=== PATIENT | female | born 1955 | race Caucasian/White ===

== ENCOUNTER 2023-12-16 12:56 | Outpatient (RCR) | payer OTHER, SELFPAY | END 2023-12-17 11:15 | disposition home or self-care (01) | LOC: OT 12:56 | PROVIDERS: PCP Family Medicine; Visit Provider Family Medicine | DX: G80.3 Athetoid cerebral palsy (principal); R53.1 Weakness; Z99.3 Dependence on wheelchair; R26.81 Unsteadiness on feet | CPT/HCPCS: 97165 ==

== ENCOUNTER 2024-01-19 12:29 | Outpatient (REF) | payer OTHER, SELFPAY | END 2024-01-19 12:30 | disposition home or self-care (01) | LOC: LAB 12:29 | PROVIDERS: PCP Family Medicine; Visit Provider Family Medicine | DX: K52.9 Noninfective gastroenteritis and colitis, unspecified (principal) | CPT/HCPCS: 87045; 87046; 87427 ==

== ENCOUNTER 2024-05-16 09:34 | Outpatient (OUT) | payer OTHER, SELFPAY ==
--- OUTSIDE RECORDS SUMMARY | 2024-05-16 09:39 | XMS_ITS | CCD ---
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 Name Role Phone DEREK ., DR ESPINOZA Admitting Unavailable HEMEYER ., DR ESPINOZA Attending Unavailable HEMEYER ., DR ESPINOZA Primary Care Unavailable HEMEYER ., DR ESPINOZA Attending Unavailable HEMEYER ., DR ESPINOZA Consulting Unavailable HEMEYER ., DR ESPINOZA Primary Care Unavailable HEMEYER ., DR ESPINOZA Admitting Unavailable HAMBURG, DR VICKI Fulton Consulting Unavailable HEMEYER ., DR ESPINOZA Admitting Unavailable HEMEYER ., DR ESPINOZA Attending Unavailable HEMEYER ., DR ESPINOZA Consulting Unavailable HEMEYER ., DR ESPINOZA Primary Care Unavailable SYBIL, DR RENARD Vincent Consulting Unavailable SUKHJINDER, DR ESTUARDO Sim Attending Unavailnahid CANCHOLA, DR WAYNE Vincent Consulting Unavailable SUKHJINDER, DR ESTUARDO Sim Admitting Unavailnahid e DEREK ., DR ESPINOZA Primary Care Unavailable SUKHJINDER, DR ESTUARDO Sim Consulting UnavailBEATRIZ Nash Consulting Unavailable DEREK, OLGA Grace Attending Unavailable DEREK, OLGA Grace Attending Unavailable Medications Current Medications Medication Drug Class(es) Dates Sig (Normalized) Sig (Original) ALPRAZolam 0.25 mg oral tablet (2 sources) Benzodiazepine Start: 04-10-2024 take 0.5-1 tablets by mouth three times daily as needed Alprazolam Active 0 PO Three times daily April 10, 2024 12:00am 0.5-1 tablet orally three times daily PRN; azithromycin 250 mg oral tablet (1 source) Macrolide Antimicrobial Start: 04-16-2024 Azithromycin Active 250 MG PO daily 6 5 April 16, 2024 12:00am take 2 today and then 1 for the next 4 days. baclofen 10 mg oral tablet (4 sources) gamma-Aminobutyric Acid-ergic Agonist Start: 04-10-2024 End: 04-10-2024 Baclofen Active 0 PO Three times daily 120 30 April 10, 2024 1:56pm 1 tablet in AM, 1 tablet at noon, and 2 tablets at bedtime orally three times daily; benzonatate 200 mg oral capsule (1 source) Non-narcotic Antitussive Start: 04-16-2024 take 200 mg by mouth three times daily Benzonatate Active 200 MG PO Three times daily 22 08April 16, 2024 12:00am escitalopram 10 mg oral tablet (4 sources) Serotonin Reuptake Inhibitor Start: 04-10-2024 End: 04-10-2024 take 10 mg by mouth once daily Escitalopram Oxalate Active 10 MG PO Daily April 10, 2024 2:02pm 24 hr metoprolol succinate 25 mg extended release oral tablet (4 sources) beta-Adrenergic Ricardo Start: 04-10-2024 End: 04-10-2024 take 25 mg by mouth once daily Metoprolol Succinate Active 25 MG PO Daily April 10, 2024 2:03pm zolpidem tartrate 10 mg oral tablet (2 sources) gamma-Aminobutyric Acid-ergic Agonist Start: 04-10-2024 take 10 mg by mouth once daily at bedtime Zolpidem Active 10 MG PO Daily at bedtime April 10, 2024 12:00am Problems Active Problems Problem Classification Problem Date Documented Date Episodic/Chronic Anxiety disorders (6 sources) Generalized anxiety disorder; Translations: [Generalized anxiety disorder] 04-10-2024 Chronic Cardiac dysrhythmias (2 sources) Cardiac arrhythmia; Translations: [Cardiac arrhythmia, unspecified] 04-10-2024 Chronic Chronic obstructive pulmonary disease and bronchiectasis (2 sources) Bronchitis; Translations: [Bronchitis, not specified as acute or chronic] 04-16-2024 Episodic Essential hypertension (4 sources) Hypertensive disorder; Translations: [Essential (primary) hypertension] 04-10-2024 Chronic Malaise and fatigue (1 source) Chronic fatigue, unspecified; Translations: [CHRONIC FATIGUE UNSPECIFIED] Onset: 04-23-2022 Chronic Menopausal disorders (1 source) Menopausal and female climacteric states; Translations: [MENOPAUSAL FE CLIMACTERIC STATES] Onset: 04-23-2022 Chronic Osteoporosis (1 source) Age-related osteoporosis without current pathological fracture; Translations: [AGE-REL OSTEOPOR W/O CURR PATH FX] Onset: 04-23-2022 Chronic Other hereditary and degenerative nervous system conditions (4 sources) Athetoid cerebral palsy; 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] Onset: 03-04-2023 Chronic Other nervous system disorders (1 source) Difficulty in walking, not elsewhere classified; Translations: [DIFFICULTY IN WALKING NEC] Onset: 03-07-2023 Chronic Other screening for suspected conditions (not mental disorders or infectious disease) (11 sources) Encounter for screening mammogram for malignant neoplasm of breast; Translations: [Encounter for screening for osteoporosis] Onset: 04-21-2022 Episodic Paralysis (5 sources) Cerebral palsy, unspecified; Translations: [Cerebral palsy] Onset: 06-22-2022 04-10-2024 Chronic Residual codes; unclassified (2 sources) Insomnia; Translations: [Insomnia, unspecified] 04-10-2024 Episodic Residual codes; unclassified (2 sources) Postmenopausal state; Translations: [Asymptomatic menopausal state] 04-10-2024 Episodic Residual codes; unclassified (1 source) Insomnia, unspecified; Translations: [Insomnia, unspecified] 04-10-2024 Episodic Substance-related disorders (5 sources) Nicotine dependence, cigarettes, uncomplicated; Translations: [NICOTINE DEPEND CIGARETTES UNCOMP] Onset: 06-22-2022 Chronic Unclassified (1 source) CONTACT W/AND (SUSP) EXPOS COVID-19; Translations: [CONTACT W/AND (SUSP) EXPOS COVID-19] Onset: 06-22-2022 Past or Other Problems Problem Classification Problem Date Documented Da te Episodic/Chronic Noninfectious gastroenteritis (1 source) Noninfective gastroenteritis and colitis, unspecified; Translations: [NONINFECTIVE GE AND COLITIS UNS] Onset: 06-22-2022 Episodic Other aftercare (1 source) Other nursing home (current) drug therapy; Translations: [OTH OILER BANDER CURRENT DRUG THERAPY] Onset: 06-22-2022 Episodic Other gastrointestinal disorders (3 sources) Diarrhea, unspecified; Translations: [DIARRHEA UNSPECIFIED] Onset: 2022 Episodic Other lower respiratory disease (1 source) Solitary pulmonary nodule; Translations: [SOLITARY PULMONARY NODULE] Onset: 07-11-2022 Episodic Residual codes; unclassified (1 source) Family history of malignant neoplasm of ovary; Translations: [FAM HX MALIGNANT NEOPLASM OVARY] Onset: 04-23-2022 Episodic Residual codes; unclassified (1 source) Family history of malignant neoplasm of other organs or systems; Translations: [FAM HX MALIG NEOPLASM OTH ORGN/SYS] Onset: 04-23-2022 Episodic Results Test Name Value Interpretation Reference Range Facil ity CT CHEST WO CONon 07-06-2022 CT CHEST WO CON EXAMINATION: CT CHES T WO CON HISTORY: Tobacco dependence caused by cigarettes COMPARISON: CT abdomen and pelvis 2022 TECHNIQUE: Axial, Coronal, and Sagittal images were created without the administration of IV contrast material. Dose reduction techniques were achieved by using automated exposure control and/or adjustment of mA and/or kV according to patient size and/or use of iterative reconstruction technique. FINDINGS: LUNGS: 5 mm pleural-based nodule within lateral basilar segment of right lower lobe. Stable 4 mm nodule within the lateral aspect of the lingula. Stable 6 mm nodule versus scarring within anterior left lung base adjacent the diaphragm. Mild emphysematous changes. No acute infiltrates. PLEURA: Left apical pleural scarring. No effusion or pneumothorax. VASCULATURE: No abnormality. TAMIKA: No mass or pathologic adenopathy. MEDIASTINUM: No mass or pathologic adenopathy. CARDIAC: No enlargement, pericardial thickening, or significant calcification. AORTA: No aneurysm or dissection. CHEST WALL: No mass or axillary adenopathy BONES: No bone lesion or fracture. LIMITED ABDOMEN: No suspicious findings. Limited images of the upper abdomen. OTHER: Negative. IMPRESSION: 1. Lung-RADS Category 3- Probably benign. Probably benign finding(s)- short term follow up suggested; includes nodules with a low likelihood of becoming a clinically active cancer. Six month LDCT. 2. A few small nodules within the lung bases, not overtly suspicious but no long-term stability is been demonstrated. 3. Mild emphysematous changes. Electronically authenticated by: RENARD DEVINE Date: 2022-07-06 14:09 Normal [facility] AMYLASEon 2022 Amylase [Catalytic activity/Vol] 52 U/L Normal 25-115 [facility] Comment on above: Performed By: #### L IPA, NUNO #### [facility] [address] [place] [address] Dr. Becca Marroquin CBC AUTO DIFFon 2022 BASO # 0.0 103/ul Normal 0.0-0.1 [facility] Comment on above: Performed By: #### C BC #### [facility] [address] [address] [address] Becca Marroquin Basophils/100 WBC (Bld) 0.3 % Normal 0.2-2.0 [facility] Comment on above: Performed By: #### C BC #### [facility] [address] [address] [address] Becca Marroquin EO # 0.0 103/ul Normal 0.0-0.7 [facility] Comment on above: Performed By: #### C BC #### [facility] [address] [address] [address] Becca Marroquin Eosinophils/100 WBC (Bld) 0.3 % Critically low 0.9-7.0 [facility] Comment on above: Performed By: #### C BC #### [facility] [address] [place] [address] Dr. Becca Marroquin Erythrocyte distribution width (RBC) [Ratio] 13.2 % Normal 11.0-15.0 [facility] Comment on above: Performed By: #### C BC #### [facility] [address] [place] [address] Dr. Becca Marroquin Hematocrit (Bld) [Volume fraction] 39.1 % Normal 36.0-48.0 [facility] Comment on above: Performed By: #### C BC #### [facility] [address] [place] [address] Dr. Becca Marroquin Hemoglobin (Bld) [Mass/Vol] 12.7 g/dL Normal 12.0-16.0 [facility] Comment on above: Performed By: #### C BC #### [facility] [address] [address] [address] Becca Marroquin IG # 0.06 10e3/ul Critically high 0.00-0.03 [facility] Comment on above: Performed By: #### C BC #### [facility] [address] [address] [address] Becca Marroquin IG % 0.5 % Normal 0.0-0.5 [facility] Comment on above: Performed By: #### C BC #### [facility] [address] [place] [address] Dr. Becca Marroquin LYMPH # 1.6 103/ul Normal 1.2-3.8 [facility] Comment on above: Performed By: #### C BC #### [facility] [address] [place] [address] Dr. Becca Marroquin Lymphocytes/100 WBC (Bld) 13.7 % Critically low 20.5-60.0 [facility] Comment on above: Performed By: #### C BC #### [facility] [address] [place] [address] Dr. Becca Marroquin MANUAL DIFF REQ NO Normal [facility] Comment on above: Performed By: #### C BC #### [facility] [address] [place] [address] Dr. Becca Marroquin MCH (RBC) [Entitic mass] 31.0 pg Normal 26.7-34.0 [facility] Comment on above: Performed By: #### C BC #### [facility] [address] [place] [address] Dr. Becca Marroquin MCHC (RBC) [Mass/Vol] 32.5 g/dL Normal 29.9-35.2 [facility] Comment on above: Performed By: #### C BC #### [facility] [address] [place] [address] Dr. Becca Marroquin MCV (RBC) [Entitic vol] 95.4 fL Normal 81.0-99.0 [facility] Comment on above: Performed By: #### C BC #### [facility] [address] [place] [address] Dr. Becca Marroquin MONO # 0.5 103/ul Normal 0.3-0.8 [facility] Comment on above: Performed By: #### C BC #### [facility] [address] [place] [address] Dr. Becca Marroquin Monocytes/100 WBC (Bld) 4.0 % Normal 1.7-12.0 [facility] Comment on above: Performed By: #### C BC #### [facility] [address] [place] [address] Dr. Becca Marroquin NEUT # 9.4 103/ul Critically high 1.4-6.5 [facility] Comment on above: Performed By: #### C BC #### [facility] [address] [place] [address] Dr. Becca Marroquin Neutrophils/100 WBC (Bld) 81.2 % Critically high 43.0-75.0 [facility] Comment on above: Performed By: #### C BC #### [facility] [address] [place] [address] Dr. Becca Marroquin Platelet mean volume (Bld) [Entitic vol] 10.2 fL Normal 9.5-13.5 [facility] Comment on above: Performed By: #### C BC #### [facility] [address] [place] [address] Dr. Becca Marroquin PLT 163 103/ul Normal 150-450 [facility] Comment on above: Performed By: #### C BC #### [facility] [address] [place] [address] Dr. Becca Marroquin RBC 4.10 106/ul Critically low 4.20-5.40 [facility] Comment on above: Performed By: #### C BC #### [facility] [address] [place] [address] Dr. Becca Marroquin WBC 11.6 103/ul Critically high 4.0-11.0 [facility] Comment on above: Performed By: #### C BC #### [facility] [address] [place] [address] ABD/PELV W CONon 06-20-20 CT ABD/PELV W CON EXAM: CT SCAN OF THE ABDOMEN AND PELVIS WITH INTRAVENOUS CONTRAST DATE OF EXAM: 2022 6:30 PM EDT HISTORY: 67-year-old female with abdominal pain and vomiting. COMPARISON: None. TECHNIQUE: CT examination of the abdomen and pelvis was performed following the intravenous administration of IV contrast. CT dose lowering techniques were used, to include: automated exposure control, adjustment for patient size, and/or use of iterative reconstruction. Contrast: 80 mL Isovue-300 FINDINGS: Lines and Tubes: None Lower Chest: Lung bases demonstrate bibasilar atelectasis. On axial image 7 there is a 4 mm pulmonary nodule in the anterior left lingula. On axial image 11 there is a 6.5 mm pulmonary nodule LLL. Free Air: None. Liver: Normal Gallbladder: Normal Common Bile Duct: Normal Pancreas: Normal Spleen: Normal Adrenal Glands: Right: Normal Left: Normal Kidneys: Right Kidney: Normal. Right Ureter: Ureter not well visualized due to volume averaging with bowel and pelvic organs. Left Kidney: Normal. Left Ureter: Normal. GI Tract: Stomach: The stomach is fluid-filled. There is some high attenuating probable barium and/or contrast which is demonstrated layering along the posterior stomach. Small Bowel: Normal Appendix: Normal on axial image 75 Large Bowel: Normal Mesentery/Peritoneum: Normal Vasculature: Aorta: Normal. IVC: Normal. Alix Vein: Normal. Retroperitoneum: Normal Abdominal/Pelvic Wall: Normal Bladder: Normal Reproductive: The uterus is retroflexed Musculoskeletal: Normal Free Fluid: There is a small amount of free fluid in the cul-de-sac, within physiologic limits of normal. IMPRESSION: 1. Fluid-filled small bowel measures within normal. Please correlate for viral etiology. 2. Pulmonary nodules incompletely imaged. Outpatient CT scan of the chest would help better delineate to be able to evaluate the remainder of the lungs for nodules. 3. High attenuating material seen within the stomach and within the cecum may represent some barium and/or contrast. Please correlate with patient's recent by mouth history. Less likely would be etiology such as blood. 4. Normal appendix. Electronically authenticated by: BEATRIZ VAZQUEZ Date: 2022 21:24 Normal [facility] Covid-19 PCR (CVDTB)on 05-25 SARS-CoV-2 (COVID-19) RNA RON+probe Ql (Unsp spec) Not detected Normal NOT DETECTED [facility] Comment on above: Result Comment: When diagnostic testing is negative, the possibility of a false negative should be considered in the context of a patient's recent exposures and the presence of clinical signs and symptoms consistent with SARS-CoV-2. This test is not yet approved or cleared by the [place] FDA. When there are no FDA-approved or cleared tests available, and other criteria are met, FDA can make tests available under an emergency access mechanism called an Emergency Use Authorization (EUA). The EUA for this test is supported by the [place] of Health and Human Service's declaration that circumstances exist to justify the emergency use of in vitro diagnostics for the detection and/or diagnosis of the virus that causes COVID-19. This EUA will remain in effect for the duration of the COVID-19 declaration justifying emergency of IVDs, unless it is terminated or revoked by the FDA (after which the test may no longer be used). Performed By: #### C VDTBH #### [facility] [address] [place] [address] Dr. Becca Marroquin GI PANEL (PCR)on 2022 Adenovirus F 40/41 Not detected Normal NOT DETECTED [facility] Comment on above: Performed By: #### G IPANEL #### [facility] [address] [place] [address] Dr. Becca Marroquin Astrovirus Not detected Normal NOT DETECTED [facility] Comment on above: Performed By: #### G IPANEL #### [facility] [address] [place] [address] Dr. Becca Lema. Diff toxin A/B Not detected Normal NOT DETECTED [facility] Comment on above: Performed By: #### G IPANEL #### [facility] [address] [place] [address] Dr. Becca Marroquin Campylobacter Not detected Normal NOT DETECTED [facility] Comment on above: Performed By: #### G IPANEL #### [facility] [address] [place] [address] Dr. Becca Marroquin Cryptosporidium Not detected Normal NOT DETECTED [facility] Comment on above: Performed By: #### G IPANEL #### [facility] [address] [place] [address] Dr. Becca Marroquin Cyclos. Cayetanensis Not detected Normal NOT DETECTED [facility] Comment on above: Performed By: #### G IPANEL #### [facility] [address] [place] [address] Dr. Becca Marroquin E. Coli O157 Not Applicable Normal Not Applicable [facility] Comment on above: Performed By: #### G IPANEL #### [facility] [address] [place] [address] Dr. Becca Marroquin E. histolytica Not detected Normal NOT DETECTED [facility] Comment on above: Performed By: #### G IPANEL #### [facility] [address] [place] [address] Dr. Becca Marroquin EAEC Not detected Normal NOT DETECTED [facility] Comment on above: Performed By: #### G IPANEL #### [facility] [address] [place] [address] Dr. Becca Marroquin EIEC Not detected Normal NOT DETECTED [facility] Comment on above: Performed By: #### G IPANEL #### [facility] [address] [place] [address] Dr. Becca Marroquin EPEC Not detected Normal NOT DETECTED [facility] Comment on above: Performed By: #### G IPANEL #### [facility] [address] [place] [address] Dr. Becca Marroquin ETEC Not detected Normal NOT DETECTED [facility] Comment on above: Performed By: #### G IPANEL #### [facility] [address] [place] [address] Dr. Becca Moore Lamblia Not detected Normal NOT DETECTED [facility] Comment on above: Performed By: #### G IPANEL #### [facility] [address] [place] [address] Dr. Becca ASTUDILLO CONTROLS PASSED Normal [facility] Comment on above: Performed By: #### G IPANEL #### [facility] [address] [place] [address] Dr. Becca GORDON JASON HEADER GI PANEL BACTERIA Normal [facility] Comment on above: Performed By: #### G IPANEL #### [facility] [address] [place] [address] Dr. Becca GORDONHD ECOLI GI PANEL DIARRHEAGEN IC E.COLI / SHIGELLA Normal [facility] Comment on above: Performed By: #### G IPANEL #### [facility] [address] [place] [address] Dr. Becca MORENO INFO SEE BELOW Normal [facility] Comment on above: Result Comment: EAEC - Enteroaggregative E. Coli EPEC- Enteropathogenic E. Coli ETEC- Enterotoxigenic E. Coli lt/st STEC- Shigella-like toxin-producing E. Coli stx1/stx2 EIEC- Shigella/Enteroinvasive E. Coli Performed By: #### G IPANEL #### [facility] [address] [place] [address] Dr. Becca MORENO PARASITES GI PANEL PARASITES Normal [facility] Comment on above: Performed By: #### G IPANEL #### [facility] [address] [place] [address] Dr. Becca MORENO VIRUS GI PANEL VIRUSES Normal [facility] Comment on above: Performed By: #### G IPANEL #### [facility] [address] [place] [address] Dr. Becca Marroquin Norovirus GI/GII Not detected Normal NOT DETECTED [facility] Comment on above: Performed By: #### G IPANEL #### [facility] [address] [place] [address] Dr. Becca Marroquin P. Shigelloides Not detected Normal NOT DETECTED [facility] Comment on above: Performed By: #### G IPANEL #### [facility] [address] [place] [address] Dr. Becca Marroquin Rotavirus A Not detected Normal NOT DETECTED [facility] Comment on above: Performed By: #### G IPANEL #### [facility] [address] [place] [address] Dr. Becca Marroquin Salmonella Not detected Normal NOT DETECTED [facility] Comment on above: Performed By: #### G IPANEL #### [facility] [address] [place] [address] Dr. Becca Marroquin Sapovirus Not detected Normal NOT DETECTED [facility] Comment on above: Performed By: #### G IPANEL #### [facility] [address] [place] [address] Dr. Becca Marroquin STEC Not detected Normal NOT DETECTED [facility] Comment on above: Performed By: #### G IPANEL #### [facility] [address] [place] [address] Dr. Becca Marroquin Vibrio Not detected Normal NOT DETECTED [facility] Comment on above: Performed By: #### G IPANEL #### [facility] [address] [address] [address] Becca Marroquin Vibrio Cholera Not detected Normal NOT DETECTED [facility] Comment on above: Performed By: #### G IPANEL #### [facility] [address] [place] [address] Dr. Becca Marroquin Y. Enterocolitica Not detected Normal NOT DETECTED [facility] Comment on above: Performed By: #### G IPANEL #### [facility] [address] [place] [address] Dr. Becca Marroquin LIPASEon 2022 Lipase [Catalytic activity/Vol] 84.0 U/L Normal 73.0-393.0 [facility] Comment on above: Performed By: #### L IPA, NUNO #### [facility] [address] [place] [address] Dr. Becca Marroquin PROF 14(COMP METB)on 022 Albumin [Mass/Vol] 3.6 g/dL Normal 3.4-5.0 [facility] Comment on above: Performed By: #### C MP ####[facility] [address] [place] [address]Dr. Becca Marroquin Albumin/Globulin [Mass ratio] 1.4 {ratio} Normal [facility] Comment on above: Performed By: #### C MP ####[facility] [address] [place] [address]Dr. Becca Marroquin ALP [Catalytic activity/Vol] 66 U/L Normal 46-116 [facility] Comment on above: Performed By: #### C MP ####[facility] [address] [place] [address]Dr. Becca Marroquin ALT [Catalytic activity/Vol] 24 U/L Normal 14-59 [facility] Comment on above: Performed By: #### C MP ####[facility] [address] [place] [phone]. Becca Marroquin Anion gap [Moles/Vol] 11.2 mmol/L Normal [facility] Comment on above: Performed By: #### C MP ####[facility] [address] [place] [phone]. Becca Marroquin AST [Catalytic activity/Vol] 21 U/L Normal 15-37 [facility] Comment on above: Performed By: #### C MP ####[facility] [address] [place] [phone]. Becca Lopez Bilirubin [Mass/Vol] 0.3 mg/dL Normal 0.2-1.0 [facility] Comment on above: Performed By: #### C MP ####[facility] [address] [place] [address]Dr. Becca Marroquin Calcium [Mass/Vol] 8.0 mg/dL Critically low 8.5-10.1 [facility] Comment on above: Performed By: #### C MP ####[facility] [address]zp[address]xvers[address] [place] [phone]. Becca Marroquin Chloride [Moles/Vol] 110 mmol/L Critically high 98-107 [facility] Comment on above: Performed By: #### C MP ####[facility] [address] [place] [phone]. Dalilanaga Lopez CO2 [Moles/Vol] 25.2 mmol/L Normal 21.0-32.0 [facility] Comment on above: Performed By: #### C MP ####[facility] [address] [place] [phone]. Dalilanaga Marroquin Creatinine [Mass/Vol] 0.61 mg/dL Normal 0.55-1.02 [facility] Comment on above: Performed By: #### C MP ####[facility] [address] [place] [phone]. Becca Marroquin EGFR-AF KAZAKH >60 Normal >=60 [facility] Comment on above: Performed By: #### C MP ####[facility] [address] [place] [phone]. Becca Marroquin EGFR-NON AF KAZAKH >60 Normal >=60 [facility] Comment on above: Performed By: #### C MP ####[facility] [address] [place] [phone]. Becca Marroquin Globulin (S) [Mass/Vol] 2.6 g/dL Normal [facility] Comment on above: Performed By: #### C MP ####[facility] [address]es[address]rmcc[address] [place] [address]Dr. Becca Marroquin Glucose [Mass/Vol] 119 mg/dL Critically high 74-106 [facility] Comment on above: Performed By: #### C MP ####[facility] [address]sp[address] [place] [address]Dr. Becca Marroquin Potassium [Moles/Vol] 4.4 mmol/L Normal 3.5-5.1 [facility] Comment on above: Performed By: #### C MP ####[facility] [address] [place], [place] [address]Dr. Becca Marroquin Protein [Mass/Vol] 6.2 g/dL Critically low 6.4-8.2 Th [facility] Comment on above: Performed By: #### C MP ####[facility] [address] [place], [place] [address]Dr. Becca Marroquin Sodium [Moles/Vol] 142 mmol/L Normal 136-145 [facility] Comment on above: Performed By: #### C MP ####[facility] [address] [place] [address]Dr. Becca Marroquin Urea nitrogen [Mass/Vol] 16.0 mg/dL Normal 7.0-18.0 [facility] Comment on above: Performed By: #### C MP ####[facility] [address] [place] [address]Dr. Becca Marroquin Urea nitrogen/Creatinine [Mass ratio] 26.2 mg/mg Normal [facility] Comment on above: Performed By: #### C MP ####[facility] [address] [place], [place] [address]NqEtta Marroquin FREE T3on 04-21-2022 FREE T3 2.50 pg/mlL Normal 2.18-3.98 [facility] Comment on above: Performed By: #### L IPID, TSH, CMP, FT3 ####[facility] [address] [place], [place] [address]Ah. Becca Marroquin FREE T4on 04-21-2022 Free T4 [Mass/Vol] 1.14 ng/dL Normal 0.76-1.46 [facility] Comment on above: Performed By: #### F T4 #### [facility] [address] [place], [place] [address] Dr. Becca Marroquin LIPID PROFILEon 04-21-2022 CHOL-HDL RATIO NORM SEE BELOW Normal [facility] Comment on above: Result Comment: 3.3 - 4.4 LOW RISK 4.4 - 7.1 AVERAGE RISK 7.1 - 11.0 MODERATE RISK >11.0 HIGH RISK Performed By: #### L IPID, TSH, CMP, FT3 ####[facility] [address] [place], [place] [address]Mh. Becca Marroquin Cholesterol [Mass/Vol] 182 mg/dL Normal <=200 [facility] Comment on above: Performed By: #### L IPID, TSH, CMP, FT3 ####[facility] [address] [place], [place] [address]BfEtta Marroquin Cholesterol in HDL [Mass/Vol] 73 mg/dL Critically high 40-60 [facility] Comment on above: Performed By: #### L IPID, TSH, CMP, FT3 ####[facility] [address] [place], [place] [address]Lv. Becca Marroquin Cholesterol in LDL [Mass/Vol] 99.0 mg/dL Normal [facility] Comment on above: Performed By: #### L IPID, TSH, CMP, FT3 ####[facility] [address] [place], [place] [address]QlEtta Marroquin Cholesterol.total/Ch olesterol in HDL [Mass ratio] 2.5 {ratio} Normal [facility] Comment on above: Performed By: #### L IPID, TSH, CMP, FT3 ####[facility] [address] [place] [phone]. Becca Marroquin HDL NORMAL > or = 60 mg/dl - LO W CARDIOVASCULAR RISK <40 mg/dl - HIGH CARDIOVASCULAR RISK Normal [facility] Comment on above: Performed By: #### L IPID, TSH, CMP, FT3 ####[facility] [address] [place] [phone]. Becca Marroquin LDL CALC NORMAL SEE BELOW Normal [facility] Comment on above: Result Comment: <100 mg/dl OPTIMAL 100 - 129 mg/dl NEAR OR ABOVE OPTIMAL 130 - 159 mg/dl BORDERLINE HIGH 160 - 189 mg/dl HIGH >190 mg/dl VERY HIGH Performed By: #### L IPID, TSH, CMP, FT3 ####[facility] [address] [place] [address]Dr. Bceca Marroquin Triglyceride [Mass/Vol] 50 mg/dL Normal <=150 [facility] Comment on above: Performed By: #### L IPID, TSH, CMP, FT3 ####[facility] [address] [place] [address]Dr. Becca Marroquin VLDL CALC 10.0 mg/dL Normal [facility] Comment on above: Performed By: #### L IPID, TSH, CMP, FT3 ####[facility] [address] [place] [address]Dr. Becca Marroquin MG MAMM SCREEN GET W CADon 0 04-21-2022 MG MAMM SCREEN GET W CAD Patient: LORENA BARAHONA Exam Date: 04/21/2022 : 1955 Gender:F Ordering : DR OLGA REED . Admission #: [id number] Family : Order #: [id number] CLICK HERE TO VIEW EXAM RADIOLOGY REPORT PROCEDURE: MAMMOGRAM BILATERAL SCREENING DIGITAL WITH COMPUTER AIDED DETECTION COMPARISON: MAMMO SCREEN DIG GET, 11/02/2011. MG MAMM SCREEN GET W CAD, 11/29/2017. INDICATIONS: Screening mammography Calculator Name NCI Breast Cancer Risk Assessment Tool 5 Year Breast Cancer Risk 1.60% Lifetime Breast Cancer Risk 5.80% Personal Breast Cancer No Personal Ovarian Cancer No Treatments None Family Cancers Mother with ovarian cancer at age 52; Aunt-maternal with pancreas cancer at age 60. LOCATION: [facility] BREAST COMPOSITION: Heterogeneously dense,which may obscure small masses. FINDINGS: DIAGNOSTIC CATEGORY 2--BENIGN FINDING. NO CHANGE FROM COMPARISON. Limited non tomographic exam with difficulty positioning the patient from cerebral palsy. Scattered benign-appearing calcifications are present. RIGHT BREAST: No significant suspicious finding. LEFT BREAST: No significant suspicious finding. RECOMMENDATIONS: ROUTINE MAMMOGRAM AND CLINICAL EVALUATION IN 12 MONTHS. PLEASE NOTE: A NORMAL MAMMOGRAM DOES NOT EXCLUDE THE POSSIBILITY OF BREAST CANCER. A CLINICALLY SUSPICIOUS PALPABLE LUMP SHOULD BE BIOPSIED. Dictated by: Vicki Lopez MD on 04/21/2022 at 10:58 Approved by: Vicki Lopez MD on 04/21/2022 at 11:17 Normal [facility] PROF 14(COMP METB)on 022 Albumin [Mass/Vol] 4.2 g/dL Normal 3.4-5.0 [facility] Comment on above: Performed By: #### L IPID, TSH, CMP, FT3 ####[facility] [address] [place] [address]Dr. Becca Marroquin Albumin/Globulin [Mass ratio] 1.3 {ratio} Normal [facility] Comment on above: Performed By: #### L IPID, TSH, CMP, FT3 ####[facility] [address] [place] [phone]. Becca Marroquin ALP [Catalytic activity/Vol] 63 U/L Normal 46-116 [facility] Comment on above: Performed By: #### L IPID, TSH, CMP, FT3 ####[facility] [address] [place] [phone]. Becca Marroquin ALT [Catalytic activity/Vol] 29 U/L Normal 14-59 [facility] Comment on above: Performed By: #### L IPID, TSH, CMP, FT3 ####[facility] [address] [place] [phone]. Becca Marroquin Anion gap [Moles/Vol] 10.5 mmol/L Normal [facility] Comment on above: Performed By: #### L IPID, TSH, CMP, FT3 ####[facility] L[address]fs[address]ogkx20[address] [place] [address]Dr. Becca Marroquin AST [Catalytic activity/Vol] 21 U/L Normal 15-37 [facility] Comment on above: Performed By: #### L IPID, TSH, CMP, FT3 ####[facility] [address] [place], [place] [address]Dr. Becca Marroquin Bilirubin [Mass/Vol] 0.7 mg/dL Normal 0.2-1.0 [facility] Comment on above: Performed By: #### L IPID, TSH, CMP, FT3 ####[facility] [address] [place], [place] [address]Dr. Becca Marroquin Calcium [Mass/Vol] 8.9 mg/dL Normal 8.5-10.1 [facility] Comment on above: Performed By: #### L IPID, TSH, CMP, FT3 ####[facility] [address] [place], [place] [address]Dr. Becca Marroquin Chloride [Moles/Vol] 102 mmol/L Normal 98-107 [facility] Comment on above: Performed By: #### L IPID, TSH, CMP, FT3 ####[facility] [address]ch[address] [place] [address]Dr. Becca Marroquin CO2 [Moles/Vol] 25.4 mmol/L Normal 21.0-32.0 [facility] Comment on above: Performed By: #### L IPID, TSH, CMP, FT3 ####[facility] [address] [place], [place] [address]Dr. Becca Marroquin Creatinine [Mass/Vol] 0.56 mg/dL Normal 0.55-1.02 [facility] Comment on above: Performed By: #### L IPID, TSH, CMP, FT3 ####[facility] [address] [place] [address]Dr. Becca Marroquin EGFR-AF KAZAKH >60 Normal >=60 [facility] Comment on above: Performed By: #### L IPID, TSH, CMP, FT3 ####[facility] [address] [place] [address]Dr. Becca Marroquin EGFR-NON AF KAZAKH >60 Normal >=60 [facility] Comment on above: Performed By: #### L IPID, TSH, CMP, FT3 ####[facility] Y[address]fexq[address] [place] [address]Dr. Becca Marroquin Globulin (S) [Mass/Vol] 3.2 g/dL Normal [facility] Comment on above: Performed By: #### L IPID, TSH, CMP, FT3 ####[facility] [address] [place], [place] [address]Dr. Becca Marroquin Glucose [Mass/Vol] 65 mg/dL Critically low 74-106 [facility] Comment on above: Performed By: #### L IPID, TSH, CMP, FT3 ####[facility] [address] [place], [place] [address]Dr. Becca Marroquin Potassium [Moles/Vol] 3.9 mmol/L Normal 3.5-5.1 [facility] Comment on above: Performed By: #### L IPID, TSH, CMP, FT3 ####[facility] [address] [place], [place] [address]Dr. Becca Marroquin Protein [Mass/Vol] 7.4 g/dL Normal 6.4-8.2 [facility] Comment on above: Performed By: #### L IPID, TSH, CMP, FT3 ####[facility] [address] [place], [place] [address]Dr. Becca Marroquin Sodium [Moles/Vol] 134 mmol/L Critically low 136-145 [facility] Comment on above: Performed By: #### L IPID, TSH, CMP, FT3 ####[facility] [address] [place] [address]Dr. Becca Marroquin Urea nitrogen [Mass/Vol] 15.0 mg/dL Normal 7.0-18.0 [facility] Comment on above: Performed By: #### L IPID, TSH, CMP, FT3 ####[facility] [address] [place], [place] [address]Ai. Becca Marroquin Urea nitrogen/Creatinine [Mass ratio] 26.8 mg/mg Normal [facility] Comment on above: Performed By: #### L IPID, TSH, CMP, FT3 ####[facility] [address] [place], [place] [address]Ph. Becca Marroquin TSHon 04-21-2022 TSH 0.888 uIU/mL Normal 0.358-3.740 [facility] Comment on above: Performed By: #### L IPID, TSH, CMP, FT3 ####[facility] [address] [place], [place] [address]Qz. Becca Marroquin XR DEXA BONE DENSITYon 04-21 XR DEXA BONE DENSITY EXAMINATION: XR DEX A BONE DENSITY, 04/21/2022 9:26 AM EDT HISTORY: Screening for osteoporosis COMPARISON: 2011 TECHNIQUE: Dual-energy X-ray absorptiometry (DEXA) bone density study performed for the axial skeleton. FINDINGS: Bone mineral density AP spine spine L1-L4 measures 1.001 g/sq cm. T score -1.5. WHO classification: Osteopenia Lowest bone mineral density right femoral trochanter measuring 0.513 g/sq cm. T score -2.9. WHO classification: Osteoporosis IMPRESSION: Osteoporosis. High fracture risk Electronically authenticated by: VICKI LOPEZ Date: 2022-04-21 16:51 Normal [facility] Vital Signs Date Time Vital Sign Value Performing Clinician Anita meadows 04-10-2024 13:040 Body height 147.32 cm [facility] 04-10-2024 13:0400 Body mass index (BMI) [Ratio] 20.7 kg/m2 [facility] 04-10-2024 13:040 Body weight 44.96 kg [facility] 04-10-2024 13:29040 Diastolic blood pressure 88 mm[Hg] [facility] 04-10-2024 13:290400 Heart rate 67 /min [facility] 04-10-2024 13:040 SaO2% (BldA) [Mass fraction] 98 % [facility] 04-10-2024 13:290400 Systolic blood pressure 148 mm[Hg] [facility] Encounters Encounter Date Encounter Type Care Provider Facility Start: 04-16-2024 End: 04-16-2024 ambulatory [facility] Work Phone: Start: 04-16-2024 End: 04-16-2024 Patient encounter procedure [facility] Work Phone: Start: 04-10-2024 End: 04-10-2024 ambulatory [facility] Work Phone: Start: 04-10-2024 End: 04-10-2024 Patient encounter procedure [facility] Work Phone: Start: 03-05-2024 Non-patient / Non-visit [facility] Work Phone: Start: 01-18-2024 End: 01-18-2024 ambulatory OLGA REED Not Available Start: 10-06-2023 End: 10-06-2023 ambulatory OLGA REED Not Available Start: 03-04-2023 End: 03-23-[address] OLGA REED . Facility: Start: 07-06-2022 End: 07-07-[address] OLGA REED . Facility: Start: 2022 End: [address] ESTUARDO SLAUGHTRE Facility: Start: 04-21-2022 End: 04-22-[address] OLGA REED . Facility: Plan of Treatment Date Care Activity Detail Author Comprehensive metabo lic 2000 panel - Serum or Plasma [facility] enter DXA Skeletal system. axial Views for bone density [facility] enter MG Breast - bilateral Screening [facility] Payers Date Payer Category Payer Unknown [id number] 1955 Unknown [id number] 2.16.84 [id number] 1955 Unknown [id number] 2.16.84 [id number] 1955 Unknown [id number] 2.16.84 [id number] 1955 Unknown [id number] 2.16.84 [id number] 1955 Unknown [id number] 2.16.84 [id number] 1955 Unknown [id number] Social History Date Type Detail Facility Start: 04-10-2024 Tobacco smoking stat [facility] Current some day smoker [facility] Start: 1955 Sex Assigned At Female F [facility] Evaluation note Note Date & Type Note Facility Evaluation note Diagnosis Onset Date Cerebral palsy acute Generalized anxiety disorder acute Hypertension acute [facility] Work Phone: Evaluation note Note Date & Type Note Facility Evaluation note Diagnosis Onset Date Cerebral palsy acute Generalized anxiety disorder acute Hypertension acute Insomnia acute Bronchitis acute [facility] Work Phone: Summary Purpose Family History Relationship Condition Age at Onset Recorded Date/T claire father Heart disease Unknown Not Specified Malignant neoplasm Unknown Advance Directives Advance Directive Response Recorded Date/ Time Advance Directives No March 30 12:17pm Chief Complaint and Reason for Visit Chief Complaint Establish Reason for Visit Cerebral palsy Generalized anxiety disorder Hypertension Chief Complaint Establish [phone] cough, congestion, fever Reason for Visit Cerebral palsy Generalized anxiety disorder Hypertension Insomnia Bronchitis Additional Source Comments INFORMATION SOURCE (unrecogn ized section and content) DATE CREATED AUTHOR 04/01/2023 [facility] DATE CREATED AUTHOR AUTHOR'S ORGANIZ ATION 01/19/2024 [facility] EPIC Care Teams (unrecognized sec tion and content) Team Status: Active Member Role Status Dates Ro Dennison APRN SQL DATABASE ADMINISTRATOR-C Primary Care Provider Active Team Status: Active Member Role Status Dates Kamar Gotti MD Attending Provider Active Start: March 05, 2024 Team Status: Inactive Member Role Status Dates Ro Dennison APRN SQL DATABASE ADMINISTRATOR-C Primary Care Provider, Attending Provider Active Start: April 10, 2024 End: April 10, 2024 Team Status: Inactive Member Role Status Dates Ro MAGALYS Dennison SQL DATABASE ADMINISTRATOR-C Primary Care Provider, Attending Provider Active Start: April 16, 2024 End: April 16, 2024 Goals (unrecognized section and content) Goals may be documented in a n alternate sectionGoals may be documented in an alternate section FOR RECORDS PERTAINING TO PATIENTS WHO ARE OR HAVE BEEN ENROLLED IN A CHEMICAL DEPENDENCY/SUBSTANCEABUSE PROGRAM, SOME INFORMATION MAY BE OMITTED. This clinical summary was aggregated from multiple sources. Caution should be exercised in using it in the provision of clinical care. This summary normalizes information from multiple sources, and as a consequence, information in this document may materially change the coding, format and clinical context of patient data. In addition, data may be omitted in some cases. CLINICAL DECISIONS SHOULD BE BASED ON THE PRIMARY CLINICAL RECORDS. [facility]. provides no warranty or guarantee of the accuracy or completeness of information in this document.
[2024-05-16 09:45] LABS: Basophils Absolute Auto 0.1 10^3/uL (0.0-0.1); Basophils Percent Auto 0.9 % (0.2-2.0); Eosinophils Absolute Auto 0.2 10^3/uL (0.0-0.7); Eosinophils Percent Auto 3.8 % (0.9-7.0); Hematocrit 41.5 % (36.0-48.0); Hemoglobin 13.6 g/dL (12.0-16.0); Immature Granulocytes Abs Auto 0.01 10^3/uL (0.00-0.03); Immature Granulocytes Pct Auto 0.2 % (0.0-0.5); Lymphocytes Absolute Auto 2.4 10^3/uL (1.2-3.8); Lymphocytes Percent Auto 43.2 % (20.5-60.0); Mean Corpuscular HGB Conc 32.8 g/dL (29.9-35.2); Mean Corpuscular Hemoglobin 30.2 pg (26.7-34.0); Mean Corpuscular Volume 92.2 fL (81.0-99.0); Mean Platelet Volume 10.1 fL (9.5-13.5); Monocytes Absolute Auto 0.5 10^3/uL (0.3-0.8); Monocytes Percent Auto 8.4 % (1.7-12.0); Neutrophils Absolute Auto 2.4 10^3/uL (1.4-6.5); Neutrophils Percent Auto 43.5 % (43.0-75.0); Platelet Count 158 10^3/uL (150-450); Red Cell Distribution Width 13.2 % (11.0-15.0); White Blood Count 5.5 10^3/uL (4.0-11.0)
--- NOTE | 2024-05-16 09:49 | MM_ITS ---
Patient Name: SCOTTY KERN MR#: [id number] : 1955 Exam Date: 05/16/2024 Ordering Doctor: SKY MOONEY COMPUTER SUPPORT SPECIALIST INSTRUCTOR-C RADIOLOGY REPORT PROCEDURE: MM SCREENING MAMMO BI COMPARISON: MG MAMM SCREEN GET W CAD, 04/21/2022. INDICATIONS: Screening Calculator Name NCI Breast Cancer Risk Assessment Tool 5 Year Breast Cancer Risk 1.60% Lifetime Breast Cancer Risk 5.40% Personal Breast Cancer No Personal Ovarian Cancer No Treatments None Family Cancers Mother with ovarian cancer at age 52; Aunt-maternal with pancreas cancer at age 60. LOCATION: [facility] BREAST COMPOSITION: The breasts are heterogeneously dense,which may obscure small masses. FINDINGS: DIAGNOSTIC CATEGORY 2--BENIGN FINDING. NO CHANGE FROM COMPARISON. And exam secondary to the patient's cerebral palsy and difficulty positioning. Scattered benign-appearing calcifications are present. Scattered benign-appearing nodules are present. RIGHT BREAST: No significant suspicious finding. LEFT BREAST: No significant suspicious finding. RECOMMENDATIONS: ROUTINE MAMMOGRAM AND CLINICAL EVALUATION IN 12 MONTHS. PLEASE NOTE: A NORMAL MAMMOGRAM DOES NOT EXCLUDE THE POSSIBILITY OF BREAST CANCER. A CLINICALLY SUSPICIOUS PALPABLE LUMP SHOULD BE BIOPSIED. Dictated by: Dc Suggs MD on 05/16/2024 at 13:28 Approved by: Dc Suggs MD on 05/16/2024 at 13:29
--- NOTE | 2024-05-16 09:50 | XR_ITS ---
The [address] [address] Patient Name: SCOTTY KERN MRN: [id number] date: 1955 Sex: F Assigned Patient Location: [facility] Current Patient Location: Accession/Order Number: [id number] Exam Date: 05/16/2024 10:16 Report Date: 05/17/2024 07:29 At the request of: SKY MOONEY Procedure: XR DEXA axial skeleton EXAMINATION: XR DEXA axial skeleton, 05/16/2024 10:16 AM EDT HISTORY: Post Menopausal State COMPARISON: 2021, 2017, 2011 TECHNIQUE: Dual-energy X-ray absorptiometry (DEXA) bone density study performed for the axial skeleton. FINDINGS: Bone mineral density of the lumbar spine L1-L4 measures 0.980 g/sq cm. T score -1.7. Osteopenia. Bone mineral density right femoral trochanter measures 0.457 g/sq cm. T score -3.4. Osteoporosis XR/XR DEXA axial skeleton IMPRESSION: Osteoporosis. High fracture risk Pharmacologic treatment recommendations * No uniform recommendation applies to all patients. Management plans must be individualized. * Consider initiating pharmacologic treatment in postmenopausal women and men >= 50 years of age who have the following: Primary fracture prevention: * T-score <= - 2.5 at the femoral neck, total hip, lumbar spine, 33% radius (some uncertainty with existing data) by DXA. * Low bone mass (osteopenia: T-score between - 1.0 and - 2.5) at the femoral neck or total hip by DXA with a 10-year hip fracture risk >= 3% or a 10-year major osteoporosis-related fracture risk >= 20% (i.e., clinical vertebral, hip, forearm, or proximal humerus) based on the US-adapted FRAXregistered model. Secondary fracture prevention: * Fracture of the hip or vertebra regardless of BMD [4, 5]. * Fracture of proximal humerus, pelvis, or distal forearm in persons with low bone mass (osteopenia: T-score between - 1.0 and - 2.5). The decision to treat should be individualized in persons with a fracture of the proximal humerus, pelvis, or distal forearm who do not have osteopenia or low BMD [12, 13]. Valery MS, Emilee SL, Yasmine KL, Sawyer EM, Jennifer KG, Mccloud AJ, Miguelito ES. The clinician's guide to prevention and treatment of osteoporosis. Osteoporos Int. 2021;33(10):9497-2522. doi: 10.1007/d43539-799-20255-o. Epub 2021Feb 18. Erratum in: Osteoporos Int. 2021May 20;: PMID: [id number]; PMCID: [id number]. Electronically authenticated by: VICKI LOPEZ Date: 05/17/2024 07:29
[2024-05-16 10:13] LABS: Alanine Aminotransferase 26 U/L (14-59); Albumin Globulin Ratio 1.3; Albumin Level 3.9 g/dL (3.4-5.0); Alkaline Phosphatase 69 U/L (46-116); Aspartate Amino Transferase 25 U/L (15-37); BUN Creatinine Ratio 29.3; Bilirubin Total 0.6 mg/dL (0.2-1.0); Calcium 8.9 mg/dL (8.5-10.1); Carbon Dioxide 26.7 mmol/L (21.0-32.0); Chloride 107 mmol/L (98-107); Chol HDL Ratio 2.1; Cholesterol 183 mg/dL (<=200); Estimated GFR (African America >60 (>=60); Estimated GFR (Non-African Ame >60 (>=60); Glucose 79 mg/dL (74-106); HDL Cholesterol 87 mg/dL (40-60); Potassium 3.7 mmol/L (3.5-5.1); Sodium 144 mmol/L (136-145); Total Protein 6.9 g/dL (6.4-8.2); Triglycerides 35 mg/dL (<=150)
== END 2024-05-16 09:35 | disposition home or self-care (01) ==
LOC: MAMMO 09:34
PROVIDERS: PCP Nurse Practitioner Family; Visit Provider Nurse Practitioner Family
DX: Z12.31 Encounter for screening mammogram for malignant neoplasm of breast (principal); Z13.820 Encounter for screening for osteoporosis; Z78.0 Asymptomatic menopausal state; I10 Essential (primary) hypertension; Z80.41 Family history of malignant neoplasm of ovary; Z80.8 Family history of malignant neoplasm of other organs or systems
CPT/HCPCS: 36415; 77067; 77080; 80053; 80061; 85025

== ENCOUNTER 2024-11-10 07:48 | Inpatient (IN) | payer OTHER, SELFPAY ==
[2024-11-10] VITALS (17 sets, daily range): BP systolic 136–185; BP diastolic 80–97; PULSE 69–88; TEMP 36.7–37.1; O2SAT 92–99; BMI 20.9; BMI 18.4
--- NOTE | 2024-11-10 07:51 | XR_ITS ---
The [address] [address] Patient Name: CSOTTY KERN MRN: [id number] date: 1955 Sex: F Assigned Patient Location: ED.MAIN Current Patient Location: ED.MAIN Accession/Order Number: [id number] Exam Date: 11/10/2024 08:15 Report Date: 11/10/2024 08:46 At the request of: JASON ACOSTA Procedure: XR chest 1V EXAMINATION: XR chest 1V HISTORY: covid COMPARISON: No relevant comparison available. TECHNIQUE: AP portable FINDINGS: LUNGS: No significant pulmonary parenchymal abnormalities. VASCULATURE: No increased pulmonary vasculature. PLEURA: No pneumothorax, effusion, or pleural thickening. CARDIAC: No cardiomegaly or cardiac silhouette abnormality. MEDIASTINUM: No visible mass or adenopathy. BONES: No fracture or visible bone lesion. OTHER: Negative. XR/XR chest 1V IMPRESSION: No acute cardiopulmonary process Electronically authenticated by: VICKI LOPEZ Date: 11/10/2024 08:46
--- NOTE | 2024-11-10 07:53 | ED_ITS ---
HPI HPI - General Adult General Chief complaint: Weakness Stated complaint: WEAKNESS, FEVER, COVID + Time Seen by Provider: 11/10/24 07:49 History of Present Illness HPI narrative: Patient presents to ED complaining of generalized weakness. Patient states that she was diagnosed with COVID she thinks about 4 days ago her symptoms started. She said her sister tested her at home and everyone is sick and she tested positive as well. Patient has a history of cerebral palsy and is having difficulty with ambulation. She said when she gets sick like this her legs get very weak and shaky and she can no longer ambulate. She said she is also not keeping anything down anything she eats or drinks she is feels very nauseated and has had some vomiting. She has had a little bit of diarrhea as well. She is alert and oriented in no acute respite worried. She does take blood pressure medicine at night blood sugar slightly elevated here. Oxygen saturations normal. Patient is alert and answering questions appropriately Related Data Home Medications ?Medication ?Instructions ?Recorded ?Confirmed alprazolam 0.25 mg tablet 0.25 mg PO TID PRN anxiety 11/10/24 11/10/24 baclofen 10 mg tablet 10 mg PO BID 11/10/24 11/10/24 baclofen 10 mg tablet 20 mg PO .qhs 11/10/24 11/10/24 metoprolol succinate 25 mg 25 mg PO BEDTIME 11/10/24 11/10/24 tablet,extended release 24 hr zolpidem 10 mg tablet 10 mg PO .qhs 11/10/24 11/10/24 Allergies Allergy/AdvReac Type Severity Reaction Status Date / Time No Known Drug Allergies Allergy Verified 11/10/24 07:49 Opioid HPI Opioid Management Most Recent Opioid Data: Last Pain Scale 6 11/10/24 08:08 11/10/24 Last ED Pain Assessment 11/10/24 08:08 Review of Systems ROS Status of ROS 10 or more systems reviewed and unremark able except as noted in history and below [facility] Medical History (Updated 11/10/24 @ 09:48 by Ambar Hill DO) Anxiety ?F41.9 - Anxiety disorder, unspecified (ICD-10) Insomnia ?G47.00 - Insomnia, unspecified (ICD-10) Depression ?F32.A - Depression, unspecified (ICD-10) Hypertension ?I10 - Essential (primary) hypertension (ICD-10) Cerebral palsy ?G80.9 - Cerebral palsy, unspecified (ICD-10) Surgical History (Updated 11/10/24 @ 08:08 by Liliam العراقي RN) H/O foot surgery ?Z98.890 - Other specified postprocedural states (ICD-10) H/O knee surgery ?Z98.890 - Other specified postprocedural states (ICD-10) Exam Narrative Exam Narrative: General: alert, no acute distress Cardiovascular: regular rate and rhythm, normal peripheral perfusion. Respiratory: Lungs CTA, respirations non labored. Extremities: no deformity, no trauma. Weakness in bilateral lower extremities. Neurological: oriented x 4, LOC appropriate for age. Constitutional Vital Signs, click to edit/add: Last Vital Signs Temp 98.7 F 11/10/24 07:51 Pulse 83 11/10/24 08:53 Resp 18 11/10/24 08:53 BP 159/89 H 11/10/24 08:53 Pulse Ox 96 11/10/24 08:53 O2 Del Method Room Air 11/10/24 08:08 Course Vital Signs Vital signs: Vital Signs Temperature 98.7 F 11/10/24 07:51 Pulse Rate 83 11/10/24 07:51 Respiratory Rate 20 11/10/24 07:51 Blood Pressure 185/94 H 11/10/24 07:51 Pulse Oximetry 99 11/10/24 07:51 Oxygen Delivery Method Room Air 11/10/24 07:51 Temperature 98.7 F 11/10/24 07:51 Pulse Rate 83 11/10/24 08:53 Respiratory Rate 18 11/10/24 08:53 Blood Pressure 159/89 H 11/10/24 08:53 Pulse Oximetry 96 11/10/24 08:53 Oxygen Delivery Method Room Air 11/10/24 08:08 Medical Decision Making MDM Narrative Medical decision making narrative: Patient's labs are negative for acute findings. She is not in any respiratory distress. Patient does have a history of cerebral palsy and states anytime she gets sick it really knocks her down. She said she has been unable to ambulate at home and she has been in her bed. She is also had trouble keeping any food or water down. She usually ambulates on her own but is needed more assistance and has not really been able to get out of bed because of this. Due to the fact that she has been so weak and having difficulty eating and drinking she will be admitted for IV hydration and for her inability to ambulate. Patient is comfortable with care plan for admission. Dr. Suresh to ED to evaluate patient. He is comfortable with admission Differential Diagnosis Differential Diagnosis: Weakness, COVID, electrolyte abnormality Lab Data Lab results reviewed: Yes I reviewed the patient's lab results Labs: Lab Results 11/10/24 Range/Units 08:01 WBC 8.0 (4.0-11.0) 10^3/uL RBC 4.09 L (4.20-5.40) 10^6/uL Hgb 12.6 (12.0-16.0) g/dL Hct 37.1 (36.0-48.0) % MCV 90.7 (81.0-99.0) fL MCH 30.8 (26.7-34.0) pg MCHC 34.0 (29.9-35.2) g/dL RDW 12.8 (11.0-15.0) % Plt Count 186 (150-450) 10^3/uL MPV 10.7 (9.5-13.5) fL Neut % (Auto) 60.4 (43.0-75.0) % Lymph % (Auto) 30.7 (20.5-60.0) % Grayson % (Auto) 7.7 (1.7-12.0) % Eos % (Auto) 0.5 L (0.9-7.0) % Baso % (Auto) 0.4 (0.2-2.0) % Neut # (Auto) 4.8 (1.4-6.5) 10^3/uL Lymph # (Auto) 2.4 (1.2-3.8) 10^3/uL Grayson # (Auto) 0.6 (0.3-0.8) 10^3/uL Eos # (Auto) 0.0 (0.0-0.7) 10^3/uL Baso # (Auto) 0.0 (0.0-0.1) 10^3/uL Abs Immat Gran (auto) 0.02 (0.00-0.03) 10^3/uL Imm/Tot Granulo (auto) 0.3 (0.0-0.5) % Sodium 144 (136-145) mmol/L Potassium 3.6 (3.5-5.1) mmol/L Chloride 107 (98-107) mmol/L Carbon Dioxide 26.7 (21.0-32.0) mmol/L Anion Gap 13.9 BUN 13.0 (7.0-18.0) mg/dL Creatinine 0.54 L (0.55-1.02) mg/dL Est GFR ( Amer) >60 (>=60 mL/min/1.73m^2) Est GFR (Non-Af Amer) >60 (>=60 mL/min/1.73m^2) BUN/Creatinine Ratio 24.1 Glucose 100 (74-106) mg/dL Calcium 8.9 (8.5-10.1) mg/dL Total Bilirubin 0.8 (0.2-1.0) mg/dL AST 25 (15-37) U/L ALT 21 (14-59) U/L Alkaline Phosphatase 58 (46-116) U/L Total Protein 6.7 (6.4-8.2) g/dL Albumin 3.9 (3.4-5.0) g/dL Globulin 2.8 g/dL Albumin/Globulin Ratio 1.4 Imaging Data Chest x-ray: Radiologist's impression: ITS Impressions Chest X-Ray 11/10/24 07:51 IMPRESSION: No acute cardiopulmonary process Electronically authenticated by: VICKI LOPEZ Date: 11/10/2024 08:46 Discharge Plan Discharge Chief Complaint: Weakness Clinical Impression: COVID, Weakness Patient Disposition: Admitted as Observation Time of Disposition Decision: 09:48 Condition: Fair
[2024-11-10] MEDS: ONDANSETRON PF 4 MG/2 ML VIAL IV (07:56)
[2024-11-10] MEDS: 0.9 % SODIUM CHLORIDE 1,000 ML 1000 ML IV (07:56)
--- OUTSIDE RECORDS SUMMARY | 2024-11-10 08:03 | XMS_ITS | CCD ---
Author Organization [facility] Care Team Providers Care Butcher All Round Name Role Phone DEREK ., DR ESPINOZA Admitting Unavailable HEMEYER ., DR ESPINOZA Attending Unavailable HEMEYER ., DR ESPINOZA Primary Care Unavailable HEMEYER ., DR ESPINOZA Attending Unavailable HEMEYER ., DR ESPINOZA Consulting Unavailable HEMEYER ., DR ESPINOZA Primary Care Unavailable HEMEYER ., DR ESPINOZA Admitting Unavailable [place], DR VICKI Fulton Consulting Unavailable HEMEYER ., DR ESPINOZA Admitting Unavailable HEMEYER ., DR ESPINOZA Attending Unavailable HEMEYER ., DR ESPINOZA Consulting Unavailable HEMEYER ., DR ESPINOZA Primary Care Unavailable SYBIL, DR RENARD Vincent Consulting Unavailable SUKHJINDER, DR ESTUARDO Sim Attending Unavailnahid CANCHOLA, DR WAYNE Vincent Consulting Unavailable SUKHJINDER, DR ESTUARDO Sim Admitting Unavailnahid REED ., DR ESPINOZA Primary Care Unavailable SUKHJINDER, DR ESTUARDO Sim Consulting UnavailBEATRIZ Nash Consulting Unavailable DEREK, OLGA Grace Attending Unavailable DEREK, OLGA Grace Attending Unavailable Medications Current Medications Medication Drug Class(es) Dates Sig (Normalized) Sig (Original) ALPRAZolam 0.25 mg oral tablet (7 sources) Benzodiazepine Start: 04-10-2024 End: 06-28-2024 take 0.5-1 tablets by mouth three times daily as needed Alprazolam Active 0 PO Three times daily 90 June 28, 2024 1:51pm 0.5-1 tablet orally three times daily PRN; baclofen 10 mg oral tablet (6 sources) gamma-Aminobutyric Acid-ergic Agonist Start: 04-10-2024 End: 04-10-2024 Baclofen Active 0 PO Three times daily 120 April 10, 2024 1:56pm 1 tablet in AM, 1 tablet at noon, and 2 tablets at bedtime orally three times daily; 24 hr metoprolol succinate 25 mg extended release oral tablet (6 sources) beta-Adrenergic Ricardo Start: 04-10-2024 End: 04-10-2024 take 25 mg by mouth once daily Metoprolol Succinate Active 25 MG PO Daily April 10, 2024 2:03pm zolpidem tartrate 10 mg oral tablet (7 sources) gamma-Aminobutyric Acid-ergic Agonist Start: 04-10-2024 End: 06-28-2024 take 10 mg by mouth once daily at bedtime Zolpidem Active 10 MG PO Daily at bedtime June 28, 2024 1:51pm Completed/Discontinued Medications Medication Drug Class(es) Dates Sig (Normalized) Sig (Original) azithromycin 250 mg oral tablet (2 sources) Macrolide Antimicrobial Start: 04-16-2024 End: 07-12-2024 Azithromycin Discontinued 250 MG PO daily 6 April 16, 2024 12:00am July 12, 2024 11:35am take 2 today and then 1 for the next 4 days. benzonatate 200 mg oral capsule (2 sources) Non-narcotic Antitussive Start: 04-16-2024 End: 07-12-2024 take 200 mg by mouth three times daily Benzonatate Discontinued 200 MG PO Three times daily 22 08April 16, 2024 12:00am July 12, 2024 11:35am escitalopram 10 mg oral tablet (6 sources) Serotonin Reuptake Inhibitor Start: 04-10-2024 End: 07-12-2024 take 10 mg by mouth once daily Escitalopram Oxalate Discontinued 10 MG PO Daily April 10, 2024 2:02pm July 12, 2024 11:36am Problems Active Problems Problem Classification Problem Date Documented Date Episodic/Chronic Anxiety disorders (8 sources) Generalized anxiety disorder; Translations: [Generalized anxiety disorder] 04-10-2024 Chronic Cardiac dysrhythmias (3 sources) Cardiac arrhythmia; Translations: [Cardiac arrhythmia, unspecified] 04-10-2024 Chronic Chronic obstructive pulmonary disease and bronchiectasis (4 sources) Bronchitis; Translations: [Bronchitis, not specified as acute or chronic] 04-16-2024 Episodic Essential hypertension (5 sources) Hypertensive disorder; Translations: [Essential (primary) hypertension] [...] conditions (not mental disorders or infectious disease) (13 sources) Encounter for screening mammogram for malignant neoplasm of breast; Translations: [Encounter for screening for osteoporosis] Onset: 04-21-2022 Episodic Paralysis (6 sources) Cerebral palsy, unspecified; Translations: [Cerebral palsy] Onset: 06-22-2022 04-10-2024 Chronic Residual codes; unclassified (3 sources) Insomnia; Translations: [Insomnia, unspecified] 04-10-2024 Episodic Residual codes; unclassified (3 sources) Postmenopausal state; Translations: [Asymptomatic menopausal state] [...] 06-22-2022 Episodic Other aftercare (1 source) Other assisted (current) drug therapy; Translations: [[facility] CURRENT DRUG THERAPY] Onset: 06-22-2022 Episodic Other [...] Results Test Name Value Interpretation Reference Range Facility Basophils Auto (Bld) [#/Vol] on 05-16-2024 Basophils (Bld) [#/Vol] 0.1 10 3/uL 0.0-0.1 [facility] Basophils/100 WBC Auto (Bld) on 05-16-2024 Basophils/100 WBC (Bld) 0.9 % 0.2-2.0 [facility] Cholesterol in LDL Calc [Mas s/Vol]on 05-16-2024 Cholesterol in LDL [Mass/Vol] 89.0 mg/dL [facility] Comment on above: <100 mg/dl [id number] 0-129 mg/dl NEAR OR ABOVE [id number] mg/dl BORDERLINE [id number] mg/dl HIGH>190 mg/dl VERY HIGH Cholesterol in VLDL Calc [Ma ss/Vol]on 05-16-2024 Cholesterol in VLDL [Mass/Vol] 7.0 mg/dL [facility] Eosinophils/100 WBC Auto (Bl d)on 05-16-2024 Eosinophils/100 WBC (Bld) 3.8 % 0.9-7.0 [facility] Erythrocyte distribution wid th Auto (RBC) [Ratio]on 05-16-2024 Erythrocyte distribution width (RBC) [Ratio] 13.2 % 11.0-15.0 [facility] Estimated glomerular filtrat ion rate (GFR) non- Americanon 05-16-2024 GFR/1.73 sq M.predicted among non-blacks MDRD (S/P/Bld) [Vol rate/Area] mL/min/{1.73_m2} >=60 [facility] Globulin Calc (S) [Mass/Vol] on 05-16-2024 Globulin (S) [Mass/Vol] 3.0 g/dL [facility] Hematocrit Auto (Bld) [Volum e fraction]on 05-16-2024 Hematocrit (Bld) [Volume fraction] 41.5 % 36.0-48.0 [facility] Hemoglobin [Mass/volume] in Bloodon 05-16-2024 Hemoglobin (Bld) [Mass/Vol] 13.6 g/dL 12.0-16.0 [facility] Laboratory - Chemistry and C hemistry - challengeon 05-16-2024 Albumin [Mass/Vol] 3.9 g/dL 3.4-5.0 [facility] ALP [Catalytic activity/Vol] 69 U/L 46-116 [facility] ALT [Catalytic activity/Vol] 26 U/L 14-59 [facility] AST [Catalytic activity/Vol] 25 U/L 15-37 [facility] Bilirubin [Mass/Vol] 0.6 mg/dL 0.2-1.0 [facility] Calcium [Mass/Vol] 8.9 mg/dL 8.5-10.1 [facility] Chloride [Moles/Vol] 107 mmol/L 98-107 [facility] Cholesterol [Mass/Vol] 183 mg/dL <=200 [facility] Cholesterol in HDL [Mass/Vol] 87 mg/dL High 40-60 [facility] Comment on above: > or =60 mg/dl - LOW CARDIOVASCULAR RISK<40 mg/dl - HIGH CARDIOVASCULAR RISK CO2 [Moles/Vol] 26.7 mmol/L 21.0-32.0 [facility] Creatinine [Mass/Vol] 0.58 mg/dL 0.55-1.02 [facility] GFR/1.73 sq M.predicted MDRD (S/P/Bld) [Vol rate/Area] mL/min/{1.73_m2} >=60 [facility] Glucose [Mass/Vol] 79 mg/dL 74-106 [facility] Potassium [Moles/Vol] 3.7 mmol/L 3.5-5.1 [facility] Protein [Mass/Vol] 6.9 g/dL 6.4-8.2 [facility] Sodium [Moles/Vol] 144 mmol/L 136-145 [facility] Triglyceride [Mass/Vol] 35 mg/dL <=150 [facility] Urea nitrogen [Mass/Vol] 17.0 mg/dL 7.0-18.0 [facility] Urea nitrogen/Creatinine [Mass ratio] 29.3 mg/mg [facility] Laboratory - Hematology and Cell countson 05-16-2024 Immature granulocytes/100 WBC (Bld) 0.2 % 0.0-0.5 [facility] Leukocytes [#/volume] correc leonor for nucleated erythrocytes in Blood by Automated counon 05-16-2024 WBC corrected for nucl RBC Auto (Bld) [#/Vol] 5.5 10 3/uL 4.0-11.0 [facility] Lymphocytes Auto (Bld) [#/Vo l]on 05-16-2024 Lymphocytes (Bld) [#/Vol] 2.4 10 3/uL 1.2-3.8 [facility] Lymphocytes/100 WBC Auto (Bl d)on 05-16-2024 Lymphocytes/100 WBC (Bld) 43.2 % 20.5-60.0 [facility] MCH Auto (RBC) [Entitic mass ]on 05-16-2024 MCH (RBC) [Entitic mass] 30.2 pg 26.7-34.0 [facility] MCHC Auto (RBC) [Mass/Vol]on 05-16-2024 MCHC (RBC) [Mass/Vol] 32.8 g/dL 29.9-35.2 [facility] MCV Auto (RBC) [Entitic vol] on 05-16-2024 MCV (RBC) [Entitic vol] 92.2 fL 81.0-99.0 [facility] Monocytes Auto (Bld) [#/Vol] on 05-16-2024 Monocytes (Bld) [#/Vol] 0.5 10 3/uL 0.3-0.8 [facility] Monocytes/100 WBC Auto (Bld) on 05-16-2024 Monocytes/100 WBC (Bld) 8.4 % 1.7-12.0 [facility] Neutrophils Auto (Bld) [#/Vo l]on 05-16-2024 Neutrophils (Bld) [#/Vol] 2.4 10 3/uL 1.4-6.5 [facility] Neutrophils/100 WBC Auto (Bl d)on 05-16-2024 Neutrophils/100 WBC (Bld) 43.5 % 43.0-75.0 [facility] No Panel Informationon 05-16 Eosinophils # (Auto) 0.2 10 3/uL 0.0-0.7 [facility] Immature Granulocyte # (Auto) 0.01 10 3/uL 0.00-0.03 [facility] Platelet mean volume Auto (B ld) [Entitic vol]on 05-16-2024 Platelet mean volume (Bld) [Entitic vol] 10.1 fL 9.5-13.5 [facility] Platelets Auto (Bld) [#/Vol] on 05-16-2024 Platelets (Bld) [#/Vol] 158 10 3/uL 150-450 [facility] RBC Auto (Bld) [#/Vol]on RBC (Bld) [#/Vol] 4.50 10 6/uL 4.20-5.40 [facility] Serum or plasma albumin/glob ulin mass ratioon 05-16-2024 Albumin/Globulin [Mass ratio] 1.3 {ratio} [facility] Serum or plasma anion gap de terminationon 05-16-2024 Anion gap [Moles/Vol] 14.0 mmol/L [facility] Serum or plasma total choles terol/high density lipoprotein (HDL) cholesterol mass tobias 05-16-2024 Cholesterol.total/Ch olesterol in HDL [Mass ratio] 2.1 {ratio} [facility] Comment on above: 3.3 - 4.4 LOW RISK4. 4 - 7.1 AVERAGE RISK7.1 - 11.0 MODERATE RISK>11.[address] CHEST WO CONon 07-06-2022 CT CHEST [...] RENARD DEVINE Date: 2022-07-06 14:09 Normal [facility] AMYLASEon 2022 Amylase [Catalytic activity/Vol] 52 U/L Normal 25-115 [facility] Comment on above: Performed By: #### L IPA, NUNO #### [facility] Laboratory [address] [address] [address] Becca Marroquin CBC AUTO DIFFon 2022 BASO # 0.0 103/ul Normal 0.0-0.1 [facility] Comment on above: Performed By: #### C BC #### [facility] [address] [address] [address] Becca Marroquin Basophils/100 WBC (Bld) 0.3 % Normal 0.2-2.0 [facility] Comment on above: Performed By: #### C BC #### [facility] [address] [place], [place] [address] Dr. Becca Marroquin EO # 0.0 103/ul Normal 0.0-0.7 [facility] Comment on above: Performed By: #### C BC #### [facility] Laboratory [address] [place] [address] Dr. Becca Marroquin Eosinophils/100 WBC (Bld) 0.3 % Critically low 0.9-7.0 [facility] Comment on above: Performed By: #### C BC #### [facility] Laboratory [address] [place] [address] Dr. Becca Marroquin Erythrocyte distribution width (RBC) [Ratio] 13.2 % Normal 11.0-15.0 [facility] Comment on above: Performed By: #### C BC #### [facility] [address] [place] [address] Dr. Becca Marroquin Hematocrit (Bld) [Volume fraction] 39.1 % Normal 36.0-48.0 [facility] Comment on above: Performed By: #### C BC #### [facility] [address] [place] [address] Dr. Becca Marroquin Hemoglobin (Bld) [Mass/Vol] 12.7 g/dL Normal 12.0-16.0 [facility] Comment on above: Performed By: #### C BC #### [facility] [address] [place] [address] Dr. Becca Marroquin IG # 0.06 10e3/ul Critically high 0.00-0.03 [facility] Comment on above: Performed By: #### C BC #### [facility] [address] [place] [address] Dr. Becca Marroquin IG % 0.5 % Normal 0.0-0.5 [facility] Comment on above: Performed By: #### C BC #### [facility] [address] [place] [address] Dr. Becca Marroquin LYMPH # 1.6 103/ul Normal 1.2-3.8 [facility] Comment on above: Performed By: #### C BC #### [facility] Laboratory [address] [place] [address] Dr. Becca Marroquin Lymphocytes/100 WBC (Bld) 13.7 % Critically low 20.5-60.0 [facility] Comment on above: Performed By: #### C BC #### [facility] [address] [place] [address] Dr. Becca Marroquin MANUAL DIFF REQ NO Normal [facility] Comment on above: Performed By: #### C BC #### [facility] [address] [place] [address] Dr. Becca Marroquin MCH (RBC) [Entitic mass] 31.0 pg Normal 26.7-34.0 [facility] Comment on above: Performed By: #### C BC #### [facility] [address] [place] [address] Dr. Becca Marroquin MCHC (RBC) [Mass/Vol] 32.5 g/dL Normal 29.9-35.2 [facility] Comment on above: Performed By: #### C BC #### [facility] [address] [place] [address] Dr. Becca Marroquin MCV (RBC) [Entitic vol] 95.4 fL Normal 81.0-99.0 [facility] Comment on above: Performed By: #### C BC #### [facility] [address] [place] [address] Dr. Becca Marroquin MONO # 0.5 103/ul Normal 0.3-0.8 [facility] Comment on above: Performed By: #### C BC #### [facility] [address] [place] [address] Dr. Becca Marroquin Monocytes/100 WBC (Bld) 4.0 % Normal 1.7-12.0 [facility] Comment on above: Performed By: #### C BC #### [facility] [address] [place] [address] Dr. Becca Marroquin NEUT # 9.4 103/ul Critically high 1.4-6.5 [facility] Comment on above: Performed By: #### C BC #### [facility] [address] [place] [address] Dr. Becca Marroquin Neutrophils/100 WBC (Bld) 81.2 % Critically high 43.0-75.0 [facility] Comment on above: Performed By: #### C BC #### [facility] [address] [place], [place] [address] Dr. Becca Marroquin Platelet mean volume (Bld) [Entitic vol] 10.2 fL Normal 9.5-13.5 [facility] Comment on above: Performed By: #### C BC #### [facility] [id number] Becca Marroquin PLT 163 103/ul Normal 150-450 [facility] Comment on above: Performed By: #### C BC #### [facility] [address] [place], [place] [address] Dr. Becca Marroquin RBC 4.10 106/ul Critically low 4.20-5.40 [facility] Comment on above: Performed By: #### C BC #### [facility] [address] [address] [address] Becca Marroquin WBC 11.6 103/ul Critically high 4.0-11.0 [facility] Comment on above: Performed By: #### C BC #### [facility] [address] [place], [place] [address] ABD/PELV W CONon [...] BEATRIZ VAZQUEZ Date: 2022 21:24 Normal [facility] SARS-CoV-2 (COVID-19) RNA RON+probe Ql (Unsp spec) Not detected Normal NOT DETECTED [facility] Comment on above: Result Comment: When diagnostic [...] for this test is supported by the [employer] of Health and Human Service's declaration that [...] used). Performed By: #### C VDTBH #### [facility] [address] [place] [address] Dr. Becca Marroquin GI PANEL (PCR)on 2022 Adenovirus F 40/41 Not detected Normal NOT DETECTED [facility] Comment on above: Performed By: #### G IPANEL #### [facility] [address] [place] [address] Dr. Becca Marroquin Astrovirus Not detected Normal NOT DETECTED [facility] Comment on above: Performed By: #### G IPANEL #### [facility] [address] [place] [address] Dr. Becca Lema. Diff toxin A/B Not detected Normal NOT DETECTED [facility] Comment on above: Performed By: #### G IPANEL #### [facility] [address] [place] [address] Dr. Becca Marroquin Campylobacter Not detected Normal NOT DETECTED [facility] Comment on above: Performed By: #### G IPANEL #### [facility] [address] [place] [address] Dr. Becca Marroquin Cryptosporidium Not detected Normal NOT DETECTED [facility] Comment on above: Performed By: #### G IPANEL #### [facility] [address] [place] [address] Dr. Becca Marroquin Cyclos. Cayetanensis Not detected Normal NOT DETECTED [facility] Comment on above: Performed By: #### G IPANEL #### [facility] [address] [place] [address] Dr. Becca Marroquin E. Coli O157 Not Applicable Normal Not Applicable [facility] Comment on above: Performed By: #### G IPANEL #### [facility] [address] [place] [address] Dr. Becca Marroquin E. histolytica Not detected Normal NOT DETECTED [facility] Comment on above: Performed By: #### G IPANEL #### [facility] [address] [place] [address] Dr. Becca Marroquin EAEC Not detected Normal NOT DETECTED [facility] Comment on above: Performed By: #### G IPANEL #### [facility] [address] [address] [address] Becca Marroquin EIEC Not detected Normal NOT DETECTED [facility] Comment on above: Performed By: #### G IPANEL #### [facility] [address] [address] [address] Becca Marroquin EPEC Not detected Normal NOT DETECTED [facility] Comment on above: Performed By: #### G IPANEL #### [facility] [address] [address] [address] Becca Marroquin ETEC Not detected Normal NOT DETECTED [facility] Comment on above: Performed By: #### G IPANEL #### [facility] [address] [place] [address] Dr. Becca Moore Lamblia Not detected Normal NOT DETECTED [facility] Comment on above: Performed By: #### G IPANEL #### [facility] [address] [place] [address] Dr. Becca ASTUDILLO CONTROLS PASSED Normal [facility] Comment on above: Performed By: #### G IPANEL #### [facility] [address] [place] [address] Dr. Becca GORDON BANNER HEADER GI PANEL BACTERIA Normal [facility] Comment on above: Performed By: #### G IPANEL #### [facility] [address] [place] [address] Dr. Becca MORENO ECOLI GI PANEL DIARRHEAGEN IC E.COLI / SHIGELLA Normal [facility] Comment on above: Performed By: #### G IPANEL #### [facility] [address] [place] [address] Dr. Becca MORENO INFO SEE BELOW [facility] Comment on above: Result Comment: EAEC - Enteroaggregative E. Coli EPEC- Enteropathogenic E. Coli ETEC- Enterotoxigenic E. Coli lt/st STEC- Shigella-like toxin-producing E. Coli stx1/stx2 EIEC- Shigella/Enteroinvasive E. Coli Performed By: #### G IPANEL #### [facility] [address] [address] [address] Becca MORENO PARASITES GI PANEL PARASITES Normal [facility] Comment on above: Performed By: #### G IPANEL #### [facility] [address] [address] [address] Becca MORENO VIRUS GI PANEL VIRUSES Normal [facility] Comment on above: Performed By: #### G IPANEL #### [facility] [address] [address] [address] Becca Marroquin Norovirus GI/GII Not detected Normal NOT DETECTED [facility] Comment on above: Performed By: #### G IPANEL #### [facility] [address] [address] [address] Becca Marroquin P. Shigelloides Not detected Normal NOT DETECTED [facility] Comment on above: Performed By: #### G IPANEL #### [facility] [address] [place] [address] Dr. Becca Marroquin Rotavirus A Not detected Normal NOT DETECTED [facility] Comment on above: Performed By: #### G IPANEL #### [facility] [address] [address] [address] Becca Marroquin Salmonella Not detected Normal NOT DETECTED [facility] Comment on above: Performed By: #### G IPANEL #### [facility] [address] [place] [address] Dr. Becca Marroquin Sapovirus Not detected Normal NOT DETECTED [facility] Comment on above: Performed By: #### G IPANEL #### [facility] [address] [place] [address] Dr. Becca aMrroquin STEC Not detected Normal NOT DETECTED [facility] Comment on above: Performed By: #### G IPANEL #### [facility] [address] [address] [address] Becca Marroquin Vibrio Not detected Normal NOT DETECTED [facility] Comment on above: Performed By: #### G IPANEL #### [facility] [address] [address] [address] Becca Marroquin Vibrio Cholera Not detected Normal NOT DETECTED [facility] Comment on above: Performed By: #### G IPANEL #### [facility] [address] [address] [address] Becca Marroquin Y. Enterocolitica Not detected Normal NOT DETECTED [facility] Comment on above: Performed By: #### G IPANEL #### [facility] [address] [address] [address] Becca Marroquin LIPASEon 2022 Lipase [Catalytic activity/Vol] 84.0 U/L Normal 73.0-393.0 [facility] Comment on above: Performed By: #### L IPA, NUNO #### [facility] [address] [place] [address] Dr. Becca Marroquin PROF 14(COMP METB)on 022 Albumin [Mass/Vol] 3.6 g/dL Normal 3.4-5.0 [facility] Comment on above: Performed By: #### C MP ####[facility] [id number] [place], [place] [address]DrEtta Marroquin Albumin/Globulin [Mass ratio] 1.4 {ratio} Normal [facility] Comment on above: Performed By: #### C MP ####[facility] [id number] [place], [place] [address]DrEtta Marroquin ALP [Catalytic activity/Vol] 66 U/L Normal 46-116 [facility] Comment on above: Performed By: #### C MP ####[facility] [facility] [address] [place] [address]DrEtta Marroquin ALT [Catalytic activity/Vol] 24 U/L Normal 14-59 [facility] Comment on above: Performed By: #### C MP ####[facility] [address] [place] [address]DrEtta Marroquin Anion gap [Moles/Vol] 11.2 mmol/L Normal [facility] Comment on above: Performed By: #### C MP ####[facility] [address] [place] [address]DrEtta Marroquin AST [Catalytic activity/Vol] 21 U/L Normal 15-37 [facility] Comment on above: Performed By: #### C MP ####[facility] [address]jjo[address] [place] [address]Dr. Becca Marroquin Bilirubin [Mass/Vol] 0.3 mg/dL Normal 0.2-1.0 [facility] Comment on above: Performed By: #### C MP ####[facility] [address] [place] [address]Dr. Becca Marroquin Calcium [Mass/Vol] 8.0 mg/dL Critically low 8.5-10.1 Th e [facility] Comment on above: Performed By: #### C MP ####[facility] Bco[address] [place], [place] [address]Dr. Becca Marroquin Chloride [Moles/Vol] 110 mmol/L Critically high 98-107 [facility] Comment on above: Performed By: #### C MP ####[facility] P[address]qef[address] [place], [place] [address]Dr. Becca Marroquin CO2 [Moles/Vol] 25.2 mmol/L Normal 21.0-32.0 [facility] Comment on above: Performed By: #### C MP ####[facility] [address] [place], [place] [address]Dr. Becca Marroquin Creatinine [Mass/Vol] 0.61 mg/dL Normal 0.55-1.02 [facility] Comment on above: Performed By: #### C MP ####[facility] [address] [place], [place] [address]Dr. Becca Marroquin EGFR-AF SWAZI >60 Normal >=60 [facility] Comment on above: Performed By: #### C MP ####[facility] Enazetefox[address] [place], [place] [address]Dr. Becca Lopez EGFR-NON AF SWAZI >60 Normal >=60 [facility] Comment on above: Performed By: #### C MP ####[facility] E[address]deg[address] [place], [place] [address]Dr. Becca Lopez Globulin (S) [Mass/Vol] 2.6 g/dL Normal [facility] Comment on above: Performed By: #### C MP ####[facility] [address] [place] [id number]. Becca Marroquin Glucose [Mass/Vol] 119 mg/dL Critically high 74-106 [facility] Comment on above: Performed By: #### C MP ####[facility] [address]uswiakf[address] [place] [id number]. Becca Marroquin Potassium [Moles/Vol] 4.4 mmol/L Normal 3.5-5.1 [facility] Comment on above: Performed By: #### C MP ####[facility] [address]red[address] [place] [id number]. Becca Marroquin Protein [Mass/Vol] 6.2 g/dL Critically low 6.4-8.2 [facility] Comment on above: Performed By: #### C MP ####[facility] [address] [place] [address]Dr. Becca Marroquin Sodium [Moles/Vol] 142 mmol/L Normal 136-145 [facility] Comment on above: Performed By: #### C MP ####[facility] No[address]whmh[address] [place] [id number]. Becca Marroquin Urea nitrogen [Mass/Vol] 16.0 mg/dL Normal 7.0-18.0 [facility] Comment on above: Performed By: #### C MP ####[facility] [address] [place] [address]Dr. Becca Marroquin Urea nitrogen/Creatinine [Mass ratio] 26.2 mg/mg Normal [facility] Comment on above: Performed By: #### C MP ####[facility] [address] [place] [id number]. Becca Marroquin FREE T3on 04-21-2022 FREE T3 2.50 pg/mlL Normal 2.18-3.98 [facility] Comment on above: Performed By: #### L IPID, TSH, CMP, FT3 ####[facility] [address] [place] [phone]. Becca Marroquin FREE T4on 04-21-2022 Free T4 [Mass/Vol] 1.14 ng/dL Normal 0.76-1.46 [facility] Comment on above: Performed By: #### F T4 #### [facility] Laboratory [address] [place], [place] [address] Dr. Becca Marroquin LIPID PROFILEon 04-21-2022 CHOL-HDL RATIO NORM SEE BELOW Normal [facility] Comment on above: Result Comment: 3.3 - 4.4 LOW RISK 4.4 - 7.1 AVERAGE RISK 7.1 - 11.0 MODERATE RISK >11.0 HIGH RISK Performed By: #### L IPID, TSH, CMP, FT3 ####[facility] [address] [place], [place] [address]VjEtta Marroquin Cholesterol [Mass/Vol] 182 mg/dL Normal <=200 [facility] Comment on above: Performed By: #### L IPID, TSH, CMP, FT3 ####[facility] [address] [place] [phone] Marroquin Cholesterol in HDL [Mass/Vol] 73 mg/dL Critically high 40-60 [facility] Comment on above: Performed By: #### L IPID, TSH, CMP, FT3 ####[facility] [address] [place] [phone] Marroquin Cholesterol in LDL [Mass/Vol] 99.0 mg/dL Normal [facility] Comment on above: Performed By: #### L IPID, TSH, CMP, FT3 ####[facility] [address] [place] [phone]. Becca Marroquin Cholesterol.total/Ch olesterol in HDL [Mass ratio] 2.5 {ratio} Normal [facility] Comment on above: Performed By: #### L IPID, TSH, CMP, FT3 ####[facility] [address]fr[address] [place] [phone]. Becca Marroquin HDL NORMAL > or = 60 mg/dl - LO W CARDIOVASCULAR RISK <40 mg/dl - HIGH CARDIOVASCULAR RISK Normal [facility] Comment on above: Performed By: #### L IPID, TSH, CMP, FT3 ####[facility] [address] [place], [place] [address]Yx. Becca Lopez LDL CALC NORMAL SEE BELOW Normal [facility] Comment on above: Result Comment: <100 mg/dl OPTIMAL 100 - 129 mg/dl NEAR OR ABOVE OPTIMAL 130 - 159 mg/dl BORDERLINE HIGH 160 - 189 mg/dl HIGH >190 mg/dl VERY HIGH Performed By: #### L IPID, TSH, CMP, FT3 ####[facility] [address] [place], [place] [address]Uf. Becca Marroquin Triglyceride [Mass/Vol] 50 mg/dL Normal <=150 [facility] Comment on above: Performed By: #### L IPID, TSH, CMP, FT3 ####[facility] [address] [place], [place] [address]Po. Becca Marroquin VLDL CALC 10.0 mg/dL Normal [facility] Comment on above: Performed By: #### L IPID, TSH, CMP, FT3 ####[facility] [address] [place], [place] [address]Xp. Becca Marroquin MG MAMM SCREEN GET W CADon 0 04-21-2022 MG MAMM SCREEN GET W CAD Patient: LORENA BARAHONA Exam Date: 04/21/2022 : 1955 Gender:F Ordering : DR OLGA REED . Admission #: [id number] Family : Order #: [id number] CLICK HERE TO VIEW EXAM RADIOLOGY REPORT [...] pancreas cancer at age 60. LOCATION: [facility] BREAST COMPOSITION: Heterogeneously dense,which may obscure small [...] Lopez MD on 04/21/2022 at 11:17 Normal [facility] PROF 14(COMP METB)on 022 Albumin [Mass/Vol] 4.2 g/dL Normal 3.4-5.0 [facility] Comment on above: Performed By: #### L IPID, TSH, CMP, FT3 ####[facility] [address] [place] [address]DrEtta Marroquin Albumin/Globulin [Mass ratio] 1.3 {ratio} Normal [facility] Comment on above: Performed By: #### L IPID, TSH, CMP, FT3 ####[facility] [address] [place], [place] [address]Dr. Becca Marroquin ALP [Catalytic activity/Vol] 63 U/L Normal 46-116 [facility] Comment on above: Performed By: #### L IPID, TSH, CMP, FT3 ####[facility] S[address]mzz[address] [place], [place] [address]DrEtta Marroquin ALT [Catalytic activity/Vol] 29 U/L Normal 14-59 [facility] Comment on above: Performed By: #### L IPID, TSH, CMP, FT3 ####[facility] [address] [place], [place] [address]DrEtta Marroquin Anion gap [Moles/Vol] 10.5 mmol/L Normal [facility] Comment on above: Performed By: #### L IPID, TSH, CMP, FT3 ####[facility] [address] [place], [place] [address]DrEtta Marroquin AST [Catalytic activity/Vol] 21 U/L Normal 15-37 [facility] Comment on above: Performed By: #### L IPID, TSH, CMP, FT3 ####[facility] I[address]wr[address] [place], [place] [address]Dr. Becca Marroquin Bilirubin [Mass/Vol] 0.7 mg/dL Normal 0.2-1.0 [facility] Comment on above: Performed By: #### L IPID, TSH, CMP, FT3 ####[facility] [address] [place] [address]Dr. Becca Marroquin Calcium [Mass/Vol] 8.9 mg/dL Normal 8.5-10.1 [facility] Comment on above: Performed By: #### L IPID, TSH, CMP, FT3 ####[facility] [address] [place] [address]Dr. Becca Marroquin Chloride [Moles/Vol] 102 mmol/L Normal 98-107 [facility] Comment on above: Performed By: #### L IPID, TSH, CMP, FT3 ####[facility] [address] [place], [place] [address]Dr. Becca Marroquin CO2 [Moles/Vol] 25.4 mmol/L Normal 21.0-32.0 [facility] Comment on above: Performed By: #### L IPID, TSH, CMP, FT3 ####[facility] [address] [place], [place] [address]Dr. Becca Marroquin Creatinine [Mass/Vol] 0.56 mg/dL Normal 0.55-1.02 [facility] Comment on above: Performed By: #### L IPID, TSH, CMP, FT3 ####[facility] [address] [place], [place] [address]Dr. Becca Marroquin EGFR-AF SWAZI >60 Normal >=60 [facility] Comment on above: Performed By: #### L IPID, TSH, CMP, FT3 ####[facility] [address]nc[address] [place], [place] [address]Dr. Becca Marroquin EGFR-NON AF SWAZI >60 Normal >=60 [facility] Comment on above: Performed By: #### L IPID, TSH, CMP, FT3 ####[facility] [address] [place], [place] [address]Dr. Becca Marroquin Globulin (S) [Mass/Vol] 3.2 g/dL Normal [facility] Comment on above: Performed By: #### L IPID, TSH, CMP, FT3 ####[facility] [address] [place] [address]Dr. Becca Marroquin Glucose [Mass/Vol] 65 mg/dL Critically low 74-106 [facility] Comment on above: Performed By: #### L IPID, TSH, CMP, FT3 ####[facility] S[address]ceh[address] [place], [place] [address]Dr. Becca Marroquin Potassium [Moles/Vol] 3.9 mmol/L Normal 3.5-5.1 [facility] Comment on above: Performed By: #### L IPID, TSH, CMP, FT3 ####[facility] [address]zc[address] [place], [place] [address]Dr. Becca Marroquin Protein [Mass/Vol] 7.4 g/dL Normal 6.4-8.2 [facility] Comment on above: Performed By: #### L IPID, TSH, CMP, FT3 ####[facility] [address] [place], [place] [address]Dr. Becca Marroquin Sodium [Moles/Vol] 134 mmol/L Critically low 136-145 [facility] Comment on above: Performed By: #### L IPID, TSH, CMP, FT3 ####[facility] [address] [place], [place] [address]Dr. Becca Marroquin Urea nitrogen [Mass/Vol] 15.0 mg/dL Normal 7.0-18.0 [facility] Comment on above: Performed By: #### L IPID, TSH, CMP, FT3 ####[facility] [address] [place], [place] [address]Dr. Becca Marroquin Urea nitrogen/Creatinine [Mass ratio] 26.8 mg/mg Normal [facility] Comment on above: Performed By: #### L IPID, TSH, CMP, FT3 ####[facility] [address] [place], [place] [address]Dr. Becca Marroquin TSHon 04-21-2022 TSH 0.888 uIU/mL Normal 0.358-3.740 [facility] Comment on above: Performed By: #### L IPID, TSH, CMP, FT3 ####[facility] [address] [place], [place] [address]JcEtta Marroquin XR DEXA BONE DENSITYon 04-21 XR [...] by: VICKI LOPEZ Date: 2022-04-21 16:51 Normal [facility] Vital Signs Date Time Vital Sign Value Performing Clinician Faci lity 07-12-2024 [id number] Body height 147.32 cm [facility] 07-12-2024 11:28-0400 Body mass index (BMI) [Ratio] 20.3 kg/m2 [facility] 07-12-2024 11:28-0400 Body temperature 97.4 [degF] [facility] 07-12-2024 11:28-0400 Body weight 44.22 kg [facility] 07-12-2024 11:28-0400 Diastolic blood pressure 76 mm[Hg] [facility] 07-12-2024 11:28-0400 Heart rate 71 /min [facility] 07-12-2024 11:28-0400 SaO2% (BldA) [Mass fraction] 98 % [facility] 07-12-2024 11:28-0400 Systolic blood pressure 116 mm[Hg] [facility] 04-10-2024 13:29-0400 Body height 147.32 cm [facility] 04-10-2024 13:29-0400 Body mass index (BMI) [Ratio] 20.7 kg/m2 [facility] 04-10-2024 13:29-0400 Body weight 44.96 kg [facility] 04-10-2024 13:29-0400 Diastolic blood pressure 88 mm[Hg] [facility] 04-10-2024 13:29-0400 Heart rate 67 /min [facility] 04-10-2024 13:29-0400 SaO2% (BldA) [Mass fraction] 98 % [facility] 04-10-2024 13:29-0400 Systolic blood pressure 148 mm[Hg] [facility] Encounters Encounter Date Encounter Type Care Provider Facility Start: 07-12-2024 End: 07-12-2024 ambulatory [facility] Work Phone: Start: 07-12-2024 End: 07-12-2024 Patient encounter procedure [facility] Work Phone: Start: 05-16-2024 Non-patient / Non-visit [facility] Work Phone: Start: 04-16-2024 End: 04-16-[address] [facility] Work Phone: Start: 04-16-2024 End: 04-16-2024 Patient encounter procedure [facility] Work Phone: Start: 04-10-2024 End: 04-10-2024 ambulatory [facility] Work Phone: Start: 04-10-2024 End: 04-10-2024 Patient encounter procedure [facility] Work Phone: Start: 03-05-2024 Non-patient / Non-visit [facility] Work Phone: Start: 01-18-2024 End: 01-18-2024 ambulatory OLGA REED Not Available Start: 10-06-2023 End: 10-06-2023 ambulatory OLGA REED Not Available Start: 03-04-2023 End: 03-23-[address] OLGA REED . Facility:[facility] Start: 07-06-2022 End: 07-07-[address] OLGA REED . Facility:[facility] Start: 2022 End: [address] ESTUARDO SLAUGHTER Facility:[facility] Start: 04-21-2022 End: 04-22-[address] OLGA REED . Facility: Plan of Treatment Date Care Activity Detail Author Comprehensive metabo lic 2000 panel - Serum or Plasma [facility] enter DXA Skeletal system. axial Views for bone density [facility] enter MG Breast - bilateral Screening [facility] Payers Date Payer Category Payer Unknown [id number] 1955 Unknown [id number] 2.16.84 [id number] 1955 Unknown [id number] 2.16.84 [id number] 1955 Unknown [id number] 2.16.84 [id number] 1955 Unknown [id number] 2.16.84 [id number] 1955 Unknown [id number] 2.16.84 [id number] 1955 Unknown [id number] Social History Date Type Detail Facility Start: [facility]24 [facility] Start: 1955 Sex Assigned At Female F [facility] Evaluation note Note Date & Type Note Facility Evaluation note Diagnosis Onset Date Cerebral palsy acute Generalized anxiety disorder acute Hypertension acute [facility] Work Phone: Evaluation note Note Date & Type Note Facility Evaluation note Diagnosis Onset Date Cerebral palsy acute Generalized anxiety disorder acute Hypertension acute Insomnia acute Bronchitis acute [facility] Work Phone: Evaluation note Note Date & Type Note Facility Evaluation note Diagnosis Onset Date Bronchitis acute [facility] Work Phone: Summary Purpose Family History Relationship Condition Age at Onset Recorded Date/T claire father Heart disease Unknown Not Specified Malignant neoplasm Unknown Relationship Condition Age at Onset Recorded Date/T claire father Heart disease Unknown mother Malignant neoplasm Unknown Advance Directives Advance Directive Response Recorded Date/ Time Advance Directives No March 30 12:17pm Chief Complaint and Reason for Visit Chief Complaint Establish Reason for Visit Cerebral palsy Generalized anxiety disorder Hypertension Chief Complaint Establish [phone] cough, congestion, fever Reason for Visit Cerebral palsy Generalized anxiety disorder Hypertension Insomnia Bronchitis Chief Complaint [phone] cough, congestion, fever 3 month f/u Reason for Visit Bronchitis Additional Source Comments INFORMATION SOURCE (unrecogn ized section and content) DATE CREATED AUTHOR 04/01/2023 [facility] DATE CREATED AUTHOR 'S AGUILAIZ ATION 01/19/2024 [facility] [employer] Care Teams (unrecognized sec tion and content) Team Status: Active Member Role Status Dates Ro Dennison APRN CLINICAL EXERCISE PHYSIOLOGIST-C Primary Care Provider Active Team Status: Active Member Role Status Dates Kamar Gotti MD Attending Provider Active Start: March 05, 2024 Team Status: Inactive Member Role Status Dates Ro Dennison APRN CLINICAL EXERCISE PHYSIOLOGIST-C Primary Care Provider, Attending Provider Active Start: April 10, 2024 End: April 10, 2024 Team Status: Inactive Member Role Status Dates Ro Dennison APRN NP-C Primary Care Provider, Attending Provider Active Start: April 16, 2024 End: April 16, 2024 Team Status: Active Member Role Status Dates Ro Dennison APRN NP-C Primary Care Provider, Attending Provider Active Start: May 16, 2024 Team Status: Inactive Member Role Status Dates Ro Dennison APRN CLINICAL EXERCISE PHYSIOLOGIST-C Primary Care Provider, Attending Provider Active Start: July 12, 2024 End: July 12, 2024 Goals (unrecognized section and content) Goals may be documented in a n alternate sectionGoals may be documented in an alternate sectionGoals may be documented in an [...] BE BASED ON THE PRIMARY CLINICAL RECORDS. [employer] [facility]. provides no warranty or guarantee of the accuracy or completeness of information in this document.
[2024-11-10 08:22] LABS: Basophils Percent Auto 0.4 % (0.2-2.0); Eosinophils Percent Auto 0.5 % (0.9-7.0); Hematocrit 37.1 % (36.0-48.0); Hemoglobin 12.6 g/dL (12.0-16.0); Immature Granulocytes Abs Auto 0.02 10^3/uL (0.00-0.03); Immature Granulocytes Pct Auto 0.3 % (0.0-0.5); Lymphocytes Absolute Auto 2.4 10^3/uL (1.2-3.8); Lymphocytes Percent Auto 30.7 % (20.5-60.0); Mean Corpuscular Hemoglobin 30.8 pg (26.7-34.0); Mean Corpuscular Volume 90.7 fL (81.0-99.0); Mean Platelet Volume 10.7 fL (9.5-13.5); Monocytes Absolute Auto 0.6 10^3/uL (0.3-0.8); Monocytes Percent Auto 7.7 % (1.7-12.0); Neutrophils Absolute Auto 4.8 10^3/uL (1.4-6.5); Neutrophils Percent Auto 60.4 % (43.0-75.0); Platelet Count 186 10^3/uL (150-450); Red Blood Count 4.09 10^6/uL (4.20-5.40); Red Cell Distribution Width 12.8 % (11.0-15.0)
[2024-11-10 08:42] LABS: Alanine Aminotransferase 21 U/L (14-59); Albumin Globulin Ratio 1.4; Albumin Level 3.9 g/dL (3.4-5.0); Alkaline Phosphatase 58 U/L (46-116); Anion Gap 13.9; Aspartate Amino Transferase 25 U/L (15-37); BUN Creatinine Ratio 24.1; Bilirubin Total 0.8 mg/dL (0.2-1.0); Calcium 8.9 mg/dL (8.5-10.1); Carbon Dioxide 26.7 mmol/L (21.0-32.0); Chloride 107 mmol/L (98-107); Estimated GFR (African America >60 (>=60 mL/min/1.73m^2); Estimated GFR (Non-African Ame >60 (>=60 mL/min/1.73m^2); Globulin 2.8 g/dL; Glucose 100 mg/dL (74-106); Potassium 3.6 mmol/L (3.5-5.1); Sodium 144 mmol/L (136-145); Total Protein 6.7 g/dL (6.4-8.2)
[2024-11-10] MEDS: DIAZEPAM 10 MG/2 ML SYRINGE 2 MG IV (08:50)
--- OUTSIDE RECORDS SUMMARY | 2024-11-10 10:44 | XMS_ITS | CCD ---
Author Organization [facility] Care Team Providers Care Russian Teacher Name Role Phone DEREK ., DR ESPINOZA Admitting Unavailable HEMEYER ., DR ESPINOZA Attending Unavailable HEMEYER ., DR ESPINOZA Primary Care Unavailable HEMEYER ., DR ESPINOZA Attending Unavailable HEMEYER ., DR ESPINOZA Consulting Unavailable HEMEYER ., DR ESPINOZA Primary Care Unavailable HEMEYER ., DR ESPINOZA Admitting Unavailable NAZARETH, DR VICKI [place]ult[place] Consulting Unavailable HEMEYER ., [...] 06-22-2022 Episodic Other aftercare (1 source) Other m[facility] (current) drug therapy; Translations: [OTH CORRECTION CURRENT DRUG THERAPY] Onset: 06-22-2022 Episodic Other [...] Basophils (Bld) [#/Vol] 0.1 10 3/uL 0.0-0.1 [facility] Basophils/100 WBC Auto (Bld) on 05-16-2024 Basophils/100 WBC (Bld) 0.9 % 0.2-2.0 [facility] Cholesterol in LDL Calc [Mas s/Vol]on 05-16-2024 Cholesterol in LDL [Mass/Vol] 89.0 mg/dL [facility] Comment on above: <100 mg/dl [id number] 0-129 mg/dl NEAR OR ABOVE [id number] mg/dl BORDERLINE [id number] mg/dl HIGH>190 mg/dl VERY HIGH Cholesterol in VLDL Calc [Ma ss/Vol]on 05-16-2024 Cholesterol in VLDL [Mass/Vol] 7.0 mg/dL [facility] Eosinophils/100 WBC Auto (Bl d)on 05-16-2024 Eosinophils/100 WBC (Bld) 3.8 % 0.9-7.0 [facility] Erythrocyte distribution wid th Auto (RBC) [Ratio]on 05-16-2024 Erythrocyte distribution width (RBC) [Ratio] 13.2 % 11.0-15.0 [facility] Estimated glomerular filtrat ion rate (GFR) non- Americanon 05-16-2024 GFR/1.73 sq M.predicted among non-blacks MDRD (S/P/Bld) [Vol rate/Area] mL/min/{1.73_m2} >=60 [facility] Globulin Calc (S) [Mass/Vol] on 05-16-2024 Globulin (S) [Mass/Vol] 3.0 g/dL [facility] Hematocrit Auto (Bld) [Volum e fraction]on 05-16-2024 Hematocrit (Bld) [Volume fraction] 41.5 % 36.0-48.0 [facility] Hemoglobin [Mass/volume] in Bloodon 05-16-2024 Hemoglobin (Bld) [Mass/Vol] 13.6 g/dL 12.0-16.0 [facility] Laboratory - Chemistry and C hemistry - challengeon 05-16-2024 Albumin [Mass/Vol] 3.9 g/dL 3.4-5.0 [facility] ALP [Catalytic activity/Vol] 69 U/L 46-116 [facility] ALT [Catalytic activity/Vol] 26 U/L 14-59 [facility] AST [Catalytic activity/Vol] 25 U/L 15-37 [facility] Bilirubin [Mass/Vol] 0.6 mg/dL 0.2-1.0 [facility] Calcium [Mass/Vol] 8.9 mg/dL 8.5-10.1 [facility] Chloride [Moles/Vol] 107 mmol/L 98-107 [facility] Cholesterol [Mass/Vol] 183 mg/dL <=200 [facility] Cholesterol in HDL [Mass/Vol] 87 mg/dL High 40-60 [facility] Comment on above: > or =60 mg/dl - LOW CARDIOVASCULAR RISK<40 mg/dl - HIGH CARDIOVASCULAR RISK CO2 [Moles/Vol] 26.7 mmol/L 21.0-32.0 [facility] Creatinine [Mass/Vol] 0.58 mg/dL 0.55-1.02 [facility] GFR/1.73 sq M.predicted MDRD (S/P/Bld) [Vol rate/Area] mL/min/{1.73_m2} >=60 [facility] Glucose [Mass/Vol] 79 mg/dL 74-106 [facility] Potassium [Moles/Vol] 3.7 mmol/L 3.5-5.1 [facility] Protein [Mass/Vol] 6.9 g/dL 6.4-8.2 [facility] Sodium [Moles/Vol] 144 mmol/L 136-145 [facility] Triglyceride [Mass/Vol] 35 mg/dL <=150 [facility] Urea nitrogen [Mass/Vol] 17.0 mg/dL 7.0-18.0 [facility] Urea nitrogen/Creatinine [Mass ratio] 29.3 mg/mg [facility] Laboratory - Hematology and Cell countson 05-16-2024 Immature granulocytes/100 WBC (Bld) 0.2 % 0.0-0.5 [facility] Leukocytes [#/volume] correc leonor for nucleated erythrocytes in Blood by Automated counon 05-16-2024 WBC corrected for nucl RBC Auto (Bld) [#/Vol] 5.5 10 3/uL 4.0-11.0 [facility] Lymphocytes Auto (Bld) [#/Vo l]on 05-16-2024 Lymphocytes (Bld) [#/Vol] 2.4 10 3/uL 1.2-3.8 [facility] Lymphocytes/100 WBC Auto (Bl d)on 05-16-2024 Lymphocytes/100 WBC (Bld) 43.2 % 20.5-60.0 [facility] MCH Auto (RBC) [Entitic mass ]on 05-16-2024 MCH (RBC) [Entitic mass] 30.2 pg 26.7-34.0 [facility] MCHC Auto (RBC) [Mass/Vol]on 05-16-2024 MCHC (RBC) [Mass/Vol] 32.8 g/dL 29.9-35.2 [facility] MCV Auto (RBC) [Entitic vol] on 05-16-2024 MCV (RBC) [Entitic vol] 92.2 fL 81.0-99.0 [facility] Monocytes Auto (Bld) [#/Vol] on 05-16-2024 Monocytes (Bld) [#/Vol] 0.5 10 3/uL 0.3-0.8 [facility] Monocytes/100 WBC Auto (Bld) on 05-16-2024 Monocytes/100 WBC (Bld) 8.4 % 1.7-12.0 [facility] Neutrophils Auto (Bld) [#/Vo l]on 05-16-2024 Neutrophils (Bld) [#/Vol] 2.4 10 3/uL 1.4-6.5 [facility] Neutrophils/100 WBC Auto (Bl d)on 05-16-2024 Neutrophils/100 WBC (Bld) 43.5 % 43.0-75.0 [facility] No Panel Informationon 05-16 Eosinophils # (Auto) 0.2 10 3/uL 0.0-0.7 [facility] Immature Granulocyte # (Auto) 0.01 10 3/uL 0.00-0.03 [facility] Platelet mean volume Auto (B ld) [Entitic vol]on 05-16-2024 Platelet mean volume (Bld) [Entitic vol] 10.1 fL 9.5-13.5 [facility] Platelets Auto (Bld) [#/Vol] on 05-16-2024 Platelets (Bld) [#/Vol] 158 10 3/uL 150-450 [facility] RBC Auto (Bld) [#/Vol]on RBC (Bld) [#/Vol] 4.50 10 6/uL 4.20-5.40 [facility] Serum or plasma albumin/glob ulin mass ratioon 05-16-2024 Albumin/Globulin [Mass ratio] 1.3 {ratio} [facility] Serum or plasma anion gap de terminationon 05-16-2024 Anion gap [Moles/Vol] 14.0 mmol/L [facility] Serum or plasma total choles terol/high density lipoprotein (HDL) cholesterol mass tobias 05-16-2024 Cholesterol.total/Ch olesterol in HDL [Mass ratio] 2.1 {ratio} [facility] Comment on above: 3.3 - 4.4 [...] Date: 2022-07-06 14:09 Normal [facility] AMYLASEon 2022 Amylase [Catalytic activity/Vol] 52 U/L Normal 25-115 [facility] Comment on above: Performed By: #### L IPA, NUNO #### [facility] [address] [address] [address] Becca Marroquin CBC AUTO DIFFon 2022 BASO # 0.0 103/ul Normal 0.0-0.1 [facility] Comment on above: Performed By: #### C BC #### [facility] [address] [address] [address] Becca Marroquin Basophils/100 WBC (Bld) 0.3 % Normal 0.2-2.0 [facility] Comment on above: Performed By: #### C BC #### [facility] [address] [place], [place] [address] Dr. Becca Marroquin EO # 0.0 103/ul Normal 0.0-0.7 [facility] Comment on above: Performed By: #### C BC #### [facility] [address] [place] [address] Dr. Becca Marroquin Eosinophils/100 WBC (Bld) 0.3 % Critically low 0.9-7.0 [facility] Comment on above: Performed By: #### C BC #### [facility] [address] [place] [address] Dr. Becca Marroquin Erythrocyte distribution width (RBC) [Ratio] 13.2 % Normal 11.0-15.0 [facility] Comment on above: Performed By: #### C BC #### [facility] [address] [place] [address] Dr. Becca Marroquin Hematocrit (Bld) [Volume fraction] 39.1 % Normal 36.0-48.0 [facility] Comment on above: Performed By: #### C BC #### [facility] [address] [place] [address] Dr. Becca Marroquin Hemoglobin (Bld) [Mass/Vol] 12.7 g/dL Normal 12.0-16.0 [facility] Comment on above: Performed By: #### C BC #### [facility] [address] [place] [address] Dr. Becca Marroquin IG # 0.06 10e3/ul Critically high 0.00-0.03 [facility] Comment on above: Performed By: #### C BC #### [facility] [address] [place] [address] Dr. Becca Marroquin IG % 0.5 % Normal 0.0-0.5 [facility] Comment on above: Performed By: #### C BC #### [facility] [address] [place] [address] Dr. Becca Marroquin LYMPH # 1.6 103/ul Normal 1.2-3.8 [facility] Comment on above: Performed By: #### C BC #### [facility] [address] [place] [address] Dr. Becca Marroquin Lymphocytes/100 WBC (Bld) 13.7 % Critically low 20.5-60.0 [facility] Comment on above: Performed By: #### C BC #### [facility] [address] [place] [address] Dr. Becca Marroquin MANUAL DIFF REQ NO Normal [facility] Comment on above: Performed By: #### C BC #### [facility] [address] [place] [address] Dr. Becca Marroquin MCH (RBC) [Entitic mass] 31.0 pg Normal 26.7-34.0 [facility] Comment on above: Performed By: #### C BC #### [facility] [address] [place] [address] Dr. Becca Marroquin MCHC (RBC) [Mass/Vol] 32.5 g/dL Normal 29.9-35.2 [facility] Comment on above: Performed By: #### C BC #### [facility] [address] [place] [address] Dr. Becca Marroquin MCV (RBC) [Entitic vol] 95.4 fL Normal 81.0-99.0 [facility] Comment on above: Performed By: #### C BC #### [facility] [address] [place] [address] Dr. Becca Marroquin MONO # 0.5 103/ul Normal 0.3-0.8 [facility] Comment on above: Performed By: #### C BC #### [facility] [address] [place] [address] Dr. Becca Marroquin Monocytes/100 WBC (Bld) 4.0 % Normal 1.7-12.0 [facility] Comment on above: Performed By: #### C BC #### [facility] [address] [place] [address] Dr. Becca Marroquin NEUT # 9.4 103/ul Critically high 1.4-6.5 [facility] Comment on above: Performed By: #### C BC #### [facility] [address] [place] [address] Dr. Becca Marroquin Neutrophils/100 WBC (Bld) 81.2 % Critically high 43.0-75.0 [facility] Comment on above: Performed By: #### C BC #### [facility] [address], [place] [address] Dr. Becca Marroquin Platelet mean volume (Bld) [Entitic vol] 10.2 fL Normal 9.5-13.5 [facility] Comment on above: Performed By: #### C BC #### [facility] [id number] Becca Marroquin PLT 163 103/ul Normal 150-450 [facility] Comment on above: Performed By: #### C BC #### [facility] [address], [place] [address] Dr[address] Becca Marroquin RBC 4.10 106/ul Critically low 4.20-5.40 [facility] Comment on above: Performed By: #### C BC #### [facility] [address] [address] [address] Becca Marroquin WBC 11.6 103/ul Critically high 4.0-11.0 [facility] Comment on above: Performed By: #### C BC #### [facility] [address], [place] [address] ABD/PELV W CONon [...] Date: 2022 21:24 Normal [facility] 05-25 SARS-CoV-2 (COVID-19) RNA RON+probe Ql (Unsp spec) Not detected Normal NOT DETECTED [facility] Comment on above: Result Comment: When [...] for this test is supported by the Lathe Tender of Health and Human Service's declaration that [...] By: #### C VDTBH #### [facility] [address] [place] [address] Dr. Becca Marroquin GI PANEL (PCR)on 2022 Adenovirus F 40/41 Not detected Normal NOT DETECTED [facility] Comment on above: Performed By: #### G IPANEL #### [facility] [address] [place] [address] Dr. Becca Marroquin Astrovirus Not detected Normal NOT DETECTED [facility] Comment on above: Performed By: #### G IPANEL #### [facility] [address] [place] [address] Dr. Becca Lema. Diff toxin A/B Not detected Normal NOT DETECTED [facility] Comment on above: Performed By: #### G IPANEL #### [facility] [address] [place] [address] Dr. Becca Marroquin Campylobacter Not detected Normal NOT DETECTED [facility] Comment on above: Performed By: #### G IPANEL #### [facility] [address] [place] [address] Dr. Becca Marroquin Cryptosporidium Not detected Normal NOT DETECTED [facility] Comment on above: Performed By: #### G IPANEL #### [facility] [address] [place] [address] Dr. Becca Marroquin Cyclos. Cayetanensis Not detected Normal NOT DETECTED [facility] Comment on above: Performed By: #### G IPANEL #### [facility] [address] [place] [address] Dr. Becca Marroquin E. Coli O157 Not Applicable Normal Not Applicable [facility] Comment on above: Performed By: #### G IPANEL #### [facility] [address] [place] [address] Dr. Becca Marroquin E. histolytica Not detected Normal NOT DETECTED [facility] Comment on above: Performed By: #### G IPANEL #### [facility] [address] [place] [address] Dr. Becca Marroquin EAEC Not detected Normal NOT DETECTED [facility] Comment on above: Performed By: #### G IPANEL #### [facility] [address] [address] [address] Becca Marroquin EIEC Not detected Normal NOT DETECTED [facility] Comment on above: Performed By: #### G IPANEL #### [facility] [address] [address] [address] Becca Marroquin EPEC Not detected Normal NOT DETECTED [facility] Comment on above: Performed By: #### G IPANEL #### [facility] [address] [address] [address] Becca Marroquin ETEC Not detected Normal NOT DETECTED [facility] Comment on above: Performed By: #### G IPANEL #### [facility] [address] [place] [address] Dr. Becca Moore Lamblia Not detected Normal NOT DETECTED [facility] Comment on above: Performed By: #### G IPANEL #### [facility] [address] [place] [address] Dr. Becca ASTUDILLO CONTROLS PASSED Normal [facility] Comment on above: Performed By: #### G IPANEL #### [facility] [address] [place] [address] Dr. Becca GORDON [facility] HEADER GI PANEL BACTERIA Normal [facility] Comment on above: Performed By: #### G IPANEL #### [facility] [address] [place] [address] Dr. Becca MORENO ECOLI GI PANEL DIARRHEAGEN IC E.COLI / SHIGELLA Normal [facility] Comment on above: Performed By: #### G IPANEL #### [facility] [address] [place] [address] Dr. Becca MORENO INFO SEE BELOW [facility] Comment on above: Result Comment: EAEC - Enteroaggregative E. Coli EPEC- Enteropathogenic E. Coli ETEC- Enterotoxigenic E. Coli lt/st STEC- Shigella-like toxin-producing E. Coli stx1/stx2 EIEC- Shigella/Enteroinvasive E. Coli Performed By: #### G IPANEL #### [facility] [address] [address] [address] Becca MORENO PARASITES GI PANEL PARASITES Normal [facility] Comment on above: Performed By: #### G IPANEL #### [facility] [address] [address] [address] Becca MORENO VIRUS GI PANEL VIRUSES Normal [facility] Comment on above: Performed By: #### G IPANEL #### [facility] [address] [address] [address] Becca Marroquin Norovirus GI/GII Not detected Normal NOT DETECTED [facility] Comment on above: Performed By: #### G IPANEL #### [facility] [address] [address] [address] Becca Marroquin P. Shigelloides Not detected Normal NOT DETECTED [facility] Comment on above: Performed By: #### G IPANEL #### [facility] [address] [place] [address] Dr. Becca Marroquin Rotavirus A Not detected Normal NOT DETECTED [facility] Comment on above: Performed By: #### G IPANEL #### [facility] [address] [address] [address] Becca Marroquin Salmonella Not detected Normal NOT DETECTED [facility] Comment on above: Performed By: #### G IPANEL #### [facility] [address] [place] [address] Dr. Becca Marroquin Sapovirus Not detected Normal NOT DETECTED [facility] Comment on above: Performed By: #### G IPANEL #### [facility] [address] [place] [address] Dr. Becca Marroquin STEC Not detected Normal NOT DETECTED [facility] Comment on above: Performed By: #### G IPANEL #### [facility] [address] [address] [address] Becca Marroquin Vibrio Not detected Normal NOT DETECTED [facility] Comment on above: Performed By: #### G IPANEL #### [facility] [address] [address] [address] Becca Marroquin Vibrio Cholera Not detected Normal NOT DETECTED [facility] [place] [facility] Comment on above: Performed By: #### G IPANEL #### [facility] [address] [address] [address] Becca Marroquin Y. Enterocolitica Not detected Normal NOT DETECTED [facility] Comment on above: Performed By: #### G IPANEL #### [facility] [address] [address] [address] Becca Marroquin LIPASEon 2022 Lipase [Catalytic activity/Vol] 84.0 U/L Normal 73.0-393.0 [facility] Comment on above: Performed By: #### L IPA, NUNO #### [facility] [address] [place] [address] Dr. Becca Marroquin PROF 14(COMP METB)on 022 Albumin [Mass/Vol] 3.6 g/dL Normal 3.4-5.0 [facility] Comment on above: Performed By: #### C MP ####[facility] [address] [place], [place] [address]DrEtta Marroquin Albumin/Globulin [Mass ratio] 1.4 {ratio} Normal [facility] Comment on above: Performed By: #### C MP ####[facility] [address] [place], [place] [address]DrEtta Marroquin ALP [Catalytic activity/Vol] 66 U/L Normal 46-116 [facility] Comment on above: Performed By: #### C MP ####[facility] [address] [address]DrEtta Marroquin ALT [Catalytic activity/Vol] 24 U/L Normal 14-59 [facility] Comment on above: Performed By: #### C MP ####[facility] [address] [address]DrEtta Marroquin Anion gap [Moles/Vol] 11.2 mmol/L Normal [facility] Comment on above: Performed By: #### C MP ####[facility] [address] [address]DrEtta Marroquin AST [Catalytic activity/Vol] 21 U/L Normal 15-37 [facility] Comment on above: Performed By: #### C MP ####[facility] [address] [address]Dr. Becca Marroquin Bilirubin [Mass/Vol] 0.3 mg/dL Normal 0.2-1.0 [facility] Comment on above: Performed By: #### C MP ####[facility] [address] [address]Dr. Becca Marroquin Calcium [Mass/Vol] 8.0 mg/dL Critically low 8.5-10.1 [facility] Comment on above: Performed By: #### C MP ####[facility] [address] [place], [place] [address]Dr. Becca Marroquin Chloride [Moles/Vol] 110 mmol/L Critically high 98-107 [facility] Comment on above: Performed By: #### C MP ####[facility] [address] [place], [place] [address]Dr. Becca Marroquin CO2 [Moles/Vol] 25.2 mmol/L Normal 21.0-32.0 [facility] Comment on above: Performed By: #### C MP ####[facility] [address] [place], [place] [address]Dr. Becca Marroquin Creatinine [Mass/Vol] 0.61 mg/dL Normal 0.55-1.02 [facility] Comment on above: Performed By: #### C MP ####[facility] [address] [place], [place] [address]Dr. Becca Marroquin EGFR-AF ANDORRAN >60 Normal >=60 [facility] Comment on above: Performed By: #### C MP ####[facility] [address] [place], [place] [address]Dr. Becca Lopez EGFR-NON AF ANDORRAN >60 Normal >=60 [facility] Comment on above: Performed By: #### C MP ####[facility] [address] [place], [place] [address]Dr. Becca Lopez Globulin (S) [Mass/Vol] 2.6 g/dL Normal [facility] Comment on above: Performed By: #### C MP ####[facility] [address] [id number][address] Becca Marroquin Glucose [Mass/Vol] 119 mg/dL Critically high 74-106 [facility] Comment on above: Performed By: #### C MP ####[facility] [address] [id number][address] Becca Marroquin Potassium [Moles/Vol] 4.4 mmol/L Normal 3.5-5.1 [facility] Comment on above: Performed By: #### C MP ####[facility] [id number] [place] [id number]. Becca Marroquin Protein [Mass/Vol] 6.2 g/dL Critically low 6.4-8.2 [facility] Comment on above: Performed By: #### C MP ####[facility] [address] [place] [address]Dr. Becca Marroquin Sodium [Moles/Vol] 142 mmol/L Normal 136-145 [facility] Comment on above: Performed By: #### C MP ####[facility] [address] [place] [id number]. Becca Marroquin Urea nitrogen [Mass/Vol] 16.0 mg/dL Normal 7.0-18.0 [facility] Comment on above: Performed By: #### C MP ####[facility] [address] [place] [address]Dr. Becca Marroquin Urea nitrogen/Creatinine [Mass ratio] 26.2 mg/mg Normal [facility] Comment on above: Performed By: #### C MP ####[facility] [address]uv[address] [place] [id number]. Becca Marroquin FREE T3on 04-21-2022 FREE T3 2.50 pg/mlL Normal 2.18-3.98 [facility] Comment on above: Performed By: #### L IPID, TSH, CMP, FT3 ####[facility] [address] [place] [id number]. Becca Marroquin FREE T4on 04-21-2022 Free T4 [Mass/Vol] 1.14 ng/dL Normal 0.76-1.46 [facility] Comment on above: Performed By: #### F T4 #### [facility] [address] [place], [place] [address] Dr. Becca Marroquin LIPID PROFILEon 04-21-2022 CHOL-HDL RATIO NORM SEE BELOW Normal [facility] Comment on above: Result Comment: 3.3 - 4.4 LOW RISK 4.4 - 7.1 AVERAGE RISK 7.1 - 11.0 MODERATE RISK >11.0 HIGH RISK Performed By: #### L IPID, TSH, CMP, FT3 ####[facility] [address] [place], [place] [address]YcEtta Marroquin Cholesterol [Mass/Vol] 182 mg/dL Normal <=200 [facility] Comment on above: Performed By: #### L IPID, TSH, CMP, FT3 ####[facility] V[address] [place] [id number] Marroquin Cholesterol in HDL [Mass/Vol] 73 mg/dL Critically high 40-60 [facility] Comment on above: Performed By: #### L IPID, TSH, CMP, FT3 ####[facility] [address] [place] [id number] Marroquin Cholesterol in LDL [Mass/Vol] 99.0 mg/dL Normal [facility] Comment on above: Performed By: #### L IPID, TSH, CMP, FT3 ####[facility] [address] [place] [id number]. Becca Marroquin Cholesterol.total/Ch olesterol in HDL [Mass ratio] 2.5 {ratio} Normal [facility] Comment on above: Performed By: #### L IPID, TSH, CMP, FT3 ####[facility] [address] [place] [id number]. Becca Marroquin HDL NORMAL > or = 60 mg/dl - LO W CARDIOVASCULAR RISK <40 mg/dl - HIGH CARDIOVASCULAR RISK Normal [facility] Comment on above: Performed By: #### L IPID, TSH, CMP, FT3 ####[facility] [address] [place], [place] [address]It. Becca Lopez LDL CALC NORMAL SEE BELOW Normal [facility] Comment on above: Result Comment: <100 mg/dl OPTIMAL 100 - 129 mg/dl NEAR OR ABOVE OPTIMAL 130 - 159 mg/dl BORDERLINE HIGH 160 - 189 mg/dl HIGH >190 mg/dl VERY HIGH Performed By: #### L IPID, TSH, CMP, FT3 ####[facility] [address] [place], [place] [address]Gq. Becca Marroquin Triglyceride [Mass/Vol] 50 mg/dL Normal <=150 [facility] Comment on above: Performed By: #### L IPID, TSH, CMP, FT3 ####[facility] [address] [place], [place] [address]Zp. Becca Marroquin VLDL CALC 10.0 mg/dL Normal [facility] Comment on above: Performed By: #### L IPID, TSH, CMP, FT3 ####[facility] [address] [place], [place] [address]Uf. Becca Marroquin MG MAMM SCREEN GET W CADon 0 04-21-2022 MG MAMM SCREEN GET W CAD Patient: LORENA BARAHONA Exam Date: 04/21/2022 : 1955 Gender:F Ordering : DR OLGA REED . Admission #: [id number] Family : Order #: [id number] CLICK HERE TO VIEW EXAM RADIOLOGY REPORT [...] at age 60. LOCATION: [facility] BREAST COMPOSITION: Heterogeneously dense,which may obscure [...] MD on 04/21/2022 at 10:58 Approved by: Vikci Lopez MD on 04/21/2022 at 11:17 Normal [facility] PROF 14(COMP METB)on 022 Albumin [Mass/Vol] 4.2 g/dL Normal 3.4-5.0 [facility] Comment on above: Performed By: #### L IPID, TSH, CMP, FT3 ####[facility] [address] [place] [address]DrEtta Marroquin Albumin/Globulin [Mass ratio] 1.3 {ratio} Normal [facility] Comment on above: Performed By: #### L IPID, TSH, CMP, FT3 ####[facility] [address] [place], [place] [address]Dr. Becca Marroquin ALP [Catalytic activity/Vol] 63 U/L Normal 46-116 [facility] Comment on above: Performed By: #### L IPID, TSH, CMP, FT3 ####[facility] [address] [place], [place] [address]DrEtta Marroquin ALT [Catalytic activity/Vol] 29 U/L Normal 14-59 [facility] Comment on above: Performed By: #### L IPID, TSH, CMP, FT3 ####[facility] [address] [place], [place] [address]DrEtta Marroquin Anion gap [Moles/Vol] 10.5 mmol/L Normal [facility] Comment on above: Performed By: #### L IPID, TSH, CMP, FT3 ####[facility] [address] [place], [place] [address]DrEtta Marroquin AST [Catalytic activity/Vol] 21 U/L Normal 15-37 [facility] Comment on above: Performed By: #### L IPID, TSH, CMP, FT3 ####[facility] [address] [place], [place] [address]Dr. Becca Marroquin Bilirubin [Mass/Vol] 0.7 mg/dL Normal 0.2-1.0 [facility] Comment on above: Performed By: #### L IPID, TSH, CMP, FT3 ####[facility] [address] [place] [address]Dr. Becca Marroquin Calcium [Mass/Vol] 8.9 mg/dL Normal 8.5-10.1 [facility] [place] [facility] Comment on above: Performed By: #### L IPID, TSH, CMP, FT3 ####[facility] [address] [place] [address]Dr. Becca Marroquin Chloride [Moles/Vol] 102 mmol/L Normal 98-107 [facility] Comment on above: Performed By: #### L IPID, TSH, CMP, FT3 ####[facility] [address] [place], [place] [address]Dr. Becca Marroquin CO2 [Moles/Vol] 25.4 mmol/L Normal 21.0-32.0 [facility] Comment on above: Performed By: #### L IPID, TSH, CMP, FT3 ####[facility] [address] [place], [place] [address]Dr. Becca Marroquin Creatinine [Mass/Vol] 0.56 mg/dL Normal 0.55-1.02 [facility] Comment on above: Performed By: #### L IPID, TSH, CMP, FT3 ####[facility] [address] [place], [place] [address]Dr. Becca Marroquin EGFR-AF ANDORRAN >60 Normal >=60 [facility] Comment on above: Performed By: #### L IPID, TSH, CMP, FT3 ####[facility] [address] [place], [place] [address]Dr. Becca Marroquin EGFR-NON AF ANDORRAN >60 Normal >=60 [facility] Comment on above: Performed By: #### L IPID, TSH, CMP, FT3 ####[facility] [address] [place], [place] [address]Dr. Becca Marroquin Globulin (S) [Mass/Vol] 3.2 g/dL Normal [facility] Comment on above: Performed By: #### L IPID, TSH, CMP, FT3 ####[facility] [address] [place] [address]Dr. Becca Marroquin Glucose [Mass/Vol] 65 mg/dL Critically low 74-106 [facility] Comment on above: Performed By: #### L IPID, TSH, CMP, FT3 ####[facility] [address] [place], [place] [address]Dr. Becca Marroquin Potassium [Moles/Vol] 3.9 mmol/L Normal 3.5-5.1 [facility] Comment on above: Performed By: #### L IPID, TSH, CMP, FT3 ####[facility] [address] [place], [place] [address]Dr. Becca Marroquin Protein [Mass/Vol] 7.4 g/dL Normal 6.4-8.2 [facility] Comment on above: Performed By: #### L IPID, TSH, CMP, FT3 ####[facility] [address] [place], [place] [address]Dr. Becca Marroquin Sodium [Moles/Vol] 134 mmol/L Critically low 136-145 [facility] Comment on above: Performed By: #### L IPID, TSH, CMP, FT3 ####[facility] [address] [place], [place] [address]Dr. Becca Marroquin Urea nitrogen [Mass/Vol] 15.0 mg/dL Normal 7.0-18.0 [facility] Comment on above: Performed By: #### L IPID, TSH, CMP, FT3 ####[facility] [address] [place], [place] [address]Dr. Becca Marroquin Urea nitrogen/Creatinine [Mass ratio] 26.8 mg/mg Normal [facility] Comment on above: Performed By: #### L IPID, TSH, CMP, FT3 ####[facility] [address] [place], [place] [address]Dr. Becca Marroquin TSHon 04-21-2022 TSH 0.888 uIU/mL Normal 0.358-3.740 [facility] Comment on above: Performed By: #### L IPID, TSH, CMP, FT3 ####[facility] [address] [place], [place] [address]BdEtta Marroquin XR DEXA BONE DENSITYon 04-21 XR [...] by: VICKI LOPEZ Date: 2022-04-21 16:51 Normal [facility] Vital Signs Date Time Vital Sign Value Performing Clinician Faci lity 07-12-2024 [id number] Body height 147.32 cm [place] 07-12-2024 11:28-0400 Body mass index (BMI) [Ratio] 20.3 kg/m2 [facility] 07-12-2024 11:28-0400 Body temperature 97.4 [degF] [facility] 07-12-2024 11:28-0400 Body weight 44.22 kg [place] 07-12-2024 11:28-0400 Diastolic blood pressure 76 mm[Hg] [facility] 07-12-2024 11:28-0400 Heart rate 71 /min [place] 07-12-2024 11:28-0400 SaO2% (BldA) [Mass fraction] 98 % [facility] 07-12-2024 11:28-0400 Systolic blood pressure 116 mm[Hg] [facility] 04-10-2024 13:29-0400 Body height 147.32 cm [place] 04-10-2024 13:29-0400 Body mass index (BMI) [Ratio] 20.7 kg/m2 [facility] 04-10-2024 13:29-0400 Body weight 44.96 kg [place] 04-10-2024 13:29-0400 Diastolic blood pressure 88 mm[Hg] [facility] 04-10-2024 13:29-0400 Heart rate 67 /min [place] 04-10-2024 13:29-0400 SaO2% (BldA) [Mass fraction] 98 % [facility] 04-10-2024 13:29-0400 Systolic blood pressure 148 mm[Hg] [facility] Encounters Encounter Date Encounter Type Care Provider Facility Start: 07-12-2024 End: 07-12-2024 ambulatory [facility] Work Phone: Start: 07-12-2024 End: 07-12-2024 Patient encounter procedure [facility] Physician [facility] Work Phone: Start: 05-16-2024 Non-patient / Non-visit [facility] Physician [facility] Work Phone: Start: 04-16-2024 End: 04-16-2024 ambulatory [facility] Work Phone: Start: 04-16-2024 End: 04-16-2024 Patient encounter procedure [facility] Physician [facility] Work Phone: Start: 04-10-2024 End: 04-10-2024 ambulatory [facility] Work Phone: Start: 04-10-2024 End: 04-10-2024 Patient encounter procedure [facility] Physician [facility] Work Phone: Start: 03-05-2024 Non-patient / Non-visit [facility] Physician [facility] Work Phone: Start: 01-18-2024 End: [...] lic 2000 panel - Serum or Plasma [facility] enter DXA Skeletal system. axial Views for bone density [facility] enter MG Breast - bilateral Screening [facility] Payers Date Payer Category Payer Unknown [id number] 1955 Unknown [id number] 2.16.84 [id number] 1955 Unknown [id number] 2.16.84 [id number] 1955 Unknown [id number] 2.16.84 [id number] 1955 Unknown [id number] 2.16.84 [id number] 1955 Unknown [id number] 2.16.84 [id number] 1955 Unknown [id number] Social History Date Type Detail Facility [facility]: [facility]24 [facility] Start: 1955 Sex Assigned At Female F [facility] Evaluation note Note Date & Type Note Facility Evaluation note Diagnosis Onset Date Cerebral palsy acute Generalized anxiety disorder acute Hypertension acute [facility] Work Phone: Evaluation note Note Date & Type Note Facility Evaluation note Diagnosis Onset Date Cerebral palsy acute Generalized anxiety disorder acute Hypertension acute Insomnia acute Bronchitis acute [facility] Work Phone: Evaluation note Note Date & Type Note Facility Evaluation note Diagnosis Onset Date Bronchitis acute [facility] Work Phone: Summary Purpose Family History [...] Generalized anxiety disorder Hypertension Chief Complaint Establish [phone] cough, congestion, fever Reason for Visit Cerebral palsy Generalized anxiety disorder Hypertension Insomnia Bronchitis Chief Complaint [phone] cough, congestion, fever 3 month f/u Reason for Visit Bronchitis Additional Source Comments INFORMATION SOURCE (unrecogn ized section and content) DATE CREATED AUTHOR 04/01/2023 [facility] DATE CREATED AUTHOR 'S AGUILAIZ ATION 01/19/2024 [facility] EPIC Care Teams (unrecognized sec tion and content) Team Status: Active Member Role Status Dates Ro Dennison APRN SENIOR MECHANICAL ESTIMATOR-C Primary Care Provider Active Team Status: Active Member Role Status Dates Kamar Gotti MD Attending Provider Active Start: March 05, 2024 Team Status: Inactive Member Role Status Dates Ro Dennison APRN SENIOR MECHANICAL ESTIMATOR-C Primary Care Provider, Attending Provider Active Start: [...] Member Role Status Dates Ro Dennison APRN SENIOR MECHANICAL ESTIMATOR-C Primary Care Provider, Attending Provider Active Start: [...] BE BASED ON THE PRIMARY CLINICAL RECORDS. [facility]. provides no warranty or guarantee of the accuracy or completeness of information in this document.
--- NOTE | 2024-11-10 11:50 | P.HP_ITS ---
HPI H&P: HPI History of Present Illness Chief complaint: WEAKNESS, FEVER, COVID +, COVID, WEAKNESS Narrative: Presented to the emergency room with increasing cough and weakness. Some dyspnea, denies chest pain, told ER physician that she was COVID-positive 3 or 4 days ago, When I saw patient in the emergency room, resting fairly uncomfortably in bed, some shortness of breath, denies chest pain still. Opioid HPI Opioid Management Most Recent Pain and Opioid Data: Last Pain Scale 6 11/10/24 13:28 11/10/24 Last Pain Assessment 11/10/24 12:52 Last ED Pain Assessment 11/10/24 08:08 Last MAR Pain Assessment 11/10/24 13:28 Last ORT Total Score 2 11/10/24 11:03 11/10/24 Last ORT Risk Category Low Risk 11/10/24 11:03 11/10/24 Review of Systems ROS Status of ROS 10 or more systems reviewed and unremark able except as noted in history and below PFSH PFSH Medical History (Updated 11/10/24 @ 14:15 by Antione Suresh MD) Anxiety ?F41.9 - Anxiety disorder, unspecified (ICD-10) Insomnia ?G47.00 - Insomnia, unspecified (ICD-10) Depression ?F32.A - Depression, unspecified (ICD-10) Hypertension ?I10 - Essential (primary) hypertension (ICD-10) Cerebral palsy ?G80.9 - Cerebral palsy, unspecified (ICD-10) Surgical History (Updated 11/10/24 @ 08:08 by Liliam العراقي RN) H/O foot surgery ?Z98.890 - Other specified postprocedural states (ICD-10) H/O knee surgery ?Z98.890 - Other specified postprocedural states (ICD-10) Family History (Updated 11/10/24 @ 11:17 by Beba Luis RN) Father Family history of myocardial infarction Family history of hypertension Mother Family history of cancer Sister Family history of COPD (chronic obstructive pulmonary disease) Social History (Updated 11/10/24 @ 11:18 by Beba Luis RN) Within the past year, how often did you have a drink containing alcohol: never Score interpretation: A score less than 3 is consistent with normal alcohol consumption. Smoking status: Current every day smoker Non-prescribed substance use: denies use Highest level of school completed/degree received: high school graduate Little interest or pleasure in doing things: not at all Feeling down, depressed, or hopeless: not at all Meds Home Medications and Allergies Home Medications ?Medication ?Instructions ?Recorded ?Confirmed ?Type alprazolam 0.25 mg tablet 0.25 mg PO TID PRN anxiety 11/10/24 11/10/24 History baclofen 10 mg tablet 10 mg PO BID 11/10/24 11/10/24 History baclofen 10 mg tablet 20 mg PO .qhs 11/10/24 11/10/24 History metoprolol succinate 25 mg 25 mg PO BEDTIME 11/10/24 11/10/24 History tablet,extended release 24 hr zolpidem 10 mg tablet 10 mg PO .qhs 11/10/24 11/10/24 History Allergies Allergy/AdvReac Type Severity Reaction Status Date / Time No Known Drug Allergies Allergy Verified 11/10/24 07:49 Exam Constitutional Vital Signs, click to edit/add: Last Vital Signs Temp 98.7 F 11/10/24 07:51 Pulse 83 11/10/24 08:53 Resp 18 11/10/24 08:53 BP 159/89 H 11/10/24 08:53 Pulse Ox 96 11/10/24 08:53 O2 Del Method Room Air 11/10/24 08:08 Documenting provider has reviewed patient's vital signs: yes Common normals: apparent distress (Respiratory distress) [facility] Common normals: normocephalic Chest Common normals: inspection of chest normal Respiratory Common normals: abnormal respiratory effort (Tachypneic) Auscultation: diminished lung sounds; no rales and no rhonchi Cardio Common normals: regular rate and regular rhythm GI Common normals: Normal to inspection, nondistended, normoactive bowel sounds present Common normals: no CVA tenderness Extremity Common normals: abnormal to inspection (Right foot with stage I decubitus) Results Labs Labs: Short CBC 11/10/24 Range/Units 08:01 WBC 8.0 (4.0-11.0) 10^3/uL Hgb 12.6 (12.0-16.0) g/dL Hct 37.1 (36.0-48.0) % Plt Count 186 (150-450) 10^3/uL BMP 11/10/24 08:01 Sodium 144 Potassium 3.6 Chloride 107 Carbon Dioxide 26.7 BUN 13.0 Creatinine 0.54 L Glucose 100 Calcium 8.9 Liver Function 11/10/24 Range/Units 08:01 Total Bilirubin 0.8 (0.2-1.0) mg/dL AST 25 (15-37) U/L ALT 21 (14-59) U/L Alkaline Phosphatase 58 (46-116) U/L Albumin 3.9 (3.4-5.0) g/dL Assessment and Plan Assessment and Plan (1) Weakness: (2) Insomnia: (3) Hypertension: (4) Cerebral palsy: (5) Acute non-ST elevation myocardial infarction (NSTEMI): Plan Admission findings: Respiratory distress, uncontrolled high blood pressure, acute NSTEMI Acute NSTEMI-acute elevation in high-sensitivity troponin troponin over 2200, our normal is 50, that makes it 44 times normal with acute elevation in BNP at 1100 and increasing from an ER admission 1 of around 400, repeating again now, placed patient on increased beta-blanca, nitrates, heparin drip, transferring back to the intensive care unit Cerebral Palsy - Very high functioning - walks with walker - lives by self Muscle Spasm -maintain home medications Insomnia-maintain home medications Stage I decubitus right foot, wound consultation Admission status: Patient admitted, once workup was completed found to have an acute NSTEMI, medically necessary treatment will span 2 midnights. Inpatient status.
[2024-11-10 12:32] LABS: Basophils Percent Auto 0.4 % (0.2-2.0); Eosinophils Percent Auto 0.5 % (0.9-7.0); Hematocrit 39.7 % (36.0-48.0); Hemoglobin 13.3 g/dL (12.0-16.0); Immature Granulocytes Abs Auto 0.03 10^3/uL (0.00-0.03); Immature Granulocytes Pct Auto 0.4 % (0.0-0.5); Lymphocytes Absolute Auto 2.2 10^3/uL (1.2-3.8); Lymphocytes Percent Auto 29.5 % (20.5-60.0); Mean Corpuscular HGB Conc 33.5 g/dL (29.9-35.2); Mean Corpuscular Hemoglobin 30.7 pg (26.7-34.0); Mean Corpuscular Volume 91.7 fL (81.0-99.0); Mean Platelet Volume 10.4 fL (9.5-13.5); Monocytes Absolute Auto 0.7 10^3/uL (0.3-0.8); Monocytes Percent Auto 8.9 % (1.7-12.0); Neutrophils Absolute Auto 4.4 10^3/uL (1.4-6.5); Neutrophils Percent Auto 60.3 % (43.0-75.0); Platelet Count 204 10^3/uL (150-450); Red Blood Count 4.33 10^6/uL (4.20-5.40); Red Cell Distribution Width 12.8 % (11.0-15.0); White Blood Count 7.3 10^3/uL (4.0-11.0)
[2024-11-10] MEDS: LACTATED RINGER'S SOLUTION 1,000 ML 50 ML IV (12:40)
[2024-11-10 12:45] LABS: Influenza Virus A Antigen Negative; Influenza Virus B Antigen Negative; Internal Control Within Normal Limits; Respiratory Syncytial Virus Not Detected (NOT DETECTE); SARS-CoV-2 Ag NEGATIVE (NEGATIVE)
[2024-11-10 13:13] LABS: Troponin I High Sensitivity 2272.4 pg/mL (4.0-51.3)
--- NOTE | 2024-11-10 13:17 | ECG_ITS ---
[facility] Test Date: 2024-11-10 Pat Name: SCOTTY KERN Department: Room: [facility] Gender: Female Infrastructure Administrator: : 1955 Requested By: ZHENG PAT Order Number: [id number] Reading MD: MARIOLA BANGURA Measurements Intervals [place] Rate: 90 P: 64 NH: 143 QRS: 70 QRSD: 69 T: 66 QT: 339 QTc: 415 Interpretive Statements SINUS RHYTHM SEPTAL MYOCARDIAL INFARCTION [40+ ms Q WAVE IN V1/V2], PROBABLY OLD Compared to ECG 06/20/2022 17:25:02 Myocardial infarct finding now present ST (T wave) deviation no longer present Electronically Signed On 11-12-2024 17:50:27 EST by MARIOLA BANGURA
[2024-11-10] MEDS: AZITHROMYCIN 500 MG in 0.9 % SODIUM CHLORIDE 250 ML 250 MG IV (13:25)
[2024-11-10] MEDS: DEXAMETHASONE SOD PHOS 10 MG/ML VIAL IV (13:26)
[2024-11-10] MEDS: ACETAMINOPHEN 500 MG TABLET 1000 MG PO (13:28)
[2024-11-10] MEDS: BACLOFEN 10 MG TABLET PO (13:28)
[2024-11-10 13:55] LABS: Basophils Percent Auto 0.4 % (0.2-2.0); Eosinophils Percent Auto 0.4 % (0.9-7.0); Hematocrit 38.3 % (36.0-48.0); Hemoglobin 12.8 g/dL (12.0-16.0); Immature Granulocytes Abs Auto 0.03 10^3/uL (0.00-0.03); Immature Granulocytes Pct Auto 0.4 % (0.0-0.5); Lymphocytes Absolute Auto 1.9 10^3/uL (1.2-3.8); Lymphocytes Percent Auto 23.3 % (20.5-60.0); Mean Corpuscular HGB Conc 33.4 g/dL (29.9-35.2); Mean Corpuscular Hemoglobin 30.7 pg (26.7-34.0); Mean Corpuscular Volume 91.8 fL (81.0-99.0); Mean Platelet Volume 10.4 fL (9.5-13.5); Monocytes Absolute Auto 0.7 10^3/uL (0.3-0.8); Monocytes Percent Auto 8.6 % (1.7-12.0); Neutrophils Absolute Auto 5.5 10^3/uL (1.4-6.5); Neutrophils Percent Auto 66.9 % (43.0-75.0); Platelet Count 190 10^3/uL (150-450); Red Blood Count 4.17 10^6/uL (4.20-5.40); Red Cell Distribution Width 12.8 % (11.0-15.0); White Blood Count 8.3 10^3/uL (4.0-11.0)
[2024-11-10 14:19] LABS: Troponin I High Sensitivity 424.8 pg/mL (4.0-51.3)
[2024-11-10] MEDS: PANTOPRAZOLE SODIUM 40 MG VIAL IV (14:31)
[2024-11-10] MEDS: HEPARIN SODIUM (PORCINE) 5,000 UNIT/ML VIAL 2400 UNIT IV (14:31)
[2024-11-10] MEDS: NITROGLYCERIN 2% 1 GRAM PACKET 1 GM TD (14:31)
[2024-11-10] MEDS: METOPROLOL TARTRATE 25 MG TABLET PO (14:31)
[2024-11-10] MEDS: HEPARIN SODIUM,PORCINE/D5W 25,000 UNIT/500 ML IV.SOLN 10 UNIT IV (14:35)
[2024-11-10 14:40] LABS: Partial Thromboplastin Time 27.3 sec (22.3-36.2)
--- NOTE | 2024-11-10 14:47 | P.DS_ITS ---
DS: Providers Provider Date of admission: 11/10/24 10:38 Primary care physician: SKY MOONEY Consults: 11/10/24 Consult to Dietitian Routine Reason for consultation: Weight loss 11/10/24 11:37 Occupational Therapy Eval and Treat Routine Reason for consultation: Only if needed for Rehab Has provider been notified: No Physical Therapy Eval and Treat Routine Reason for consultation: Eval and Treat Has provider been notified: No DS: Diagnosis Discharge Diagnosis (1) Weakness: (2) Insomnia: (3) Hypertension: (4) Cerebral palsy: (5) Acute non-ST elevation myocardial infarction (NSTEMI): Assessment and plan: Admission findings: Respiratory distress, uncontrolled high blood pressure, acute NSTEMI Acute NSTEMI-acute elevation in high-sensitivity troponin troponin over 2200, our normal is 50, that makes it 44 times normal with acute elevation in BNP at 1100 and increasing from an ER admission 1 of around 400, repeating again now, placed patient on increased beta-blanca, nitrates, heparin drip, transferring back to the intensive care unit Cerebral Palsy - Very high functioning - walks with walker - lives by self Muscle Spasm -maintain home medications Insomnia-maintain home medications Stage I decubitus right foot, wound consultation Admission status: Patient admitted, once workup was completed found to have an acute NSTEMI, medically necessary treatment will span 2 midnights. Inpatient status. ? DS: Summary Hospital Course Hospital Course: Patient was evaluated emergency room with weakness and some shortness of breath, does not describe chest pain, was told 3 to 4 days ago she tested positive for COVID, repeat COVID test here that was negative, family said the test was way outdated, and completing the workup patient found to have a significantly elevated troponin it was over 2200, this was approximately 4 hours after being admitted, repeated the troponin from the ER blood work, was of 400 at that time, repeating again currently, discussed case with [facility], she will be transferred there as a bed is available, patient was placed on a heparin drip, increased dose of the beta-blanca and added Nitropaste, if patient still here 6 hours after the EKG done at noon, will repeat that as well, plan is transfer to [facility] today Time Spent with Patient Time attestation: Total time spent providing and/or coordinating discharge services: Quality: Stroke Symptom Onset Unknown: No Exam Constitutional Vital Signs, click to edit/add: Last Vital Signs Temp 98.0 F 01/18/25 11:03 Pulse 76 11/10/24 11:03 Resp 18 11/10/24 11:03 BP 147/80 H 11/10/24 11:03 Pulse Ox 98 11/10/24 11:03 O2 Del Method Room Air 11/10/24 11:03 Documenting provider has reviewed patient's vital signs: yes Common normals: apparent distress (Respiratory distress) HENMT Common normals: normocephalic Chest Common normals: inspection of chest normal Respiratory Common normals: abnormal respiratory effort (Tachypneic) Auscultation: diminished lung sounds; no rales and no rhonchi Cardio Common normals: regular rate and regular rhythm GI Common normals: Normal to inspection, nondistended, normoactive bowel sounds present Common normals: no CVA tenderness Extremity Common normals: abnormal to inspection (Right foot with stage I decubitus) DS: Data Data Completed and Pending Labs on day of discharge: Labs from last 24 hours 11/10/24 11/10/24 11/10/24 13:35 12:07 12:05 WBC 8.3 RBC 4.17 L Hgb 12.8 Hct 38.3 MCV 91.8 MCH 30.7 MCHC 33.4 RDW 12.8 Plt Count 190 MPV 10.4 Neut % (Auto) 66.9 Lymph % (Auto) 23.3 [place] % (Auto) 8.6 Eos % (Auto) 0.4 L Baso % (Auto) 0.4 Neut # (Auto) 5.5 Lymph # (Auto) 1.9 [place] # (Auto) 0.7 Eos # (Auto) 0.0 Baso # (Auto) 0.0 Abs Immat Gran (auto) 0.03 Imm/Tot Granulo (auto) 0.4 APTT 27.3 Sodium Potassium Chloride Carbon Dioxide Anion Gap BUN Creatinine Est GFR ( Amer) Est GFR (Non-Af Amer) BUN/Creatinine Ratio Glucose Calcium Total Bilirubin AST ALT Alkaline Phosphatase Troponin I High Sens 424.8 H* NT-Pro-B Natriuret Pep 1030.0 H Total Protein Albumin Globulin Albumin/Globulin Ratio Influenza Type A Ag Negative Influenza Type B Ag Negative RSV Antigen Not detected SARS-CoV-2 Ag (CV2AG) Negative 11/10/24 11/10/24 12:05 08:01 WBC 7.3 8.0 RBC 4.33 4.09 L Hgb 13.3 12.6 Hct 39.7 37.1 MCV 91.7 90.7 MCH 30.7 30.8 MCHC 33.5 34.0 RDW 12.8 12.8 Plt Count 204 186 MPV 10.4 10.7 Neut % (Auto) 60.3 60.4 Lymph % (Auto) 29.5 30.7 [place] % (Auto) 8.9 7.7 Eos % (Auto) 0.5 L 0.5 L Baso % (Auto) 0.4 0.4 Neut # (Auto) 4.4 4.8 Lymph # (Auto) 2.2 2.4 [place] # (Auto) 0.7 0.6 Eos # (Auto) 0.0 0.0 Baso # (Auto) 0.0 0.0 Abs Immat Gran (auto) 0.03 0.02 Imm/Tot Granulo (auto) 0.4 0.3 APTT Sodium 144 Potassium 3.6 Chloride 107 Carbon Dioxide 26.7 Anion Gap 13.9 BUN 13.0 Creatinine 0.54 L Est GFR ( Amer) >60 Est GFR (Non-Af Amer) >60 BUN/Creatinine Ratio 24.1 Glucose 100 Calcium 8.9 Total Bilirubin 0.8 AST 25 ALT 21 Alkaline Phosphatase 58 Troponin I High Sens 2272.4 H* NT-Pro-B Natriuret Pep Total Protein 6.7 Albumin 3.9 Globulin 2.8 Albumin/Globulin Ratio 1.4 Influenza Type A Ag Influenza Type B Ag RSV Antigen SARS-CoV-2 Ag (CV2AG) Discharge Plan Discharge Disposition: Xfer Acute Care Hospital Condition: Fair
[2024-11-10 14:51] LABS: Troponin I High Sensitivity 2395.1 pg/mL (4.0-51.3)
--- NOTE | 2024-11-10 15:17 | PC.NURSE ---
I called to clarify this patient's troponin levels with lab. I asked them to use ER tubes to run a troponin because Dr Suresh wanted to see the trend from the draw they obtained on med surg at noon. They said that the ER tube is timed for 0801 and resulted at 424. At noon, her trop resulted at 2272.
--- NOTE | 2024-11-10 15:19 | PC.NURSE ---
Sister and aunt have been present at bedside since admission. They are aware of transfer to ICU and plan for transfer to [facility]
[2024-11-10 16:16] LABS: Troponin I High Sensitivity 2074.8 pg/mL (4.0-51.3)
[2024-11-10] MEDS: ALPRAZOLAM 0.25 MG TABLET PO (17:40)
--- NOTE | 2024-11-10 17:57 | PC.NURSE ---
bedside report given to [facility]. family member present.
--- NOTE | 2024-11-10 18:00 | ECG_ITS ---
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
--- NOTE | 2024-11-10 18:20 | PC.NURSE ---
report called to [facility] at [facility] [phone]
--- OUTSIDE RECORDS SUMMARY | 2024-11-12 09:05 | XMS_ITS | CCD ---
Demographics Address [facility] [address] [place] [address] Mobile Phone Mobile Phone Preferred Language en Marital Status Single Religion Affiliation Unknown Race White Ethnic Group Not or Lati no Author Organization [facility] Care Team Providers Care A Class Lineman Name Role Phone DEREK ., DR ESPINOZA Admitting Unavailable HEMEYER ., DR ESPINOZA Attending Unavailable HEMEYER ., DR ESPINOZA Primary Care Unavailable HEMEYER ., DR ESPINOZA Attending Unavailable HEMEYER ., DR ESPINOZA Consulting Unavailable HEMEYER ., DR ESPINOZA Primary Care Unavailable HEMEYER ., DR ESPINOZA Admitting Unavailable LOWRY, DR VICKI Fulton Consulting Unavailable HEMEYER ., [...] 06-22-2022 Episodic Other aftercare (1 source) Other detention (current) drug therapy; Translations: [OTH LONGTERM CURRENT DRUG THERAPY] Onset: 06-22-2022 Episodic Other [...] Basophils (Bld) [#/Vol] 0.1 10 3/uL 0.0-0.1 [facility] Basophils/100 WBC Auto (Bld) on 05-16-2024 Basophils/100 WBC (Bld) 0.9 % 0.2-2.0 [facility] Cholesterol in LDL Calc [Mas s/Vol]on 05-16-2024 Cholesterol in LDL [Mass/Vol] 89.0 mg/dL [facility] Comment on above: <100 mg/dl [id number] 0-129 mg/dl NEAR OR ABOVE [id number] mg/dl BORDERLINE [id number] mg/dl HIGH>190 mg/dl VERY HIGH Cholesterol in VLDL Calc [Ma ss/Vol]on 05-16-2024 Cholesterol in VLDL [Mass/Vol] 7.0 mg/dL [facility] Eosinophils/100 WBC Auto (Bl d)on 05-16-2024 Eosinophils/100 WBC (Bld) 3.8 % 0.9-7.0 [facility] Erythrocyte distribution wid th Auto (RBC) [Ratio]on 05-16-2024 Erythrocyte distribution width (RBC) [Ratio] 13.2 % 11.0-15.0 [facility] Estimated glomerular filtrat ion rate (GFR) non- Americanon 05-16-2024 GFR/1.73 sq M.predicted among non-blacks MDRD (S/P/Bld) [Vol rate/Area] mL/min/{1.73_m2} >=60 [facility] Globulin Calc (S) [Mass/Vol] on 05-16-2024 Globulin (S) [Mass/Vol] 3.0 g/dL [facility] Hematocrit Auto (Bld) [Volum e fraction]on 05-16-2024 Hematocrit (Bld) [Volume fraction] 41.5 % 36.0-48.0 [facility] Hemoglobin [Mass/volume] in Bloodon 05-16-2024 Hemoglobin (Bld) [Mass/Vol] 13.6 g/dL 12.0-16.0 [facility] Laboratory - Chemistry and C hemistry - challengeon 05-16-2024 Albumin [Mass/Vol] 3.9 g/dL 3.4-5.0 [facility] ALP [Catalytic activity/Vol] 69 U/L 46-116 [facility] ALT [Catalytic activity/Vol] 26 U/L 14-59 [facility] AST [Catalytic activity/Vol] 25 U/L 15-37 [facility] Bilirubin [Mass/Vol] 0.6 mg/dL 0.2-1.0 [facility] Calcium [Mass/Vol] 8.9 mg/dL 8.5-10.1 [facility] Chloride [Moles/Vol] 107 mmol/L 98-107 [facility] Cholesterol [Mass/Vol] 183 mg/dL <=200 [facility] Cholesterol in HDL [Mass/Vol] 87 mg/dL High 40-60 [facility] Comment on above: > or =60 mg/dl - LOW CARDIOVASCULAR RISK<40 mg/dl - HIGH CARDIOVASCULAR RISK CO2 [Moles/Vol] 26.7 mmol/L 21.0-32.0 [facility] Creatinine [Mass/Vol] 0.58 mg/dL 0.55-1.02 [facility] GFR/1.73 sq M.predicted MDRD (S/P/Bld) [Vol rate/Area] mL/min/{1.73_m2} >=60 [facility] Glucose [Mass/Vol] 79 mg/dL 74-106 [facility] Potassium [Moles/Vol] 3.7 mmol/L 3.5-5.1 [facility] Protein [Mass/Vol] 6.9 g/dL 6.4-8.2 [facility] Sodium [Moles/Vol] 144 mmol/L 136-145 [facility] Triglyceride [Mass/Vol] 35 mg/dL <=150 [facility] Urea nitrogen [Mass/Vol] 17.0 mg/dL 7.0-18.0 [facility] Urea nitrogen/Creatinine [Mass ratio] 29.3 mg/mg [facility] Laboratory - Hematology and Cell countson 05-16-2024 Immature granulocytes/100 WBC (Bld) 0.2 % 0.0-0.5 [facility] Leukocytes [#/volume] correc leonor for nucleated erythrocytes in Blood by Automated counon 05-16-2024 WBC corrected for nucl RBC Auto (Bld) [#/Vol] 5.5 10 3/uL 4.0-11.0 [facility] Lymphocytes Auto (Bld) [#/Vo l]on 05-16-2024 Lymphocytes (Bld) [#/Vol] 2.4 10 3/uL 1.2-3.8 [facility] Lymphocytes/100 WBC Auto (Bl d)on 05-16-2024 Lymphocytes/100 WBC (Bld) 43.2 % 20.5-60.0 [facility] MCH Auto (RBC) [Entitic mass ]on 05-16-2024 MCH (RBC) [Entitic mass] 30.2 pg 26.7-34.0 [facility] MCHC Auto (RBC) [Mass/Vol]on 05-16-2024 MCHC (RBC) [Mass/Vol] 32.8 g/dL 29.9-35.2 [facility] MCV Auto (RBC) [Entitic vol] on 05-16-2024 MCV (RBC) [Entitic vol] 92.2 fL 81.0-99.0 [facility] Monocytes Auto (Bld) [#/Vol] on 05-16-2024 Monocytes (Bld) [#/Vol] 0.5 10 3/uL 0.3-0.8 [facility] Monocytes/100 WBC Auto (Bld) on 05-16-2024 Monocytes/100 WBC (Bld) 8.4 % 1.7-12.0 [facility] Neutrophils Auto (Bld) [#/Vo l]on 05-16-2024 Neutrophils (Bld) [#/Vol] 2.4 10 3/uL 1.4-6.5 [facility] Neutrophils/100 WBC Auto (Bl d)on 05-16-2024 Neutrophils/100 WBC (Bld) 43.5 % 43.0-75.0 [facility] No Panel Informationon 05-16 Eosinophils # (Auto) 0.2 10 3/uL 0.0-0.[address] [facility] Immature Granulocyte # (Auto) 0.01 10 3/uL 0.00-0.03 [facility] Platelet mean volume Auto (B ld) [Entitic vol]on 05-16-2024 Platelet mean volume (Bld) [Entitic vol] 10.1 fL 9.5-13.5 [facility] Platelets Auto (Bld) [#/Vol] on 05-16-2024 Platelets (Bld) [#/Vol] 158 10 3/uL 150-450 [facility] RBC Auto (Bld) [#/Vol]on RBC (Bld) [#/Vol] 4.50 10 6/uL 4.20-5.40 [facility] Serum or plasma albumin/glob ulin mass ratioon 05-16-2024 Albumin/Globulin [Mass ratio] 1.3 {ratio} [facility] Serum or plasma anion gap de terminationon 05-16-2024 Anion gap [Moles/Vol] 14.0 mmol/L [facility] Serum or plasma total choles terol/high density lipoprotein (HDL) cholesterol mass tobias 05-16-2024 Cholesterol.total/Ch olesterol in HDL [Mass ratio] 2.1 {ratio} [facility] Comment on above: 3.3 - 4.4 [...] RENARD DEVINE Date: 2022-07-06 14:09 Normal [facility] AMYLASEon 2022 Amylase [Catalytic activity/Vol] 52 U/L Normal 25-115 [facility] Comment on above: Performed By: #### L IPA, NUNO #### [facility] [address] [address] [address] Becca Marroquin CBC AUTO DIFFon 2022 BASO # 0.0 103/ul Normal 0.0-0.1 [facility] Comment on above: Performed By: #### C BC #### [facility] [address] [address] [address] Becca Marroquin Basophils/100 WBC (Bld) 0.3 % Normal 0.2-2.0 [facility] Comment on above: Performed By: #### C BC #### [facility] [address] [place], [place] [address] Dr. Becca Marroquin EO # 0.0 103/ul Normal 0.0-0.7 [facility] Comment on above: Performed By: #### C BC #### [facility] [address] [place] [address] Dr. Becca Marroquin Eosinophils/100 WBC (Bld) 0.3 % Critically low 0.9-7.0 [facility] Comment on above: Performed By: #### C BC #### [facility] [address] [place] [address] Dr. Becca Marroquin Erythrocyte distribution width (RBC) [Ratio] 13.2 % Normal 11.0-15.0 [facility] Comment on above: Performed By: #### C BC #### [facility] [address] [place] [address] Dr. Becca Marroquin Hematocrit (Bld) [Volume fraction] 39.1 % Normal 36.0-48.0 [facility] Comment on above: Performed By: #### C BC #### [facility] [address] [place] [address] Dr. Becca Marroquin Hemoglobin (Bld) [Mass/Vol] 12.7 g/dL Normal 12.0-16.0 [facility] Comment on above: Performed By: #### C BC #### [facility] [address] [place] [address] Dr. Becca Marroquin IG # 0.06 10e3/ul Critically high 0.00-0.03 [facility] Comment on above: Performed By: #### C BC #### [facility] [address] [place] [address] Dr. Becca Marroquin IG % 0.5 % Normal 0.0-0.5 [facility] Comment on above: Performed By: #### C BC #### [facility] [address] [place] [address] Dr. Becca Marroquin LYMPH # 1.6 103/ul Normal 1.2-3.8 [facility] Comment on above: Performed By: #### C BC #### [facility] [address] [place] [address] Dr. Becca Marroquin Lymphocytes/100 WBC (Bld) 13.7 % Critically low 20.5-60.0 [facility] Comment on above: Performed By: #### C BC #### [facility] [address] [place] [address] Dr. Becca Marroquin MANUAL DIFF REQ NO Normal [facility] Comment on above: Performed By: #### C BC #### [facility] [address] [place] [address] Dr. Becca Marroquin MCH (RBC) [Entitic mass] 31.0 pg Normal 26.7-34.0 [facility] Comment on above: Performed By: #### C BC #### [facility] [address] [place] [address] Dr. Becca Marroquin MCHC (RBC) [Mass/Vol] 32.5 g/dL Normal 29.9-35.2 [facility] Comment on above: Performed By: #### C BC #### [facility] [address] [place] [address] Dr. Becca Marroquin MCV (RBC) [Entitic vol] 95.4 fL Normal 81.0-99.0 [facility] Comment on above: Performed By: #### C BC #### [facility] [address] [place] [address] Dr. Becca Marroquin MONO # 0.5 103/ul Normal 0.3-0.8 [facility] Comment on above: Performed By: #### C BC #### [facility] [address] [place] [address] Dr. Becca Marroquin Monocytes/100 WBC (Bld) 4.0 % Normal 1.7-12.0 [facility] Comment on above: Performed By: #### C BC #### [facility] [address] [place] [address] Dr. Becca Marroquin NEUT # 9.4 103/ul Critically high 1.4-6.5 [facility] Comment on above: Performed By: #### C BC #### [facility] [address] [place] [address] Dr. Becca Marroquin Neutrophils/100 WBC (Bld) 81.2 % Critically high 43.0-75.0 [facility] Comment on above: Performed By: #### C BC #### [facility] [address] [place], [place] [address] Dr. Becca Marroquin Platelet mean volume (Bld) [Entitic vol] 10.2 fL Normal 9.5-13.5 [facility] Comment on above: Performed By: #### C BC #### [facility] [id number] Becca Marroquin PLT 163 103/ul Normal 150-450 [facility] Comment on above: Performed By: #### C BC #### [facility] [address] [place], [place] [address] Dr. Becca Marroquin RBC 4.10 106/ul Critically low 4.20-5.40 [facility] Comment on above: Performed By: #### C BC #### [facility] [address] [address] [address] Becca Marroquin WBC 11.6 103/ul Critically high 4.0-11.0 [facility] Comment on above: Performed By: #### C BC #### [facility] [address] [place], [place] [address] ABD/PELV W CONon [...] BEATRIZ VAZQUEZ Date: 2022 21:24 Normal [facility] SARS-CoV-2 (COVID-19) RNA RON+probe Ql (Unsp spec) Not detected Normal NOT DETECTED [facility] Comment on above: Result Comment: When [...] for this test is supported by the [employer] and Human Service's declaration that [...] used). Performed By: #### C VDTBH #### [facility] [address] [place] [address] Dr. Becca Marroquin GI PANEL (PCR)on 2022 Adenovirus F 40/41 Not detected Normal NOT DETECTED [facility] Comment on above: Performed By: #### G IPANEL #### [facility] [address] [place] [address] Dr. Becca Marroquin Astrovirus Not detected Normal NOT DETECTED [facility] [place] [facility] Comment on above: Performed By: #### G IPANEL #### [facility] [address] [place] [address] Dr. Becca Lema. Diff toxin A/B Not detected Normal NOT DETECTED [facility] Comment on above: Performed By: #### G IPANEL #### [facility] [address] [place] [address] Dr. Becca Marroquin Campylobacter Not detected Normal NOT DETECTED [facility] Comment on above: Performed By: #### G IPANEL #### [facility] [address] [place] [address] Dr. Becca Marroquin Cryptosporidium Not detected Normal NOT DETECTED [facility] Comment on above: Performed By: #### G IPANEL #### [facility] [address] [place] [address] Dr. Becca Marroquin Cyclos. Cayetanensis Not detected Normal NOT DETECTED [facility] Comment on above: Performed By: #### G IPANEL #### [facility] [address] [place] [address] Dr. Becca Marroquin E. Coli O157 Not Applicable Normal Not Applicable [facility] Comment on above: Performed By: #### G IPANEL #### [facility] [address] [place] [address] Dr. Becca Marroquin E. histolytica Not detected Normal NOT DETECTED [facility] Comment on above: Performed By: #### G IPANEL #### [facility] [address] [place] [address] Dr. Becca Marroquin EAEC Not detected Normal NOT DETECTED [facility] [place] [facility] Comment on above: Performed By: #### G IPANEL #### [facility] [address] [address] [address] Becca Marroquin EIEC Not detected Normal NOT DETECTED [facility] [place] [facility] Comment on above: Performed By: #### G IPANEL #### [facility] [address] [address] [address] Becca Marroquin EPEC Not detected Normal NOT DETECTED [facility] [place] [facility] Comment on above: Performed By: #### G IPANEL #### [facility] [address] [address] [address] Becca Marroquin ETEC Not detected Normal NOT DETECTED [facility] [place] [facility] Comment on above: Performed By: #### G IPANEL #### [facility] [address] [place] [address] Dr. Becca Moore Lamblia Not detected Normal NOT DETECTED [facility] [place] [facility] Comment on above: Performed By: #### G IPANEL #### [facility] [address] [place] [address] Dr. Becca ASTUDILLO CONTROLS PASSED Normal [facility] Comment on above: Performed By: #### G IPANEL #### [facility] [address] [place] [address] Dr. Becca GORDON [facility] HEADER GI PANEL BACTERIA Normal [facility] Comment on above: Performed By: #### G IPANEL #### [facility] [address] [place] [address] Dr. Becca MORENO ECOLI GI PANEL DIARRHEAGEN IC E.COLI / SHIGELLA Normal [facility] Comment on above: Performed By: #### G IPANEL #### [facility] [address] [place] [address] Dr. Becca MORENO INFO SEE BELOW [facility] Comment on above: Result Comment: EAEC - Enteroaggregative E. Coli EPEC- Enteropathogenic E. Coli ETEC- Enterotoxigenic E. Coli lt/st STEC- Shigella-like toxin-producing E. Coli stx1/stx2 EIEC- Shigella/Enteroinvasive E. Coli Performed By: #### G IPANEL #### [facility] [address] [address] [address] Becca MORENO PARASITES GI PANEL PARASITES Normal [facility] Comment on above: Performed By: #### G IPANEL #### [facility] [address] [address] [address] Becca MORENO VIRUS GI PANEL VIRUSES Normal [facility] Comment on above: Performed By: #### G IPANEL #### [facility] [address] [address] [address] Becca Marroquin Norovirus GI/GII Not detected Normal NOT DETECTED [facility] Comment on above: Performed By: #### G IPANEL #### [facility] [address] [address] [address] Becca Marroquin P. Shigelloides Not detected Normal NOT DETECTED [facility] Comment on above: Performed By: #### G IPANEL #### [facility] [address] [place] [address] Dr. Becca Marroquin Rotavirus A Not detected Normal NOT DETECTED [facility] Comment on above: Performed By: #### G IPANEL #### [facility] [address] [address] [address] Becca Marroquin Salmonella Not detected Normal NOT DETECTED [facility] [place] [facility] Comment on above: Performed By: #### G IPANEL #### [facility] [address] [place] [address] Dr. Becca Marroquin Sapovirus Not detected Normal NOT DETECTED [facility] [place] [facility] Comment on above: Performed By: #### G IPANEL #### [facility] [address] [place] [address] Dr. Becca Marroquin STEC Not detected Normal NOT DETECTED [facility] [place] [facility] Comment on above: Performed By: #### G IPANEL #### [facility] [address] [address] [address] Becca Marroquin Vibrio Not detected Normal NOT DETECTED [facility] [place] [facility] Comment on above: Performed By: #### G IPANEL #### [facility] [address] [address] [address] Becca Marroquin Vibrio Cholera Not detected Normal NOT DETECTED [facility] Comment on above: Performed By: #### G IPANEL #### [facility] [address] [address] [address] Becca Marroquin Y. Enterocolitica Not detected Normal NOT DETECTED [facility] Comment on above: Performed By: #### G IPANEL #### [facility] [address] [address] [address] Becca Marroquin LIPASEon 2022 Lipase [Catalytic activity/Vol] 84.0 U/L Normal 73.0-393.0 [facility] Comment on above: Performed By: #### L IPA, NUNO #### [facility] [address] [place] [address] Dr. Becca Marroquin PROF 14(COMP METB)on 022 Albumin [Mass/Vol] 3.6 g/dL Normal 3.4-5.0 [facility] Comment on above: Performed By: #### C MP ####[facility] [address] [place], [place] [address]DrEtta Marroquin Albumin/Globulin [Mass ratio] 1.4 {ratio} Normal [facility] Comment on above: Performed By: #### C MP ####[facility] [address] [place], [place] [address]DrEtta Marroquin ALP [Catalytic activity/Vol] 66 U/L Normal 46-116 [facility] Comment on above: Performed By: #### C MP ####[facility] [address] [address]DrEtta Marroquin ALT [Catalytic activity/Vol] 24 U/L Normal 14-59 [facility] Comment on above: Performed By: #### C MP ####[facility] [address] [address]DrEtta Marroquin Anion gap [Moles/Vol] 11.2 mmol/L Normal [facility] Comment on above: Performed By: #### C MP ####[facility] [address] [address]DrEtta Marroquin AST [Catalytic activity/Vol] 21 U/L Normal 15-37 [facility] Comment on above: Performed By: #### C MP ####[facility] [address] [address]Dr. Becca Marroquin Bilirubin [Mass/Vol] 0.3 mg/dL Normal 0.2-1.0 [facility] Comment on above: Performed By: #### C MP ####[facility] [address] [address]Dr. Becca Marroquin Calcium [Mass/Vol] 8.0 mg/dL Critically low 8.5-10.1 [facility] Comment on above: Performed By: #### C MP ####[facility] [address] [place], [place] [address]Dr. Becca Marroquin Chloride [Moles/Vol] 110 mmol/L Critically high 98-107 [facility] Comment on above: Performed By: #### C MP ####[facility] [address] [place], [place] [address]Dr. Becca Marroquin CO2 [Moles/Vol] 25.2 mmol/L Normal 21.0-32.0 [facility] Comment on above: Performed By: #### C MP ####[facility] [address] [place], [place] [address]Dr. Becca Marroquin Creatinine [Mass/Vol] 0.61 mg/dL Normal 0.55-1.02 [facility] Comment on above: Performed By: #### C MP ####[facility] [address] [place], [place] [address]Dr. Becca Marroquin EGFR-AF CYMRO >60 Normal >=60 [facility] [place] [facility] Comment on above: Performed By: #### C MP ####[facility] [address] [place], [place] [address]Dr. Becca Lopez EGFR-NON AF CYMRO >60 Normal >=60 [facility] Comment on above: Performed By: #### C MP ####[facility] [address] [place], [place] [address]Dr. Becca Lopez Globulin (S) [Mass/Vol] 2.6 g/dL Normal [facility] Comment on above: Performed By: #### C MP ####[facility] [address] [id number]. Becca Marroquin Glucose [Mass/Vol] 119 mg/dL Critically high 74-106 [facility] Comment on above: Performed By: #### C MP ####[facility] [address] [id number]. Becca Marroquin Potassium [Moles/Vol] 4.4 mmol/L Normal 3.5-5.1 [facility] Comment on above: Performed By: #### C MP ####[facility] [address] [id number]. Becca Marroquin Protein [Mass/Vol] 6.2 g/dL Critically low 6.4-8.2 [facility] Comment on above: Performed By: #### C MP ####[facility] [address] [address]Dr. Becca Marroquin Sodium [Moles/Vol] 142 mmol/L Normal 136-145 [facility] Comment on above: Performed By: #### C MP ####[facility] [address] [id number]. Becca Marroquin Urea nitrogen [Mass/Vol] 16.0 mg/dL Normal 7.0-18.0 [facility] Comment on above: Performed By: #### C MP ####[facility] [address] [address]Dr. Becca Marroquin Urea nitrogen/Creatinine [Mass ratio] 26.2 mg/mg Normal [facility] Comment on above: Performed By: #### C MP ####[facility] [address] [id number]. Becca Marroquin FREE T3on 04-21-2022 FREE T3 2.50 pg/mlL Normal 2.18-3.98 [facility] Comment on above: Performed By: #### L IPID, TSH, CMP, FT3 ####[facility] [address] [id number][address] Becca Marroquin FREE T4on 04-21-2022 Free T4 [Mass/Vol] 1.14 ng/dL Normal 0.76-1.46 [facility] Comment on above: Performed By: #### F T4 #### [facility] [address] [place], [place] [address] Dr. Becca Marroquin LIPID PROFILEon 04-21-2022 CHOL-HDL RATIO NORM SEE BELOW Normal [facility] Comment on above: Result Comment: 3.3 - 4.4 LOW RISK 4.4 - 7.1 AVERAGE RISK 7.1 - 11.0 MODERATE RISK >11.0 HIGH RISK Performed By: #### L IPID, TSH, CMP, FT3 ####[facility] [address] [place], [place] [address]FkEtta Marroquin Cholesterol [Mass/Vol] 182 mg/dL Normal <=200 [facility] Comment on above: Performed By: #### L IPID, TSH, CMP, FT3 ####[facility] [address] [id number] Marroquin Cholesterol in HDL [Mass/Vol] 73 mg/dL Critically high 40-60 [facility] Comment on above: Performed By: #### L IPID, TSH, CMP, FT3 ####[facility] [address] [id number] Marroquin Cholesterol in LDL [Mass/Vol] 99.0 mg/dL Normal [facility] Comment on above: Performed By: #### L IPID, TSH, CMP, FT3 ####[facility] [address] [id number]. Becca Marroquin Cholesterol.total/Ch olesterol in HDL [Mass ratio] 2.5 {ratio} Normal [facility] Comment on above: Performed By: #### L IPID, TSH, CMP, FT3 ####[facility] [address] [place] [id number]. Becca Marroquin HDL NORMAL > or = 60 mg/dl - LO W CARDIOVASCULAR RISK <40 mg/dl - HIGH CARDIOVASCULAR RISK Normal [facility] Comment on above: Performed By: #### L IPID, TSH, CMP, FT3 ####[facility] [address] [place], [place] [address]Hh. Becca Lopez LDL CALC NORMAL SEE BELOW Normal [facility] Comment on above: Result Comment: <100 mg/dl OPTIMAL 100 - 129 mg/dl NEAR OR ABOVE OPTIMAL 130 - 159 mg/dl BORDERLINE HIGH 160 - 189 mg/dl HIGH >190 mg/dl VERY HIGH Performed By: #### L IPID, TSH, CMP, FT3 ####[facility] [address] [place], [place] [address]Ge. Becca Marroquin Triglyceride [Mass/Vol] 50 mg/dL Normal <=150 [facility] Comment on above: Performed By: #### L IPID, TSH, CMP, FT3 ####[facility] [address] [place], [place] [address]Gl. Becca Marroquin VLDL CALC 10.0 mg/dL Normal [facility] Comment on above: Performed By: #### L IPID, TSH, CMP, FT3 ####[facility] [address] [place], [place] [address]Tw. Becca Marroquin MG MAMM SCREEN GET W CADon 0 04-21-2022 MG MAMM SCREEN GET W CAD Patient: LORENA BARAHONA Exam Date: 04/21/2022 : 1955 Gender:F Ordering : DR OLGA REED . Admission #: [id number] Family : Order #: [id number] CLICK HERE TO VIEW EXAM RADIOLOGY REPORT [...] pancreas cancer at age 60. LOCATION: [facility] BREAST COMPOSITION: Heterogeneously dense,which may obscure [...] MD on 04/21/2022 at 11:17 Normal [facility] PROF 14(COMP METB)on 022 Albumin [Mass/Vol] 4.2 g/dL Normal 3.4-5.0 [facility] Comment on above: Performed By: #### L IPID, TSH, CMP, FT3 ####[facility] [address] [place] [address]DrEtta Marroquin Albumin/Globulin [Mass ratio] 1.3 {ratio} Normal [facility] Comment on above: Performed By: #### L IPID, TSH, CMP, FT3 ####[facility] [address] [place], [place] [address]Dr. Becca Marroquin ALP [Catalytic activity/Vol] 63 U/L Normal 46-116 [facility] Comment on above: Performed By: #### L IPID, TSH, CMP, FT3 ####[facility] [address] [place], [place] [address]DrEtta Marroquin ALT [Catalytic activity/Vol] 29 U/L Normal 14-59 [facility] Comment on above: Performed By: #### L IPID, TSH, CMP, FT3 ####[facility] [address] [place], [place] [address]DrEtta Marroquin Anion gap [Moles/Vol] 10.5 mmol/L Normal [facility] Comment on above: Performed By: #### L IPID, TSH, CMP, FT3 ####[facility] [address] [place], [place] [address]DrEtta Marroquin AST [Catalytic activity/Vol] 21 U/L Normal 15-37 [facility] Comment on above: Performed By: #### L IPID, TSH, CMP, FT3 ####[facility] [address] [place], [place] [address]Dr. Becca Marroquin Bilirubin [Mass/Vol] 0.7 mg/dL Normal 0.2-1.0 [facility] Comment on above: Performed By: #### L IPID, TSH, CMP, FT3 ####[facility] [address] [place] [address]Dr. Becca Marroquin Calcium [Mass/Vol] 8.9 mg/dL Normal 8.5-10.1 [facility] Comment on above: Performed By: #### L IPID, TSH, CMP, FT3 ####[facility] [address] [place] [address]Dr. Becca Marroquin Chloride [Moles/Vol] 102 mmol/L Normal 98-107 [facility] Comment on above: Performed By: #### L IPID, TSH, CMP, FT3 ####[facility] [address] [place], [place] [address]Dr. Becca Marroquin CO2 [Moles/Vol] 25.4 mmol/L Normal 21.0-32.0 [facility] Comment on above: Performed By: #### L IPID, TSH, CMP, FT3 ####[facility] [address] [place], [place] [address]Dr. Becca Marroquin Creatinine [Mass/Vol] 0.56 mg/dL Normal 0.55-1.02 [facility] Comment on above: Performed By: #### L IPID, TSH, CMP, FT3 ####[facility] [address] [place], [place] [address]Dr. Becca Marroquin EGFR-AF CYMRO >60 Normal >=60 [facility] [place] [facility] Comment on above: Performed By: #### L IPID, TSH, CMP, FT3 ####[facility] [address] [place], [place] [address]Dr. Becca Marroquin EGFR-NON AF CYMRO >60 Normal >=60 [facility] Comment on above: Performed By: #### L IPID, TSH, CMP, FT3 ####[facility] [address] [place], [place] [address]Dr. Becca Marroquin Globulin (S) [Mass/Vol] 3.2 g/dL Normal [facility] Comment on above: Performed By: #### L IPID, TSH, CMP, FT3 ####[facility] [address] [place] [address]Dr. Becca Marroquin Glucose [Mass/Vol] 65 mg/dL Critically low 74-106 [facility] Comment on above: Performed By: #### L IPID, TSH, CMP, FT3 ####[facility] [address] [place], [place] [address]Dr. Becca Marroquin Potassium [Moles/Vol] 3.9 mmol/L Normal 3.5-5.1 [facility] Comment on above: Performed By: #### L IPID, TSH, CMP, FT3 ####[facility] [address] [place], [place] [address]Dr. Becca Marroquin Protein [Mass/Vol] 7.4 g/dL Normal 6.4-8.2 [facility] Comment on above: Performed By: #### L IPID, TSH, CMP, FT3 ####[facility] [address] [place], [place] [address]Dr. Becca Marroquin Sodium [Moles/Vol] 134 mmol/L Critically low 136-145 [facility] Comment on above: Performed By: #### L IPID, TSH, CMP, FT3 ####[facility] [address] [place], [place] [address]Dr. Becca Marroquin Urea nitrogen [Mass/Vol] 15.0 mg/dL Normal 7.0-18.0 [facility] Comment on above: Performed By: #### L IPID, TSH, CMP, FT3 ####[facility] [address] [place], [place] [address]Dr. Becca Marroquin Urea nitrogen/Creatinine [Mass ratio] 26.8 mg/mg Normal [facility] Comment on above: Performed By: #### L IPID, TSH, CMP, FT3 ####[facility] [address] [place], [place] [address]Dr. Becca Marroquin TSHon 04-21-2022 TSH 0.888 uIU/mL Normal 0.358-3.740 [facility] Comment on above: Performed By: #### L IPID, TSH, CMP, FT3 ####[facility] [address] [place], [place] [address]CrEtta Marroquin XR DEXA BONE DENSITYon 04-21 XR [...] by: VICKI LOPEZ Date: 2022-04-21 16:51 Normal [facility] Vital Signs Date Time Vital Sign Value Performing Clinician Faci lity 07-12-2024 [id number] Body height 147.32 cm [facility] 07-12-2024 11:28-0400 Body mass index (BMI) [Ratio] 20.3 kg/m2 [facility] 07-12-2024 11:28-0400 Body temperature 97.4 [degF] [facility] 07-12-2024 11:28-0400 Body weight 44.22 kg [facility] 07-12-2024 11:28-0400 Diastolic blood pressure 76 mm[Hg] [facility] 07-12-2024 11:28-0400 Heart rate 71 /min [facility] 07-12-2024 11:28-0400 SaO2% (BldA) [Mass fraction] 98 % [facility] 07-12-2024 11:28-0400 Systolic blood pressure 116 mm[Hg] [facility] 04-10-2024 13:29-0400 Body height 147.32 cm [facility] 04-10-2024 13:29-0400 Body mass index (BMI) [Ratio] 20.7 kg/m2 [facility] 04-10-2024 13:29-0400 Body weight 44.96 kg [facility] 04-10-2024 13:29-0400 Diastolic blood pressure 88 mm[Hg] [facility] 04-10-2024 13:29-0400 Heart rate 67 /min [facility] 04-10-2024 13:29-0400 SaO2% (BldA) [Mass fraction] 98 % [facility] 04-10-2024 13:29-0400 Systolic blood pressure 148 mm[Hg] [facility] Encounters Encounter Date Encounter Type Care Provider Facility Start: 07-12-2024 End: 07-12-2024 ambulatory [facility] Work Phone: Start: 07-12-2024 End: 07-12-2024 Patient encounter procedure [facility] Work Phone: Start: 05-16-2024 Non-patient / Non-visit [facility] Work Phone: Start: 04-16-2024 End: 04-16-2024 ambulatory [facility] Work Phone: Start: 04-16-2024 End: 04-16-2024 Patient encounter procedure [facility] Work Phone: Start: 04-10-2024 End: 04-10-2024 ambulatory [facility] Work Phone: Start: 04-10-2024 End: 04-10-2024 Patient encounter procedure [facility] Work Phone: Start: 03-05-2024 Non-patient / Non-visit [facility] Work Phone: Start: 01-18-2024 End: [...] lic 2000 panel - Serum or Plasma [facility] enter DXA Skeletal system. axial Views for bone density [facility] enter MG Breast - bilateral Screening [facility] Payers Date Payer Category Payer Unknown [id number] 1955 Unknown [id number] 2.16.84 [id number] 1955 Unknown [id number] 2.16.84 [id number] 1955 Unknown [id number] 2.16.84 [id number] 1955 Unknown [id number] 2.16.84 [id number] 1955 Unknown [id number] 2.16.84 [id number] 1955 Unknown [id number] Social History Date Type Detail Facility [facility]: [facility]24 [facility] Start: 1955 Sex Assigned At Female F [facility] Evaluation note Note Date & Type Note Facility Evaluation note Diagnosis Onset Date Cerebral palsy acute Generalized anxiety disorder acute Hypertension acute [facility] Work Phone: Evaluation note Note Date & Type Note Facility Evaluation note Diagnosis Onset Date Cerebral palsy acute Generalized anxiety disorder acute Hypertension acute Insomnia acute Bronchitis acute [facility] Work Phone: Evaluation note Note Date & Type Note Facility Evaluation note Diagnosis Onset Date Bronchitis acute [facility] Work Phone: Summary Purpose Family History [...] Generalized anxiety disorder Hypertension Chief Complaint Establish [phone] cough, congestion, fever Reason for Visit Cerebral palsy Generalized anxiety disorder Hypertension Insomnia Bronchitis Chief Complaint [phone]- cough, congestion, fever 3 month f/u Reason for Visit Bronchitis Additional Source Comments INFORMATION SOURCE (unrecogn ized section and content) DATE CREATED AUTHOR 04/01/2023 [facility] DATE CREATED AUTHOR 'S AGUILAIZ ATION 01/19/2024 [facility] [employer] Care Teams (unrecognized sec tion and content) Team Status: Active Member Role Status Dates Ro Dennison APRN CLERICAL CAR CHECKER-C Primary Care Provider Active Team Status: Active Member Role Status Dates Kamar Gotti MD Attending Provider Active Start: March 05, 2024 Team Status: Inactive Member Role Status Dates Ro Dennison APRN CLERICAL CAR CHECKER-C Primary Care Provider, Attending Provider Active Start: [...] Member Role Status Dates Ro Dennison APRN CLERICAL CAR CHECKER-C Primary Care Provider, Attending Provider Active Start: [...] BE BASED ON THE PRIMARY CLINICAL RECORDS. [employer] [facility]. provides no warranty or guarantee of the accuracy or completeness of information in this document.
== END 2024-11-10 18:15 | disposition short-term general hospital (02) | DRG 190 ==
LOC: ER 09:48 → MS 14:49 → ICU 11-12 09:01 → MS 11-12 09:01
PROVIDERS: Admitting Provider Family Medicine; Emergency Provider Emergency Medicine; PCP Nurse Practitioner Family; Visit Provider Family Medicine
DX: I21.4 Non-ST elevation (NSTEMI) myocardial infarction (principal); G80.9 Cerebral palsy, unspecified; M62.838 Other muscle spasm; I10 Essential (primary) hypertension; G47.00 Insomnia, unspecified; L89.891 Pressure ulcer of other site, stage 1; R53.1 Weakness; Z79.899 Other long term (current) drug therapy
CPT/HCPCS: 36415; 71045; 80053; 81001; 83880; 84484; 85025; 85730; 87045; 87046; 87420; 87427; 87493; 87804; 87811; 93005; 96361; 96374; 96375; 99285; G0328; J0456; J1100; J1644; J2405; J3360

== ENCOUNTER 2024-11-21 16:22 | Outpatient (OUT) | payer OTHER, SELFPAY ==
--- OUTSIDE RECORDS SUMMARY | 2024-11-21 16:31 | XMS_ITS | CCD ---
Author Organization [facility] Care Team Providers Care Still Pump Operator Name Role Phone DEREK ., DR ESPINOZA Admitting Unavailable HEMEYER ., DR ESPINOZA Attending Unavailable HEMEYER ., DR ESPINOZA Primary Care Unavailable HEMEYER ., DR ESPINOZA Attending Unavailable HEMEYER ., DR ESPINOZA Consulting Unavailable HEMEYER ., DR ESPINOZA Primary Care Unavailable HEMEYER ., DR ESPINOZA Admitting Unavailable KERENS, DR VICKI [place] Consulting Unavailable HEMEYER ., DR ESPINOZA Admitting Unavailable HEMEYER ., DR ESPINOZA Attending Unavailable HEMEYER ., DR ESPINOZA Consulting Unavailable HEMEYER ., DR ESPINOZA Primary Care Unavailable ZIEBKARTIK, DR RENARD Vincent Consulting Unavailable SUKHJINDER, DR ESTUARDO Sim Attending Unavailabl symone CANCHOLA, DR WAYNE [employer] Consulting Unavailable SUKHJINDER, DR ESTUARDO Sim Admitting Unavailabl e HEMEYER ., DR ESPINOZA Primary Care Unavailable SUKHJINDER, DR ESTUARDO Sim Consulting Unavailabl e BEATRIZ VAZQUEZ Consulting Unavailable FANNYYER, OLGA Grace Attending Unavailable FANNYYER, OLGA Grace Attending Unavailable WELLINGTON AIKEN Referring Unavailabl e SHEILA, LOUISAI Referring Unavailable HOYSAIDAZHENG Referring Unavailable HORANI, CHRISTIAN Admitting Unavailable SHEILA, LOUISAI Attending Unavailable SHEILA, HANI Referring Unavailable SANAULLAH, BEN Referring Unavailable NAZZAL, MUNIER Referring Unavailable WELLINGTON AIKEN Referring Unavailabl e JENNIFER, JOSE RAFAEL T Referring Unavailable JENNIFER, JOSE RAFAEL T Referring Unavailable JENNIFER, JOSE RAFAEL T Referring Unavailable Medications Current Medications Medication Drug Class(es) Dates Sig (Normalized) Sig (Original) ALPRAZolam 0.25 mg oral tablet (7 sources) Benzodiazepine Start: 04-10-2024 End: 06-28-2024 take 0.5-1 tablets by mouth three times daily as needed Alprazolam Active 0 PO Three times daily June 28, 2024 1:51pm 0.5-1 tablet orally three times daily PRN; baclofen 10 mg oral tablet (6 sources) gamma-Aminobutyric Acid-ergic Agonist Start: 04-10-2024 End: 04-10-2024 Baclofen Active 0 PO Three times daily April 10, 2024 1:56pm 1 tablet in [...] Discontinued 200 MG PO Three times daily 30 April 16, 2024 12:00am July 12, 2024 11:35am escitalopram 10 mg oral tablet (6 sources) Serotonin Reuptake Inhibitor Start: 04-10-2024 End: 07-12-2024 take 10 mg by mouth once daily Escitalopram Oxalate Discontinued 10 MG PO Daily April 10, 2024 2:02pm July 12, 2024 11:36am Problems Active Problems Problem Classification Problem Date Documented Date Episodic/Chronic Acute myocardial infarction (2 sources) Non-ST elevation (NSTEMI) myocardial infarction; Translations: [Non-ST elevation (NSTEMI) myocardial infarction] Onset: 11-10-2024 Chronic Anxiety disorders (10 sources) Generalized anxiety disorder; Translations: [Generalized anxiety disorder] Onset: 11-10-2024 04-10-2024 Chronic Cardiac dysrhythmias (7 sources) Cardiac arrhythmia; Translations: [Cardiac arrhythmia, unspecified] Onset: 11-10-2024 04-10-2024 Chronic Chronic obstructive pulmonary disease and bronchiectasis (4 sources) Bronchitis; Translations: [Bronchitis, not specified as acute or chronic] 04-16-2024 Episodic Essential hypertension (7 sources) Hypertensive disorder; Translations: [Essential (primary) hypertension] Onset: 11-10-2024 04-10-2024 Chronic Heart valve disorders (2 sources) Nonrheumatic mitral (valve) insufficiency; Translations: [Nonrheumatic mitral (valve) insufficiency] Onset: 11-10-2024 Chronic Malaise and fatigue (1 source) Chronic fatigue, unspecified; Translations: [CHRONIC FATIGUE UNSPECIFIED] Onset: 04-23-2022 Chronic Menopausal disorders (1 source) Menopausal and female climacteric states; Translations: [MENOPAUSAL FE CLIMACTERIC STATES] Onset: 04-23-2022 Chronic Nutritional deficiencies (2 sources) Mild protein-calorie malnutrition; Translations: [Mild protein-calorie malnutrition] Onset: 11-10-2024 Chronic Osteoporosis (1 source) Age-related osteoporosis without current pathological fracture; Translations: [AGE-REL OSTEOPOR W/O CURR PATH FX] Onset: 04-23-2022 Chronic Other and ill-defined heart disease (2 sources) Other ill-defined heart diseases; Translations: [Other ill-defined heart diseases] Onset: 11-10-2024 Chronic Other hereditary and degenerative nervous system conditions (6 sources) Athetoid cerebral palsy; 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] Onset: 03-04-2023 Chronic Other nervous system disorders (3 sources) Difficulty in walking, not elsewhere classified; Translations: [...] Translations: [Insomnia, unspecified] 04-10-2024 Episodic Substance-related disorders (7 sources) Nicotine dependence, cigarettes, uncomplicated; Translations: [NICOTINE DEPEND CIGARETTES UNCOMP] Onset: 06-22-2022 Chronic Unclassified (1 source) CONTACT W/AND (SUSP) EXPOS COVID-19; Translations: [CONTACT W/AND (SUSP) EXPOS COVID-19] Onset: 06-22-2022 Viral infection (2 sources) COVID-19; Translations: [COVID-19] Onset: 11-10-2024 Past or Other Problems Problem Classification Problem Date Documented Da te Episodic/Chronic Noninfectious gastroenteritis (1 source) Noninfective gastroenteritis and colitis, unspecified; Translations: [NONINFECTIVE GE AND COLITIS UNS] Onset: 06-22-2022 Episodic Other aftercare (1 source) Other longterm (current) drug therapy; Translations: [OTH USP CURRENT DRUG THERAPY] Onset: 06-22-2022 Episodic Other [...] Test Name Value Interpretation Reference Range Facility 30on 11-15-2024 30 The patient is Moderately Stable - Low risk of patient condition declining or worsening The patient's goals for the shift include comfort and rest The clinical goals for the shift include stable vs Over the shift, the patient did make progress toward her goals. [facility] 30 Daily Case Managemen t Update Multidisciplinary rounds have been completed. Barriers to Discharge: Pending clinical course and improvement in clinical condition. TTE report pending. Discharge dispo: Plan at this time is for patient to discharge home and to continue with Home health aids that patient already has set up. Diet: Dietary Orders (From admission, onward) Start Ordered 11/15/24 1303 Special Kitchen Request Once Comments: Chicken tenders, peaches, and milk 11/15/24 1302 11/14/24 1204 Special Kitchen Request Once Comments: Please send prune juice and butter 11/14/24 1203 11/14/24 0304 Regular Diet Diet effective now Question: Room Service? Answer: Yes 11/14/24 0303 11/12/24 1424 Special Kitchen Request Once Comments: Psychological Stress Evaluator salad with swiss. Hot tea, chocolate pudding 11/12/24 1424 11/12/24 1216 Special Kitchen Request Once Comments: Psychological Stress Evaluator salad with swiss. Hot tea, chocolate pudding 11/12/24 1216 11/11/24 1215 Special Kitchen Request Once Comments: Grilled cheese on wheat, baked lays, bottle water, orange sherbet 11/11/24 1215 11/11/24 0916 Special Kitchen Request Once Comments: Scrambled eggs, toast with butter and jelly, decaf coffee, turkey sausage, sugar and cream 11/11/24 0917 11/10/24 2130 Dietary nutrition supplements All meals; Boost Plus; 8 oz; Oral Until discontinued Question Answer Comment Deliver with All meals Select supplement: Boost Plus Strength: 8 oz Route Oral 11/10/24 213 Physician Expected Discharge Date: 11/13/2024 Discharge Delays: PT Six Click Score: 13 OT Six Click Score: PT Recommendations: OT Recommendations: New Consults: [facility] 30 The patient is Moderately Stable - Low risk of patient condition declining or worsening The patient's goals for the shift include comfort and rest The clinical goals for the shift include stable VS Over the shift, the patient did make progress toward the following goals. Problem: Cardiovascular - Adult Goal: Maintains optimal cardiac output and hemodynamic stability Outcome: Progressing Goal: Absence of cardiac dysrhythmias or at baseline Outcome: Progressing Problem: Skin/Tissue Integrity - Adult Goal: Skin integrity remains intact Outcome: Progressing Goal: Incisions, wounds, or drain sites healing without S/S of infection Outcome: Progressing Goal: Oral mucous membranes remain intact Outcome: Progressing Problem: Musculoskeletal - Adult Goal: Return mobility to safest level of function Outcome: Progressing Goal: Maintain proper alignment of affected body part Outcome: Progressing Goal: Return ADL status to a safe level of function Outcome: Progressing Problem: Gastrointestinal - Adult Goal: Minimal or absence of nausea and vomiting Outcome: Progressing Goal: Maintains or returns to baseline bowel function Outcome: Progressing Goal: Maintains adequate nutritional intake Outcome: Progressing Problem: Infection - Adult Goal: Absence of infection at discharge Outcome: Progressing Goal: Absence of infection during hospitalization Outcome: Progressing Goal: Absence of fever/infection during anticipated neutropenic period Outcome: Progressing Problem: Metabolic/Fluid and Electrolytes - Adult Goal: Electrolytes maintained within normal limits Outcome: Progressing Goal: Hemodynamic stability and optimal renal function maintained Outcome: Progressing Goal: Glucose maintained within prescribed range Outcome: Progressing Problem: Pain - Adult Goal: Verbalizes/displays adequate comfort level or baseline comfort level Outcome: Progressing Problem: Safety - Adult Goal: Free from fall injury Outcome: Progressing Problem: Discharge Planning Goal: Discharge to home or other facility with appropriate resources Outcome: Progressing Problem: Chronic Conditions and Co-morbidities Goal: Patient's chronic conditions and co-morbidity symptoms are monitored and maintained or improved Outcome: Progressing Normal [facility] BASIC METABOLIC PANELon 10-25 Anion gap [Moles/Vol] 12 mmol/L Normal 7-20 [facility] Comment on above: Performed By: #### L [id number] #### [facility] ([facility]) [address] [place] [address] Calcium [Mass/Vol] 9.2 mg/dL Normal 8.6-10.3 [facility] Comment on above: Performed By: #### L [id number] #### [facility] ([facility]) [address] [place] [address] Chloride [Moles/Vol] 103 mmol/L Normal 98-107 [facility] Comment on above: Performed By: #### L [id number] #### [facility] ([facility]) [address] [place] [address] CO2 [Moles/Vol] 27 mmol/L Normal 21-31 [facility] Comment on above: Performed By: #### L [id number] #### [facility] ([facility]) [address] [place] [address] Creatinine [Mass/Vol] 0.63 mg/dL Normal 0.60-1.20 [facility] Comment on above: Performed By: #### L [id number] #### [facility] ([facility]) [address] [facility] [address] GLOMERULAR FILTRATION RATE ML/MIN/1.73 SQ M.PREDICTED 96.0 mL/min/1.73m*2 Normal >60.0 [facility] Comment on above: Result Comment: The [facility]???s estimated glomerular filtration rate (eGFR) will no longer include consideration of race in its calculation. The National Kidney Foundation???s eGFR Task Force developed new recommendations for the estimation of the glomerular filtration rate in the [place] They recommend immediate implementation of the new equation refit without the race variable in all laboratories because the calculation does not include race. In addition to not including race in the calculation and reporting, it included diversity in its development, and has acceptable performance characteristics and potential consequences that do not disproportionately affect any one group of individuals. Performed By: #### L [id number] #### [facility] ([facility]) [address] [place] [address] Glucose [Mass/Vol] 113 mg/dL High 70-100 [facility] Comment on above: Performed By: #### L [id number] #### [facility] ([facility]) [address] [place] [address] Potassium [Moles/Vol] 4.1 mmol/L Normal 3.5-5.1 [facility] Comment on above: Performed By: #### L [id number] #### [facility] ([facility]) [address] [place] [address] Sodium [Moles/Vol] 138 mmol/L Normal 136-145 [facility] Comment on above: Performed By: #### L [id number] #### [facility] ([facility]) [address] [place] [address] Urea nitrogen [Mass/Vol] 29 mg/dL High 7-25 [facility] Comment on above: Performed By: #### L [id number] #### [facility] ([facility]) [address] [address] UREA NITROGEN/CREATININE (MASS RATIO) IN SER/PLAS 46.0 Normal [facility] Comment on above: Performed By: #### L [id number] #### [facility] ([facility]) [address] [address] CBC WITH AUTO DIFFERENTIALon 11-15-2024 Basophils (Bld) [#/Vol] 0.06 10*3/uL Normal 0.00-0.20 [facility] Comment on above: Performed By: #### L [id number] #### [facility] ([facility]) [address] [place] [address] Basophils/100 WBC (Bld) 0.8 % Normal 0.0-1.0 [facility] Comment on above: Performed By: #### L [id number] #### [facility] ([facility]) [address] [place] [address] Eosinophils (Bld) [#/Vol] 0.26 10*3/uL Normal 0.00-0.50 [facility] Comment on above: Performed By: #### L [id number] #### [facility] ([facility]) [address] [place] [address] Eosinophils/100 WBC (Bld) 3.5 % Normal 0.0-6.0 [facility] Comment on above: Performed By: #### L [id number] #### [facility] ([facility]) [address] [place] [address] Erythrocyte distribution width (RBC) [Ratio] 13.4 % Normal 11.5-15.0 [facility] Comment on above: Performed By: #### L [id number] #### [facility] ([facility]) [address] [place] [address] ERYTHROCYTE MEAN CORPUSCULAR HEMOGLOBIN CONCENTRATION (G/DL) BY AUTOMATED 33.3 g/dL Normal 32.0-35.0 [facility] Comment on above: Performed By: #### L [id number] #### [facility] ([facility]) [address] [place] [address] Hematocrit (Bld) [Volume fraction] 41.1 % Normal 36.0-48.0 [facility] Comment on above: Performed By: #### L [id number] #### [facility] ([facility]) [address] [place] [address] Hemoglobin (Bld) [Mass/Vol] 13.7 g/dL Normal 12.0-15.0 [facility] Comment on above: Performed By: #### L [id number] #### [facility] ([facility]) [address] [place] [address] Immature granulocytes (Bld) [#/Vol] 0.03 10*3/uL Normal 0.00-0.20 [facility] Comment on above: Performed By: #### L [id number] #### [facility] ([facility]) [address] [place] [address] Immature granulocytes/100 WBC (Bld) 0.4 % Normal 0.0-1.0 [facility] Comment on above: Performed By: #### L [id number] #### [facility] ([facility]) [address] [place] [address] Lymphocytes (Bld) [#/Vol] 2.32 10*3/uL Normal 1.20-4.00 [facility] Comment on above: Performed By: #### L [id number] #### [facility] ([facility]) [address] [place] [address] Lymphocytes/100 WBC (Bld) 31.1 % Normal 20.0-45.0 [facility] Comment on above: Performed By: #### L [id number] #### [facility] ([facility]) [address] [place] [address] MCH (RBC) [Entitic mass] 30.6 pg Normal 27.0-33.0 [facility] Comment on above: Performed By: #### L [id number] #### [facility] ([facility]) [address] [place] [address] MCV (RBC) [Entitic vol] 91.7 fL Normal 82.0-98.0 [facility] Comment on above: Performed By: #### L [id number] #### [facility] ([facility]) [address] [place] [address] Monocytes (Bld) [#/Vol] 0.76 10*3/uL Normal 0.10-1.00 [facility] Comment on above: Performed By: #### L [id number] #### [facility] ([facility]) [address] [place] [address] Monocytes/100 WBC (Bld) 10.2 % Normal 5.0-12.0 [facility] Comment on above: Performed By: #### L [id number] #### [facility] ([facility]) [address] [place] [address] Neutrophils (Bld) [#/Vol] 4.03 10*3/uL Normal 1.60-7.60 [facility] Comment on above: Performed By: #### L [id number] #### [facility]) [address] [place] [address] Neutrophils/100 WBC (Bld) 54.0 % Normal 40.0-72.0 [facility] Comment on above: Performed By: #### L [id number] #### [facility]) [address] [place] [address] NRBC (PER 100 WBCS) BY AUTOMATED COUNT 0.0 % Normal 0 [facility] Comment on above: Performed By: #### L [id number] #### [facility] ([facility]) [address] [place] [address] PLATELETS (10*3/UL) IN BLOOD AUTOMATED COUNT 229 10*3/uL Normal 150-400 [facility] Comment on above: Performed By: #### L [id number] #### [facility] ([facility]) [address] [facility] [place] [place] [address] RBC (Bld) [#/Vol] 4.48 10*6/uL Normal 3.80-5.00 [facility] Comment on above: Performed By: #### L [id number] #### [facility] ([facility]) [address] [place] [address] WBC (Bld) [#/Vol] 7.46 10*3/uL Normal 4.00-10.60 [facility] Comment on above: Performed By: #### L [id number] #### [facility] ([facility]) [address] [place] [address] MAGNESIUMon 11-15-2024 Magnesium [Mass/Vol] 2.1 mg/dL Normal 1.9-2.7 [facility] Comment on above: Performed By: #### L [id number] #### [facility] ([facility]) [address] [place] [address] NURSNOTEon 11-15-2024 NURSNOTE Pressure Injury Prevalence Study Note This patient was included in the hospital-wide pressure injury prevalence study, during which a comprehensive full-body skin assessment was conducted. The assessment revealed a dry partial thickness open area to the upper back that was documented as a trauma wound. Photos documenting the condition can be found in the media tab. The below orders were placed to manage this injury. Wound care nurse will now sign-off. Wound location: Spine trauma Wash wound with normal saline. Pat wound and surrounding area dry. Apply skin prep to the ovidio-wound and allow to dry for 10 seconds. Cover with Allevyn Gentle Boarder or other brand of foam dressing. Change the dressing every 3 days and as needed for soiling. Through [employer], Renee Murry MD was notified of the above information. Mahogany VILLAN, RN, CWON [facility] Exercise Instructor [facility] 30on 11-14-2024 30 The patient is Moderately Stable - Low risk of patient condition declining or worsening The patient's goals for the shift include comfort and rest The clinical goals for the shift include stable VS Over the shift, the patient did make progress toward her goals. Normal [facility] 30 The patient is Moderately Stable - Low risk of patient condition declining or worsening The patient's goals for the shift include comfort and rest The clinical goals for the shift include stable VS [facility] 30 Daily Case Managemen t Update Multidisciplinary rounds have been completed. Barriers to Discharge: Patient is s/p heart cath, over night ROCKET MOTOR MECHANIC was called due to HR in s. Patient started on Eliquis for new diagnosis of Afib. Discharge dispo: Applications Sales Representative went bedside and talked with family and patient about discharge planning. Per patient and family, that patient is ambulatory at home and is able to care for self. Patient to start having a EXTRUSION DIE COORDINATOR and this is already set up. Applications Sales Representative educated patient and patient's family on HHC vs EXTRUSION DIE COORDINATOR and asked about potentially having PT/OT come work with patient while in hospital. Applications Sales Representative was told by patient that she has been doing okay and does not think she needs to work with PT/OT at this time. Discharge plan at this time is home with EXTRUSION DIE COORDINATOR when medically ready. Diet: Dietary Orders (From admission, onward) Start Ordered 11/14/24 1204 Special Kitchen Request Once Comments: Please send prune juice and butter 11/14/24 1203 11/14/24 0304 Regular Diet Diet effective now Question: Room Service? Answer: Yes 11/14/24 0303 11/12/24 1424 Special Kitchen Request Once Comments: Psychological Stress Evaluator salad with swiss. Hot tea, chocolate pudding 11/12/24 1424 11/12/24 1216 Special Kitchen Request Once Comments: Psychological Stress Evaluator salad with swiss. Hot tea, chocolate pudding 11/12/24 1216 11/11/24 1215 Special Kitchen Request Once Comments: Grilled cheese on wheat, baked lays, bottle water, orange sherbet 11/11/24 1215 11/11/24 0916 Special Kitchen Request Once Comments: Scrambled eggs, toast with butter and jelly, decaf coffee, turkey sausage, sugar and cream 11/11/2491611/10/242129 Dietary nutrition supplements All meals; Boost Plus; 8 oz; Oral Until discontinued Question Answer Comment Deliver with All meals Select supplement: Boost Plus Strength: 8 oz Route Oral 11/10/242129 Physician Expected Discharge Date: 11/13/2024 Discharge Delays: PT Six Click Score: 13 OT Six Click Score: PT Recommendations: OT Recommendations: New Consults: Normal [facility] ANTI-XA (HEPARIN LEVEL)on HEPARIN UNFRACTIONATED (U/ML) IN PPP BY CHROMOGENIC METHOD 0.11 IU/mL Invalid Interpretation Code 0.3-0.7 [facility] Comment on above: Result Comment: Abby roxaban and Apixaban will interfere with the anti Xa assay used to monitor UFH and LMWH. Performed By: #### L [id number] #### [facility] ([facility]) [address] [place] [address] BASIC METABOLIC PANELon 10-25 Anion gap [Moles/Vol] 13 mmol/L Normal 7-20 [facility] Comment on above: Performed By: #### L [id number] #### [facility] ([facility]) [address] [place] [address] Calcium [Mass/Vol] 9.4 mg/dL Normal 8.6-10.3 [facility] Comment on above: Performed By: #### L [id number] #### [facility] ([facility]) [address] [place] [address] Chloride [Moles/Vol] 104 mmol/L Normal 98-107 [facility] Comment on above: Performed By: #### L [id number] #### [facility]) [address] [place] [address] CO2 [Moles/Vol] 29 mmol/L Normal 21-31 [facility] Comment on above: Performed By: #### L [id number] #### [facility] ([facility]) [address] [place] [address] Creatinine [Mass/Vol] 0.80 mg/dL Normal 0.60-1.20 [facility] Comment on above: Performed By: #### L [id number] #### [facility] ([facility]) [address] [place] [address] GLOMERULAR FILTRATION RATE ML/MIN/1.73 SQ M.PREDICTED 79.7 mL/min/1.73m*2 Normal >60.0 [facility] Comment on above: Result Comment: The [facility]???s estimated glomerular filtration rate (eGFR) will no longer include consideration of race in its calculation. The National Kidney Foundation???s eGFR Task Force developed new recommendations for the estimation of the glomerular filtration rate in the [place] They recommend immediate implementation of the new equation refit without the race variable in all laboratories because the calculation does not include race. In addition to not including race in the calculation and reporting, it included diversity in its development, and has acceptable performance characteristics and potential consequences that do not disproportionately affect any one group of individuals. Performed By: #### L [id number] #### [facility] ([facility]) [address] [place] [address] Glucose [Mass/Vol] 91 mg/dL Normal 70-100 [facility] Comment on above: Performed By: #### L [id number] #### [facility] ([facility]) [address] [place] [address] Potassium [Moles/Vol] 4.0 mmol/L Normal 3.5-5.1 [facility] Comment on above: Performed By: #### L [id number] #### [facility] ([facility]) [address] [place] [address] Sodium [Moles/Vol] 142 mmol/L Normal 136-145 [facility] Comment on above: Performed By: #### L [id number] #### [facility] ([facility]) [address] [place] [address] Urea nitrogen [Mass/Vol] 35 mg/dL High 7-25 [facility] Comment on above: Performed By: #### L [id number] #### [facility] ([facility]) [address] [place] [address] UREA NITROGEN/CREATININE (MASS RATIO) IN SER/PLAS 43.8 Normal [facility] Comment on above: Performed By: #### L [id number] #### [facility] ([facility]) [address] [facility] [place] [address] CBC WITH AUTO DIFFERENTIALon 11-14-2024 Basophils (Bld) [#/Vol] 0.04 10*3/uL Normal 0.00-0.20 [facility] Comment on above: Performed By: #### L [id number] #### [facility] ([facility]) [address] [place] [address] Basophils/100 WBC (Bld) 0.5 % Normal 0.0-1.0 [facility] Comment on above: Performed By: #### L [id number] #### [facility] ([facility]) [address] [place] [address] Eosinophils (Bld) [#/Vol] 0.22 10*3/uL Normal 0.00-0.50 [facility] Comment on above: Performed By: #### L [id number] #### [facility] ([facility]) [address] [place] [address] Eosinophils/100 WBC (Bld) 2.5 % Normal 0.0-6.0 [facility] Comment on above: Performed By: #### L [id number] #### [facility] ([facility]) [address] [place] [address] Erythrocyte distribution width (RBC) [Ratio] 13.3 % Normal 11.5-15.0 [facility] Comment on above: Performed By: #### L [id number] #### [facility] ([facility]) [address] [place] [address] ERYTHROCYTE MEAN CORPUSCULAR HEMOGLOBIN CONCENTRATION (G/DL) BY AUTOMATED 33.8 g/dL Normal 32.0-35.0 [facility] Comment on above: Performed By: #### L [id number] #### [facility] ([facility]) [address] [place] [address] Hematocrit (Bld) [Volume fraction] 42.6 % Normal 36.0-48.0 [facility] Comment on above: Performed By: #### L [id number] #### [facility] ([facility]) [address] [place] [address] Hemoglobin (Bld) [Mass/Vol] 14.4 g/dL Normal 12.0-15.0 [facility] Comment on above: Performed By: #### L [id number] #### [facility] ([facility]) [address] [place] [address] Immature granulocytes (Bld) [#/Vol] 0.06 10*3/uL Normal 0.00-0.20 [facility] Comment on above: Performed By: #### L [id number] #### [facility] ([facility]) [address] [place] [address] Immature granulocytes/100 WBC (Bld) 0.7 % Normal 0.0-1.0 [facility] Comment on above: Performed By: #### L [id number] #### [facility] ([facility]) [address] [place] [address] Lymphocytes (Bld) [#/Vol] 2.53 10*3/uL Normal 1.20-4.00 [facility] Comment on above: Performed By: #### L [id number] #### [facility] ([facility]) [address] [place] [address] Lymphocytes/100 WBC (Bld) 28.6 % Normal 20.0-45.0 [facility] Comment on above: Performed By: #### L [id number] #### [facility] ([facility]) [address] [place] [address] MCH (RBC) [Entitic mass] 30.3 pg Normal 27.0-33.0 [facility] Comment on above: Performed By: #### L [id number] #### [facility] ([facility]) [address] [place] [address] MCV (RBC) [Entitic vol] 89.7 fL Normal 82.0-98.0 [facility] Comment on above: Performed By: #### L [id number] #### [facility] ([facility]) [address] [place] [address] Monocytes (Bld) [#/Vol] 1.11 10*3/uL High 0.10-1.00 [facility] Comment on above: Performed By: #### L [id number] #### [facility] ([facility]) [address] [place] [address] Monocytes/100 WBC (Bld) 12.5 % High 5.0-12.0 [facility] Comment on above: Performed By: #### L [id number] #### [facility] ([facility]) [address] [place] [address] Neutrophils (Bld) [#/Vol] 4.90 10*3/uL Normal 1.60-7.60 [facility] Comment on above: Performed By: #### L [id number] #### [facility] ([facility]) [address] [place] [address] Neutrophils/100 WBC (Bld) 55.2 % Normal 40.0-72.0 [facility] Comment on above: Performed By: #### L [id number] #### [facility] ([facility]) [address] [place] [address] NRBC (PER 100 WBCS) BY AUTOMATED COUNT 0.0 % Normal 0 [facility] Comment on above: Performed By: #### L [id number] #### [facility] ([facility]) [address] [place] [address] PLATELETS (10*3/UL) IN BLOOD AUTOMATED COUNT 238 10*3/uL Normal 150-400 [facility] Comment on above: Performed By: #### L [id number] #### [facility] ([facility]) [address] [place] [address] RBC (Bld) [#/Vol] 4.75 10*6/uL Normal 3.80-5.00 [facility] Comment on above: Performed By: #### L [id number] #### [facility] ([facility]) [address] [place] [address] WBC (Bld) [#/Vol] 8.86 10*3/uL Normal 4.00-10.60 [facility] Comment on above: Performed By: #### L [id number] #### [facility] ([facility]) [address] [place] [address] MAGNESIUMon 11-14-2024 Magnesium [Mass/Vol] 2.3 mg/dL Normal 1.9-2.7 [facility] Comment on above: Performed By: #### L [id number] #### [facility] ([facility]) [address] [place] [address] NURSNOTEon 11-14-2024 NURSNOTE Patient Name: Abi Barahona : 1955 Primary Care Physician: Ro Dennison NP Admission Date: 11/10/2024 RAPID RESPONSE TEAM FOLLOW-UP NOTE SUBJECTIVE / OBJECTIVE: Follow-up for previous Rapid Response notification for 11/14 at 0511. ASSESSMENT / INTERVENTIONS: Recent Vital Signs: Vitals: 11/14/24 0600 11/14/24 0800 11/14/24 1200 11/14/24 1510 BP: 114/86 113/83 100/74 119/77 BP Location: Left arm Left arm Left arm Patient Position: Lying Lying Lying Pulse: 110 88 68 78 Resp: 14 17 Temp: 36.2 ???C (97.2 ???F) 36.3 ???C (97.3 ???F) 36 ???C (96.8 ???F) TempSrc: Temporal Temporal Temporal SpO2: 94% 97% 94% 90% Weight: Height: Latest Labs: Lab Results Component Value Date WBC 8.86 11/14/2024 WBC 6.88 11/13/2024 HGB 14.4 11/14/2024 HGB 13.5 11/13/2024 HCT 42.6 11/14/2024 HCT 40.1 11/13/2024 MCV 89.7 11/14/2024 MCV 90.3 11/13/2024 PLT 238 11/14/2024 PLT 216 11/13/2024 NEUTROABS 4.90 11/14/2024 NEUTROABS 2.74 11/13/2024 Lab Results Component Value Date GLUCOSE 91 11/14/2024 GLUCOSE 101 (H) 11/13/2024 CALCIUM 9.4 11/14/2024 CALCIUM 8.9 11/13/2024 NA 142 11/14/2024 NA 139 11/13/2024 K 4.0 11/14/2024 K 3.7 11/13/2024 CO2 29 11/14/2024 CO2 26 11/13/2024 CL 104 11/14/2024 CL 103 11/13/2024 BUN 35 (H) 11/14/2024 BUN 27 (H) 11/13/2024 CREATININE 0.80 11/14/2024 CREATININE 0.57 (L) 11/13/2024 EGFR 79.7 11/14/2024 EGFR 98.3 11/13/2024 BCR 43.8 11/14/2024 BCR 47.4 11/13/2024 Lab Results Component Value Date MG 2.3 11/14/2024 MG 2.3 11/13/2024 Lab Results Component Value Date PHOS 3.3 11/10/2024 Lab Results Component Value Date ALT 32 11/10/2024 AST 49 (H) 11/10/2024 ALKPHOS 59 11/10/2024 BILITOT 0.6 11/10/2024 Lab Results Component Value Date INR 1.09 11/10/2024 Follow-up: Patient is doing well at this time and converted to sinus rhythm. Plan is to start blood thinners and have an event monitor. If emergent concerns arise call rapid response team. Rnona Gonzalez RN Rapid Response Team Nurse [phone] 11/14/2024 5:26 PM Normal [facility] NURSNOTE Applications Sales Representative notified by [facility] of sustained SVT. Upon entrance to room, patient sleeping and HR up to 200. Hands free patches applied and rapid called, Vance and jarrod RN at bedside. The following drugs were given: 6 mg adenosine, with no improve improvement followed by 250 ml saline bolus, 2.5 mg lopressor, and 1 g mag sulfate. Vance contacted cardiology, per cardio they do not want us to start a cardizem gtt at this time. One time dose 5 mg lopressor ordered if patient has sustained HR >120. Patient HR now in afib at this time ranging 90-110's and BP 128/82. Patient remained asymptomatic throughout episode and multiple EKG's taken. RN instructed patient to notify if any symptoms or concerns arise. Call light within reach, side rails up X3, bed in lowest position and patient safety maintained. Patients sister Karen notified per patient request. Normal [facility] TROPONIN Ion 11-14-2024 Troponin I.cardiac [Mass/Vol] 0.08 ng/mL High 0.00-0.04 [facility] Comment on above: Performed By: #### L [id number] #### [facility] ([facility]) [address] [place] [address] 30on 11-13-2024 30 The patient is Moderately Stable - Low risk of patient condition declining or worsening The patient's goals for the shift include comfort and rest The clinical goals for the shift include stable VS Over the shift, the patient did make progress toward her goals. Normal [facility] 30 The patient is Moderately Stable - Low risk of patient condition declining or worsening The patient's goals for the shift include comfort The clinical goals for the shift include vss Normal [facility] ANTI-XA (HEPARIN LEVEL)on HEPARIN UNFRACTIONATED (U/ML) IN PPP BY CHROMOGENIC METHOD 0.40 IU/mL Normal 0.3-0.7 [facility] Comment on above: Order Comment: Check anti-Xa level every 6 hours while on heparin infusion, or per protocol. Result Comment: Abby roxaban and Apixaban will interfere with the anti Xa assay used to monitor UFH and LMWH. Performed By: #### L [id number] #### [facility] ([facility]) [address] [place] [address] BASIC METABOLIC PANELon 01-2 Anion gap [Moles/Vol] 14 mmol/L Normal 7-20 [facility] Comment on above: Performed By: #### L [id number] #### [facility] ([facility]) [address] [place] [address] Calcium [Mass/Vol] 8.9 mg/dL Normal 8.6-10.3 [facility] Comment on above: Performed By: #### L [id number] #### [facility] ([facility]) [address] [place] [address] Chloride [Moles/Vol] 103 mmol/L Normal 98-107 [facility] Comment on above: Performed By: #### L [id number] #### [facility] ([facility]) [address] [place] [address] CO2 [Moles/Vol] 26 mmol/L Normal 21-31 [facility] Comment on above: Performed By: #### L [id number] #### [facility] ([facility]) [address] [place] [address] Creatinine [Mass/Vol] 0.57 mg/dL Low 0.60-1.20 [facility] Comment on above: Performed By: #### L [id number] #### [facility] ([facility]) [address] [place] [address] GLOMERULAR FILTRATION RATE ML/MIN/1.73 SQ M.PREDICTED 98.3 mL/min/1.73m*2 Normal >60.0 [facility] Comment on above: Result Comment: The [facility]???s estimated glomerular filtration rate (eGFR) will no longer include consideration of race in its calculation. The National [employer]???s eGFR Task Force developed new recommendations for the estimation of the glomerular filtration rate in the [place] They recommend immediate implementation of the new equation refit without the race variable in all laboratories because the calculation does not include race. In addition to not including race in the calculation and reporting, it included diversity in its development, and has acceptable performance characteristics and potential consequences that do not disproportionately affect any one group of individuals. Performed By: #### L [id number] #### [facility] ([facility]) [address] [place] [address] Glucose [Mass/Vol] 101 mg/dL High 70-100 [facility] Comment on above: Performed By: #### L [id number] #### [facility] ([facility]) [address] [place] [address] Potassium [Moles/Vol] 3.7 mmol/L Normal 3.5-5.1 [facility] Comment on above: Performed By: #### L [id number] #### [facility] ([facility]) [address] [place] [address] Sodium [Moles/Vol] 139 mmol/L Normal 136-145 [facility] Comment on above: Performed By: #### L [id number] #### [facility] ([facility]) [address] [place] [address] Urea nitrogen [Mass/Vol] 27 mg/dL High 7-25 [facility] Comment on above: Performed By: #### L [id number] #### [facility] ([facility]) [address] [place] [address] UREA NITROGEN/CREATININE (MASS RATIO) IN SER/PLAS 47.4 Normal [facility] Comment on above: Performed By: #### L [id number] #### [facility] ([facility]) [address] [facility] [place] [address] CBC WITH AUTO DIFFERENTIALon 11-13-2024 Basophils (Bld) [#/Vol] 0.06 10*3/uL Normal 0.00-0.20 [facility] Comment on above: Performed By: #### L [id number] #### [facility] ([facility]) [address] [place] [address] Basophils/100 WBC (Bld) 0.9 % Normal 0.0-1.0 [facility] Comment on above: Performed By: #### L [id number] #### [facility] ([facility]) [address] [place] [address] Eosinophils (Bld) [#/Vol] 0.16 10*3/uL Normal 0.00-0.50 [facility] Comment on above: Performed By: #### L [id number] #### [facility] ([facility]) [address] [place] [address] Eosinophils/100 WBC (Bld) 2.3 % Normal 0.0-6.0 [facility] Comment on above: Performed By: #### L [id number] #### [facility] ([facility]) [address] [place] [address] Erythrocyte distribution width (RBC) [Ratio] 13.3 % Normal 11.5-15.0 [facility] Comment on above: Performed By: #### L [id number] #### [facility] ([facility]) [address] [place] [address] ERYTHROCYTE MEAN CORPUSCULAR HEMOGLOBIN CONCENTRATION (G/DL) BY AUTOMATED 33.7 g/dL Normal 32.0-35.0 [facility] Comment on above: Performed By: #### L [id number] #### [facility] ([facility]) [address] [place] [address] Hematocrit (Bld) [Volume fraction] 40.1 % Normal 36.0-48.0 [facility] Comment on above: Performed By: #### L [id number] #### [facility] ([facility]) [address] [place] [address] Hemoglobin (Bld) [Mass/Vol] 13.5 g/dL Normal 12.0-15.0 [facility] Comment on above: Performed By: #### L [id number] #### [facility] ([facility]) [address] [place] [address] Immature granulocytes (Bld) [#/Vol] 0.04 10*3/uL Normal 0.00-0.20 [facility] Comment on above: Performed By: #### L [id number] #### [facility] ([facility]) [address] [place] [address] Immature granulocytes/100 WBC (Bld) 0.6 % Normal 0.0-1.0 [facility] Comment on above: Performed By: #### L [id number] #### [facility] ([facility]) [address] [place] [address] Lymphocytes (Bld) [#/Vol] 3.05 10*3/uL Normal 1.20-4.00 [facility] Comment on above: Performed By: #### L [id number] #### [facility] ([facility]) [address] [place] [address] Lymphocytes/100 WBC (Bld) 44.3 % Normal 20.0-45.0 [facility] Comment on above: Performed By: #### L [id number] #### [facility] ([facility]) [address] [place] [address] MCH (RBC) [Entitic mass] 30.4 pg Normal 27.0-33.0 [facility] Comment on above: Performed By: #### L [id number] #### [facility] ([facility]) [address] [place] [address] MCV (RBC) [Entitic vol] 90.3 fL Normal 82.0-98.0 [facility] Comment on above: Performed By: #### L [id number] #### [facility] ([facility]) [address] [place] [address] Monocytes (Bld) [#/Vol] 0.83 10*3/uL Normal 0.10-1.00 [facility] Comment on above: Performed By: #### L [id number] #### [facility] ([facility]) [address] [place] [address] Monocytes/100 WBC (Bld) 12.1 % High 5.0-12.0 [facility] Comment on above: Performed By: #### L [id number] #### [facility] ([facility]) [address] [place] [address] Neutrophils (Bld) [#/Vol] 2.74 10*3/uL Normal 1.60-7.60 [facility] Comment on above: Performed By: #### L [id number] #### [facility] ([facility]) [address] [place] [address] Neutrophils/100 WBC (Bld) 39.8 % Low 40.0-72.0 [facility] Comment on above: Performed By: #### L [id number] #### [facility] ([facility]) [address] [place] [address] NRBC (PER 100 WBCS) BY AUTOMATED COUNT 0.0 % Normal 0 [facility] Comment on above: Performed By: #### L [id number] #### [facility] ([facility]) [address] [place] [address] PLATELETS (10*3/UL) IN BLOOD AUTOMATED COUNT 216 10*3/uL Normal 150-400 [facility] Comment on above: Performed By: #### L [id number] #### [facility] ([facility]) [address] [place] [address] RBC (Bld) [#/Vol] 4.44 10*6/uL Normal 3.80-5.00 [facility] Comment on above: Performed By: #### L [id number] #### [facility] ([facility]) [address] [place] [address] WBC (Bld) [#/Vol] 6.88 10*3/uL Normal 4.00-10.60 [facility] Comment on above: Performed By: #### L [id number] #### [facility] ([facility]) [address] [place] [address] HPon 11-13-2024 HP H&P reviewed. The patient was examined and there are no changes to the H&P. Normal [facility] MAGNESIUMon 11-13-2024 Magnesium [Mass/Vol] 2.3 mg/dL Normal 1.9-2.7 [facility] Comment on above: Performed By: #### L [id number] #### [facility] ([facility]) [address] [place] [address] 30on 11-12-2024 30 The patient is Moderately Stable - Low risk of patient condition declining or worsening The patient's goals for the shift include comfort The clinical goals for the shift include vss, safety Problem: Cardiovascular - Adult Goal: Maintains optimal cardiac output and hemodynamic stability Outcome: Progressing Flowsheets (Taken 11/12/20242000) Maintains optimal cardiac output and hemodynamic stability: Monitor blood pressure and heart rate Monitor urine output and notify Licensed Independent Practitioner for values outside of normal range Assess for signs of decreased cardiac output Goal: Absence of cardiac dysrhythmias or at baseline Outcome: Progressing Flowsheets (Taken 11/12/20242000) Absence of cardiac dysrhythmias or at baseline: Monitor cardiac rate and rhythm Assess for signs of decreased cardiac output Administer antiarrhythmia medication and electrolyte replacement as ordered Problem: Skin/Tissue Integrity - Adult Goal: Skin integrity remains intact Outcome: Progressing Flowsheets (Taken 11/12/20242000) Skin integrity remains intact: Monitor for areas of redness and/or skin breakdown Assess vascular access sites hourly Change oxygen saturation probe site as needed Goal: Incisions, wounds, or drain sites healing without S/S of infection Outcome: Progressing Flowsheets (Taken 11/12/20242000) Incisions, wounds, or drain sites healing without sign and symptoms of infection: ADMISSION and DAILY: Assess and document risk factors for pressure ulcer development Goal: Oral mucous membranes remain intact Outcome: Progressing Flowsheets (Taken 11/12/20242000) Oral mucous membranes remain intact: Assess oral mucosa and hygiene practices Implement oral medicated treatments as ordered Implement preventative oral hygiene regimen Problem: Musculoskeletal - Adult Goal: Return mobility to safest level of function Outcome: Progressing Flowsheets (Taken 11/12/20242000) Return mobility to safest level of function: Assess patient stability and activity tolerance for standing, transferring and ambulating with or without assistive devices Assist with transfers and ambulation using safe patient handling equipment as needed Obtain physical therapy/occupational therapy consults as needed Ensure adequate protection for wounds/incisions during mobilization Goal: Maintain proper alignment of affected body part Outcome: Progressing Flowsheets (Taken 11/12/20242000) Maintain proper alignment of affected body part: Support and protect limb and body alignment per provider's orders Instruct and reinforce with patient and family use of appropriate assistive device and precautions (e.g. spinal or hip dislocation precautions) Goal: Return ADL status to a safe level of function Outcome: Progressing Flowsheets (Taken 11/12/20242000) Return ADL status to a safe level of function: Administer medication as ordered Obtain physical therapy/occupational therapy consults as needed Assess activities of daily living deficits and provide assistive devices as needed Problem: Gastrointestinal - Adult Goal: Minimal or absence of nausea and vomiting Outcome: Progressing Flowsheets (Taken 11/12/20242000) Minimal or absence of nausea and vomiting: Administer IV fluids as ordered to ensure adequate hydration Nasogastric tube to low intermittent suction as ordered Administer ordered antiemetic medications as needed Goal: Maintains or returns to baseline bowel function Outcome: Progressing Flowsheets (Taken 11/12/20242000) Maintains or returns to baseline bowel function: Assess bowel function Encourage oral fluids to ensure adequate hydration Administer IV fluids as ordered to ensure adequate hydration Goal: Maintains adequate nutritional intake Outcome: Progressing Flowsheets (Taken 11/12/20242000) Maintains adequate nutritional intake: Monitor percentage of each meal consumed Assist with meals as needed Identify factors contributing to decreased intake, treat as appropriate Normal [facility] 30 The patient is Moderately Stable - Low risk of patient condition declining or worsening The patient's goals for the shift include comfort The clinical goals for the shift include vss, safety Over the shift, the patient did not make progress toward the following goals. Barriers to progression include. Recommendations to address these barriers include. Normal [facility] 30 The patient is Moderately Stable - Low risk of patient condition declining or worsening The patient's goals for the shift include comfort The clinical goals for the shift include vss, safety Problem: Cardiovascular - Adult Goal: Maintains optimal cardiac output and hemodynamic stability Outcome: Progressing Flowsheets (Taken 11/11/20241912) Maintains optimal cardiac output and hemodynamic stability: Monitor blood pressure and heart rate Assess for signs of decreased cardiac output Goal: Absence of cardiac dysrhythmias or at baseline Outcome: Progressing Flowsheets (Taken 11/11/20241912) Absence of cardiac dysrhythmias or at baseline: Monitor cardiac rate and rhythm Assess for signs of decreased cardiac output Problem: Skin/Tissue Integrity - Adult Goal: Skin integrity remains intact Outcome: Progressing Flowsheets (Taken 11/11/20241912) Skin integrity remains intact: Monitor for areas of redness and/or skin breakdown Change oxygen saturation probe site as needed Goal: Incisions, wounds, or drain sites healing without S/S of infection Outcome: Progressing Flowsheets (Taken 11/11/20241912) Incisions, wounds, or drain sites healing without sign and symptoms of infection: ADMISSION and DAILY: Assess and document risk factors for pressure ulcer development TWICE DAILY: Assess and document skin integrity Initiate pressure ulcer prevention bundle as indicated Goal: Oral mucous membranes remain intact Outcome: Progressing Flowsheets (Taken 11/11/20241912) Oral mucous membranes remain intact: Assess oral mucosa and hygiene practices Problem: Musculoskeletal - Adult Goal: Return mobility to safest level of function Outcome: Progressing Flowsheets (Taken 11/11/20241912) Return mobility to safest level of function: Assess patient stability and activity tolerance for standing, transferring and ambulating with or without assistive devices Assist with transfers and ambulation using safe patient handling equipment as needed Ensure adequate protection for wounds/incisions during mobilization Obtain physical therapy/occupational therapy consults as needed Goal: Maintain proper alignment of affected body part Outcome: Progressing Flowsheets (Taken 11/11/20241912) Maintain proper alignment of affected body part: Support and protect limb and body alignment per provider's orders Instruct and reinforce with patient and family use of appropriate assistive device and precautions (e.g. spinal or hip dislocation precautions) Goal: Return ADL status to a safe level of function Outcome: Progressing Flowsheets (Taken 11/11/20241912) Return ADL status to a safe level of function: Administer medication as ordered Assess activities of daily living deficits and provide assistive devices as needed Problem: Gastrointestinal - Adult Goal: Minimal or absence of nausea and vomiting Outcome: Progressing Flowsheets (Taken 11/11/20241912) Minimal or absence of nausea and vomiting: Administer IV fluids as ordered to ensure adequate hydration Administer ordered antiemetic medications as needed Provide nonpharmacologic comfort measures as appropriate Advance diet as tolerated, if ordered Goal: Maintains or returns to baseline bowel function Outcome: Progressing Flowsheets (Taken 11/11/20241912) Maintains or returns to baseline bowel function: Assess bowel function Encourage oral fluids to ensure adequate hydration Administer IV fluids as ordered to ensure adequate hydration Administer ordered medications as needed Goal: Maintains adequate nutritional intake Outcome: Progressing Flowsheets (Taken 11/11/20241912) Maintains adequate nutritional intake: Monitor percentage of each meal consumed Identify factors contributing to decreased intake, treat as appropriate Assist with meals as needed Problem: Infection - Adult Goal: Absence of infection at discharge Outcome: Progressing Flowsheets (Taken 11/11/20241912) Absence of infection at discharge: Assess and monitor for signs and symptoms of infection Monitor all insertion sites i.e., indwelling lines, tubes and drains Monitor lab/diagnostic results Administer medications as ordered Instruct and encourage patient and family to use good hand hygiene technique Goal: Absence of infection during hospitalization Outcome: Progressing Goal: Absence of fever/infection during anticipated neutropenic period Outcome: Progressing Flowsheets (Taken 11/11/20241912) Absence of fever/infection during anticipated neutropenic period: Monitor white blood cell count Problem: Metabolic/Fluid and Electrolytes - Adult Goal: Electrolytes maintained within normal limits Outcome: Progressing Flowsheets (Taken 11/11/20241912) Electrolytes maintained within normal limits: Monitor labs and assess patient for signs and symptoms of electrolyte imbalances Administer electrolyte replacement as ordered Monitor response to (more content not included)... Normal [facility] ANTI-XA (HEPARIN LEVEL)on HEPARIN UNFRACTIONATED (U/ML) IN PPP BY CHROMOGENIC METHOD 0.36 IU/mL Normal 0.3-0.7 [facility] Comment on above: Order Comment: Check anti-Xa level every 6 hours while on heparin infusion, or per protocol. Result Comment: [place] roxaban and Apixaban will interfere with the anti Xa assay used to monitor UFH and LMWH. Performed By: #### L [id number] #### [facility] ([facility]) [address] [place] [address] HEPARIN UNFRACTIONATED (U/ML) IN PPP BY CHROMOGENIC METHOD 0.37 IU/mL Normal 0.3-0.7 [facility] Comment on above: Order Comment: Check anti-Xa level every 6 hours while on heparin infusion, or per protocol. Result Comment: [place] roxaban and Apixaban will interfere with the anti Xa assay used to monitor UFH and LMWH. Performed By: #### L [id number] #### [facility] ([facility]) [address] [place] [address] HEPARIN UNFRACTIONATED (U/ML) IN PPP BY CHROMOGENIC METHOD 0.36 IU/mL Normal 0.3-0.7 [facility] Comment on above: Order Comment: Check anti-Xa level every 6 hours while on heparin infusion, or per protocol. Result Comment: [place] roxaban and Apixaban will interfere with the anti Xa assay used to monitor UFH and LMWH. Performed By: #### L [id number] #### [facility] ([facility]) [address] [place] [address] HEPARIN UNFRACTIONATED (U/ML) IN PPP BY CHROMOGENIC METHOD 0.37 IU/mL Normal 0.3-0.7 [facility] Comment on above: Order Comment: Check anti-Xa level every 6 hours while on heparin infusion, or per protocol. Result Comment: [place] roxaban and Apixaban will interfere with the anti Xa assay used to monitor UFH and LMWH. Performed By: #### L [id number] #### [facility] ([facility]) [address] [place] [address] BASIC METABOLIC PANELon -2 0-2024 Anion gap [Moles/Vol] 12 mmol/L Normal 7-20 [facility] Comment on above: Performed By: #### L [id number] #### [facility] ([facility]) [address] [place] [address] Calcium [Mass/Vol] 8.8 mg/dL Normal 8.6-10.3 [facility] Comment on above: Performed By: #### L [id number] #### [facility] ([facility]) [address] [place] [address] Chloride [Moles/Vol] 104 mmol/L Normal 98-107 [facility] Comment on above: Performed By: #### L [id number] #### [facility] ([facility]) [address] [place] [address] CO2 [Moles/Vol] 27 mmol/L Normal 21-31 [facility] Comment on above: Performed By: #### L [id number] #### [facility] ([facility]) [address] [place] [address] Creatinine [Mass/Vol] 0.51 mg/dL Low 0.60-1.20 [facility] Comment on above: Performed By: #### L [id number] #### [facility] ([facility]) [address] [place] [address] GLOMERULAR FILTRATION RATE ML/MIN/1.73 SQ M.PREDICTED 101.0 mL/min/1.73m*2 Normal >60.0 [facility] Comment on above: Result Comment: The [facility]???s estimated glomerular filtration rate (eGFR) will no longer include consideration of race in its calculation. The National Kidney Foundation???s eGFR Task Force developed new recommendations for the estimation of the glomerular filtration rate in the [place] They recommend immediate implementation of the new equation refit without the race variable in all laboratories because the calculation does not include race. In addition to not including race in the calculation and reporting, it included diversity in its development, and has acceptable performance characteristics and potential consequences that do not disproportionately affect any one group of individuals. Performed By: #### L [id number] #### [facility] ([facility]) [address] [place] [address] Glucose [Mass/Vol] 97 mg/dL Normal 70-100 [facility] Comment on above: Performed By: #### L [id number] #### [facility] ([facility]) [address] [address] Potassium [Moles/Vol] 3.5 mmol/L Normal 3.5-5.1 [facility] Comment on above: Performed By: #### L [id number] #### [facility] ([facility]) [address] [place] [address] Sodium [Moles/Vol] 139 mmol/L Normal 136-145 [facility] Comment on above: Performed By: #### L [id number] #### [facility] ([facility]) [address] [place] [address] Urea nitrogen [Mass/Vol] 21 mg/dL Normal 7-25 [facility] Comment on above: Performed By: #### L [id number] #### [facility] ([facility]) [address] [place] [address] UREA NITROGEN/CREATININE (MASS RATIO) IN SER/PLAS 41.2 Normal [facility] Comment on above: Performed By: #### L [id number] #### [facility] ([facility]) [address] [place] [address] CBC WITH AUTO DIFFERENTIALon 11-12-2024 Basophils (Bld) [#/Vol] 0.05 10*3/uL Normal 0.00-0.20 [facility] Comment on above: Performed By: #### L [id number] #### [facility] ([facility]) [address] [address] Basophils/100 WBC (Bld) 0.6 % Normal 0.0-1.0 [facility] Comment on above: Performed By: #### L [id number] #### [facility] ([facility]) [address] [place] [address] Eosinophils (Bld) [#/Vol] 0.08 10*3/uL Normal 0.00-0.50 [facility] Comment on above: Performed By: #### L [id number] #### [facility] ([facility]) [address] [place] [address] Eosinophils/100 WBC (Bld) 1.0 % Normal 0.0-6.0 [facility] Comment on above: Performed By: #### L [id number] #### [facility] ([facility]) [address] [place] [address] Erythrocyte distribution width (RBC) [Ratio] 13.1 % Normal 11.5-15.0 [facility] Comment on above: Performed By: #### L [id number] #### [facility] ([facility]) [address] [place] [address] ERYTHROCYTE MEAN CORPUSCULAR HEMOGLOBIN CONCENTRATION (G/DL) BY AUTOMATED 34.1 g/dL Normal 32.0-35.0 [facility] Comment on above: Performed By: #### L [id number] #### [facility] ([facility]) [address] [place] [address] Hematocrit (Bld) [Volume fraction] 36.7 % Normal 36.0-48.0 [facility] Comment on above: Performed By: #### L [id number] #### [facility] ([facility]) [address] [place] [address] Hemoglobin (Bld) [Mass/Vol] 12.5 g/dL Normal 12.0-15.0 [facility] Comment on above: Performed By: #### L [id number] #### [facility] ([facility]) [address] [place] [address] Immature granulocytes (Bld) [#/Vol] 0.03 10*3/uL Normal 0.00-0.20 [facility] Comment on above: Performed By: #### L [id number] #### [facility] ([facility]) [address] [place] [address] Immature granulocytes/100 WBC (Bld) 0.4 % Normal 0.0-1.0 [facility] Comment on above: Performed By: #### L [id number] #### [facility] ([facility]) [address] [place] [address] Lymphocytes (Bld) [#/Vol] 3.09 10*3/uL Normal 1.20-4.00 [facility] Comment on above: Performed By: #### L [id number] #### [facility] ([facility]) [address] [place] [address] Lymphocytes/100 WBC (Bld) 39.4 % Normal 20.0-45.0 [facility] Comment on above: Performed By: #### L [id number] #### [facility] ([facility]) [address] [place] [address] MCH (RBC) [Entitic mass] 30.6 pg Normal 27.0-33.0 [facility] Comment on above: Performed By: #### L [id number] #### [facility] ([facility]) [address] [place] [address] MCV (RBC) [Entitic vol] 90.0 fL Normal 82.0-98.0 [facility] Comment on above: Performed By: #### L [id number] #### [facility] ([facility]) [address] [place] [address] Monocytes (Bld) [#/Vol] 0.81 10*3/uL Normal 0.10-1.00 [facility] Comment on above: Performed By: #### L [id number] #### [facility] ([facility]) [address] [place] [address] Monocytes/100 WBC (Bld) 10.3 % Normal 5.0-12.0 [facility] Comment on above: Performed By: #### L [id number] #### [facility] ([facility]) [address] [place] [address] Neutrophils (Bld) [#/Vol] 3.79 10*3/uL Normal 1.60-7.60 [facility] Comment on above: Performed By: #### L [id number] #### [facility] ([facility]) [address] [place] [address] Neutrophils/100 WBC (Bld) 48.3 % Normal 40.0-72.0 [facility] Comment on above: Performed By: #### L [id number] #### [facility] ([facility]) [address] [place] [address] NRBC (PER 100 WBCS) BY AUTOMATED COUNT 0.0 % Normal 0 [facility] Comment on above: Performed By: #### L [id number] #### [facility] ([facility]) [address] [place] [address] PLATELETS (10*3/UL) IN BLOOD AUTOMATED COUNT 197 10*3/uL Normal 150-400 [facility] Comment on above: Performed By: #### L [id number] #### [facility] ([facility]) [address] [place] [address] RBC (Bld) [#/Vol] 4.08 10*6/uL Normal 3.80-5.00 [facility] Comment on above: Performed By: #### L [id number] #### [facility] ([facility]) [address] [place] [address] WBC (Bld) [#/Vol] 7.85 10*3/uL Normal 4.00-10.60 [facility] Comment on above: Performed By: #### L [id number] #### [facility] ([facility]) [address] [place] [address] MAGNESIUMon 11-12-2024 Magnesium [Mass/Vol] 1.8 mg/dL Low 1.9-2.7 [facility] Comment on above: Performed By: #### L [id number] #### [facility] ([facility]) [address] [place] [address] 30on 11-11-2024 30 The patient is Moderately Stable - Low risk of patient condition declining or worsening The patient's goals for the shift include comfort The clinical goals for the shift include stable vitals Over the shift, the patient did make progress toward the following goals. Problem: Cardiovascular - Adult Goal: Maintains optimal cardiac output and hemodynamic stability Outcome: Progressing Goal: Absence of cardiac dysrhythmias or at baseline Outcome: Progressing Problem: Skin/Tissue Integrity - Adult Goal: Skin integrity remains intact Outcome: Progressing Goal: Incisions, wounds, or drain sites healing without S/S of infection Outcome: Progressing Goal: Oral mucous membranes remain intact Outcome: Progressing Problem: Musculoskeletal - Adult Goal: Return mobility to safest level of function Outcome: Progressing Goal: Maintain proper alignment of affected body part Outcome: Progressing Goal: Return ADL status to a safe level of function Outcome: Progressing Problem: Infection - Adult Goal: Absence of infection at discharge Outcome: Progressing Goal: Absence of infection during hospitalization Outcome: Progressing Goal: Absence of fever/infection during anticipated neutropenic period Outcome: Progressing Normal [facility] 30 The patient is Moderately Stable - Low risk of patient condition declining or worsening The patient's goals for the shift include comfort, rest The clinical goals for the shift include vss, safety Problem: Cardiovascular - Adult Goal: Maintains optimal cardiac output and hemodynamic stability Outcome: Progressing Goal: Absence of cardiac dysrhythmias or at baseline Outcome: Progressing Problem: Skin/Tissue Integrity - Adult Goal: Skin integrity remains intact Outcome: Progressing Goal: Incisions, wounds, or drain sites healing without S/S of infection Outcome: Progressing Goal: Oral mucous membranes remain intact Outcome: Progressing Problem: Musculoskeletal - Adult Goal: Return mobility to safest level of function Outcome: Progressing Goal: Maintain proper alignment of affected body part Outcome: Progressing Goal: Return ADL status to a safe level of function Outcome: Progressing Problem: Gastrointestinal - Adult Goal: Minimal or absence of nausea and vomiting Outcome: Progressing Goal: Maintains or returns to baseline bowel function Outcome: Progressing Goal: Maintains adequate nutritional intake Outcome: Progressing Problem: Infection - Adult Goal: Absence of infection at discharge Outcome: Progressing Goal: Absence of infection during hospitalization Outcome: Progressing Goal: Absence of fever/infection during anticipated neutropenic period Outcome: Progressing Problem: Metabolic/Fluid and Electrolytes - Adult Goal: Electrolytes maintained within normal limits Outcome: Progressing Goal: Hemodynamic stability and optimal renal function maintained Outcome: Progressing Goal: Glucose maintained within prescribed range Outcome: Progressing Problem: Pain - Adult Goal: Verbalizes/displays adequate comfort level or baseline comfort level Outcome: Progressing Problem: Safety - Adult Goal: Free from fall injury Outcome: Progressing Problem: Discharge Planning Goal: Discharge to home or other facility with appropriate resources Outcome: Progressing Problem: Chronic Conditions and Co-morbidities Goal: Patient's chronic conditions and co-morbidity symptoms are monitored and maintained or improved Outcome: Progressing Normal [facility] 30 The patient is Moderately Stable - Low risk of patient condition declining or worsening The patient's goals for the shift include comfort, rest The clinical goals for the shift include vss, safety Normal [facility] ANTI-XA (HEPARIN LEVEL)on HEPARIN UNFRACTIONATED (U/ML) IN PPP BY CHROMOGENIC METHOD 0.32 IU/mL Normal 0.3-0.7 [facility] Comment on above: Order Comment: Check anti-Xa level every 6 hours while on heparin infusion, or per protocol. Result Comment: [place] roxaban and Apixaban will interfere with the anti Xa assay used to monitor UFH and LMWH. Performed By: #### L [id number] #### [facility] ([facility]) [address] [place] [address] HEPARIN UNFRACTIONATED (U/ML) IN PPP BY CHROMOGENIC METHOD 0.24 IU/mL Low 0.3-0.7 [facility] Comment on above: Order Comment: Check anti-Xa level every 6 hours while on heparin infusion, or per protocol. Result Comment: [place] roxaban and Apixaban will interfere with the anti Xa assay used to monitor UFH and LMWH. Performed By: #### L [id number] #### [facility] ([facility]) [address] [place] [address] HEPARIN UNFRACTIONATED (U/ML) IN PPP BY CHROMOGENIC METHOD 0.33 IU/mL Normal 0.3-0.7 [facility] Comment on above: Result Comment: [place] roxaban and Apixaban will interfere with the anti Xa assay used to monitor UFH and LMWH. Performed By: #### L [id number] #### [facility] ([facility]) [address] [place] [address] HEPARIN UNFRACTIONATED (U/ML) IN PPP BY CHROMOGENIC METHOD 0.19 IU/mL Low 0.3-0.7 [facility] Comment on above: Order Comment: Check anti-Xa level every 6 hours while on heparin infusion, or per protocol. Result Comment: [place] roxaban and Apixaban will interfere with the anti Xa assay used to monitor UFH and LMWH. Performed By: #### L [id number] #### [facility] ([facility]) [address] [place] [address] BASIC METABOLIC PANELon 10-24 Anion gap [Moles/Vol] 12 mmol/L Normal 7-20 [facility] Comment on above: Performed By: #### L [id number] #### [facility] ([facility]) [address] [place] [address] Calcium [Mass/Vol] 8.5 mg/dL Low 8.6-10.3 [facility] Comment on above: Performed By: #### L [id number] #### [facility] ([facility]) [address] [place] [address] Chloride [Moles/Vol] 108 mmol/L High 98-107 [facility] Comment on above: Performed By: #### L [id number] #### [facility] ([facility]) [address] [place] [address] CO2 [Moles/Vol] 22 mmol/L Normal 21-31 [facility] Comment on above: Performed By: #### L [id number] #### [facility] ([facility]) [address] [place] [address] Creatinine [Mass/Vol] 0.41 mg/dL Low 0.60-1.20 [facility] Comment on above: Performed By: #### L [id number] #### [facility] ([facility]) [address] [place] [address] GLOMERULAR FILTRATION RATE ML/MIN/1.73 SQ M.PREDICTED 106.4 mL/min/1.73m*2 Normal >60.0 [facility] Comment on above: Result Comment: The [facility]???s estimated glomerular filtration rate (eGFR) will no longer include consideration of race in its calculation. The National Kidney Foundation???s eGFR Task Force developed new recommendations for the estimation of the glomerular filtration rate in the [place] They recommend immediate implementation of the new equation refit without the race variable in all laboratories because the calculation does not include race. In addition to not including race in the calculation and reporting, it included diversity in its development, and has acceptable performance characteristics and potential consequences that do not disproportionately affect any one group of individuals. Performed By: #### L [id number] #### [facility] ([facility]) [address] [place] [address] Glucose [Mass/Vol] 100 mg/dL Normal 70-100 [facility] Comment on above: Performed By: #### L [id number] #### [facility] ([facility]) [address] [place] [address] Potassium [Moles/Vol] 3.8 mmol/L Normal 3.5-5.1 [facility] Comment on above: Performed By: #### L [id number] #### [facility] ([facility]) [address] [place] [address] Sodium [Moles/Vol] 138 mmol/L Normal 136-145 [facility] Comment on above: Performed By: #### L [id number] #### [facility] ([facility]) [address] [place] [address] Urea nitrogen [Mass/Vol] 13 mg/dL Normal 7-25 [facility] Comment on above: Performed By: #### L [id number] #### [facility] ([facility]) [address] [place] [address] UREA NITROGEN/CREATININE (MASS RATIO) IN SER/PLAS 31.7 Normal [facility] Comment on above: Performed By: #### L [id number] #### [facility] ([facility]) [address] [place] [address] CBCon 11-11-2024 Erythrocyte distribution width (RBC) [Ratio] 13.1 % Normal 11.5-15.0 [facility] Comment on above: Performed By: #### L [id number] #### [facility] ([facility]) [address] [place] [address] ERYTHROCYTE MEAN CORPUSCULAR HEMOGLOBIN CONCENTRATION (G/DL) BY AUTOMATED 33.8 g/dL Normal 32.0-35.0 [facility] Comment on above: Performed By: #### L [id number] #### [facility] ([facility]) [address] [place] [address] Hematocrit (Bld) [Volume fraction] 35.5 % Low 36.0-48.0 [facility] Comment on above: Performed By: #### L [id number] #### [facility] ([facility]) [address] [place] [address] Hemoglobin (Bld) [Mass/Vol] 12.0 g/dL Normal 12.0-15.0 [facility] Comment on above: Performed By: #### L [id number] #### [facility] ([facility]) [address] [place] [address] MCH (RBC) [Entitic mass] 30.5 pg Normal 27.0-33.0 [facility] Comment on above: Performed By: #### L [id number] #### [facility] ([facility]) [address] [place] [address] MCV (RBC) [Entitic vol] 90.3 fL Normal 82.0-98.0 [facility] Comment on above: Performed By: #### L [id number] #### [facility] ([facility]) [address] [place] [address] PLATELETS (10*3/UL) IN BLOOD AUTOMATED COUNT 175 10*3/uL Normal 150-400 [facility] Comment on above: Performed By: #### L [id number] #### [facility] ([facility]) [address] [place] [address] RBC (Bld) [#/Vol] 3.93 10*6/uL Normal 3.80-5.00 [facility] Comment on above: Performed By: #### L [id number] #### [facility] ([facility]) [address] [place] [address] WBC (Bld) [#/Vol] 9.13 10*3/uL Normal 4.00-10.60 [facility] Comment on above: Performed By: #### L [id number] #### [facility] ([facility]) [address] [place] [address] CONSULTon 11-11-2024 CONSULT -- Attestation signed by Eris Lopes MD at 11/12/2024 11:32 PM By using the attestations below, the signing clinician agrees that I have read and verify that the documentation has been personally reviewed by me and ensure that the documentation accurately reflects the encounter. GC: I performed the mcdonald portion(s) of the service and participated in the management and confirm the resident's documentation. Please note there may be an additional personal documentation from me. Pt has evolving changes and will benfit from ischemia eval. Rx as [facility] Cardiology Consult Note Reason for Consult: NSTEMI HPI: Lorena Barahona is a 69 y.o. female with PMH cerebral palsy, tobacco use disorder, anxiety and essential hypertension who presented on 11/10/24 as a transfer from [facility], where she initially presented with chief complaint of generalized weakness, chest pain and shortness of breath. Per chart review, family at that time also reported that patient was experiencing hallucinations. Reportedly, troponin was elevated and EKG showed ischemic changes, so patient was started on heparin drip and transferred to [facility] for cardiac catheterization. At [facility], troponin was elevated at 1.12. EKG was negative for ischemic changes. Upon my evaluation this morning, patient reports that she is sore all over because of the hospital bed. She states that she only feels chest pain on her left side when she rolls to that side. Denies shortness of breath, dizziness/lightheadedn ess, palpitations, or PND/orthopnea. She states that at home she has become more dependent on her crutches for ambulation. Cardiology ROS: Review of Systems Constitutional: Negative for chills, diaphoresis, fatigue and fever. Respiratory: Negative for cough, shortness of breath and wheezing. Cardiovascular: Positive for chest pain (when rolling to left side.). Negative for palpitations and leg swelling. Gastrointestinal: Negative for abdominal pain, constipation, diarrhea, nausea and vomiting. Musculoskeletal: Positive for arthralgias and back pain. Neurological: Positive for weakness. Negative for dizziness and light-headedness. Past Medical History She has no past medical history on file. Surgical History She has no past surgical history on file. Social History She reports that she has been smoking cigarettes. She has never used smokeless tobacco. She reports that she does not drink alcohol and does not use drugs. Family History No family history on file. Allergies Patient has no known allergies. Medications Current Outpatient Medications Medication Instructions ALPRAZolam (XANAX) 0.25 mg, oral, 3 times daily PRN baclofen (Lioresal) 10 mg tablet 1 tablet, oral, 3 times daily, Patient takes 10 mg two times a day and 20 mg at bedtime metoprolol succinate XL (Toprol-XL) 25 mg 24 hr tablet 1 tablet, oral, Every morning multivitamin tablet 1 tablet, oral, Daily zolpidem (Ambien) 10 mg tablet 1 tablet, oral, Every morning Medications Prior to Admission Medication Sig Dispense Refill Last Dose ALPRAZolam (Xanax) 0.25 mg tablet Take 0.25 mg by mouth if needed in the morning, at noon, and at bedtime for anxiety. baclofen (Lioresal) 10 mg tablet Take 1 tablet by mouth three times daily. Patient takes 10 mg two times a day and 20 mg at bedtime metoprolol succinate XL (Toprol-XL) 25 mg 24 hr tablet Take 1 tablet by mouth in the morning. zolpidem (Ambien) 10 mg tablet Take 1 tablet by mouth in the morning. multivitamin tablet Take 1 tablet by mouth in the morning. Last Recorded Vitals Patient Vitals for the past 24 hrs: BP Temp Temp src Pulse Resp SpO2 Height Weight 11/11/24 0731 -- 36.5 ???C (97.7 ???F) -- -- -- -- -- -- 11/11/24 0726 138/89 -- -- 86 21 99 % -- -- 11/11/24 0429 -- -- -- -- -- -- -- 46.3 kg (102 lb 1.2 oz) 11/11/24 0416 (!) 142/98 -- -- 69 14 97 % -- -- 11/11/24 0200 117/73 -- -- 79 22 92 % -- -- 11/11/24 0114 (!) 168/92 36.5 ???C (97.7 ???F) Temporal 86 16 -- -- -- 11/11/24 0019 117/65 -- -- 84 22 97 % -- -- 11/11/24 0000 94/63 -- -- 63 14 95 % -- -- 11/10/24 2300 104/70 -- -- 64 15 93 % -- -- 11/10/24 2200 (!) 151/91 -- -- 89 16 98 % -- -- 11/10/24 2100 (!) 163/104 -- -- 87 (!) 27 99 % -- -- 11/10/242031 (!) 168/92 -- -- 92 16 96 % -- -- 11/10/242027 (!) 165/105 -- -- 96 23 97 % -- -- 11/10/242026 -- -- -- -- -- -- 1.473 m (4' 10 ) 42.4 kg (93 lb 7.6 oz) Physical Examination: Physical Exam HENT: Head: Normocephalic and atraumatic. Eyes: General: No scleral icterus. Cardiovascular: Rate and Rhythm: Normal rate and regular rhythm. Heart sounds: Normal heart sounds. No murmur heard. No friction rub. No gallop. Pulmonary: Effort: Pulmonary effort is normal. No respiratory distress. Breath sounds: Norm (more content not included)... Normal [facility] CTA CHEST W IV CONTRASTon CTA CHEST W IV CONTRAST CLINICAL INFORMATION: Chest pain COMPARISON: None TECHNIQUE: 100mL of Omnipaque 350 nonionic contrast injected intravenously without reported complication. Thin section axial images of the thorax obtained with multiplanar reformatted 3-D MIP images of the thorax generated under concurrent physician supervision and reviewed. Automatic exposure control (AEC) was utilized. FINDINGS: VASCULAR: Aorta: Ascending aorta measures approximately 3.3 cm. Mid descending aorta measures approximately 2.3 cm. No significant eccentric mural thickening though assessment for intraluminal hematomas limited to lack of precontrast imaging. No visualized dissection flap. Mild soft plaque of the descending thoracic aorta. At least moderate mixed plaque of the abdominal aorta. 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 The celiac origin appears occluded with large SMA/hepatic artery collaterals. 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 Aortic arch vessels: Patent brachycephalic trunk. Patent left including artery. Proximal neck great vessels appear patent. Pulmonary arteries: Normal in caliber. No visualized pulmonary arterial filling defect. NONVASCULAR: LUNG/PLEURA: Trachea and central airways are patent. Moderate emphysema. No focal consolidation or effusion. No pneumothorax. A 0.6 cm subpleural right lower lobe nodule (187/421). Bronchial wall thickening and bibasilar atelectasis. HEART: Heart is normal in size. No significant pericardial effusion. Perhaps mild coronary calcification. MEDIASTINUM and LYMPH NODES: No enlarged axillary or mediastinal nodes. The esophagus is nondilated. UPPER ABDOMEN: See above. MUSCULOSKELETAL AND LOWER NECK Grossly normal thyroid. No acute osseous abnormality. IMPRESSION: 1. No definitively acute abnormality of the thoracic aorta. 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 Correlate with segmental arterial mediolysis or connective tissue disease. Dedicated the CTA abdomen/pelvis warranted when feasible. 3. Pulmonary emphysema with bronchitis. 4. A 0.6 cm right lower lobe nodule. Recommend 6 month follow-up. All CT scans at this facility use dose modulation, iterative reconstruction, and/or weight based dosing when appropriate to reduce radiation dose to as low as reasonably achievable. Electronically signed: EDILIA FARLEY. Normal [facility] HEMOGLOBIN A1Con 11-11-2024 Glucose [Mass/Vol] 111 mg/dL Normal [facility] Comment on above: Performed By: #### L [id number] #### [facility] ([facility]) [address] [place] [address] HbA1c (Bld) [Mass fraction] 5.5 % Normal 4.0-6.0 [facility] Comment on above: Performed By: #### L [id number] #### [facility] ([facility]) [address] [place] [address] HPon 11-11-2024 HP -- Attestation signed by Eris Lopes MD at 11/12/2024 11:32 PM By using the attestations below, the signing clinician agrees that I have read and verify that the documentation has been personally reviewed by me and ensure that the documentation accurately reflects the encounter. GC: I performed the mcdonald portion(s) of the service and participated in the management and confirm the resident's documentation. Please note there may be an additional personal documentation from me. Pt has evolving changes and will benfit from ischemia eval. Rx as [facility] Cardiology Consult Note Reason for Consult: NSTEMI HPI: Lorena Barahona is a 69 y.o. female with PMH cerebral palsy, tobacco use disorder, anxiety and essential hypertension who presented on 11/10/24 as a transfer from [facility], where she initially presented with chief complaint of generalized weakness, chest pain and shortness of breath. Per chart review, family at that time also reported that patient was experiencing hallucinations. Reportedly, troponin was elevated and EKG showed ischemic changes, so patient was started on heparin drip and transferred to [facility] for cardiac catheterization. At [facility], troponin was elevated at 1.12. EKG was negative for ischemic changes. Upon my evaluation this morning, patient reports that she is sore all over because of the hospital bed. She states that she only feels chest pain on her left side when she rolls to that side. Denies shortness of breath, dizziness/lightheadedn ess, palpitations, or PND/orthopnea. She states that at home she has become more dependent on her crutches for ambulation. Cardiology ROS: Review of Systems Constitutional: Negative for chills, diaphoresis, fatigue and fever. Respiratory: Negative for cough, shortness of breath and wheezing. Cardiovascular: Positive for chest pain (when rolling to left side.). Negative for palpitations and leg swelling. Gastrointestinal: Negative for abdominal pain, constipation, diarrhea, nausea and vomiting. Musculoskeletal: Positive for arthralgias and back pain. Neurological: Positive for weakness. Negative for dizziness and light-headedness. Past Medical History She has no past medical history on file. Surgical History She has no past surgical history on file. Social History She reports that she has been smoking cigarettes. She has never used smokeless tobacco. She reports that she does not drink alcohol and does not use drugs. Family History No family history on file. Allergies Patient has no known allergies. Medications Current Outpatient Medications Medication Instructions ALPRAZolam (XANAX) 0.25 mg, oral, 3 times daily PRN baclofen (Lioresal) 10 mg tablet 1 tablet, oral, 3 times daily, Patient takes 10 mg two times a day and 20 mg at bedtime metoprolol succinate XL (Toprol-XL) 25 mg 24 hr tablet 1 tablet, oral, Every morning multivitamin tablet 1 tablet, oral, Daily zolpidem (Ambien) 10 mg tablet 1 tablet, oral, Every morning Medications Prior to Admission Medication Sig Dispense Refill Last Dose ALPRAZolam (Xanax) 0.25 mg tablet Take 0.25 mg by mouth if needed in the morning, at noon, and at bedtime for anxiety. baclofen (Lioresal) 10 mg tablet Take 1 tablet by mouth three times daily. Patient takes 10 mg two times a day and 20 mg at bedtime metoprolol succinate XL (Toprol-XL) 25 mg 24 hr tablet Take 1 tablet by mouth in the morning. zolpidem (Ambien) 10 mg tablet Take 1 tablet by mouth in the morning. multivitamin tablet Take 1 tablet by mouth in the morning. Last Recorded Vitals Patient Vitals for the past 24 hrs: BP Temp Temp src Pulse Resp SpO2 Height Weight 11/11/24 0731 -- 36.5 ???C (97.7 ???F) -- -- -- -- -- -- 11/11/24 07 138/89 -- -- 86 21 99 % -- -- 11/11/24 0429 -- -- -- -- -- -- -- 46.3 kg (102 lb 1.2 oz) 11/11/24 0416 (!) 142/98 -- -- 69 14 97 % -- -- 11/11/24 0200 117/73 -- -- 79 22 92 % -- -- 11/11/24 0114 (!) 168/92 36.5 ???C (97.7 ???F) Temporal 86 16 -- -- -- 11/11/24 0019 117/65 -- -- 84 22 97 % -- -- 11/11/24 0000 94/63 -- -- 63 14 95 % -- -- 11/10/24 2300 104/70 -- -- 64 15 93 % -- -- 11/10/24 2200 (!) 151/91 -- -- 89 16 98 % -- -- 11/10/24 2100 (!) 163/104 -- -- 87 (!) 27 99 % -- -- 11/10/242031 (!) 168/92 -- -- 92 16 96 % -- -- 11/10/242027 (!) 165/105 -- -- 96 23 97 % -- -- 11/10/242026 -- -- -- -- -- -- 1.473 m (4' 10 ) 42.4 kg (93 lb 7.6 oz) Physical Examination: Physical Exam HENT: Head: Normocephalic and atraumatic. Eyes: General: No scleral icterus. Cardiovascular: Rate and Rhythm: Normal rate and regular rhythm. Heart sounds: Normal heart sounds. No murmur heard. No friction rub. No gallop. Pulmonary: Effort: Pulmonary effort is normal. No respiratory distress. Breath sounds: Norm (more content not included)... Normal [facility] MAGNESIUMon 11-11-2024 Magnesium [Mass/Vol] 1.7 mg/dL Low 1.9-2.7 [facility] Comment on above: Performed By: #### L [id number] #### [facility] ([facility]) [address] [place] [address] TROPONIN Ion 11-11-2024 Troponin I.cardiac [Mass/Vol] 0.90 ng/mL Critically high 0.00-0.04 [facility] Comment on above: Result Comment: Prev ious result verified on 11/11/2024 0124 on specimen/case [id number] called with component Troponin I for procedure Troponin I with value 1.09 ng/mL. Performed By: #### L [id number] #### [facility] ([facility]) [address] [place] [address] URINALYSISon 11-11-2024 BILIRUBIN, TOTAL PRESENCE IN URINE Negative Normal Negative [facility] Comment on above: Order Comment: Micro scopics not performed on urines with negative chemical reactions unless requested on original order. Performed By: #### L [id number] #### [facility] ([facility]) [address] [place] [address] Clarity (U) Clear Normal Clear [facility] Comment on above: Order Comment: Micro scopics not performed on urines with negative chemical reactions unless requested on original order. Performed By: #### L [id number] #### [facility] ([facility]) [address] [place] [address] Color (U) Light-Yellow Normal Colorless, Yellow, Light-Yellow [facility] Comment on above: Order Comment: Micro scopics not performed on urines with negative chemical reactions unless requested on original order. Performed By: #### L [id number] #### [facility] ([facility]) [address] [place] [address] GLUCOSE (MG/DL) IN URINE Normal Normal Normal [facility] Comment on above: Order Comment: Micro scopics not performed on urines with negative chemical reactions unless requested on original order. Performed By: #### L [id number] #### [facility] ([facility]) [address] [place] [address] HEMOGLOBIN PRESENCE IN URINE Negative Normal Negative [facility] Comment on above: Order Comment: Micro scopics not performed on urines with negative chemical reactions unless requested on original order. Performed By: #### L [id number] #### [facility] ([facility]) [address] [place] [address] Ketones Ql (U) 40 mg/dL Abnormal Negative [facility] Comment on above: Order Comment: Micro scopics not performed on urines with negative chemical reactions unless requested on original order. Performed By: #### L [id number] #### [facility] ([facility]) [address] [place] [address] LEUKOCYTE ESTERASE PRESENCE IN URINE BY TEST STRIP Negative Normal Negative [facility] Comment on above: Order Comment: Micro scopics not performed on urines with negative chemical reactions unless requested on original order. Performed By: #### L [id number] #### [facility] ([facility]) [address] [place] [address] NITRITE PRESENCE IN URINE Negative Normal Negative [facility] Comment on above: Order Comment: Micro scopics not performed on urines with negative chemical reactions unless requested on original order. Performed By: #### L [id number] #### [facility] ([facility]) [address] [place] [address] pH (U) 6.0 [pH] Normal 5.0-8.0 [facility] Comment on above: Order Comment: Micro scopics not performed on urines with negative chemical reactions unless requested on original order. Performed By: #### L [id number] #### [facility] ([facility]) [address] [facility] [address] Protein (U) [Mass/Vol] Negative Normal Negative [facility] Comment on above: Order Comment: Micro scopics not performed on urines with negative chemical reactions unless requested on original order. Performed By: #### L [id number] #### [facility] ([facility]) [address] [place] [address] Specific gravity (U) [Rel density] 1.009 Low 1.010-1.030 [facility] Comment on above: Order Comment: Micro scopics not performed on urines with negative chemical reactions unless requested on original order. Performed By: #### L [id number] #### [facility] ([facility]) [address] [facility] [place] [address] UROBILINOGEN (MG/DL) IN URINE Normal Normal Normal [facility] Comment on above: Order Comment: Micro scopics not performed on urines with negative chemical reactions unless requested on original order. Performed By: #### L [id number] #### [facility] ([facility]) [address] [place] [address] APTTon 11-10-2024 ACTIVATED PARTIAL THROMBOPLASTIN TIME IN PPP BY COAGULATION ASSAY 28.5 Seconds Normal 25.0-35.0 [facility] Comment on above: Order Comment: Basel ine aPTT before initiating heparin infusion. Result Comment: Clin ical significance of the APTT is questionable in the presence of heparin. Performed By: #### L [id number] #### [facility] ([facility]) [address] [place] [address] B-TYPE NATRIURETIC PEPTIDEon 11-10-2024 Natriuretic peptide B (Bld) [Mass/Vol] 658 pg/mL High 0-100 [facility] Comment on above: Performed By: #### L [id number] #### [facility] ([facility]) [address] [place] [address] BASIC METABOLIC PANELon 10-24 Anion gap [Moles/Vol] 12 mmol/L Normal 7-20 [facility] Comment on above: Performed By: #### L [id number] #### [facility] ([facility]) [address] [place] [address] Calcium [Mass/Vol] 9.1 mg/dL Normal 8.6-10.3 [facility] Comment on above: Performed By: #### L [id number] #### [facility] ([facility]) [address] [place] [address] Chloride [Moles/Vol] 107 mmol/L Normal 98-107 [facility] Comment on above: Performed By: #### L [id number] #### [facility] ([facility]) [address] [place] [address] CO2 [Moles/Vol] 24 mmol/L Normal 21-31 [facility] Comment on above: Performed By: #### L [id number] #### [facility] [address] [place] [address] Creatinine [Mass/Vol] 0.42 mg/dL Low 0.60-1.20 [facility] Comment on above: Performed By: #### L [id number] #### [facility] ([facility]) [address] [place] [address] GLOMERULAR FILTRATION RATE ML/MIN/1.73 SQ M.PREDICTED 105.8 mL/min/1.73m*2 Normal >60.0 [facility] Comment on above: Result Comment: The [facility]???s estimated glomerular filtration rate (eGFR) will no longer include consideration of race in its calculation. The [employer] Kid[employer]???s eGFR Task Force developed new recommendations for the estimation of the glomerular filtration rate in the [place] They recommend immediate implementation of the new equation refit without the race variable in all laboratories because the calculation does not include race. In addition to not including race in the calculation and reporting, it included diversity in its development, and has acceptable performance characteristics and potential consequences that do not disproportionately affect any one group of individuals. Performed By: #### L [id number] #### [facility] ([facility]) [address] [place] [address] Glucose [Mass/Vol] 139 mg/dL High 70-100 [facility] Comment on above: Performed By: #### L [id number] #### [facility] ([facility]) [address] [place] [address] Potassium [Moles/Vol] 4.2 mmol/L Normal 3.5-5.1 [facility] Comment on above: Performed By: #### L [id number] #### [facility] ([facility]) [address] [place] [address] Sodium [Moles/Vol] 139 mmol/L Normal 136-145 [facility] Comment on above: Performed By: #### L [id number] #### [facility] ([facility]) [address] [place] [address] Urea nitrogen [Mass/Vol] 15 mg/dL Normal 7-25 [facility] Comment on above: Performed By: #### L [id number] #### [facility] ([facility]) [address] [place] [address] UREA NITROGEN/CREATININE (MASS RATIO) IN SER/PLAS 35.7 Normal [facility] Comment on above: Performed By: #### L [id number] #### [facility] ([facility]) [address] [place] [address] CBC WITH AUTO DIFFERENTIALon 11-10-2024 Basophils (Bld) [#/Vol] 0.01 10*3/uL Normal 0.00-0.20 [facility] Comment on above: Performed By: #### L [id number] #### [facility] ([facility]) [address] [place] [address] Basophils/100 WBC (Bld) 0.2 % Normal 0.0-1.0 [facility] Comment on above: Performed By: #### L [id number] #### [facility] ([facility]) [address] [place] [address] Eosinophils (Bld) [#/Vol] 0.00 10*3/uL Normal 0.00-0.50 [facility] Comment on above: Performed By: #### L [id number] #### [facility] ([facility]) [address] [place] [address] Eosinophils/100 WBC (Bld) 0.0 % Normal 0.0-6.0 [facility] Comment on above: Performed By: #### L [id number] #### [facility] ([facility]) [address] [address] Erythrocyte distribution width (RBC) [Ratio] 13.0 % Normal 11.5-15.0 [facility] Comment on above: Performed By: #### L [id number] #### [facility] ([facility]) [address] [address] ERYTHROCYTE MEAN CORPUSCULAR HEMOGLOBIN CONCENTRATION (G/DL) BY AUTOMATED 33.4 g/dL Normal 32.0-35.0 [facility] Comment on above: Performed By: #### L [id number] #### [facility] ([facility]) [address] [place] [address] Hematocrit (Bld) [Volume fraction] 38.9 % Normal 36.0-48.0 [facility] Comment on above: Performed By: #### L [id number] #### [facility] ([facility]) [address] [place] [address] Hemoglobin (Bld) [Mass/Vol] 13.0 g/dL Normal 12.0-15.0 [facility] Comment on above: Performed By: #### L [id number] #### [facility] ([facility]) [address] [place] [address] Immature granulocytes (Bld) [#/Vol] 0.02 10*3/uL Normal 0.00-0.20 [facility] Comment on above: Performed By: #### L [id number] #### [facility] ([facility]) [address] [place] [address] Immature granulocytes/100 WBC (Bld) 0.4 % Normal 0.0-1.0 [facility] Comment on above: Performed By: #### L [id number] #### [facility] ([facility]) [address] [address] Lymphocytes (Bld) [#/Vol] 0.94 10*3/uL Low 1.20-4.00 [facility] Comment on above: Performed By: #### L [id number] #### [facility] ([facility]) [address] [place] [address] Lymphocytes/100 WBC (Bld) 18.8 % Low 20.0-45.0 [facility] Comment on above: Performed By: #### L [id number] #### [facility] ([facility]) [address] [address] MCH (RBC) [Entitic mass] 30.4 pg Normal 27.0-33.0 [facility] Comment on above: Performed By: #### L [id number] #### [facility] ([facility]) [address] [place] [address] MCV (RBC) [Entitic vol] 91.1 fL Normal 82.0-98.0 [facility] Comment on above: Performed By: #### L [id number] #### [facility] ([facility]) [address] [place] [address] Monocytes (Bld) [#/Vol] 0.09 10*3/uL Low 0.10-1.00 [facility] Comment on above: Performed By: #### L [id number] #### [facility] ([facility]) [address] [place] [address] Monocytes/100 WBC (Bld) 1.8 % Low 5.0-12.0 [facility] Comment on above: Performed By: #### L [id number] #### [facility] ([facility]) [address] [place] [address] Neutrophils (Bld) [#/Vol] 3.95 10*3/uL Normal 1.60-7.60 [facility] Comment on above: Performed By: #### L [id number] #### [facility] ([facility]) [address] [place] [address] Neutrophils/100 WBC (Bld) 78.8 % High 40.0-72.0 [facility] Comment on above: Performed By: #### L [id number] #### [facility] ([facility]) [address] [place] [address] NRBC (PER 100 WBCS) BY AUTOMATED COUNT 0.0 % Normal 0 [facility] Comment on above: Performed By: #### L [id number] #### [facility] ([facility]) [address] [place] [address] PLATELETS (10*3/UL) IN BLOOD AUTOMATED COUNT 202 10*3/uL Normal 150-400 [facility] Comment on above: Performed By: #### L [id number] #### [facility] ([facility]) [address] [place] [address] RBC (Bld) [#/Vol] 4.27 10*6/uL Normal 3.80-5.00 [facility] Comment on above: Performed By: #### L [id number] #### [facility] ([facility]) [address] [place] [address] WBC (Bld) [#/Vol] 5.01 10*3/uL Normal 4.00-10.60 [facility] Comment on above: Performed By: #### L [id number] #### [facility] ([facility]) [address] [place] [address] HEPATIC FUNCTION PANELon Albumin [Mass/Vol] 4.3 g/dL Normal 3.5-5.7 [facility] Comment on above: Performed By: #### L [id number] #### [facility] ([facility]) [address] [place] [address] ALP [Catalytic activity/Vol] 59 U/L Normal 34-104 [facility] Comment on above: Performed By: #### L [id number] #### [facility] ([facility]) [address] [place] [address] ALT [Catalytic activity/Vol] 32 U/L Normal 7-52 [facility] Comment on above: Performed By: #### L [id number] #### [facility] ([facility]) [address] [place] [address] AST [Catalytic activity/Vol] 49 U/L High 13-39 [facility] Comment on above: Performed By: #### L [id number] #### [facility] ([facility]) [address] [place] [address] Bilirubin [Mass/Vol] 0.6 mg/dL Normal 0.3-1.0 [facility] Comment on above: Performed By: #### L [id number] #### [facility] ([facility]) [address] [place] [address] Magnesium [Mass/Vol] 0.1 mg/dL Normal 0-0.2 [facility] Comment on above: Performed By: #### L [id number] #### [facility] ([facility]) [address] [place] [address] Protein [Mass/Vol] 6.6 g/dL Normal 6.0-8.3 [facility] Comment on above: Performed By: #### L [id number] #### [facility] ([facility]) [address] [place] [address] LIPID PANELon 11-10-2024 CHOL/HDL 2.3 mg/dL Normal [facility] Comment on above: Performed By: #### L [id number] #### [facility] ([facility]) [address] [place] [address] Cholesterol [Mass/Vol] 157 mg/dL Normal 120-200 [facility] Comment on above: Performed By: #### L [id number] #### [facility] ([facility]) [address] [place] [address] Magnesium [Mass/Vol] 63 mg/dL Normal 40-149 [facility] Comment on above: Result Comment: TRIG LYCERIDE REFERENCE RANGE: 20 YEARS AND OLDER CARDIOVASCULAR RISK LESS THAN 150 mg/dL LOW RISK 150 TO 199 mg/dL BORDERLINE RISK 200 mg/dL AND GREATER HIGH RISK Performed By: #### L [id number] #### [facility] ([facility]) [address] [place] [address] Magnesium [Mass/Vol] 77 mg/dL Normal 0-160 [facility] Comment on above: Performed By: #### L [id number] #### [facility] ([facility]) [address] [place] [address] Magnesium [Mass/Vol] 67 mg/dL Normal 23-92 [facility] Comment on above: Performed By: #### L [id number] #### [facility] ([facility]) [address] [place] [address] NON HDL CHOL. (LDL+VLDL) 90 Normal [facility] Comment on above: Performed By: #### L [id number] #### [facility] ([facility]) [address] [place] [address] TOTAL VLDL-C 13 mg/dL Normal 0-40 [facility] Comment on above: Performed By: #### L [id number] #### [facility] ([facility]) [address] [place] [address] MAGNESIUMon 11-10-2024 Magnesium [Mass/Vol] 1.8 mg/dL Low 1.9-2.7 [facility] Comment on above: Performed By: #### L [id number] #### [facility] ([employer]) [address] [place] [address] PHOSPHORUSon 11-10-2024 Magnesium [Mass/Vol] 3.3 mg/dL Normal 2.5-5.0 [facility] Comment on above: Performed By: #### L [id number] #### [facility] ([facility]) [address] [place] [address] PROTIME-INRon 11-10-2024 INR IN PPP BY COAGULATION ASSAY 1.09 Normal 0.90-1.10 [facility] Comment on above: Result Comment: ACCC P RECOMMENDED INR FOR WARFARIN THERAPY CONDITION INR PROPHYLAXIS OF VENOUS THROMBOSIS 2-3 (HIGH-RISK SURGERY) TREATMENT OF VENOUS THROMBOSIS 2-3 TREATMENT OF PULMONARY EMBOLISM 2-3 PREVENTION OF SYSTEMIC EMBOLISM: 2-3 ACUTE MYOCARDIAL INFARCTION TISSUE HEART VALVES VALVULAR HEART DISEASE ATRIAL FIBRILLATION RECURRENT SYSTEMIC EMBOLISM MECHANICAL HEART VALVE 2.5-3.5 FROM: ORAL ANTICOAGULANTS. MECHANISM OF ACTION, CLINICAL EFFECTIVENESS, AND OPTIMAL THERAPEUTIC RANGE. CHEST 1995;108:[id number]. Performed By: #### L [id number] #### [facility] ([employer]) [address] [place] [address] PROTHROMBIN TIME (PT) IN PPP BY COAGULATION ASSAY 14.0 Seconds Normal 12.3-14.8 [facility] Comment on above: Performed By: #### L [id number] #### [facility] ([facility]) [address] [place] [address] TROPONIN Ion 11-10-2024 Troponin I.cardiac [Mass/Vol] 1.09 ng/mL Critically high 0.00-0.04 [facility] Comment on above: Result Comment: M-CT EVIOUS CRITICAL RESULT Previous result verified on 11/10/20242 on specimen/case [id number] called with component Troponin I for procedure Troponin I with value 1.12 ng/mL. Performed By: #### L [id number] #### [facility] ([facility]) [address] [place] [address] Troponin I.cardiac [Mass/Vol] 1.12 ng/mL Critically high 0.00-0.04 [facility] Comment on above: Performed By: #### L [id number] #### [facility] ([facility]) [address] [place] [address] Basophils Auto (Bld) [#/Vol] on 05-16-2024 Basophils (Bld) [#/Vol] 0.1 10 3/uL 0.0-0.1 [facility] Basophils/100 WBC Auto (Bld) on 05-16-2024 Basophils/100 WBC (Bld) 0.9 % 0.2-2.0 [facility] Cholesterol in LDL Calc [Mas s/Vol]on 05-16-2024 Cholesterol in LDL [Mass/Vol] 89.0 mg/dL [facility] Comment on above: <100 mg/dl [id number] 0-129 mg/dl NEAR OR ABOVE [id number] mg/dl BORDERLINE [id number] mg/dl HIGH>190 mg/dl VERY HIGH Cholesterol in VLDL Calc [Ma ss/Vol]on 05-16-2024 Cholesterol in VLDL [Mass/Vol] 7.0 mg/dL [facility] Eosinophils/100 WBC Auto (Bl d)on 05-16-2024 Eosinophils/100 WBC (Bld) 3.8 % 0.9-7.0 [facility] Erythrocyte distribution wid th Auto (RBC) [Ratio]on 05-16-2024 Erythrocyte distribution width (RBC) [Ratio] 13.2 % 11.0-15.0 [facility] Estimated glomerular filtrat ion rate (GFR) non- Americanon 05-16-2024 GFR/1.73 sq M.predicted among non-blacks MDRD (S/P/Bld) [Vol rate/Area] mL/min/{1.73_m2} >=60 [facility] Globulin Calc (S) [Mass/Vol] on 05-16-2024 Globulin (S) [Mass/Vol] 3.0 g/dL [facility] Hematocrit Auto (Bld) [Volum e fraction]on 05-16-2024 Hematocrit (Bld) [Volume fraction] 41.5 % 36.0-48.0 [facility] Hemoglobin [Mass/volume] in Bloodon 05-16-2024 Hemoglobin (Bld) [Mass/Vol] 13.6 g/dL 12.0-16.0 [facility] Laboratory - Chemistry and C hemistry - challengeon 05-16-2024 Albumin [Mass/Vol] 3.9 g/dL 3.4-5.0 [facility] ALP [Catalytic activity/Vol] 69 U/L 46-116 [facility] ALT [Catalytic activity/Vol] 26 U/L 14-59 [facility] AST [Catalytic activity/Vol] 25 U/L 15-37 [facility] Bilirubin [Mass/Vol] 0.6 mg/dL 0.2-1.0 [facility] Calcium [Mass/Vol] 8.9 mg/dL 8.5-10.1 [facility] Chloride [Moles/Vol] 107 mmol/L 98-107 [facility] Cholesterol [Mass/Vol] 183 mg/dL <=200 [facility] Cholesterol in HDL [Mass/Vol] 87 mg/dL High 40-60 [facility] Comment on above: > or =60 mg/dl - LOW CARDIOVASCULAR RISK<40 mg/dl - HIGH CARDIOVASCULAR RISK CO2 [Moles/Vol] 26.7 mmol/L 21.0-32.0 [facility] Creatinine [Mass/Vol] 0.58 mg/dL 0.55-1.02 [facility] GFR/1.73 sq M.predicted MDRD (S/P/Bld) [Vol rate/Area] mL/min/{1.73_m2} >=60 [facility] Glucose [Mass/Vol] 79 mg/dL 74-106 [facility] Potassium [Moles/Vol] 3.7 mmol/L 3.5-5.1 [facility] Protein [Mass/Vol] 6.9 g/dL 6.4-8.2 [facility] Sodium [Moles/Vol] 144 mmol/L 136-145 [facility] Triglyceride [Mass/Vol] 35 mg/dL <=150 [facility] Urea nitrogen [Mass/Vol] 17.0 mg/dL 7.0-18.0 [facility] Urea nitrogen/Creatinine [Mass ratio] 29.3 mg/mg [facility] Laboratory - Hematology and Cell countson 05-16-2024 Immature granulocytes/100 WBC (Bld) 0.2 % 0.0-0.5 [facility] Leukocytes [#/volume] correc leonor for nucleated erythrocytes in Blood by Automated counon 05-16-2024 WBC corrected for nucl RBC Auto (Bld) [#/Vol] 5.5 10 3/uL 4.0-11.0 [facility] Lymphocytes Auto (Bld) [#/Vo l]on 05-16-2024 Lymphocytes (Bld) [#/Vol] 2.4 10 3/uL 1.2-3.8 [facility] Lymphocytes/100 WBC Auto (Bl d)on 05-16-2024 Lymphocytes/100 WBC (Bld) 43.2 % 20.5-60.0 [facility] MCH Auto (RBC) [Entitic mass ]on 05-16-2024 MCH (RBC) [Entitic mass] 30.2 pg 26.7-34.0 [facility] MCHC Auto (RBC) [Mass/Vol]on 05-16-2024 MCHC (RBC) [Mass/Vol] 32.8 g/dL 29.9-35.2 [facility] MCV Auto (RBC) [Entitic vol] on 05-16-2024 MCV (RBC) [Entitic vol] 92.2 fL 81.0-99.0 [facility] Monocytes Auto (Bld) [#/Vol] on 05-16-2024 Monocytes (Bld) [#/Vol] 0.5 10 3/uL 0.3-0.8 [facility] Monocytes/100 WBC Auto (Bld) on 05-16-2024 Monocytes/100 WBC (Bld) 8.4 % 1.7-12.0 [facility] Neutrophils Auto (Bld) [#/Vo l]on 05-16-2024 Neutrophils (Bld) [#/Vol] 2.4 10 3/uL 1.4-6.5 [facility] Neutrophils/100 WBC Auto (Bl d)on 05-16-2024 Neutrophils/100 WBC (Bld) 43.5 % 43.0-75.0 [facility] No Panel Informationon 05-16 Eosinophils # (Auto) 0.2 10 3/uL 0.0-0.7 [facility] Immature Granulocyte # (Auto) 0.01 10 3/uL 0.00-0.03 [facility] Platelet mean volume Auto (B ld) [Entitic vol]on 05-16-2024 Platelet mean volume (Bld) [Entitic vol] 10.1 fL 9.5-13.5 [facility] Platelets Auto (Bld) [#/Vol] on 05-16-2024 Platelets (Bld) [#/Vol] 158 10 3/uL 150-450 [facility] RBC Auto (Bld) [#/Vol]on RBC (Bld) [#/Vol] 4.50 10 6/uL 4.20-5.40 [facility] Serum or plasma albumin/glob ulin mass ratioon 05-16-2024 Albumin/Globulin [Mass ratio] 1.3 {ratio} [facility] Serum or plasma anion gap de terminationon 05-16-2024 Anion gap [Moles/Vol] 14.0 mmol/L [facility] Serum or plasma total choles terol/high density lipoprotein (HDL) cholesterol mass tobias 05-16-2024 Cholesterol.total/C holesterol in HDL [Mass ratio] 2.1 {ratio} [facility] Comment on above: 3.3 - 4.4 LOW [...] RENARD DEVINE Date: 2022-07-06 14:09 Normal [facility] AMYLASEon 2022 Amylase [Catalytic activity/Vol] 52 U/L Normal 25-115 [facility] Comment on above: Performed By: #### L IPA, NUNO #### [facility] [address] [place] [address] Dr. Becca Marroquin CBC AUTO DIFFon 2022 BASO # 0.0 103/ul Normal 0.0-0.1 [facility] Comment on above: Performed By: #### C BC #### [facility] [address] [address] [address] Becca Marroquin Basophils/100 WBC (Bld) 0.3 % Normal 0.2-2.0 [facility] Comment on above: Performed By: #### C BC #### [facility] [address] [address] [address] Becca Marroquin EO # 0.0 103/ul Normal 0.0-0.7 [facility] Comment on above: Performed By: #### C BC #### [facility] [address] [address] [address] Becca Marroquin Eosinophils/100 WBC (Bld) 0.3 % Critically low 0.9-7.0 [facility] Comment on above: Performed By: #### C BC #### [facility] [address] [place] [address] Dr. Becca Marroquin Erythrocyte distribution width (RBC) [Ratio] 13.2 % Normal 11.0-15.0 [facility] Comment on above: Performed By: #### C BC #### [facility] [address] [place] [address] Dr. Becca Marroquin Hematocrit (Bld) [Volume fraction] 39.1 % Normal 36.0-48.0 [facility] Comment on above: Performed By: #### C BC #### [facility] [address] [place] [address] Dr. Becca Marroquin Hemoglobin (Bld) [Mass/Vol] 12.7 g/dL Normal 12.0-16.0 [facility] Comment on above: Performed By: #### C BC #### [facility] [address] [place] [address] Dr. Becca Marroquin IG # 0.06 10e3/ul Critically high 0.00-0.[address] [facility] Comment on above: Performed By: #### C BC #### [facility] [address] [place] [address] Dr. Becca Marroquin IG % 0.5 % Normal 0.0-0.5 [facility] Comment on above: Performed By: #### C BC #### [facility] [address] [place] [address] Dr. Becca Marroquin LYMPH # 1.6 103/ul Normal 1.2-3.8 [facility] Comment on above: Performed By: #### C BC #### [facility] [address] [place] [address] Dr. Becca Marroquin Lymphocytes/100 WBC (Bld) 13.7 % Critically low 20.5-60.0 [facility] Comment on above: Performed By: #### C BC #### [facility] [address] [place] [address] Dr. Becca Marroquin MANUAL DIFF REQ NO Normal [facility] Comment on above: Performed By: #### C BC #### [facility] [address] [place] [address] Dr. Becca Marroquin MCH (RBC) [Entitic mass] 31.0 pg Normal 26.7-34.0 [facility] Comment on above: Performed By: #### C BC #### [facility] [address] [place] [address] Dr. Becca Marroquin MCHC (RBC) [Mass/Vol] 32.5 g/dL Normal 29.9-35.2 [facility] Comment on above: Performed By: #### C BC #### [facility] [address] [place] [address] Dr. Becca Marroquin MCV (RBC) [Entitic vol] 95.4 fL Normal 81.0-99.0 [facility] Comment on above: Performed By: #### C BC #### [facility] [address] [place] [address] Dr. Becca Marroqiun MONO # 0.5 103/ul Normal 0.3-0.8 [facility] Comment on above: Performed By: #### C BC #### [facility] [address] [place] [address] Dr. Becca Marroquin Monocytes/100 WBC (Bld) 4.0 % Normal 1.7-12.0 [facility] Comment on above: Performed By: #### C BC #### [facility] [address] [place] [address] Dr. Becca Marroquin NEUT # 9.4 103/ul Critically high 1.4-6.5 [facility] Comment on above: Performed By: #### C BC #### [facility] [address] [place] [address] Dr. Becca Marroquin Neutrophils/100 WBC (Bld) 81.2 % Critically high 43.0-75.0 [facility] Comment on above: Performed By: #### C BC #### [facility] [address] [place] [address] Dr. Becca Marroquin Platelet mean volume (Bld) [Entitic vol] 10.2 fL Normal 9.5-13.5 [facility] Comment on above: Performed By: #### C BC #### [facility] [address] [place] [address] Dr. Becca Marroquin PLT 163 103/ul Normal 150-450 [facility] Comment on above: Performed By: #### C BC #### [facility] [address] [place] [address] Dr. Becca Marroquin RBC 4.10 106/ul Critically low 4.20-5.40 [facility] Comment on above: Performed By: #### C BC #### [facility] [address] [place] [address] Dr. Becca Marroquin WBC 11.6 103/ul Critically high 4.0-11.0 [facility] Comment on above: Performed By: #### C BC #### [facility] [address] [place] [address] ABD/PELV W CONon 06-20-[address] ABD/PELV W CON EXAM: CT SCAN [...] BEATRIZ VAZQUEZ Date: 2022 21:24 Normal [facility] SARS-CoV-2 (COVID-19) RNA RON+probe Ql (Unsp spec) Not detected Normal NOT DETECTED [facility] Comment on above: Result Comment: [...] for this test is supported by the [place] of Health and Human Service's declaration that [...] used). Performed By: #### C VDTBH #### [facility] [address] [place] [address] Dr. Becca Marroquin GI PANEL (PCR)on 2022 Adenovirus F 40/41 Not detected Normal NOT DETECTED [facility] Comment on above: Performed By: #### G IPANEL #### [facility] [address] [place] [address] Dr. Becca Marroquin Astrovirus Not detected Normal NOT DETECTED [facility] Comment on above: Performed By: #### G IPANEL #### [facility] [address] [place] [address] Dr. Becca Marroquin C. Diff toxin A/B Not detected Normal NOT DETECTED [facility] Comment on above: Performed By: #### G IPANEL #### [facility] [address] [place] [address] Dr. Becca Marroquin Campylobacter Not detected Normal NOT DETECTED [facility] Comment on above: Performed By: #### G IPANEL #### [facility] [address] [place] [address] Dr. Becca Marroquin Cryptosporidium Not detected Normal NOT DETECTED [facility] Comment on above: Performed By: #### G IPANEL #### [facility] [address] [place] [address] Dr. Becca Marroquin Cyclos. Cayetanensis Not detected Normal NOT DETECTED [facility] Comment on above: Performed By: #### G IPANEL #### [facility] [address] [place] [address] Dr. Becca Marroquin E. Coli O157 Not Applicable Normal Not Applicable [facility] Comment on above: Performed By: #### G IPANEL #### [facility] [address] [place] [address] Dr. Becca Marroquin EEtta histolytica Not detected Normal NOT DETECTED [facility] Comment on above: Performed By: #### G IPANEL #### [facility] [address] [place] [address] Dr. Becca Marroquin EAEC Not detected Normal NOT DETECTED [facility] Comment on above: Performed By: #### G IPANEL #### [facility] [address] [address] [address] Becca Marroquin EIEC Not detected Normal NOT DETECTED [facility] Comment on above: Performed By: #### G IPANEL #### [facility] [address] [place] [address] Dr. Becca Marroquin EPEC Not detected Normal NOT DETECTED [facility] Comment on above: Performed By: #### G IPANEL #### [facility] [address] [place] [address] Dr. Becca Marroquin ETEC Not detected Normal NOT DETECTED [facility] Comment on above: Performed By: #### G IPANEL #### [facility] [address] [place] [address] Dr. Becca [place] Lamblia Not detected Normal NOT DETECTED [facility] Comment on above: Performed By: #### G IPANEL #### [facility] [address] [place] [address] Dr. Becca GRESHAML CONTROLS PASSED Normal [facility] Comment on above: Performed By: #### G IPANEL #### [facility] [address] [place] [address] Dr. Becca GORDON JASON HEADER GI PANEL BACTERIA Normal T [facility] Comment on above: Performed By: #### G IPANEL #### [facility] [address] [place] [address] Dr. Becca GORDONHD ECOLI GI PANEL DIARRHEAGEN IC E.COLI / SHIGELLA Normal [facility] Comment on above: Performed By: #### G IPANEL #### [facility] [address] [address] [address] Becca MORENO INFO SEE BELOW Normal [facility] Comment on above: Result Comment: EAEC - Enteroaggregative E. Coli EPEC- Enteropathogenic E. Coli ETEC- Enterotoxigenic E. Coli lt/st STEC- Shigella-like toxin-producing E. Coli stx1/stx2 EIEC- Shigella/Enteroinvasive E. Coli Performed By: #### G IPANEL #### [facility] [address] [address] [address] Becca MORENO PARASITES GI PANEL PARASITES Normal [facility] Comment on above: Performed By: #### G IPANEL #### [facility] [address] [place] [address] Dr. Becca MORENO VIRUS GI PANEL VIRUSES Normal [facility] Comment on above: Performed By: #### G IPANEL #### [facility] [address] [place] [address] Dr. Becca Marroquin Norovirus GI/GII Not detected Normal NOT DETECTED [facility] Comment on above: Performed By: #### G IPANEL #### [facility] [address] [address] [address] Becca Marroquin P. Shigelloides Not detected Normal NOT DETECTED [facility] Comment on above: Performed By: #### G IPANEL #### [facility] [address] [place] [address] Dr. Becca Marroquin Rotavirus A Not detected Normal NOT DETECTED [facility] Comment on above: Performed By: #### G IPANEL #### [facility] [address] [place] [address] Dr. Becca Marroquin Salmonella Not detected Normal NOT DETECTED The [facility] Comment on above: Performed By: #### G IPANEL #### [facility] [address] [place] [address] Dr. Becca Marroquin Sapovirus Not detected Normal NOT DETECTED [facility] Comment on above: Performed By: #### G IPANEL #### [facility] [address] [address] [address] Yilan Marroquin STEC Not detected Normal NOT DETECTED The [facility] Comment on above: Performed By: #### G IPANEL #### [facility] [address] [address] [address] Becca Marroquin Vibrio Not detected Normal NOT DETECTED [facility] Comment on above: Performed By: #### G IPANEL #### [facility] [address] [address] [address] Becca Marroquin Vibrio Cholera Not detected Normal NOT DETECTED The [facility] Comment on above: Performed By: #### G IPANEL #### [facility] [address] [address] [address] Becca Marroquin Y. Enterocolitica Not detected Normal NOT DETECTED [facility] Comment on above: Performed By: #### G IPANEL #### [facility] [address] [place] [address] Dr. Becca Marroquin LIPASEon 2022 Lipase [Catalytic activity/Vol] 84.0 U/L Normal 73.0-393.0 [facility] Comment on above: Performed By: #### L IPA, NUNO #### [facility] [address] [address] [address] Becca Marroquin PROF 14(COMP METB)on 022 Albumin [Mass/Vol] 3.6 g/dL Normal 3.4-5.0 The [facility] Comment on above: Performed By: #### C MP ####[facility] [address] [address]Dr. Becca Marroquin Albumin/Globulin [Mass ratio] 1.4 {ratio} Normal [facility] Comment on above: Performed By: #### C MP ####[facility] [address] [address]Dr. Becca Marroquin ALP [Catalytic activity/Vol] 66 U/L Normal 46-116 [facility] Comment on above: Performed By: #### C MP ####[facility] [address] [address]Dr. Becca Marroquin ALT [Catalytic activity/Vol] 24 U/L Normal 14-59 [facility] Comment on above: Performed By: #### C MP ####[facility] [address] [id number]. Becca Marroquin Anion gap [Moles/Vol] 11.2 mmol/L Normal [facility] Comment on above: Performed By: #### C MP ####[facility] [address] [id number]. Becca Lopez AST [Catalytic activity/Vol] 21 U/L Normal 15-37 [facility] Comment on above: Performed By: #### C MP ####[facility] [address] [address]Dr. Becca Lopez Bilirubin [Mass/Vol] 0.3 mg/dL Normal 0.2-1.0 [facility] Comment on above: Performed By: #### C MP ####[facility] [address] [place], [place] [address]Dr. Becca Marroquin Calcium [Mass/Vol] 8.0 mg/dL Critically low 8.5-10.1 [facility] Comment on above: Performed By: #### C MP ####[facility] [address] [place], [place] [address]Dr. Becca Marroquin Chloride [Moles/Vol] 110 mmol/L Critically high 98-107 [facility] Comment on above: Performed By: #### C MP ####[facility] [address] [place], [place] [address]Dr. Becca Marroquin CO2 [Moles/Vol] 25.2 mmol/L Normal 21.0-32.0 [facility] Comment on above: Performed By: #### C MP ####[facility] [address] [place], [place] [address]Dr. Becca Marroquin Creatinine [Mass/Vol] 0.61 mg/dL Normal 0.55-1.02 [facility] Comment on above: Performed By: #### C MP ####[facility] [address] [id number]. Becca Marroquin EGFR-AF CZECH >60 Normal >=60 [facility] Comment on above: Performed By: #### C MP ####[facility] [address] [id number]. Becca Marroquin EGFR-NON AF CZECH >60 Normal >=60 [facility] Comment on above: Performed By: #### C MP ####[facility] [address] [id number]. Becca Marroquin Globulin (S) [Mass/Vol] 2.6 g/dL Normal [facility] Comment on above: Performed By: #### C MP ####[facility] [address] [id number]. Becca Marroquin Glucose [Mass/Vol] 119 mg/dL Critically high 74-106 [facility] Comment on above: Performed By: #### C MP ####[facility] [address] [address]Dr. Becca Marroquin Potassium [Moles/Vol] 4.4 mmol/L Normal 3.5-5.1 [facility] Comment on above: Performed By: #### C MP ####[facility] [address] [address]Dr. Becca Marroquin Protein [Mass/Vol] 6.2 g/dL Critically low 6.4-8.2 [facility] Comment on above: Performed By: #### C MP ####[facility] [address] [address]Dr. Becca Marroquin Sodium [Moles/Vol] 142 mmol/L Normal 136-145 [facility] Comment on above: Performed By: #### C MP ####[facility] [address] [id number]. Becca Marroquin Urea nitrogen [Mass/Vol] 16.0 mg/dL Normal 7.0-18.0 [facility] Comment on above: Performed By: #### C MP ####[facility] [address] [place], [place] [address]Dr. Becca Marroquin Urea nitrogen/Creatinine [Mass ratio] 26.2 mg/mg Normal [facility] Comment on above: Performed By: #### C MP ####[facility] [address] [place], [place] [address]Vd. Becca Marrouqin FREE T3on 04-21-2022 FREE T3 2.50 pg/mlL Normal 2.18-3.98 [facility] Comment on above: Performed By: #### L IPID, TSH, CMP, FT3 ####[facility] [address] [place], [place] [address]Vc. Becca Marroquin FREE T4on 04-21-2022 Free T4 [Mass/Vol] 1.14 ng/dL Normal 0.76-1.46 [facility] Comment on above: Performed By: #### F T4 #### [facility] [address] [place], [place] [address] Dr. Becca Marroquin LIPID PROFILEon 04-21-2022 CHOL-HDL RATIO NORM SEE BELOW Normal [facility] Comment on above: Result Comment: 3.3 - 4.4 LOW RISK 4.4 - 7.1 AVERAGE RISK 7.1 - 11.0 MODERATE RISK >11.0 HIGH RISK Performed By: #### L IPID, TSH, CMP, FT3 ####[facility] [address] [place], [place] [address]Xj. Becca Marroquin Cholesterol [Mass/Vol] 182 mg/dL Normal <=200 [facility] Comment on above: Performed By: #### L IPID, TSH, CMP, FT3 ####[facility] [address] [place], [place] [address]YfEtta Marroquin Cholesterol in HDL [Mass/Vol] 73 mg/dL Critically high 40-60 [facility] Comment on above: Performed By: #### L IPID, TSH, CMP, FT3 ####[facility] [address] [place], [place] [address]EwEtta Marroquin Cholesterol in LDL [Mass/Vol] 99.0 mg/dL Normal [facility] Comment on above: Performed By: #### L IPID, TSH, CMP, FT3 ####[facility] [address] [place], [place] [address]IiEtta Marroquin Cholesterol.total/C holesterol in HDL [Mass ratio] 2.5 {ratio} Normal [facility] Comment on above: Performed By: #### L IPID, TSH, CMP, FT3 ####[facility] [address] [address]Dr. Becca Marroquin HDL NORMAL > or = 60 mg/dl - LO W CARDIOVASCULAR RISK <40 mg/dl - HIGH CARDIOVASCULAR RISK Normal [facility] Comment on above: Performed By: #### L IPID, TSH, CMP, FT3 ####[facility] [address] [address]Dr. Becca Marroquin LDL CALC NORMAL SEE BELOW Normal [facility] Comment on above: Result Comment: <100 mg/dl OPTIMAL 100 - 129 mg/dl NEAR OR ABOVE OPTIMAL 130 - 159 mg/dl BORDERLINE HIGH 160 - 189 mg/dl HIGH >190 mg/dl VERY HIGH Performed By: #### L IPID, TSH, CMP, FT3 ####[facility] [address] [address]Dr. Becca Marroquin Triglyceride [Mass/Vol] 50 mg/dL Normal <=150 [facility] Comment on above: Performed By: #### L IPID, TSH, CMP, FT3 ####[facility] [address] [address]Dr. Becca Marroquin VLDL CALC 10.0 mg/dL Normal [facility] Comment on above: Performed By: #### L IPID, TSH, CMP, FT3 ####[facility] [address] [address]Dr. Becca Marroquin MG MAMM SCREEN GET W CADon 0 04-21-2022 MG MAMM SCREEN GET W CAD Patient: LORENA BARAHONA Exam Date: 04/21/2022 : 1955 Gender:F Ordering : DR OLGA REED . Admission #: [id number] Family : Order #: [id number] CLICK HERE TO VIEW EXAM RADIOLOGY REPORT [...] pancreas cancer at age 60. LOCATION: [facility] BREAST COMPOSITION: Heterogeneously dense,which may [...] Lopez MD on 04/21/2022 at 11:17 Normal [facility] PROF 14(COMP METB)on 022 Albumin [Mass/Vol] 4.2 g/dL Normal 3.4-5.0 [facility] Comment on above: Performed By: #### L IPID, TSH, CMP, FT3 ####[facility] [address] [id number] Marroquin Albumin/Globulin [Mass ratio] 1.3 {ratio} Normal [facility] Comment on above: Performed By: #### L IPID, TSH, CMP, FT3 ####[facility] [address] [place], [place] [address]Jo. Becca Marroquin ALP [Catalytic activity/Vol] 63 U/L Normal 46-116 [facility] Comment on above: Performed By: #### L IPID, TSH, CMP, FT3 ####[facility] [address] [place], [place] [address]Rh. Becca Marroquin ALT [Catalytic activity/Vol] 29 U/L Normal 14-59 [facility] Comment on above: Performed By: #### L IPID, TSH, CMP, FT3 ####[facility] [address] [place], [place] [address]FpEtta Marroquin Anion gap [Moles/Vol] 10.5 mmol/L Normal [facility] Comment on above: Performed By: #### L IPID, TSH, CMP, FT3 ####[facility] [address] [address]Dr. Becca Marroquin AST [Catalytic activity/Vol] 21 U/L Normal 15-37 [facility] Comment on above: Performed By: #### L IPID, TSH, CMP, FT3 ####[facility] [address] [place], [place] [address]Dr. Becca Marroquin Bilirubin [Mass/Vol] 0.7 mg/dL Normal 0.2-1.0 [facility] Comment on above: Performed By: #### L IPID, TSH, CMP, FT3 ####[facility] [address] [place], [place] [address]Dr. Becca Marroquin Calcium [Mass/Vol] 8.9 mg/dL Normal 8.5-10.1 [facility] Comment on above: Performed By: #### L IPID, TSH, CMP, FT3 ####[facility] [address] [place], [place] [address]Dr. Becca Marroquin Chloride [Moles/Vol] 102 mmol/L Normal 98-107 [facility] Comment on above: Performed By: #### L IPID, TSH, CMP, FT3 ####[facility] [address] [place], [place] [address]Dr. Becca Marroquin CO2 [Moles/Vol] 25.4 mmol/L Normal 21.0-32.0 [facility] Comment on above: Performed By: #### L IPID, TSH, CMP, FT3 ####[facility] [address] [place], [place] [address]Dr. Becca Marroquin Creatinine [Mass/Vol] 0.56 mg/dL Normal 0.55-1.02 [facility] Comment on above: Performed By: #### L IPID, TSH, CMP, FT3 ####[facility] [address] [address]Dr. Becca Marroquin EGFR-AF CZECH >60 Normal >=60 [facility] Comment on above: Performed By: #### L IPID, TSH, CMP, FT3 ####[facility] [address] [address]Dr. Becca Marroquin EGFR-NON AF CZECH >60 Normal >=60 [facility] Comment on above: Performed By: #### L IPID, TSH, CMP, FT3 ####[facility] [address] [address]Dr. Becca Marroquin Globulin (S) [Mass/Vol] 3.2 g/dL Normal [facility] Comment on above: Performed By: #### L IPID, TSH, CMP, FT3 ####[facility] [address] [place], [place] [address]Dr. Becca Marroquin Glucose [Mass/Vol] 65 mg/dL Critically low 74-106 [facility] Comment on above: Performed By: #### L IPID, TSH, CMP, FT3 ####[facility] [address] [place], [place] [address]Dr. Becca Marroquin Potassium [Moles/Vol] 3.9 mmol/L Normal 3.5-5.1 [facility] Comment on above: Performed By: #### L IPID, TSH, CMP, FT3 ####[facility] [address] [place], [place] [address]Dr. Becca Marroquin Protein [Mass/Vol] 7.4 g/dL Normal 6.4-8.2 [facility] Comment on above: Performed By: #### L IPID, TSH, CMP, FT3 ####[facility] [address] [place], [place] [address]Dr. Becca Marroquin Sodium [Moles/Vol] 134 mmol/L Critically low 136-145 [facility] Comment on above: Performed By: #### L IPID, TSH, CMP, FT3 ####[facility] [address] [place], [place] [address]Dr. Becca Marroquin Urea nitrogen [Mass/Vol] 15.0 mg/dL Normal 7.0-18.0 [facility] Comment on above: Performed By: #### L IPID, TSH, CMP, FT3 ####[facility] [address] [place], [place] [address]Th. Becca Marroquin Urea nitrogen/Creatinine [Mass ratio] 26.8 mg/mg Normal [facility] Comment on above: Performed By: #### L IPID, TSH, CMP, FT3 ####[facility] [address] [place], [place] [address]Sc. Becca Marroquin TSHon 04-21-2022 TSH 0.888 uIU/mL Normal 0.358-3.740 [facility] Comment on above: Performed By: #### L IPID, TSH, CMP, FT3 ####[facility] [address] [place], [place] [address]Ft. Becca Marroquin XR DEXA BONE DENSITYon 04-21 XR DEXA BONE DENSITY EXAMINATION: XR DEXA BONE DENSITY, 04/21/2022 9:26 AM EDT HISTORY: [...] by: VICKI LOPEZ Date: 2022-04-21 16:51 Normal [facility] Vital Signs Date Time Vital Sign Value Performing Clinician Anita meadows 07-12-2024 11:040 Body height 147.32 cm [facility] 07-12-2024 11:040 Body mass index (BMI) [Ratio] 20.3 kg/m2 [facility] 07-12-2024 11:28040 Body temperature 97.4 [degF] [facility] 07-12-2024 11:040 Body weight 44.22 kg [facility] 07-12-2024 11:28040 Diastolic blood pressure 76 mm[Hg] [facility] 07-12-2024 11:040 Heart rate 71 /min [facility] 07-12-2024 11:28-0400 SaO2% (BldA) [Mass fraction] 98 % [facility] 07-12-2024 11:28-0400 Systolic blood pressure 116 mm[Hg] [facility] 04-10-2024 13:29-0400 Body height 147.32 cm [facility] 04-10-2024 13:29-0400 Body mass index (BMI) [Ratio] 20.7 kg/m2 [facility] 04-10-2024 13:29-0400 Body weight 44.96 kg [facility] 04-10-2024 13:29-0400 Diastolic blood pressure 88 mm[Hg] [facility] 04-10-2024 13:29-0400 Heart rate 67 /min [facility] 04-10-2024 13:29-0400 SaO2% (BldA) [Mass fraction] 98 % [facility] 04-10-2024 13:29-0400 Systolic blood pressure 148 mm[Hg] [facility] Encounters Encounter Date Encounter Type Care Provider Facility Start: 11-14-2024 Evaluation and management of inpatient RENEE MURRY [facility] Start: 11-13-2024 Evaluation and management of inpatient TASHI TIFFANIE [facility] Start: 11-12-2024 Evaluation and management of inpatient WELLINGTON Calderon [facility] Start: 11-12-2024 Evaluation and management of inpatient JOSE RAFAEL T [facility] Start: 11-11-2024 Evaluation and management of inpatient JOSE RAFAEL T [facility] Start: 11-11-2024 Evaluation and management of inpatient JOSE RAFAEL T [facility] Start: 11-10-2024 Evaluation and management [facility] Start: 07-12-2024 End: 07-12-2024 ambulatory [facility] Work Phone: Start: 07-12-2024 End: 07-12-2024 Patient encounter procedure [facility] Work Phone: Start: 05-16-2024 Non-patient / [facility]-visit [facility] Work Phone: Start: 04-16-2024 End: 04-16-2024 ambulatory [facility] Work Phone: Start: 04-16-2024 End: 04-16-2024 [facility] encounter procedure [facility] Work Phone: Start: 04-10-2024 End: 04-10-2024 ambulatory [facility] Work Phone: Start: 04-10-2024 End: 04-10-2024 Patient encounter procedure [facility] Work Phone: Start: 03-05-2024 Non-patient / [facility]-visit [facility] Work Phone: Start: 01-18-2024 End: 01-18-2024 ambulatory OLGA REED Not Available Start: 10-06-2023 End: 10-06-2023 ambulatory OLGA REED Not Available Start: 03-04-2023 End: 03-23-[address] OLGA REED . Facility: Start: 07-06-2022 End: 07-07-[address] OLGA REED . Facility:[facility] Start: 2022 End: [address] ESTUARDO SLAUGHTER Facility: Start: 04-21-2022 End: 04-22-[address] OLGA REED . Facility: Plan of Treatment Date Care Activity Detail Author Comprehensive metabo lic 2000 panel - Serum or Plasma [facility] enter DXA Skeletal system. axial Views for bone density [facility] enter MG Breast - bilateral Screening [facility] Payers Date Payer Category Payer Unknown [id number] 1955 Unknown [id number] 2.16.84 [id number] 1955 Unknown [id number] 2.16.84 [id number] 1955 Unknown [id number] 2.16.84 [id number] 1955 Unknown [id number] 2.16.84 [id number] 1955 Unknown [id number] 2.16.84 [id number] 1955 Unknown [id number] Social History Date Type Detail Facility Start: 04-10-2024 Tobacco smoking stat RUSTIS Current some day smoker [facility] Start: 1955 Sex Assigned At Female F [facility] Clinical Notes 11-10-2024 to 11-15-2024 Note Date & Type Note Facility 11-15-2024 Note Hospital Medicine Daily Progress Note - 11/15/2024 1:55 PM; Room: [address] [place] [address] Admission: 11/10/2024 8:26 PM; Length of stay: 5 days THE HOSPITALIST TEAM PREFERS TO USE [employer] CHAT FOR NON-URGENT COMMUNICATION 7AM-7PM. IF I DO NOT RESPOND WITHIN 20 MINUTES OR URGENT MATTERS, PLEASE CALL THROUGH THE COUNTRY SALES MANAGER. FROM 7PM-7AM, PLEASE PAGE [phone](COVR). Code Status: Full Code Barriers to Discharge: NSTEMI Expected Discharge Date: 1 day Discharge Destination: home ? Overview Patient is seen for evaluation and management of and STEMI Subjective seen today in her room, denies any chest pain. Physical Exam Constitutional: NAD, AOx3 Eyes: EOMI, normal conjunctiva Mouth: Moist, no lesions CV: RRR, normal S1-S2, no murmurs Resp: CTA, no crackles or wheezing Abd: Soft, non-tender Extremities: BLE edema, 2+ distal pulses Skin : Warm, dry Neuro: AOx3, no focal deficits, spastic movements Psych: Appropriate mood and affect Visit Vitals BP 114/77 Pulse 79 Temp 36.7 ???C (98.1 ???F) (Temporal) Resp (!) 7 Intake/Output Summary (Last 24 hours) at 11/15/2024 1355 Last data filed at 11/15/2024 1200 Gross per 24 hour Intake 357 ml Output 200 ml Net 157 ml Estimated body mass index is 17.74 kg/m??? as calculated from the following: Height as of this encounter: 1.473 m (4' 10 ). Weight as of this encounter: 38.5 kg (84 lb 14 oz). Active Inpatient Problems Principal Problem: NSTEMI (non-ST elevated myocardial infarction) ([facility]) Active Problems: COVID-19 Assessment and Plan NSTEMI, JOSE score: 4. 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 Incidentally the right renal artery was noted to have some turbulent flow suggestive of stenosis. 3. Cerebral palsy. 4. Essential hypertension. 5. Anxiety. 6.A. fib with RVR 7. Severe PCM No acute surgical intervention planned at this time Cardiac cath was done and showed normal coronaries with picture consistent with Takotsubo cardiomyopathy Continue Aspirin, and Statin, Farxiga, Lasix, Toprol-XL and Aldactone TTE report pending Patient also started on Eliquis for newly diagnosed A-fib and oral loading amiodarone VTE Prophylaxis: Eliquis Scheduled Meds [START ON 11/27/2024] amiodarone, 200 mg, oral, Daily with breakfast amiodarone, 400 mg, oral, BID with meals apixaban, 5 mg, oral, BID aspirin, 81 mg, oral, Daily atorvastatin, 80 mg, oral, Nightly baclofen, 10 mg, oral, TID dapagliflozin propanediol, 5 mg, oral, Daily docusate sodium, 100 mg, oral, BID furosemide, 40 mg, oral, Daily losartan, 25 mg, oral, Daily metoprolol succinate XL, 25 mg, oral, Once metoprolol succinate XL, 50 mg, oral, q AM metoprolol tartrate, 5 mg, intravenous, Once pantoprazole, 40 mg, oral, Daily spironolactone, 12.5 mg, oral, Daily Pertinent Investigations Hematology: Results from last 7 days Lab Units 11/15/24 0423 11/14/24 0529 11/11/24 0355 11/10/24 2121 WBC AUTO 10*3/uL 7.46 8.86 < > 5.01 HEMOGLOBIN g/dL 13.7 14.4 < > 13.0 HEMATOCRIT % 41.1 42.6 < > 38.9 MCV fL 91.7 89.7 < > 91.1 PLATELETS AUTO 10*3/uL 229 238 < > 202 INR -- -- -- 1.09 < > = values in this interval not displayed. Chemistry: Results from last 7 days Lab Units 11/15/24 0423 11/14/24 0529 11/13/24 0449 11/11/24 0355 11/10/24 2121 SODIUM mmol/L 138 142 139 < > 139 POTASSIUM mmol/L 4.1 4.0 3.7 < > 4.2 CHLORIDE mmol/L 103 104 103 < > 107 CO2 mmol/L 27 29 26 < > 24 BUN mg/dL 29* 35* 27* < > 15 CREATININE mg/dL 0.63 0.80 0.57* < > 0.42* GLUCOSE mg/dL 113* 91 101* < > 139* MAGNESIUM mg/dL 2.1 2.3 2.3 < > 1.8* CALCIUM mg/dL 9.2 9.4 8.9 < > 9.1 PHOSPHORUS mg/dL -- -- -- -- 3.3 < > = values in this interval not displayed. Results from last 7 days Lab Units 11/10/241 AST U/L 49* ALT U/L 32 ALK PHOS U/L 59 BILIRUBIN TOTAL mg/dL 0.6 BILIRUBIN DIRECT mg/dL 0.1 Historical Values: (Includes values prior to this admission) Lab Results Component Value Date HDL 67 11/10/2024 LDL 90 11/10/2024 No results found for: [id number] , IRON , TIBC , C3 , C4 , KELLY , CANCA , ASO , PSA , CEA , CA125 , CA199 , AFP , CA153 Imaging Cardiac catheterization PROCEDURE PHYSICIAN: Claude Briceño MD . Indications: Lorena Barahona is a 69 y.o. female who is admitted with chest pain, NSTEMI and echocardiogram showed hypokinesis of the apical segments. She was referred for cardiac catheterization. Assistants: Dr Christian Bethea. Procedure Performed: Bilateral selective coronary angiogram. right radial artery under ultrasound guidance. Methods: Procedure was explained to the patient with risks and benefits; she signed informed consent. she was brought to the manager laboratory in a fasting state. The right wrist area was prepped and draped in usual fashion. Micropuncture technique was used for access in the right radial artery. A 5-Yi x 11 cm sheath w (more content not included)... [facility] 11-15-2024 Note Cardiology Progress Note Subjective Subjective: F/U: NSTEMI, acute HFrEF, new onset a.fib Patient seen and examined at the bedside this AM. No acute events overnight. She denied any chest pain, palpitations, shortness of breath or dizziness/lightheadedness. She has maintained sinus rhythm. Objective Current Facility-Administered Medications: acetaminophen (Tylenol) tablet 650 mg, 650 mg, oral, q6h PRN, Christian Lucero MD, 650 mg at 11/14/24 1801 ALPRAZolam (Xanax) tablet 0.25 mg, 0.25 mg, oral, TID PRN, Christian Lucero MD, 0.25 mg at 11/14/24 1616 [START ON 11/27/2024] amiodarone (Pacerone) tablet 200 mg, 200 mg, oral, Daily with breakfast, Mariaa Vargas NP amiodarone (Pacerone) tablet 400 mg, 400 mg, oral, BID with meals, Mariaa Vargas NP, 400 mg at 11/15/24 0850 apixaban (Eliquis) tablet 5 mg, 5 mg, oral, BID, Chayo Cooley MD, 5 mg at 11/15/24 0850 aspirin EC tablet 81 mg, 81 mg, oral, Daily, Christian Lucero MD, 81 mg at 11/15/24 0850 atorvastatin (Lipitor) tablet 80 mg, 80 mg, oral, Nightly, Christian Lucero MD, 80 mg at 11/14/24 2116 baclofen (Lioresal) tablet 10 mg, 10 mg, oral, TID, Christian Lucero MD, 10 mg at 11/15/24 0850 bisacodyl (Dulcolax) suppository 10 mg, 10 mg, rectal, Daily PRN, Christian Lucero MD, 10 mg at 11/14/24 1209 dapagliflozin propanediol (Farxiga) tablet 5 mg, 5 mg, oral, Daily, Christian Lucero MD, 5 mg at 11/15/24 0850 docusate sodium (Colace) capsule 100 mg, 100 mg, oral, BID, Renee Murry MD, 100 mg at 11/14/24 1209 furosemide (Lasix) tablet 40 mg, 40 mg, oral, Daily, Christian Lucero MD, 40 mg at 11/15/24 0850 hydrOXYzine pamoate (Vistaril) capsule 25 mg, 25 mg, oral, 4x daily PRN, Christian Lucero MD ibuprofen tablet 800 mg, 800 mg, oral, q8h PRN, Christian Lucero MD, 800 mg at 11/13/24 2112 melatonin tablet 5 mg, 5 mg, oral, Nightly PRN, Christian Lucero MD, 5 mg at 11/14/24 2346 metoprolol succinate XL (Toprol-XL) 24 hr tablet 25 mg, 25 mg, oral, Once, Mariaa Vargas NP metoprolol succinate XL (Toprol-XL) 24 hr tablet 50 mg, 50 mg, oral, q AM, Mariaa Vargas NP, 50 mg at 11/15/24 0851 metoprolol tartrate (Lopressor) injection 5 mg, 5 mg, intravenous, Once, Ben Woodard MD morphine injection 2 mg, 2 mg, intravenous, q8h PRN, Christian Lucero MD, 2 mg at 11/14/24 1312 nitroglycerin (Nitrostat) SL tablet 0.4 mg, 0.4 mg, sublingual, q5 min PRN, Christian Lucero MD ondansetron ODT (Zofran-ODT) disintegrating tablet 4 mg, 4 mg, oral, q8h PRN, 4 mg at 11/15/24 0848 OR ondansetron HCl (PF) (Zofran) injection 4 mg, 4 mg, intravenous, q6h PRN, Christian Lucero MD, 4 mg at 11/13/24 2256 pantoprazole (ProtoNix) EC tablet 40 mg, 40 mg, oral, Daily, Christian Lucero MD polyethylene glycol (Glycolax) packet 17 g, 17 g, oral, Daily PRN, Christian Lucero MD, 17 g at 11/14/24 1209 Insert peripheral IV, , , Once AND Saline lock IV, , , Once AND sodium chloride flush 10 mL, 10 mL, intravenous, q8h PRN, Christian Lucero MD spironolactone (Aldactone) split tablet 12.5 mg, 12.5 mg, oral, Daily, Christian Lucero MD, 12.5 mg at 11/15/24 0850 zolpidem (Ambien) split tablet 5 mg, 5 mg, oral, Nightly PRN, Christian Lucero MD, 5 mg at 11/13/24 2112 Objective: Patient Vitals for the past 24 hrs: BP Temp Temp src Pulse Resp SpO2 Weight 11/15/24 0851 -- -- -- 79 -- -- -- 11/15/24 0800 114/77 36.7 ???C (98.1 ???F) Temporal 61 (!) 7 96 % -- 11/15/24 0415 -- -- -- -- -- -- 38.5 kg (84 lb 14 oz) 11/15/24 0000 95/62 -- -- 54 11 95 % -- 11/14/24 2118 94/59 -- -- 62 15 -- -- 11/14/24 2116 94/59 -- -- 68 -- -- -- 11/14/24 2000 (!) 131/91 36.2 ???C (97.1 ???F) Temporal 73 12 94 % -- 11/14/24 1510 119/77 36 ???C (96.8 ???F) Temporal 78 17 90 % -- Physical Examination: HENT: Head: Normocephalic and atraumatic. Eyes: General: No scleral icterus. Cardiovascular: Rate and Rhythm: Normal rate and regular rhythm. Heart sounds: Normal heart sounds. No murmur heard. No friction rub. No gallop. Pulmonary: Effort: Pulmonary effort is normal. No respiratory distress. Breath sounds: Normal breath sounds. No wheezing, rhonchi or rales. Musculoskeletal: Right lower leg: No edema. Left lower leg: No edema. Skin: General: Skin is warm and dry. Neurological: Mental Status: She is alert and oriented to person, place, and time. Mental status is at baseline. Psychiatric: Mood and Affect: Mood normal. Relevant Lab Results Encounter Date: 11/10/24 ECG 12 lead Result Value Ventricular Rate 114 QRS DURATION 72 QT Interval 362 QTC CALCULATION(BAZETT) 498 R-[place] 50 T Wave [place] 211 Impression Atrial fibrillation with rapid ventricular response ST & T wave abnormality, consider inferior ischemia ST & T wave abnormality, consider anterolateral ischemia Abnormal ECG Confirmed by Eris Loeps ([id number]) on 11/14/2024 8:05:15 PM Lab Results Component Value Date TROPONINI 0.08 (H) 11/14/2024 Complete Echo (TTE) w/wo Imaging Agent, Strain, 3D, Bubble Study (more content not included)... [facility] 11-14-2024 Note Cardiology Progress Note Subjective Subjective: F/U: NSTEMI, acute HFrEF Patient seen and examined at the bedside this AM. No acute events overnight. She denied any chest pain, palpitations, shortness of breath or dizziness/lightheadedness. She underwent cardiac cath yesterday which showed normal coronary arteries. She did develop a.fib with RVR this AM, EKG confirmed. She is now back in sinus rhythm. Objective Current Facility-Administered Medications: acetaminophen (Tylenol) tablet 650 mg, 650 mg, oral, q6h PRN, Christian Lucero MD ALPRAZolam (Xanax) tablet 0.25 mg, 0.25 mg, oral, TID PRN, Christian Lucero MD, 0.25 mg at 11/14/24 1616 [START ON 11/29/2024] amiodarone (Pacerone) tablet 200 mg, 200 mg, oral, Daily with breakfast, Mariaa Vargas NP amiodarone (Pacerone) tablet 400 mg, 400 mg, oral, BID with meals, Mariaa Vargas NP apixaban (Eliquis) tablet 5 mg, 5 mg, oral, BID, Chayo Cooley MD, 5 mg at 11/14/24 1002 aspirin EC tablet 81 mg, 81 mg, oral, Daily, Christian Lucero MD, 81 mg at 11/14/24 1001 atorvastatin (Lipitor) tablet 80 mg, 80 mg, oral, Nightly, Christian Lucero MD, 80 mg at 11/13/242112 baclofen (Lioresal) tablet 10 mg, 10 mg, oral, TID, Christian Lucero MD, 10 mg at 11/14/24 1616 bisacodyl (Dulcolax) suppository 10 mg, 10 mg, rectal, Daily PRN, Christian Lucero MD, 10 mg at 11/14/24 1209 dapagliflozin propanediol (Farxiga) tablet 5 mg, 5 mg, oral, Daily, Christian Lucero MD, 5 mg at 11/14/24 1001 docusate sodium (Colace) capsule 100 mg, 100 mg, oral, BID, Renee Murry MD, 100 mg at 11/14/24 1209 furosemide (Lasix) tablet 40 mg, 40 mg, oral, Daily, Christian Lucero MD, 40 mg at 11/14/24 1001 hydrOXYzine pamoate (Vistaril) capsule 25 mg, 25 mg, oral, 4x daily PRN, Christian Lucero MD ibuprofen tablet 800 mg, 800 mg, oral, q8h PRN, Christian Lucero MD, 800 mg at 11/13/24 211 melatonin tablet 5 mg, 5 mg, oral, Nightly PRN, Christian Lucero MD metoprolol succinate XL (Toprol-XL) 24 hr tablet 25 mg, 25 mg, oral, q AM, Christian Lucero MD, 25 mg at 11/14/24 1001 metoprolol tartrate (Lopressor) injection 5 mg, 5 mg, intravenous, Once, Ben Woodard MD morphine injection 2 mg, 2 mg, intravenous, q8h PRN, Christian Lucero MD, 2 mg at 11/14/24 1312 nitroglycerin (Nitrostat) SL tablet 0.4 mg, 0.4 mg, sublingual, q5 min PRN, Christian Lucero MD ondansetron ODT (Zofran-ODT) disintegrating tablet 4 mg, 4 mg, oral, q8h PRN OR ondansetron HCl (PF) (Zofran) injection 4 mg, 4 mg, intravenous, q6h PRN, Christian Lucero MD, 4 mg at 11/13/24 2256 pantoprazole (ProtoNix) EC tablet 40 mg, 40 mg, oral, Daily, Christian Lucero MD polyethylene glycol (Glycolax) packet 17 g, 17 g, oral, Daily PRN, Christian Lucero MD, 17 g at 11/14/24 1209 Insert peripheral IV, , , Once AND Saline lock IV, , , Once AND sodium chloride flush 10 mL, 10 mL, intravenous, q8h PRN, Christian Lucero MD spironolactone (Aldactone) split tablet 12.5 mg, 12.5 mg, oral, Daily, Christian Lucero MD, 12.5 mg at 11/14/24 1001 zolpidem (Ambien) split tablet 5 mg, 5 mg, oral, Nightly PRN, Christian Lucero MD, 5 mg at 11/13/242111 Objective: Patient Vitals for the past 24 hrs: BP Temp Temp src Pulse Resp SpO2 Weight 11/14/24 1200 100/74 36.3 ???C (97.3 ???F) Temporal 68 16 94 % -- 11/14/24 0800 113/83 36.2 ???C (97.2 ???F) Temporal 88 19 97 % -- 11/14/24 0600 114/86 -- -- 110 14 94 % -- 11/14/24 0550 128/82 -- -- 100 19 96 % -- 11/14/24 0540 113/85 -- -- 104 16 96 % -- 11/14/24 0535 -- -- -- (!) 116 12 96 % -- 11/14/24 0530 -- -- -- (!) 117 17 95 % -- 11/14/24 0528 (!) 118/100 -- -- (!) 197 24 96 % -- 11/14/24 0527 -- -- -- (!) 210 25 95 % -- 11/14/24 0525 -- -- -- (!) 130 13 95 % -- 11/14/24 0520 -- -- -- 88 14 96 % -- 11/14/24 0514 96/79 -- -- (!) 166 16 96 % -- 11/14/24 0400 94/52 -- -- 72 12 95 % 41.2 kg (90 lb 13.3 oz) 11/14/24 0013 100/68 -- -- 78 14 -- -- 11/13/24 2300 101/62 -- -- 77 12 95 % -- 11/13/24 2209 99/55 -- -- 100 21 -- -- 11/13/24 2130 100/68 -- -- 83 15 -- -- 11/13/242044 111/80 -- -- 83 18 -- -- 11/13/242029 102/87 -- -- 86 14 -- -- 11/13/242014 127/86 -- -- 79 16 96 % -- 11/13/24 195 128/88 36.2 ???C (97.2 ???F) Temporal 84 14 -- -- 11/13/24 1930 126/87 -- -- 74 14 -- -- 11/13/24 1915 122/84 -- -- 64 12 -- -- 11/13/24 1900 116/84 -- -- 74 12 -- -- 11/13/24 1856 125/88 36.2 ???C (97.2 ???F) Temporal 79 20 -- -- 11/13/24 1836 127/74 -- -- 69 16 97 % -- 11/13/241806 -- -- -- -- -- 97 % -- 11/13/241805 111/80 -- -- 67 16 97 % -- Physical Examination: HENT: Head: Normocephalic and atraumatic. Eyes: General: No scleral icterus. Cardiovascular: Rate and Rhythm: Normal rate and regular rhythm. Heart sounds: Normal heart sounds. No murmur heard. No friction rub. No gallop. Pulmonary: Effort: Pulmonary effort is normal. No respiratory distress. Breath sounds: Normal breath sounds. No wheezing, rhonchi or rales. Musculoskeletal: Right lower leg: No edema. Left lower leg: (more content not included)... [facility] 11-14-2024 Note Hospital Medicine Daily Progress Note - 11/14/2024 12:25 PM; Room: [address] [place] [address] Admission: 11/10/2024 8:26 PM; Length of stay: 4 days THE HOSPITALIST TEAM PREFERS TO USE [employer] FOR NON-URGENT COMMUNICATION 7AM-7PM. IF I DO NOT RESPOND WITHIN 20 MINUTES OR URGENT MATTERS, PLEASE CALL THROUGH THE COUNTRY SALES MANAGER. FROM 7PM-7AM, PLEASE PAGE [phone](COVR). Code Status: Full Code Barriers to Discharge: NSTEMI Expected Discharge Date: 1 day Discharge Destination: home Overview Patient is seen for evaluation and management of and STEMI Subjective seen today in her room, denies any chest pain. patient over night went into A-fib with RVR Physical Exam Constitutional: NAD, AOx3 Eyes: EOMI, normal conjunctiva Mouth: Moist, no lesions CV: RRR, normal S1-S2, no murmurs Resp: CTA, no crackles or wheezing Abd: Soft, non-tender Extremities: BLE edema, 2+ distal pulses Skin : Warm, dry Neuro: AOx3, no focal deficits, spastic movements Psych: Appropriate mood and affect Visit Vitals BP 100/74 (BP Location: Left arm, Patient Position: Lying) Pulse 68 Temp 36.3 ???C (97.3 ???F) (Temporal) Resp 16 Intake/Output Summary (Last 24 hours) at 11/14/2024 1225 Last data filed at 11/14/2024 1100 Gross per 24 hour Intake 1007 ml Output 1405 ml Net -398 ml Estimated body mass index is 18.98 kg/m??? as calculated from the following: Height as of this encounter: 1.473 m (4' 10 ). Weight as of this encounter: 41.2 kg (90 lb 13.3 oz). Active Inpatient Problems Principal Problem: NSTEMI (non-ST elevated myocardial infarction) (CMS/HCC) Active Problems: COVID-19 Assessment and Plan NSTEMI, JOSE score: 4. 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 Incidentally the right renal artery was noted to have some turbulent flow suggestive of stenosis. 3. Cerebral palsy. 4. Essential hypertension. 5. Anxiety. 6.A. fib with RVR No acute surgical intervention planned at this time Cardiac cath was done and showed normal coronaries with picture consistent with Takotsubo cardiomyopathy Continue Aspirin, and Statin, Farxiga, Lasix, Toprol-XL and Aldactone TTE report pending Patient also started on Eliquis for newly diagnosed A-fib VTE Prophylaxis: Eliquis Scheduled Meds apixaban, 5 mg, oral, BID aspirin, 81 mg, oral, Daily atorvastatin, 80 mg, oral, Nightly baclofen, 10 mg, oral, TID dapagliflozin propanediol, 5 mg, oral, Daily docusate sodium, 100 mg, oral, BID furosemide, 40 mg, oral, Daily metoprolol succinate XL, 25 mg, oral, q AM metoprolol tartrate, 5 mg, intravenous, Once pantoprazole, 40 mg, oral, Daily spironolactone, 12.5 mg, oral, Daily Pertinent Investigations Hematology: Results from last 7 days Lab Units 11/14/24 0529 11/13/24 0449 11/11/24 0355 11/10/24 2121 WBC AUTO 10*3/uL 8.86 6.88 < > 5.01 HEMOGLOBIN g/dL 14.4 13.5 < > 13.0 HEMATOCRIT % 42.6 40.1 < > 38.9 MCV fL 89.7 90.3 < > 91.1 PLATELETS AUTO 10*3/uL 238 216 < > 202 INR -- -- -- 1.09 < > = values in this interval not displayed. Chemistry: Results from last 7 days Lab Units 11/14/24 0529 11/13/24 0449 11/12/24 0409 11/11/24 0355 11/10/24 2121 SODIUM mmol/L 142 139 139 < > 139 POTASSIUM mmol/L 4.0 3.7 3.5 < > 4.2 CHLORIDE mmol/L 104 103 104 < > 107 CO2 mmol/L 29 26 27 < > 24 BUN mg/dL 35* 27* 21 < > 15 CREATININE mg/dL 0.80 0.57* 0.51* < > 0.42* GLUCOSE mg/dL 91 101* 97 < > 139* MAGNESIUM mg/dL 2.3 2.3 1.8* < > 1.8* CALCIUM mg/dL 9.4 8.9 8.8 < > 9.1 PHOSPHORUS mg/dL -- -- -- -- 3.3 < > = values in this interval not displayed. Results from last 7 days Lab Units 11/10/24 2121 AST U/L 49* ALT U/L 32 ALK PHOS U/L 59 BILIRUBIN TOTAL mg/dL 0.6 BILIRUBIN DIRECT mg/dL 0.1 Historical Values: (Includes values prior to this admission) Lab Results Component Value Date HDL 67 11/10/2024 LDL 90 11/10/2024 No results found for: MALSYCAF97 , IRON , TIBC , C3 , C4 , KELLY , CANCA , ASO , PSA , CEA , CA125 , CA199 , AFP , CA153 Imaging ECG 12 lead Atrial fibrillation with rapid ventricular response T wave abnormality, consider anterior ischemia Abnormal ECG When compared with ECG of 12-NOV-2024 11:16, Atrial fibrillation has replaced Sinus rhythm Vent. rate has increased BY 51 BPM Non-specific change in ST segment in Inferior lead Non-specific change in ST segment in Anterior leads Nonspecific T wave abnormality has replaced inverted T waves in Inferior lead T wave inversion less evident in Anterior leads ECG 12 lead Atrial fibrillation with rapid ventricular response ST & T wave abnormality, consider inferior ischemia ST & T wave abnormality, consider anterolateral ischemia Abnormal ECG ECG 12 lead Atrial fibrillation with rapid ventricular response with premature ventricular or aberrantly conducted complexes T wave abnormality, consider (more content not included)... [facility] 11-13-2024 Note Patient: Lorena blunt Procedure Information Date/Time: 11/13/24 1630 Procedure: Coronary angiography Location: [facility] PATIENT [facility] 3 / [facility] HV VASCULAR LAB (Cath) Providers: Claude Briceño MD Clinical information reviewed: Tobacco Allergies Meds Problems Med Hx Surg Hx Fam Hx Soc Hx Physical Exam Airway Mallampati: III Cardiovascular Dental Pulmonary Abdominal Anesthesia Plan ASA 3 other (Conscious sedation) intravenous induction Anesthetic plan and risks discussed with patient. Use of blood products discussed with patient who consented to blood products. Plan discussed with attending and fellow. Additional Equipment Requests [facility] 11-13-2024 Note Adult Nutrition Asse ssment: Name: Lorena Barahona Date: 1955 Date of Visit: 11/13/24 Admission Dx: NSTEMI (non-ST elevated myocardial infarction) ([facility]) [I21.4] Reason for assessment: high risk Information obtained from: patient, family, and medical record History reviewed. No pertinent past medical history. Current Medications: aspirin, 81 mg, oral, Daily atorvastatin, 80 mg, oral, Nightly baclofen, 10 mg, oral, TID furosemide, 40 mg, oral, Daily metoprolol succinate XL, 25 mg, oral, q AM pantoprazole, 40 mg, oral, Daily heparin, 0-28 Units/kg/hr, Last Rate: 18 Units/kg/hr (11/12/24 0801) Labs: 0 Lab Value Date/Time BUN 27 (H) 11/13/2024448 CREATININE 0.57 (L) 11/13/2024448 NA 139 11/13/2024448 K 3.7 11/13/2024448 PHOS 3.3 11/10/20242120 MG 2.3 11/13/2024448 HGBA1C 5.5 11/11/2024 0355 HGB 13.5 11/13/2024448 WBC 6.88 11/13/2024448 CHOL 157 11/10/20242120 HDL 67 11/10/20242120 Allergies: No Known Allergies Nutrition Problems: Swallowing Assessment: Pt reported no problems with swallowing Mouth: Pt reported no problems with chewing Abdominal Assessment: Pt reported that she gets N/V/CD when she is dehydrated or stressed Appetite: fair Cognition: A&O x 4 Feeding Skills: Pt reported that she cooks for herself, but she is going to be getting a home health aide that will help her Physical Findings: hx cerebral palsy NFPE, completed on (11/13): Muscle depletion: Temporalis (head): Moderate Pectoralis (clavicle): Severe Deltoid (shoulder): Severe Interosseous (dorsal hand): Moderate Supraspinatus (scapular bone region): Severe Adipose depletion: Buccal: Severe Triceps: Severe Skin Integrity: documented to be intact Nutrition Data/Clinical Indicators of Nutrition Status: Height: 147.3 cm (4' 10 ) Weight: 43.6 kg (96 lb 1.9 oz) BMI (Calculated): 20.09 Wt Readings from Last 10 Encounters: 11/13/24 43.6 kg (96 lb 1.9 oz) 08/28/21 45.4 kg (100 lb) 07/28/20 44.9 kg (99 lb) 07/24/19 46.3 kg (102 lb) 06/29/19 46.3 kg (102 lb) IBW: 45.5 kg Weight change: No recent weight history, pt's family reported that pt has lost 10 lbs in about 6 months Nutrition Assessment: Pt reported that her appetite is currently decreased as she is stressed, pt reported that she has been eating less since she has been here, as she has only been able to eat twice. Pt reported that she has not had recent changes in appetite or intake at home. Pt reported that she will typically eat 2 meals a day. Pt reported that she will drink at least one ensure a day and is agreeable to continue with the current boost order. Dietary Orders (From admission, onward) Start Ordered 11/12/24 1424 Special Kitchen Request Once Comments: Psychological Stress Evaluator salad with swiss. Hot tea, chocolate pudding 11/12/24 1424 11/12/24 1216 Special Kitchen Request Once Comments: Psychological Stress Evaluator salad with swiss. Hot tea, chocolate pudding 11/12/24 1216 11/12/24 0000 Diet NPO Diet effective now Comments: Sips with medications Question: Reason for NPO: Answer: Operation/Procedure 11/12/24 1400 11/11/24 1215 Special Kitchen Request Once Comments: Grilled cheese on wheat, baked lays, bottle water, orange sherbet 11/11/24 1215 11/11/24 0916 Special Kitchen Request Once Comments: Scrambled eggs, toast with butter and jelly, decaf coffee, turkey sausage, sugar and cream 11/11/24 0917 11/10/24 2130 Dietary nutrition supplements All meals; Boost Plus; 8 oz; Oral Until discontinued Question Answer Comment Deliver with All meals Select supplement: Boost Plus Strength: 8 oz Route Oral 11/10/24 213 Nutrition Risk: High Nutrition Needs: Needs based on: actual body weight (43.6 kg) Calorie needs: 9431-8619 kcals/day based on Equation: 30-35 kcals/kg Protein needs: 44-52 g/day based on 1.0-1.2 g/kg Fluid needs: 1308 ml/day based on 30 ml/kg Nutrition Diagnosis: Severe protein calorie malnutrition related to chronic illness as evidenced by severe loss of muscle mass and severe loss of adipose fat Malnutrition Assessment: Assessment Reason for Referral: high risk Nutrition information obtained from:: Patient, Family, Medical Record Clinical Indicators of Malnutrition: loss of subcutaneous fat with locations identified, loss of muscle mass with location identified Malnutrition Assessment (Completed by RD) Severe PCM: Chronic Illness: severe loss of subcutaneous fat, severe muscle loss Nutrition Intake Percent Meals Eaten (%): 0 (NPO) Nutrition Treatment and Intervention Plan Treatment & Intervention Plan: advance diet as medically feasible, monitor intakes and adjust recommendations as needed, continue current oral supplement Nutrition Goals: intake > 75% meals, intake > 75% supplements, wt maintenance Treatment Plan: Advance diet to regular as medically feasible Monitor intakes and adjust recommendations as needed Monitor weight (more content not included)... [facility] 11-13-2024 Note 11/13/24 7459 Admission Assessment Questions Verify insurance with patient Yes Do you understand medical disease or what brought you into the hospital? Yes Who is your current PCP? Ro Dennison NP Can I schedule a follow up appointment for you at the time of discharge? Yes (Afternoon appointment) Do you understand why you are taking your current medications? Yes Are you taking your medications as prescribed? Yes Did patient provide teach back? No Pharmacy Bedside Delivery Status Interested Does the patient have a case loader operator assigned to them through their insurance? Yes (Does have Passport CM: Radha [phone]) Living Arrangement (Current/Prior to Hospitalization) Private residence;Home self care (Home; Apartment with wheelchair ramp to enter.) Does the patient have history of HHC or SNF? Yes (HHC: Aide services 3 days per week (already set up); SNF: No hx; IPR: No hx; Has done outpatient therapy.) Assistive Device Wheelchair;Crutches;Bedside Commode;Grab bars (Shower chair; Hand held shower wand; Alert button in bathroom, and bedroom; Keypunch Operator) Patient's goal for discharge Home with resumed HHC. Was patient reminded that goal for discharge is 11am? Yes Does the patient have transportation at discharge? Yes Type of Residence Private residence;Home care staff Is PT/OT appropriate? No Is PT/OT ordered? No Is SW consult appropriate? No Is SW consult ordered? No Do you understand the benefits of MyChart? Yes Were you able to send link and activate MyChart? Yes [facility] 11-13-2024 Note Hospital Medicine Daily Progress Note - 11/13/2024 12:00 PM; Room: [address] [place] [address] Admission: 11/10/2024 8:26 PM; Length of stay: 3 days THE HOSPITALIST TEAM PREFERS TO USE [employer] FOR NON-URGENT COMMUNICATION 7AM-7PM. IF I DO NOT RESPOND WITHIN 20 MINUTES OR URGENT MATTERS, PLEASE CALL THROUGH THE COUNTRY SALES MANAGER. FROM 7PM-7AM, PLEASE PAGE [phone](COVR). Code Status: Full Code Barriers to Discharge: NSTEMI Expected Discharge Date: 1 day Discharge Destination: home Overview Patient is seen for evaluation and management of and STEMI Subjective seen today in her room, denies any chest pain Physical Exam Constitutional: NAD, AOx3 Eyes: EOMI, normal conjunctiva Mouth: Moist, no lesions CV: RRR, normal S1-S2, no murmurs Resp: CTA, no crackles or wheezing Abd: Soft, non-tender Extremities: BLE edema, 2+ distal pulses Skin : Warm, dry Neuro: AOx3, no focal deficits, spastic movements Psych: Appropriate mood and affect Visit Vitals BP 128/83 (BP Location: Left arm) Pulse 61 Temp 36.4 ???C (97.5 ???F) (Temporal) Resp 12 Intake/Output Summary (Last 24 hours) at 11/13/2024 1200 Last data filed at 11/13/2024 1007 Gross per 24 hour Intake 498.33 ml Output 450 ml Net 48.33 ml Estimated body mass index is 20.09 kg/m??? as calculated from the following: Height as of this encounter: 1.473 m (4' 10 ). Weight as of this encounter: 43.6 kg (96 lb 1.9 oz). Active Inpatient Problems Principal Problem: NSTEMI (non-ST elevated myocardial infarction) (CMS/[facility]) Active Problems: COVID-19 Assessment and Plan NSTEMI, JOSE score: 4. 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 Incidentally the right renal artery was noted to have some turbulent flow suggestive of stenosis. 3. Cerebral palsy. 4. Essential hypertension. 5. Anxiety. No acute surgical intervention planned at this time Heparin, Aspirin, and Statin. TTE and cardiac cath today VTE Prophylaxis: IV heparin Scheduled Meds aspirin, 81 mg, oral, Daily atorvastatin, 80 mg, oral, Nightly baclofen, 10 mg, oral, TID furosemide, 40 mg, oral, Daily metoprolol succinate XL, 25 mg, oral, q AM pantoprazole, 40 mg, oral, Daily heparin, 0-28 Units/kg/hr, Last Rate: 18 Units/kg/hr (11/12/24 0801) Pertinent Investigations Hematology: Results from last 7 days Lab Units 11/13/2444811/12/2440811/11/24 0355 11/10/242120 WBC AUTO 10*3/uL 6.88 7.85 < > 5.01 HEMOGLOBIN g/dL 13.5 12.5 < > 13.0 HEMATOCRIT % 40.1 36.7 < > 38.9 MCV fL 90.3 90.0 < > 91.1 PLATELETS AUTO 10*3/uL 216 197 < > 202 INR -- -- -- 1.09 < > = values in this interval not displayed. Chemistry: Results from last 7 days Lab Units 11/13/2444811/12/24 04011/11/24 0355 11/10/24 2121 SODIUM mmol/L 139 139 138 139 POTASSIUM mmol/L 3.7 3.5 3.8 4.2 CHLORIDE mmol/L 103 104 108* 107 CO2 mmol/L 26 27 22 24 BUN mg/dL 27* 21 13 15 CREATININE mg/dL 0.57* 0.51* 0.41* 0.42* GLUCOSE mg/dL 101* 97 100 139* MAGNESIUM mg/dL 2.3 1.8* 1.7* 1.8* CALCIUM mg/dL 8.9 8.8 8.5* 9.1 PHOSPHORUS mg/dL -- -- -- 3.3 Results from last 7 days Lab Units 11/10/24 2121 AST U/L 49* ALT U/L 32 ALK PHOS U/L 59 BILIRUBIN TOTAL mg/dL 0.6 BILIRUBIN DIRECT mg/dL 0.1 Historical Values: (Includes values prior to this admission) Lab Results Component Value Date HDL 67 11/10/2024 LDL 90 11/10/2024 No results found for: [id number] , IRON , TIBC , C3 , C4 , KELLY , CANCA , ASO , PSA , CEA , CA125 , CA199 , AFP , CA153 Imaging Complete Echo (TTE) w/wo Imaging Agent, Strain, 3D, Bubble Study 1 [facility] Heart Station [address] [place] [address] [phone] (fax) Echocardiogram-[facility] Name: LORENA BARAHONA Study Date: 11/12/2024 12:55 PM B/P: 94 mmHg/54 mmHg HR: Date of : 1955 Location: [facility] Height: 57 in. Age: 69 year(s) Patient Room: 3104 Weight: 99 lb. Gender: Female Patient Status: InPt BSA: 1.33 m2 Indication: Non-STEMI Examination: Echocardiogram (Complete), Lumason Contrast Image Quality: Fair Patient Consent: Procedure explained to patient Conclusions Left Ventricle: The left ventricle is normal size. Global left ventricular systolic function is mildly reduced. The EF is 45 % visually. Left ventricular wall thickness is normal. Regional wall motion abnormalities (see diagram). Unable to assess diastolic dysfunction. Concentric cardiac remodeling. Right Ventricle: The right ventricle is normal in size. Normal right ventricular systolic function. Unable to assess right sided pressures due to lack of measurable tricuspid regurgitation. Left Atrium: The left atrium is normal in size. Overall Conclusions: Due to suboptimal imaging Lumason contrast was administered for opacification and better delineation of endocardial borders. Measurements Left Ventricle Label Value (more content not included)... [facility] 11-13-2024 Note ------ Attestation signed by Eris Lopes MD at 11/14/2024 10:00 AM By using the attestations below, the signing clinician agrees that I have read and verify that the documentation has been personally reviewed by me and ensure that the documentation accurately reflects the encounter. GC: I performed the mcdonald portion(s) of the service and participated in the management and confirm the resident's documentation. Please note there may be an additional personal documentation from me. Proceed with cath today. ------ Cardiology Progress Note Subjective Subjective: Patient seen and examined at the bedside, no acute events overnight. Continues to deny chest pain, palpitations, shortness of breath or dizziness/lightheadedness. Patient is rather tearful this morning due to anxiety, asking for medication prior to her cath later today to help with anxiety. Objective Current Facility-Administered Medications: acetaminophen (Tylenol) tablet 650 mg, 650 mg, oral, q6h PRN, Wellington Aiken MD ALPRAZolam (Xanax) tablet 0.25 mg, 0.25 mg, oral, TID PRN, Wellington Aiken MD, 0.25 mg at 11/13/241006 aspirin EC tablet 81 mg, 81 mg, oral, Daily, Ashley Trujillo MD, 81 mg at 11/13/241006 atorvastatin (Lipitor) tablet 80 mg, 80 mg, oral, Nightly, Ashley Trujillo MD baclofen (Lioresal) tablet 10 mg, 10 mg, oral, TID, Wellington Aiken MD, 10 mg at 11/13/241006 bisacodyl (Dulcolax) suppository 10 mg, 10 mg, rectal, Daily PRN, Wellington Aiken MD furosemide (Lasix) tablet 40 mg, 40 mg, oral, Daily, Jose Rafael Joshua MD, 40 mg at 11/13/241006 heparin infusion 100 units/mL in D5W, 0-28 Units/kg/hr, intravenous, Continuous, Wellington Aiken MD, Last Rate: 7.6 mL/hr at 11/12/24 0801, 18 Units/kg/hr at 11/12/24 08 hydrOXYzine pamoate (Vistaril) capsule 25 mg, 25 mg, oral, 4x daily PRN, Wellington Aiken MD ibuprofen tablet 800 mg, 800 mg, oral, q8h PRN, Ca Minayakl, [employer] WORK[employer], 800 mg at 11/12/242112 melatonin tablet 5 mg, 5 mg, oral, Nightly PRN, Wellington Aiken MD metoprolol succinate XL (Toprol-XL) 24 hr tablet 25 mg, 25 mg, oral, q AM, Ashley Trujillo MD, 25 mg at 11/13/24 1007 morphine injection 2 mg, 2 mg, intravenous, q8h PRN, Wellington Aiken MD nitroglycerin (Nitrostat) SL tablet 0.4 mg, 0.4 mg, sublingual, q5 min PRN, Wellington Aiken MD ondansetron ODT (Zofran-ODT) disintegrating tablet 4 mg, 4 mg, oral, q8h PRN OR ondansetron HCl (PF) (Zofran) injection 4 mg, 4 mg, intravenous, q6h PRN, Wellington Aiken MD pantoprazole (ProtoNix) EC tablet 40 mg, 40 mg, oral, Daily, Wellington Aiken MD polyethylene glycol (Glycolax) packet 17 g, 17 g, oral, Daily PRN, Wellington Aiken MD Insert peripheral IV, , , Once AND Saline lock IV, , , Once AND sodium chloride flush 10 mL, 10 mL, intravenous, q8h PRN, Wellington Aiken MD zolpidem (Ambien) split tablet 5 mg, 5 mg, oral, Nightly PRN, Jose Rafael Joshua MD, 5 mg at 11/12/242110 Objective: Patient Vitals for the past 24 hrs: BP Temp Temp src Pulse Resp SpO2 Weight 11/13/24 0737 128/83 36.4 ???C (97.5 ???F) Temporal 61 12 98 % -- 11/13/24 0503 -- -- -- 75 10 98 % 43.6 kg (96 lb 1.9 oz) 11/13/24 0500 115/73 -- -- 61 12 96 % -- 11/12/24 2100 -- -- -- 75 16 99 % -- 11/12/24 2000 118/66 36.3 ???C (97.4 ???F) Temporal 63 11 97 % -- 11/12/24 1718 (!) 135/91 36.4 ???C (97.5 ???F) Temporal 86 19 98 % -- 11/12/24 1200 92/54 36.4 ???C (97.5 ???F) Temporal 72 18 -- -- Physical Examination: HENT: Head: Normocephalic and atraumatic. Eyes: General: No scleral icterus. Cardiovascular: Rate and Rhythm: Normal rate and regular rhythm. Heart sounds: Normal heart sounds. No murmur heard. No friction rub. No gallop. Pulmonary: Effort: Pulmonary effort is normal. No respiratory distress. Breath sounds: Normal breath sounds. No wheezing, rhonchi or rales. Musculoskeletal: Right lower leg: No edema. Left lower leg: No edema. Skin: General: Skin is warm and dry. Neurological: Mental Status: She is alert and oriented to person, place, and time. Mental status is at baseline. Psychiatric: Mood and Affect: Mood normal. Relevant Lab Results Encounter Date: 11/10/24 ECG 12 lead Result Value Ventricular Rate [address] Interval 146 QRS DURATION 78 QT Interval 508 QTC CALCULATION(BAZETT) 532 P Columbia 49 R-Columbia 54 T Wave Columbia 244 Impression Normal sinus rhythm with sinus arrhythmia ST & Marked T wave abnormality, consider anterolateral ischemia Prolonged QT Abnormal ECG When compared with ECG of 11-NOV-2024 11:39, T wave inversion more evident in Inferior lead T wave inversion more evident in Anterior leads QT has lengthened Confirmed by Eris Lopes ([id number]) on 11/13/2024 12:45:49 AM (more content not included)... [facility] 11-12-2024 Note ------ Attestation signed by Eris Lopes MD at 11/12/2024 11:33 PM By using the attestations below, the signing clinician agrees that I have read and verify that the documentation has been personally reviewed by me and ensure that the documentation accurately reflects the encounter. GC: I performed the mcdonald portion(s) of the service and participated in the management and confirm the resident's documentation. Please note there may be an additional personal documentation from me. Discussed with IC team. Pt has no CP not and has worsening TWI. Plan for cath in AM ------ Cardiology Progress Note Subjective Subjective: Patient seen and examined at the bedside, no acute events overnight. Continues to deny chest pain, palpitations, shortness of breath or dizziness/lightheadedness. Objective Current Facility-Administered Medications: acetaminophen (Tylenol) tablet 650 mg, 650 mg, oral, q6h PRN, Wellington Aiken MD ALPRAZolam (Xanax) tablet 0.25 mg, 0.25 mg, oral, TID PRN, Wellington Aiken MD, 0.25 mg at 11/12/24 0942 aspirin EC tablet 81 mg, 81 mg, oral, Daily, Ashley Trujillo MD, 81 mg at 11/12/24941 atorvastatin (Lipitor) tablet 80 mg, 80 mg, oral, Nightly, Ashley Trujillo MD baclofen (Lioresal) tablet 10 mg, 10 mg, oral, TID, Wellington Aiken MD, 10 mg at 11/12/24 0942 bisacodyl (Dulcolax) suppository 10 mg, 10 mg, rectal, Daily PRN, Wellington Aiken MD furosemide (Lasix) tablet 40 mg, 40 mg, oral, Daily, Jose Rafael Joshua MD, 40 mg at 11/12/24 0942 heparin infusion 100 units/mL in D5W, 0-28 Units/kg/hr, intravenous, Continuous, Wellington Aiken MD, Last Rate: 7.6 mL/hr at 11/12/24 0801, 18 Units/kg/hr at 11/12/24 0801 hydrOXYzine pamoate (Vistaril) capsule 25 mg, 25 mg, oral, 4x daily PRN, Wellington Aiken MD ibuprofen tablet 800 mg, 800 mg, oral, q8h PRN, Ca Pirkl, [employer], 800 mg at 11/11/24 2216 melatonin tablet 5 mg, 5 mg, oral, Nightly PRN, Wellington Aiken MD metoprolol succinate XL (Toprol-XL) 24 hr tablet 25 mg, 25 mg, oral, q AM, Ashley Trujillo MD, 25 mg at 11/12/24 0942 morphine injection 2 mg, 2 mg, intravenous, q8h PRN, Wellington Aiken MD nitroglycerin (Nitrostat) SL tablet 0.4 mg, 0.4 mg, sublingual, q5 min PRN, Wellington Aiken MD ondansetron ODT (Zofran-ODT) disintegrating tablet 4 mg, 4 mg, oral, q8h PRN OR ondansetron HCl (PF) (Zofran) injection 4 mg, 4 mg, intravenous, q6h PRN, Wellington Aiken MD pantoprazole (ProtoNix) EC tablet 40 mg, 40 mg, oral, Daily, Wellington Aiken MD polyethylene glycol (Glycolax) packet 17 g, 17 g, oral, Daily PRN, Wellington Aiken MD Insert peripheral IV, , , Once AND Saline lock IV, , , Once AND sodium chloride flush 10 mL, 10 mL, intravenous, q8h PRN, Wellington Aiken MD zolpidem (Ambien) split tablet 5 mg, 5 mg, oral, Nightly PRN, Jose Rafael Joshua MD, 5 mg at 11/11/24 1139 Objective: Patient Vitals for the past 24 hrs: BP Temp Temp src Pulse Resp SpO2 Weight 11/12/24 1200 92/54 36.4 ???C (97.5 ???F) Temporal 72 18 -- -- 11/12/24 0756 (!) 106/94 36.4 ???C (97.5 ???F) Temporal 75 21 97 % -- 11/12/24 0500 -- -- -- -- -- -- 45 kg (99 lb 3.3 oz) 11/12/24 0410 94/65 -- -- 69 16 97 % -- 11/12/24 0012 94/62 -- -- 77 17 96 % -- 11/11/24 2346 92/59 -- -- 68 16 96 % -- 11/11/24 1913 122/80 -- -- 86 -- 98 % -- 11/11/24 1608 119/82 -- -- 89 18 95 % -- Physical Examination: HENT: Head: Normocephalic and atraumatic. Eyes: General: No scleral icterus. Cardiovascular: Rate and Rhythm: Normal rate and regular rhythm. Heart sounds: Normal heart sounds. No murmur heard. No friction rub. No gallop. Pulmonary: Effort: Pulmonary effort is normal. No respiratory distress. Breath sounds: Normal breath sounds. No wheezing, rhonchi or rales. Musculoskeletal: Right lower leg: No edema. Left lower leg: No edema. Skin: General: Skin is warm and dry. Neurological: Mental Status: She is alert and oriented to person, place, and time. Mental status is at baseline. Psychiatric: Mood and Affect: Mood normal. Relevant Lab Results Encounter Date: 11/10/24 ECG 12 lead Result Value Ventricular Rate [address] Interval 146 QRS DURATION 78 QT Interval 508 QTC CALCULATION(BAZETT) 532 P Columbia 49 R-Columbia 54 T Wave Columbia 244 Impression Normal sinus rhythm with sinus arrhythmia ST & Marked T wave abnormality, consider anterolateral ischemia Prolonged QT Abnormal ECG When compared with ECG of 11-NOV-2024 11:39, T wave inversion more evident in Inferior lead T wave inversion more evident in Anterior leads QT has lengthened Lab Results Component Value Date TROPONINI 0.90 (HH) 11/11/2024 No echocardiogram results found for the past 12 months No nuclear (more content not included)... [facility] 11-12-2024 Note [facility] Vascular Surgery CONSULTATION Reason for Consult: Celiac Artery Occlusion History of Present Illness: Lorena Barahona is a 69 y.o. female with pertinent past medical history of cerebral palsy, hypertension, and junctional heart beats/palpitations/heart murmur who presented on 11/10/2024 as a transfer from outside hospital due to concerns of NSTEMI. Patient initially presented to [facility] ER for generalized weakness, shortness of breath and chest pain. Patient thought it was initially due to COVID as she recently had it, however COVID test in ER was negative. Laboratory workup was significant at the time for elevated troponins and ischemic changes seen on EKG. Patient was started on heparin and transferred to [facility] for further workup and possible cardiac catheterization. Upon arrival, Cardiology was consulted and ordered an echo and started patient on aspirin and statin. Due to the presence of back and chest pain a CTA of the chest was ordered which was read as no definitive acute abnormality of the thoracic aorta and incidental findings of occluded celiac artery with large SMA collaterals and possible small PSA of SMA. Vascular Surgery was consulted for further evaluations and recommendations regarding celiac artery occlusion. Patient was resting comfortably in bed upon examination today. Sister was on the phone at the time and provided a lot of her information. Patient endorses that she has had nausea and vomiting previously, however does not have it often. Patient did have nausea and dry heaving at the onset of the recent chest pain, but no emesis. Patient denies hematemesis however does endorse occasional blood in phlegm after she has a coughing fit. Patient denies pain after eating or early satiety. Patient denies melena or ever noticing blood in her stool. Patient does not have abdominal pain and does not take any blood thinners at home. Sister did endorse that patient has bad vasculature but no documentation of PAD or PVD is currently seen in her chart. Patient and sister endorse poor circulation is mostly due to cerebral palsy. Review of Systems All other systems reviewed and are negative. History reviewed. No pertinent past medical history. History reviewed. No pertinent surgical history. No Known Allergies Current Facility-Administered Medications: acetaminophen (Tylenol) tablet 650 mg, 650 mg, oral, q6h PRN, Wellington Aiken MD ALPRAZolam (Xanax) tablet 0.25 mg, 0.25 mg, oral, TID PRN, Wellington Aiken MD, 0.25 mg at 11/12/24 0942 aspirin EC tablet 81 mg, 81 mg, oral, Daily, Ashley Trujillo MD, 81 mg at 11/12/24 0942 atorvastatin (Lipitor) tablet 80 mg, 80 mg, oral, Nightly, Ashley Trujillo MD baclofen (Lioresal) tablet 10 mg, 10 mg, oral, TID, Wellington Aiken MD, 10 mg at 11/12/24 0942 bisacodyl (Dulcolax) suppository 10 mg, 10 mg, rectal, Daily PRN, Wellington Aiken MD furosemide (Lasix) tablet 40 mg, 40 mg, oral, Daily, Jose Rafael Joshua MD, 40 mg at 11/12/24 0942 heparin infusion 100 units/mL in D5W, 0-28 Units/kg/hr, intravenous, Continuous, Wellington Aiken MD, Last Rate: 7.6 mL/hr at 11/12/24 0801, 18 Units/kg/hr at 11/12/24 0801 hydrOXYzine pamoate (Vistaril) capsule 25 mg, 25 mg, oral, 4x daily PRN, Wellington Aiken MD ibuprofen tablet 800 mg, 800 mg, oral, q8h PRN, Ca Buchanan [employer], 800 mg at 11/11/24 2216 magnesium sulfate in D5W IVPB 1 g, 1 g, intravenous, q1h, Jose Rafael Joshua MD, Last Rate: 100 mL/hr at 11/12/24 1143, 1 g at 11/12/24 1143 melatonin tablet 5 mg, 5 mg, oral, Nightly PRN, Wellington Aiken MD metoprolol succinate XL (Toprol-XL) 24 hr tablet 25 mg, 25 mg, oral, q AM, Ashley Trujillo MD, 25 mg at 11/12/24 0942 morphine injection 2 mg, 2 mg, intravenous, q8h PRN, Wellington Aiken MD nitroglycerin (Nitrostat) SL tablet 0.4 mg, 0.4 mg, sublingual, q5 min PRN, Wellington Aiken MD ondansetron ODT (Zofran-ODT) disintegrating tablet 4 mg, 4 mg, oral, q8h PRN OR ondansetron HCl (PF) (Zofran) injection 4 mg, 4 mg, intravenous, q6h PRN, Wellington Aiken MD pantoprazole (ProtoNix) EC tablet 40 mg, 40 mg, oral, Daily, Wellington Aiken MD polyethylene glycol (Glycolax) packet 17 g, 17 g, oral, Daily PRN, Wellington Aiken MD Insert peripheral IV, , , Once AND Saline lock IV, , , Once AND sodium chloride flush 10 mL, 10 mL, intravenous, q8h PRN, Wellington Aiken MD zolpidem (Ambien) split tablet 5 mg, 5 mg, oral, Nightly PRN, Jose Rafael Joshua MD, 5 mg at 11/11/24 2142 Social History Socioeconomic History Marital status: Single Spouse name: Not on file Number of children: Not on file Years of education: Not on file Highest education level: Not on file Occupational History Not on file Tobacco Use Smoking status: Some Days Types: Cigarettes Smokeless tobacco: Never Vaping Use Vaping status: Never Used Substance a (more content not included)... [facility] 11-12-2024 Note Hospital Medicine Daily Progress Note - 11/12/2024 7:13 AM; Room: [address] [place] [address] Admission: 11/10/2024 8:26 PM; Length of stay: 2 days THE HOSPITALIST TEAM PREFERS TO USE [employer] FOR NON-URGENT COMMUNICATION 7AM-7PM. IF I DO NOT RESPOND WITHIN 20 MINUTES OR URGENT MATTERS, PLEASE CALL THROUGH THE COUNTRY SALES MANAGER. FROM 7PM-7AM, PLEASE PAGE [phone](COVR). Code Status: Full Code Barriers to Discharge: NSTEMI Expected Discharge Date: 2-3 days Discharge Destination: TBD Overview Patient is seen for evaluation and management of NSTEMI. Subjective Patient seen and examined. No further chest pain, SOB. Slept well last night. No acute complaints. Physical Exam Visit Vitals BP 94/65 Pulse 69 Temp 36.4 ???C (97.5 ???F) (Temporal) Resp 16 Intake/Output Summary (Last 24 hours) at 11/12/2024 0713 Last data filed at 11/11/2024 1608 Gross per 24 hour Intake 720 ml Output 1000 ml Net -280 ml Estimated body mass index is 20.73 kg/m??? as calculated from the following: Height as of this encounter: 1.473 m (4' 10 ). Weight as of this encounter: 45 kg (99 lb 3.3 oz). Constitutional: NAD, AOx3 Eyes: EOMI, normal conjunctiva Mouth: Moist, no lesions CV: RRR, normal S1-S2, no murmurs Resp: CTA, no crackles or wheezing Abd: Soft, non-tender Extremities: BLE edema, 2+ distal pulses Skin : Warm, dry Neuro: AOx3, no focal deficits, spastic movements Psych: Appropriate mood and affect Overall unchanged Active Inpatient Problems Principal Problem: NSTEMI (non-ST elevated myocardial infarction) (CMS/HCC) Active Problems: COVID-19 Assessment and Plan NSTEMI -Trop peak 1.12, EKG unremarkable -Placed on heparin infusion -BNP elevated, Pending TTE -Continue lasix 40 PO -Cardiology consulted for catheterization but unfortunately we will not have this option until Tuesday at the earliest due to holiday weekend -May have diet Back pain -No dissection on CT -Tylenol, morphine prn Celiac artery occlusion -Vascular surgery consulted; not urgent but will reach out for optimal imaging modality in setting of repeated contrast exposure (re: may need heart cath) Anxiety -Resume home xanax -Continue decreased dose of ambien Cerebral palsy -Ambulated with crutches VTE Prophylaxis: IV heparin Scheduled Meds aspirin, 81 mg, oral, Daily atorvastatin, 80 mg, oral, Nightly baclofen, 10 mg, oral, TID furosemide, 40 mg, oral, Daily metoprolol succinate XL, 25 mg, oral, q AM pantoprazole, 40 mg, oral, Daily heparin, 0-28 Units/kg/hr, Last Rate: 18 Units/kg/hr (11/11/24 1440) Pertinent Investigations Hematology: Results from last 7 days Lab Units 11/12/24 0409 11/11/24 0355 11/10/242120 WBC AUTO 10*3/uL 7.85 9.13 5.01 HEMOGLOBIN g/dL 12.5 12.0 13.0 HEMATOCRIT % 36.7 35.5* 38.9 MCV fL 90.0 90.3 91.1 PLATELETS AUTO 10*3/uL 197 175 202 INR -- -- 1.09 Chemistry: Results from last 7 days Lab Units 11/12/24 0409 11/11/24 0355 11/10/242120 SODIUM mmol/L 139 138 139 POTASSIUM mmol/L 3.5 3.8 4.2 CHLORIDE mmol/L 104 108* 107 CO2 mmol/L 27 22 24 BUN mg/dL 21 13 15 CREATININE mg/dL 0.51* 0.41* 0.42* GLUCOSE mg/dL 97 100 139* MAGNESIUM mg/dL 1.8* 1.7* 1.8* CALCIUM mg/dL 8.8 8.5* 9.1 PHOSPHORUS mg/dL -- -- 3.3 Results from last 7 days Lab Units 11/10/242120 AST U/L 49* ALT U/L 32 ALK PHOS U/L 59 BILIRUBIN TOTAL mg/dL 0.6 BILIRUBIN DIRECT mg/dL 0.1 Historical Values: (Includes values prior to this admission) Lab Results Component Value Date HDL 67 11/10/2024 LDL 90 11/10/2024 No results found for: [id number] , IRON , TIBC , C3 , C4 , KELLY , CANCA , ASO , PSA , CEA , CA125 , CA199 , AFP , CA153 Imaging CTA Chest W IV Contrast Narrative: CLINICAL INFORMATION: Chest pain COMPARISON: None TECHNIQUE: 100mL of Omnipaque 350 nonionic contrast injected intravenously without reported complication. Thin section axial images of the thorax obtained with multiplanar reformatted 3-D MIP images of the thorax generated under concurrent physician supervision and reviewed. Automatic exposure control (AEC) was utilized. FINDINGS: VASCULAR: Aorta: Ascending aorta measures approximately 3.3 cm. Mid descending aorta measures approximately 2.3 cm. No significant eccentric mural thickening though assessment for intraluminal hematomas limited to lack of precontrast imaging. No visualized dissection flap. Mild soft plaque of the descending thoracic aorta. At least moderate mixed plaque of the abdominal aorta. 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 The celiac origin appears occluded with large SMA/hepatic artery collaterals. 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 Aortic arch vessels: Patent brachycephalic trunk. Patent left including artery. Proximal neck great vessels appear patent. Pulmonary arteries: Normal in caliber. (more content not included)... [facility] 11-11-2024 Note Hospital Medicine Daily Progress Note - 11/11/2024 7:16 AM; Room: [address] [place] [address] Admission: 11/10/2024 8:26 PM; Length of stay: 1 days THE HOSPITALIST TEAM PREFERS TO USE [employer] FOR NON-URGENT COMMUNICATION 7AM-7PM. IF I DO NOT RESPOND WITHIN 20 MINUTES OR URGENT MATTERS, PLEASE CALL THROUGH THE COUNTRY SALES MANAGER. FROM 7PM-7AM, PLEASE PAGE [phone](COVR). Code Status: Full Code Barriers to Discharge: NSTEMI Expected Discharge Date: 2-3 days Discharge Destination: TBD Overview Patient is seen for evaluation and management of NSTEMI. Subjective Patient seen and examined. She is having some back pain but otherwise has not other complaints. No SOB, chest pain, fever Physical Exam Visit Vitals BP (!) 142/98 Pulse 69 Temp 36.5 ???C (97.7 ???F) (Temporal) Resp 14 Intake/Output Summary (Last 24 hours) at 11/11/2024 0716 Last data filed at 11/11/2024 0133 Gross per 24 hour Intake 218.4 ml Output -- Net 218.4 ml Estimated body mass index is 21.33 kg/m??? as calculated from the following: Height as of this encounter: 1.473 m (4' 10 ). Weight as of this encounter: 46.3 kg (102 lb 1.2 oz). Constitutional: NAD, AOx3 Eyes: EOMI, normal conjunctiva Mouth: Moist, no lesions CV: RRR, normal S1-S2, no murmurs Resp: CTA, no crackles or wheezing Abd: Soft, non-tender Extremities: BLE edema, 2+ distal pulses Skin : Warm, dry Neuro: AOx3, no focal deficits, spastic movements Psych: Appropriate mood and affect Active Inpatient Problems Principal Problem: NSTEMI (non-ST elevated myocardial infarction) (CMS/HCC) Active Problems: COVID-19 Assessment and Plan NSTEMI -Trop peak 1.12, EKG unremarkable -Placed on heparin infusion -BNP elevated, Pending TTE. Start lasix 40 PO -Cardiology consulted for catheterization but unfortunately we will not have this option until Tuesday at the earliest due to holiday weekend -May have diet Back pain -Low suspicion for dissection but obtain CT -Tylenol, morphine prn Anxiety -Resume home xanax -Will see if we can decrease home ambien Cerebral palsy -Ambulated with crutches VTE Prophylaxis: IV heparin Scheduled Meds baclofen, 10 mg, oral, TID metoprolol succinate XL, 25 mg, oral, q AM pantoprazole, 40 mg, oral, Daily heparin, 0-28 Units/kg/hr, Last Rate: 17 Units/kg/hr (11/11/24 0518) sodium chloride, 50 mL/hr, Last Rate: 50 mL/hr (11/11/24 0133) Pertinent Investigations Hematology: Results from last 7 days Lab Units 11/11/24 0355 11/10/24 2121 WBC AUTO 10*3/uL 9.13 5.01 HEMOGLOBIN g/dL 12.0 13.0 HEMATOCRIT % 35.5* 38.9 MCV fL 90.3 91.1 PLATELETS AUTO 10*3/uL 175 202 INR -- 1.09 Chemistry: Results from last 7 days Lab Units 11/11/24 0355 11/10/24 2121 SODIUM mmol/L 138 139 POTASSIUM mmol/L 3.8 4.2 CHLORIDE mmol/L 108* 107 CO2 mmol/L 22 24 BUN mg/dL 13 15 CREATININE mg/dL 0.41* 0.42* GLUCOSE mg/dL 100 139* MAGNESIUM mg/dL -- 1.8* CALCIUM mg/dL 8.5* 9.1 PHOSPHORUS mg/dL -- 3.3 Results from last 7 days Lab Units 11/10/24 2121 AST U/L 49* ALT U/L 32 ALK PHOS U/L 59 BILIRUBIN TOTAL mg/dL 0.6 BILIRUBIN DIRECT mg/dL 0.1 Historical Values: (Includes values prior to this admission) Lab Results Component Value Date HDL 67 11/10/2024 LDL 90 11/10/2024 No results found for: [id number] , IRON , TIBC , C3 , C4 , KELLY , CANCA , ASO , PSA , CEA , CA125 , CA199 , AFP , CA153 Imaging Electrocardiogram, 12-lead Normal sinus rhythm Normal ECG No previous ECGs available Discharge Planning Signed Jose Rafael Joshua MD Hospital Medicine 11/11/2024 7:16 AM [facility] 11-10-2024 Note Will continue hepari n drip Labs, EKG are ordered Echo and cardiology consult Patient will be kept n.p.o. after midnight in case she will need procedure tomorrow. [facility] 11-10-2024 Note Will follow-up on te st done at [facility] and manage accordingly. Afebrile. [facility] 11-10-2024 Note Hospital Medicine History and Physical 11/10/2024 9:03 PM THE HOSPITALIST TEAM PREFERS TO USE [employer] CHAT FOR NON-URGENT COMMUNICATION 7AM-7PM. IF I DO NOT RESPOND WITHIN 20 MINUTES OR URGENT MATTERS, PLEASE CALL THROUGH THE COUNTRY SALES MANAGER. FROM 7PM-7AM, PLEASE PAGE [phone](COVR). Chief Complaint No chief complaint on file. History of Present Illness Lorena Barahona is an 69 y.o. female who came from home with past medical history of cerebral palsy, wheelchair dependent, hypertension, anxiety and depression, tobacco dependence and protein calorie malnutrition presented as a direct admission from [facility] ER where initially patient presented today with complaints of generalized weakness, shortness of breath and chest pain. Patient states that she tested positive for COVID at home and she has multiple family members who are positive as well. In the ER, her COVID test was negative however we will recheck it again here at [facility]. Patient also had hallucinations as per family member who is present with the patient. Patient received IV fluids and states that she feels so much better. Her workup in the ER came back unremarkable except for significantly elevated troponin and ischemic changes on EKG. Patient was started on heparin drip and transferred to [facility] for cardiac catheterization. She states that her chest pain is much better now. She denies dysuria. Patient also had nausea for many days and intermittent vomiting. She also had loose stools. No fevers or chills. Patient was given 1 dose of dexamethasone at [facility] ER for COVID. No other complaints or concerns. Review of System and Physical Exam Physical Exam Constitutional: General: She is not in acute distress. Appearance: Normal appearance. HENT: Head: Normocephalic and atraumatic. Eyes: Conjunctiva/sclera: Conjunctivae normal. Cardiovascular: Rate and Rhythm: Normal rate and regular rhythm. Heart sounds: No murmur heard. No friction rub. No gallop. Pulmonary: Effort: Pulmonary effort is normal. No respiratory distress. Breath sounds: No wheezing, rhonchi or rales. Comments: Diminished breath sounds bilaterally. Abdominal: General: Abdomen is flat. There is no distension. Tenderness: There is no abdominal tenderness. Musculoskeletal: General: No swelling. Right lower leg: No edema. Left lower leg: No edema. Skin: General: Skin is warm and dry. Findings: No rash. Neurological: Mental Status: She is alert and oriented to person, place, and time. Mental status is at baseline. Psychiatric: Mood and Affect: Mood normal. Behavior: Behavior normal. Thought Content: Thought content normal. Judgment: Judgment normal. Review of Systems as mentioned in HPI Assessment and Plan Assessment & Plan NSTEMI (non-ST elevated myocardial infarction) (CMS/HCC) Will continue heparin drip Labs, EKG are ordered Echo and cardiology consult Patient will be kept n.p.o. after midnight in case she will need procedure tomorrow. COVID-19 Will follow-up on test done at [facility] and manage accordingly. Afebrile. Hypertension Cerebral palsy, wheelchair dependent Anxiety and depression Cigarette smoker Protein calorie malnutrition Plan: Patient is admitted to stepdown telemetry bed. Fall precautions. Cardiac diet. N.p.o. after midnight Home medications are resumed Boost 3 times daily Protonix 40 mg p.o. daily for GI prophylaxis EPC cuffs VTE Prophylaxis: IV heparin ----- Focus of this inpatient stay will remain on problems that need acute care setting for care. We will review available studies and will order additional labs, imaging and other studies as appropriate. As needed medicines are ordered as appropriate. VTE Prophylaxis will be ordered as appropriate. Please see above for management plan for individual hospital problems. Home medications are reviewed and will be continued as appropriate. Patient will be continued to be followed during this hospital stay by a member of [facility]. Past Medical History History reviewed. No pertinent past medical history. Past Surgical History History reviewed. No pertinent surgical history. Social History Social History Socioeconomic History Marital status: Other Spouse name: Not on file Number of children: Not on file Years of education: Not on file Highest education level: Not on file Occupational History Not on file Tobacco Use Smoking status: Some Days Types: Cigarettes Smokeless tobacco: Never Vaping Use Vaping status: Never Used Substance and Sexual Activity Alcohol use: Never Drug use: Never Sexual activity: Defer Other Topics Concern Not on file Social History Narrative Not on file Social Determinants of Health Financial Resource Strain: Low Risk (11/10/2024) Overall Financial Resource Strain (CARDIA) Difficulty of Paying Living Expenses: Not hard at all Food Insecurity (more content not included)... [facility] Evaluation note Diagnosis Onset Date Cerebral palsy acute Generalized anxiety disorder acute Hypertension [facility] Work Phone: Evaluation note* Diagnosis Onset Date Resolution Status Cerebral palsy acute Generalized anxiety disorder acute Hypertension acute Insomnia acute Bronchitis [facility] Work Phone: Evaluation note* Diagnosis Onset Date Resolution Status Bronchitis [facility] Work Phone: Summary Purpose Family History No Family History Records Found Relationship Condition Age at Onset Recorded Date/T claire father Heart disease Unknown Not Specified Malignant neoplasm Unknown Relationship Condition Age at Onset Recorded Date/T claire father Heart disease Unknown mother Malignant neoplasm Unknown Advance Directives No Advanced Directives Records Found Advance Directive Response Recorded Date/ Time Advance Directives No March 30 12:17pm Chief Complaint and Reason for Visit Chief Complaint Establish Reason for Visit Cerebral palsy Generalized anxiety disorder Hypertension Chief Complaint Establish [phone] cough, congestion, fever Reason for Visit Cerebral palsy Generalized anxiety disorder Hypertension Insomnia Bronchitis Chief Complaint [phone]- cough, congestion, fever 3 month f/u Reason for Visit Bronchitis Additional Source Comments INFORMATION SOURCE (unrecogn ized section and content) DATE CREATED AUTHOR 04/01/2023 [facility] DATE CREATED AUTHOR AUTHOR'S ORGANIZ ATION 01/19/2024 [facility] EPIC DATE CREATED AUTHOR AUTHOR'S ORGANIZ ATION 11/16/2024 [facility] Care Teams (unrecognized sec tion and content) Team Status: Active Member Role Status Dates Ro Dennison APRN ANIMAL SHELTER WORKER-C Primary Care Provider Active Team Status: Active Member Role Status Dates Kamar Gotti MD Attending Provider Active Start: March 05, 2024 Team Status: Inactive Member Role Status Dates Ro Dennison APRN ANIMAL SHELTER WORKER-C Primary Care Provider, Attending Provider Active Start: April 10, 2024 End: April 10, 2024 Team Status: Inactive Member Role Status Dates Ro Dennison APRN ANIMAL SHELTER WORKER-C Primary Care Provider, Attending Provider Active Start: April 16, 2024 End: April 16, 2024 Team Status: Active Member Role Status Dates Ro Dennison APRN ANIMAL SHELTER WORKER-C Primary Care Provider, Attending Provider Active Start: May 16, 2024 Team Status: Inactive Member Role Status Dates Ro Dennison APRN ANIMAL SHELTER WORKER-C Primary Care Provider, Attending Provider Active Start: [...] BE BASED ON THE PRIMARY CLINICAL RECORDS. [employer] provides no warranty or guarantee of the accuracy or completeness of information in this document.
[2024-11-21 17:21] LABS: Anion Gap 9.1; BUN Creatinine Ratio 29.8; Calcium 9.5 mg/dL (8.5-10.1); Chloride 104 mmol/L (98-107); Estimated GFR (African America >60 (>=60 mL/min/1.73m^2); Estimated GFR (Non-African Ame 59 (>=60 mL/min/1.73m^2); Glucose 99 mg/dL (74-106); Potassium 4.1 mmol/L (3.5-5.1); Sodium 144 mmol/L (136-145)
== END 2024-11-21 16:23 | disposition home or self-care (01) ==
LOC: LAB 16:23
PROVIDERS: PCP Nurse Practitioner Family; Visit Provider Nurse Practitioner Family
DX: I50.22 Chronic systolic (congestive) heart failure (principal)
CPT/HCPCS: 36415; 80048

== ENCOUNTER 2025-06-20 10:03 | Outpatient (OUT) | payer OTHER, SELFPAY ==
--- OUTSIDE RECORDS SUMMARY | 2025-06-20 10:06 | XMS_ITS | Clinical Summary ---
Demographics Address [address] [place] [address] Home Phone Mobile Phone Email Address Preferred Language en Marital Status Single Confucianist Affiliation Unknown Race White Ethnic Group Not or Lati no Author Organization [facility] Address [address] [place] [address] Care Team Providers Care Knitting Machine Tender Name Role Phone Ro Dennison NP Primary Care Provider [phone] Allergies No known active allergies Medications zolpidem (Ambien) 10 mg tablet Take 1 tablet by mouth in the morning. 10/06/20 Active baclofen (Lioresal) 10 mg tablet Take 1 tablet by mouth three times daily. Patient takes 10 mg two times a day and 20 mg at bedtime 10/06/20 Active multivitamin tablet Take 1 tablet by mouth in the morning. Active apixaban (Eliquis) 5 mg tabletIndications: Atrial fibrillation, unspecified type (CMS/HCC) Take 1 tablet (5 mg) by mouth two times daily. 60 tablet 11/15/19 25 Active dapagliflozin propanediol (Farxiga) 5 mgIndications:hear t failure Take 1 tablet (5 mg) by mouth in the morning. 30 tablet 11/17/19 25 Active atorvastatin (Lipitor) 40 mg tabletIndications: Mixed hyperlipidemia Take 1 tablet (40 mg) by mouth at bedtime. 11/22/19 25 Active apixaban (Eliquis) 2.5 mg tabletIndications: Atrial fibrillation, unspecified type (CMS/HCC) Take 1 tablet (2.5 mg) by mouth two times daily. 60 tablet 11 11/30/19 25 Active Additional Information Patient not taking.Reported on 01/01/2025 metoprolol succinate XL (Toprol-XL) 50 mg 24 hr tabletIndications: NSTEMI (non-ST elevated myocardial infarction) (CMS/HCC),COVID-19 ,Cigarette smoker,Diastolic dysfunction,Diffic ulty walking,Essential hypertension,Nonrh eumatic mitral valve regurgitation,Mild protein-calorie malnutrition,Anxie ty,Athetoid cerebral palsy (CMS/HCC) Take 1 tablet (50 mg) by mouth once daily as directed. Do not crush or chew. 90 tablet 3 12/10/19 25 026 Active furosemide (Lasix) 40 mg tabletIndications: Atrial fibrillation, unspecified type (CMS/HCC) Take 1 tablet (40 mg) by mouth in the morning. 90 tablet 3 12/10/19 25 026 Active aspirin 81 mg EC tabletIndications: Atrial fibrillation, unspecified type (CMS/HCC) Take 1 tablet (81 mg) by mouth once daily as directed. 90 tablet 3 12/10/19 25 026 Active ALPRAZolam (Xanax) 0.25 mg tablet 2.5 mg three times daily. 12/31/19 25 Active amiodarone (Pacerone) 200 mg tabletIndications: Atrial fibrillation, unspecified type (CMS/HCC) Take 1 tablet (200 mg) by mouth with breakfast. 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 after midnight in case she will need procedure tomorrow. COVID-19 11/10/2024 Assessment & Plan (11/10/2024 9:29 PM EST): Will follow-up on test done at [facility] and manage accordingly. Afebrile. 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 Chronic fatigue 04/18/2023 Cigarette smoker 04/18/2023 Contracture of Achilles tendon 04/18/2023 Contracture of left knee 04/18/2023 Diastolic dysfunction 04/18/2023 Difficulty walking 04/18/2023 Dysfunctions associated with sleep stages or arousal from sleep 04/18/2023 Hallux valgus (acquired), left foot 04/18/2023 Junctional premature beats 04/18/2023 Lung nodule 04/18/2023 Mild protein-calorie malnutrition 04/18/2023 Nonrheumatic mitral valve regurgitation 04/18/20 Osteopenia of spine 04/18/2023 Underweight 04/18/2023 Vitamin D deficiency 04/18/2023 Wheelchair dependence 04/18/2023 Irregular heart beats 04/18/2023 Anxiety 07/28/2020 Cerebral palsy 07/28/2020 Essential hypertension 07/28/2020 Heart murmur 07/28/2020 Tobacco dependence syndrome 07/28/2020 Palpitations 06/29/2019 Cardiac arrhythmia 06/07/2019 Encounters Date Type Department Care Team Description 04/18/2025 Orders Only [facility] [address] [place] [address] [facility] current use of amiodarone (Primary Dx) from Last 3 Months Family History Medical History Relation Name Comments Atrial fibrillation Father Relation Name Status Comments Father Alive Social History Tobacco Use Types Packs/Day Years Used Date Smoking Tobacco: Every Day Cigarettes Smokeless Tobacco: Never Tobacco Cessation:Ready to Q uit: Not Asked; Counseling Given: Not Answered Alcohol Use Standard Drinks/Week Comments Never 0 (1 standard drink = 0.6 oz pur e alcohol) [facility] Utilities Answer Date Recorded In the past 12 months has e Dmailer, gas, oil, or water [employer] threatened to shut off services in your home? No 11/10/2024 Humiliation, Afraid, Rape, and Kick questionnair e Answer Date Recorded Within the last year, have y ou been afraid of your partner or ex-partner? No 11/10/2024 Emotionally Abused Not on file 11/10/2024 Physically Abused Not on file 11/10/2024 Sexually Abused Not on file 11/10/2024 Overall Financial Resource Strain (CARDIA) Answe r Date Recorded How hard is it for you to pa y for the very basics like food, housing, medical care, and heating? Not hard at all 11/10/2024 Transportation Answer Date Recorded In the past 12 months, has l ack of transportation kept you from medical appointments or from getting medications? No 11/10/2024 Lack of Transportation (Non-Medical) Not on file 11/10/2024 Housing Stability Vital Sign Answer Noble e Recorded In the last 12 months, was t here a time when you were not able to pay the mortgage or rent on time? No 11/10/2024 Number of Times Moved in the Last Year Not on fi le 11/10/2024 At any time in the past 12 m [facility], were you homeless or living in a residential (including now)? No 11/10/2024 Hunger Vital Sign Answer Date Recorded Within the past 12 months, y ou worried that your food would run out before you got the money to buy more. Never true 11/10/19 25 Ran Out of Food in the Last Year Not on file 11/10/2024 Comments Unknown Sex and Gender Information Value Date Recorded Sex Assigned at Female 11/11/2024 9:34 AM EST Legal Sex Female 10:14 PM EDT Gender Identity Female 11/11/2024 9:34 AM EST Sexual Orientation Heterosexual or Straight 10/24 9:34 AM EST Last Filed Vital Signs Vital Sign Reading Time Taken Comments Blood Pressure 153/89 01/01/2025 11:13 AM EDT Pulse 60 01/01/2025 11:13 AM EDT Temperature 36.7 C (98.1 F) 11/16/2024 9:01 AM EST Respiratory Rate 16 11/16/2024 11:21 AM EST Oxygen Saturation 100% 01/01/2025 11:13 AM EDT Inhaled Oxygen Concentration - - Weight 43.1 kg (95 lb) 01/01/2025 11:13 AM EDT Height 147.3 cm (4' 10 ) 01/01/2025 11:13 AM EDT Body Mass Index 19.86 01/01/2025 11:13 AM EDT Plan of Treatment Health Maintenance Due Date Last Done Comments CT Colonography 1955 FIT-DNA 1955 FIT 1955 FOBT 1955 Sigmoidoscopy 1955 Depression Screening 1967 Pneumococcal Vaccine: 50+ Years (1 of 2 - PCV) 1974 Adult Tetanus 1977 Zoster Vaccines (1 of 2) 2005 Mammogram 04/21/2024 04/21/2022 COVID-19 Vaccine (4 - 2023-2 5 season) 2024 09/15/2021, 01/31/2021, 01/03/2021 Influenza Vaccine (#1) 2025 Fall Risk Screening 11/16/2025 11/16/2024 Colonoscopy 12/12/2029 12/12/2019 Colorectal Cancer Screening 12/12/2029 HIB Vaccines Aged Out No longer eligi ble based on patient's age to complete this topic HPV Vaccines Aged Out No longer eligi ble based on patient's age to complete this topic IPV Vaccines Aged Out No longer eligi ble based on patient's age to complete this topic Meningococcal B Vaccine Aged Out No l onger eligible based on patient's age to complete this topic Meningococcal Vaccine Aged Out No erik maria l eligible based on patient's age to complete this topic Rotavirus Vaccines Aged Out No longer eligible based on patient's age to complete this topic Insurance * Guarantor: Lorena Barahona Account Type Relation to Patient Date of Phone Billing Address Personal/Family Self 1955 [address] [place] [address] [facility] MEDICAID Advance Directives * Full Code (Latest Code Status on File) Date Activated Date Inactivated Comments 11/10/2024 9:03 PM 11/16/2024 4:26 PM Care Teams Knitting Machine Tender Relationship Specialty Start Date End Date Ro Dennison NP [address] [id number] PCP - General Family Medicine 11/11/24
--- NOTE | 2025-06-20 10:17 | MM_ITS ---
Patient Name: SCOTTY KERN MR#: [id number] : 1955 Exam Date: 06/20/2025 Ordering Doctor: SKY MOONEY BUSINESS ADMINISTRATOR-C RADIOLOGY REPORT PROCEDURE: MM SCREENING MAMMO BI COMPARISON: MM SCREENING MAMMO BI, 05/16/2024. MG MAMM SCREEN GET W CAD, 04/21/2022. MG MAMM SCREEN GET W CAD, 11/29/2017. INDICATIONS: Screening Calculator Name NCI Breast Cancer Risk Assessment Tool 5 Year Breast Cancer Risk 1.70% Lifetime Breast Cancer Risk 4.90% Personal Breast Cancer No Personal Ovarian Cancer No Treatments None Family Cancers Mother with ovarian cancer at age 52; Aunt-maternal with pancreas cancer at age 60. LOCATION: [facility] BREAST COMPOSITION: The breasts are heterogeneously dense, which may obscure small masses. FINDINGS: RIGHT BREAST: No significant suspicious finding. LEFT BREAST: No significant suspicious finding. DIAGNOSTIC CATEGORY 1--NEGATIVE. RECOMMENDATIONS: ROUTINE MAMMOGRAM AND CLINICAL EVALUATION IN 12 MONTHS. Dictated by: Nitish Pablo DO on 06/20/2025 at 16:16 Approved by: Nitish Pablo DO on 06/20/2025 at 16:17
--- NOTE | 2025-06-20 10:17 | CT_ITS ---
The [address] [address] Patient Name: SCOTTY KERN MRN: [id number] date: 1955 Sex: F Assigned Patient Location: CT Current Patient Location: Accession/Order Number: [id number] Exam Date: 06/20/2025 10:28 Report Date: 06/21/2025 09:15 At the request of: SKY MOONEY Procedure: CT lung screening low-dose LOW-DOSE SCREENING CHEST CT WITHOUT CONTRAST COMPARISON: 07/06/2022 CLINICAL DATA: Current smoker for over 30 years. Spiral axial unenhanced low-dose images were obtained through the chest. Images were reviewed using both narrow and wide window settings. This CT exam was performed using one or more following dose reduction techniques: Automated exposure control, adjustment of the mA and/or kV according to patient size, or use of iterative reconstruction technique. The heart is normal size. No pericardial effusion is seen. There is no aortic aneurysm. There is minor plaque at the aortic arch and proximal great vessels. A few small scattered mediastinal lymph nodes are again seen. There is reverse S-shaped lumbar scoliotic curvature and mild degenerative changes in spine. There is similar apical scarring. Additional scarring and/or atelectasis is seen at the lung bases. No new consolidation, pleural effusion or pneumothorax is seen. There are airspace lucencies compatible with obstructive lung disease. Similar calcified and noncalcified pulmonary nodules are visualized bilaterally measuring up to 5 mm in size at the right lower lobe. There is a possible new groundglass nodule at the right anterolateral costophrenic angle measuring 4 mm in size (axial image 121). Limited cuts through the upper abdomen show no contributory findings. CT/CT lung screening low-dose IMPRESSION: OBSTRUCTIVE LUNG DISEASE WITH SCARRING AND POSSIBLE ATELECTASIS. SIMILAR SCATTERED PULMONARY NODULES WITH A POTENTIAL NEW NODULE WITHIN THE MIDDLE LOBE ON THE RIGHT. Lung RADS category 2 - benign Twelve-month low-dose CT follow-up suggested Impression dictated by: Renu Robles M.D. 06/21/2025 9:15 AM Dictation Location: [email or web address] Math Electronically authenticated by: [id number] Y Date: 06/21/2025 09:15
--- OUTSIDE RECORDS SUMMARY | 2025-06-20 10:27 | XMS_ITS | CCD ---
Demographics Address [facility] [address] [place] [id number] Phone Preferred Language en Marital Status Single Episcopalian Affiliation Unknown Race White Ethnic Group Not or Lati no Author Organization [facility] CliniSyil Care Team Providers Care Fare Register Repairer Name Role Phone DEREK ., DR ESPINOZA Admitting Unavailable HEMEYER ., DR ESPINOZA Attending Unavailable HEMEYER ., DR ESPINOZA Primary Care Unavailable HEMEYER ., DR ESPINOZA Attending Unavailable HEMEYER ., DR ESPINOZA Consulting Unavailable HEMEYER ., DR ESPINOZA Primary Care Unavailable HEMEYER ., DR ESPINOZA Admitting Unavailable JOHN, DR VICKI Fulton Consulting Unavailable HEMEYER ., DR ESPINOZA Admitting Unavailable HEMEYER ., DR ESPINOZA Attending Unavailable HEMEYER ., DR ESPINOZA Consulting Unavailable HEMEYER ., DR ESPINOZA Primary Care Unavailable SYBIL, DR RENARD Vincent Consulting Unavailable SUKHJINDER, DR ESTUARDO Sim Attending Unavailabl e SUSHANT, DR WAYNE Vincent Consulting Unavailable SUKHJINDER, DR ESTUARDO Sim Admitting Unavailabl e HEMEYER ., DR ESPINOZA Primary Care Unavailable SUKHJINDER, DR ESTUARDO Sim Consulting Unavailabl BEATRIZ Shafer Consulting Unavailable FANNYYER, OLGA Grace Attending Unavailable FANNYYEROLGA Attending Unavailable SHEILA, LOUISAI Referring Unavailable ZHENG PAT Referring Unavailable HORCODY HAY Admitting Unavailable SHEILARENEE Villanueva Attending Unavailable LOUISA MURRYI Referring Unavailable MADHAVI AIKEN Referring Unavailabl ERIS Hernandez Attending Unavailable BRANDON VARGAS Attending Unavailable JENNIFER, JOSE RAFAEL T Referring Unavailable JENNIFER, JOSE RAFAEL T Referring Unavailable JENNIFER, JOSE RAFAEL T Referring Unavailable MADHAVI AIKEN Referring Unavailabl TASHI Madrid Referring Unavailable BEN MONTES Referring Unavailable Ro Dennison APRN Primary Care Provider Ro Dennison APRN Attending Provider Medications Current Medications Medication Drug Class(es) Dates Sig (Normalized) Sig (Original) ALPRAZolam 0.25 mg oral tablet (20 sources) Benzodiazepine Start: 04-10-2024 End: 05-24-2025 take 0.5-1 tablets by mouth three times daily as needed for anxiety Alprazolam 0.25 mg tablet Active 0 PO Three times daily as needed for anxiety May 24, 2025 12:20pm 0.5-1 tablet orally three times daily PRN; Complies with drug therapy aspirin 81 mg delayed release oral tablet (3 sources) Platelet Aggregation Inhibitor, Nonsteroidal Anti-inflammatory Drug Start: 11-27-2024 take 1 tablet by mouth once daily Aspirin (Adult Aspirin Regimen) 81 mg tablet,delayed release (DR/EC) Active 81 MG PO Daily November 27, 2024 1:00am Complies with drug therapy baclofen 10 mg oral tablet (14 sources) gamma-Aminobutyric Acid-ergic Agonist Start: 04-10-2024 End: 06-05-2025 Baclofen 10 mg tablet Active 0 PO Three times daily June 05, 2025 4:03pm 1 tablet in AM, 1 tablet at noon, and 2 tablets at bedtime orally three times daily; Complies with drug therapy Crutches unit (6 sources) Start: 11-27-2024 Crutches unit Active 0 .Route November 27, 2024 4:12pm As directed Start: 11-27-2024 Crutches unit Active 0 .Route November 27, 2024 3:12pm As directed Start: 11-27-2024 End: 11-27-2024 Crutches unit Discontinued 0 .Route November 27, 2024 1:00am November 27, 2024 4:12pm As directed Start: 11-27-2024 End: 11-27-2024 Crutches unit Discontinued 0 .Route November 27, 2024 12:00am November 27, 2024 3:12pm As directed 24 hr metoprolol succinate 25 mg extended release oral tablet (18 sources) beta-Adrenergic Ricardo Start: 11-27-2024 Metopr olol Succinate 25 mg tablet extended release 24 hr Active 50 MG PO Daily November 27, 2024 2:59pm Complies with drug therapy Start: 04-10-2024 End: 11-27-2024 take 1 tablet by mouth once daily Metoprolol Succinate 25 mg tablet extended release 24 hr Discontinued 25 MG PO Daily April 10, 2024 2:03pm October 25, 2024 3:29pm Multivitamin (Multiple Vitamins) tablet (3 sources) Start: 11-27-2024 take 1 tablet by mouth once daily Multivitamin (Multiple Vitamins) tablet Active 1 TAB PO Daily November 27, 2024 1:00am Complies with drug therapy Start: 11-27-2024 take 1 tablet by jovana th once daily Multivitamin (Multiple Vitamins) tablet Active 1 TAB PO Daily November 27, 2024 1:00am Start: 11-27-2024 take 1 tablet by jovana th once daily Multivitamin (Multiple Vitamins) tablet Active 1 TAB PO Daily November 27, 2024 12:00am zolpidem tartrate 10 mg oral tablet (20 sources) gamma-Aminobutyric Acid-ergic Agonist Start: 04-10-2024 End: 05-24-2025 take 1 tablet by mouth once daily at bedtime Zolpidem 10 mg tablet Active 10 MG PO Daily at bedtime May 24, 2025 12:20pm Complies with drug therapy Completed/Discontinued Medications Medication Drug Class(es) Dates Sig (Normalized) Sig (Original) amiodarone hydrochloride 200 mg oral tablet (5 sources) Antiarrhythmic Start: 11-29-2024 End: 06-05-2025 take 1 tablet by mouth once daily Amiodarone 200 mg tablet Discontinued 200 MG PO Daily November 29, 2024 11:08am June 05, 2025 3:35pm Start: 11-27-2024 End: 11-29-2024 take 1 tablet by mouth twice daily Amiodarone 200 mg tablet Discontinued 200 MG PO Twice daily November 27, 2024 1:00am November 29, 2024 11:08am azithromycin 250 mg oral tablet (5 sources) Macrolide Antimicrobial Start: 04-16-2024 End: 07-12-2024 Azithromycin 250 mg tablet Discontinued 250 MG PO daily 03 28April 16, 2024 12:00am July 12, 2024 11:35am take 2 today and then 1 for the next 4 days. benzonatate 200 mg oral capsule (5 sources) Non-narcotic Antitussive Start: 04-16-2024 End: 07-12-2024 take 1 capsule by mouth three times daily as needed for cough Benzonatate 200 mg capsule Discontinued 200 MG PO Three times daily as needed for cough 22 08April 16, 2024 12:00am July 12, 2024 11:35am escitalopram 10 mg oral tablet (12 sources) Serotonin Reuptake Inhibitor Start: 04-10-2024 End: 07-12-2024 take 1 tablet by mouth once daily Escitalopram Oxalate 10 mg tablet Discontinued 10 MG PO Daily April 10, 2024 2:02pm July 12, 2024 11:36am furosemide 40 mg oral tablet (3 sources) Loop Diuretic Start: 11-27-2024 End: 06-05-2025 take 1 tablet by mouth once daily Furosemide 40 mg tablet Discontinued 40 MG PO Daily November 27, 2024 1:00am June 05, 2025 3:36pm Problems Active Problems Problem Classification Problem Date Documented Da te Episodic/Chronic Acute myocardial infarction (5 sources) Myocardial infarction; Translations: [Non-ST elevation (NSTEMI) myocardial infarction] Onset: 11-10-2024 11-29-2024 Chronic Anxiety disorders (19 sources) Generalized anxiety disorder; Translations: [Generalized anxiety disorder] Onset: 11-10-2024 04-10-2024 Chronic Cardiac dysrhythmias (14 sources) Cardiac arrhythmia; Translations: [Cardiac arrhythmia, unspecified] Onset: 11-10-2024 04-10-2024 Chronic Chronic obstructive pulmonary disease and bronchiectasis (7 sources) Bronchitis; Translations: [Bronchitis, not specified as acute or chronic] 04-16-2024 Episodic Congestive heart failure; nonhypertensive (6 sources) Heart failure; Translations: [Heart failure, unspecified] Onset: 11-22-2024 11-29-2024 Chronic Disorders of lipid metabolism (2 sources) Mixed hyperlipidemia; Translations: [Mixed hyperlipidemia] Onset: 11-10-2024 Chronic Essential hypertension (14 sources) Hypertensive disorder; Translations: [Essential (primary) hypertension] Onset: 11-10-2024 04-10-2024 Chronic Heart valve disorders (2 sources) Nonrheumatic mitral (valve) insufficiency; Translations: [Nonrheumatic mitral (valve) insufficiency] Onset: 11-10-2024 Chronic Hypertension with complications and secondary hypertension (2 sources) Hypertensive heart disease with heart failure; Translations: [Hypertensive heart disease with heart failure] Onset: 11-22-2024 Chronic Malaise and fatigue (1 source) Chronic [...] CURR PATH FX] Onset: 04-23-2022 Chronic Other aftercare (2 sources) Post-discharge follow-up; Translations: [Encounter for follow-up examination after completed treatment for conditions other than malignant neoplasm] 11-29-2024 Episodic Other aftercare (1 source) Encounter for follow-up examination after completed treatment for conditions other than malignant neoplasm; Translations: [Other follow-up examination] 11-27-2024 Episodic Other and ill-defined heart disease (2 sources) Takotsubo syndrome; Translations: [Takotsubo syndrome] Onset: 11-22-2024 Chronic Other and ill-defined heart disease (2 [...] conditions (not mental disorders or infectious disease) (20 sources) Encounter for screening mammogram for malignant neoplasm of breast; Translations: [Encounter for screening for osteoporosis] Onset: 04-21-2022 Episodic Paralysis (14 sources) Cerebral palsy, unspecified; Translations: [Cerebral palsy] Onset: 06-22-2022 04-10-2024 Chronic Tracee-; endo-; and myocarditis; cardiomyopathy (except that caused by tuberculosis or sexually transmitted disease) (2 sources) Other cardiomyopathies; Translations: [Other cardiomyopathies] Onset: 11-22-2024 Chronic Peripheral and visceral atherosclerosis (5 sources) Vascular disease of abdomen; Translations: [Atherosclerosis of other arteries] Onset: 11-22-2024 5 Chronic Residual codes; unclassified (7 sources) Insomnia; Translations: [Insomnia, unspecified] 04-10-2024 Episodic Residual codes; unclassified (6 sources) Postmenopausal state; Translations: [Asymptomatic menopausal state] 04-10-2024 Episodic Residual codes; unclassified (3 sources) Insomnia, unspecified; Translations: [Insomnia, unspecified] 04-10-2024 Episodic Residual codes; unclassified (3 sources) Noncompliance with treatment; Translations: [Noncompliance] 11-29-2024 Episodic Substance-related disorders (9 sources) Nicotine dependence, cigarettes, uncomplicated; Translations: [Nicotine dependence] Onset: 06-22-2022 Chronic Unclassified (1 source) CONTACT W/AND (SUSP) EXPOS COVID-19; Translations: [CONTACT W/AND (SUSP) EXPOS COVID-19] Onset: 06-22-2022 Viral infection (2 sources) COVID-19; Translations: [COVID-19] Onset: 11-10-2024 Past or Other Problems Problem Classification Problem Date Documented Da te Episodic/Chronic Noninfectious gastroenteritis (1 source) Noninfective gastroenteritis and colitis, unspecified; Translations: [NONINFECTIVE GE AND COLITIS UNS] Onset: 06-22-2022 Episodic Other aftercare (1 source) Other retirement (current) drug therapy; Translations: [OTH MAGISTRATE CURRENT DRUG THERAPY] Onset: 06-22-2022 Episodic Other [...] Test Name Value Interpretation Reference Range Facility Office Visiton 01-01-2025 Follow-up visit [id number] Lorena Barahona 1955 F Date Provider Department Center 01/01/2025 241-ERIS LOPES NIGEL [facility] Family History Problem Relation Age of Onset Atrial fibrillation Father Family Status - Relation Status Age at Father Alive Level of Service:13422 [facility] OFFICE/OUTPATIENT NEW MODERATE MDM 45 MINUTES Normal [facility] Estimated glomerular filtrat ion rate (GFR) non- Americanon 11-21-2024 GFR/1.73 sq M.predicted among non-blacks MDRD (S/P/Bld) [Vol rate/Area] Estimated glomerular filtration rate (GFR) non- Low >=60 mL/min/1.73m 2 [facility] Laboratory - Chemistry and C hemistry - challengeon 11-21-2024 Calcium [Mass/Vol] 9.5 mg/dL 8.5-10.1 [facility] Chloride [Moles/Vol] 104 mmol/L 98-107 [facility] CO2 [Moles/Vol] 35.0 mmol/L High 21.0-32.0 [facility] Creatinine [Mass/Vol] 0.94 mg/dL 0.55-1.02 [facility] GFR/1.73 sq M.predicted MDRD (S/P/Bld) [Vol rate/Area] mL/min/{1.73_m2} >=60 mL/min/1.73m 2 [facility] Glucose [Mass/Vol] 99 mg/dL 74-106 [facility] Potassium [Moles/Vol] 4.1 mmol/L 3.5-5.1 [facility] Sodium [Moles/Vol] 144 mmol/L 136-145 [facility] Urea nitrogen [Mass/Vol] 28.0 mg/dL High 7.0-18.0 [facility] Urea nitrogen/Creatinine [Mass ratio] 29.8 mg/mg [facility] Office Visiton 11-21-2024 Follow-up visit [id number] Lorena Barahona 1955 F Date Provider Department Center 11/21/2024 Sebastián-BRANDON VARGAS NIGEL [facility] Family History Problem Relation Age of Onset Atrial fibrillation Father Family Status - Relation Status Age at Father Alive Level of Service:55957 [facility] OFFICE/OUTPATIENT ESTABLISHED MOD MDM 30 MIN Reason for Visit and Comments: Hospital Follow-up [832] Congestive Heart Failure [127] Atrial Fibrillation [80] Normal [facility] Serum or plasma anion gap de terminationon 11-21-2024 Anion gap [Moles/Vol] Serum or plasma anion gap determination [facility] 30on 11-16-2024 30 Heavy Equipment Service Manager called and talked to purification supervisor Dr Trujillo, and Dr Lopes, Heavy Equipment Service Manager was told that patient no longer needs to discharge on cardiac event monitor and that they are working on discontinuing the orders at this time. Normal [facility] 30 The patient is Moderately Stable - Low risk of patient condition declining or worsening The patient's goals for the shift include comfort and rest The clinical goals for the shift include stable vs Over the shift, the patient did not make progress toward the following goals. Barriers to progression include na. Recommendations to address these barriers include na. Normal [facility] BASIC METABOLIC PANELon 10-25 Anion gap [Moles/Vol] 10 mmol/L Normal 7-20 [facility] Comment on above: Performed By: #### L [id number] #### [facility] ([facility]) [address] [place] [address] Calcium [Mass/Vol] 8.8 mg/dL Normal 8.6-10.3 [facility] Comment on above: Performed By: #### L [id number] #### [facility] ([facility]) [address] [place] [address] Chloride [Moles/Vol] 106 mmol/L Normal 98-107 [facility] Comment on above: Performed By: #### L [id number] #### [facility] ([facility]) [address] [place] [address] CO2 [Moles/Vol] 27 mmol/L Normal 21-31 [facility] Comment on above: Performed By: #### L [id number] #### [facility] ([facility]) [address] [place] [address] Creatinine [Mass/Vol] 0.61 mg/dL Normal 0.60-1.20 [facility] Comment on above: Performed By: #### L [id number] #### [facility] ([facility]) [address] [place] [address] GLOMERULAR FILTRATION RATE ML/MIN/1.73 SQ M.PREDICTED 96.7 mL/min/1.73m*2 Normal >60.0 [facility] Comment on above: Result Comment: The [facility]???s estimated glomerular filtration rate (eGFR) will no [...] group of individuals. Performed By: #### L [id number] #### [facility] ([facility]) [address] [place] [address] Glucose [Mass/Vol] 96 mg/dL Normal 70-100 [facility] Comment on above: Performed By: #### L [id number] #### [facility] ([facility]) [address] [place] [address] Potassium [Moles/Vol] 4.0 mmol/L Normal 3.5-5.1 [facility] Comment on above: Performed By: #### L [id number] #### [facility] ([facility]) [address] [place] [address] Sodium [Moles/Vol] 139 mmol/L Normal 136-145 [facility] Comment on above: Performed By: #### L [id number] #### [facility] ([facility]) [address] [place] [address] Urea nitrogen [Mass/Vol] 36 mg/dL High 7-25 [facility] Comment on above: Performed By: #### L [id number] #### [facility] ([facility]) [address] [place] [address] UREA NITROGEN/CREATININE (MASS RATIO) IN SER/PLAS 59.0 Normal [facility] Comment on above: Performed By: #### L [id number] #### [facility] ([facility]) [address] [place] [address] CBC WITH AUTO DIFFERENTIALon 11-16-2024 Basophils (Bld) [#/Vol] 0.06 10*3/uL Normal 0.00-0.20 [facility] Comment on above: Performed By: #### L [id number] #### [facility] ([facility]) [address] [place] [address] Basophils/100 WBC (Bld) 0.8 % Normal 0.0-1.0 [facility] Comment on above: Performed By: #### L [id number] #### [facility] ([facility]) [address] [place] [address] Eosinophils (Bld) [#/Vol] 0.17 10*3/uL Normal 0.00-0.50 [facility] Comment on above: Performed By: #### L [id number] #### [facility] ([facility]) [address] [place] [address] Eosinophils/100 WBC (Bld) 2.1 % Normal 0.0-6.0 [facility] Comment on above: Performed By: #### L [id number] #### [facility] ([facility]) [address] [place] [address] Erythrocyte distribution width (RBC) [Ratio] 13.3 % Normal 11.5-15.0 [facility] Comment on above: Performed By: #### L [id number] #### [facility] ([facility]) [address] [place] [address] ERYTHROCYTE MEAN CORPUSCULAR HEMOGLOBIN CONCENTRATION (G/DL) BY AUTOMATED 32.9 g/dL Normal 32.0-35.0 [facility] Comment on above: Performed By: #### L [id number] #### [facility] ([facility]) [address] [place] [address] Hematocrit (Bld) [Volume fraction] 38.3 % Normal 36.0-48.0 [facility] Comment on above: Performed By: #### L [id number] #### [facility] ([facility]) [address] [place] [address] Hemoglobin (Bld) [Mass/Vol] 12.6 g/dL Normal 12.0-15.0 [facility] Comment on above: Performed By: #### L [id number] #### [facility] ([facility]) [address] [address] Immature granulocytes (Bld) [#/Vol] 0.05 10*3/uL Normal 0.00-0.20 [facility] Comment on above: Performed By: #### L [id number] #### [facility] ([facility]) [address] [place] [address] Immature granulocytes/100 WBC (Bld) 0.6 % Normal 0.0-1.0 [facility] Comment on above: Performed By: #### L [id number] #### [facility] ([facility]) [address] [place] [address] Lymphocytes (Bld) [#/Vol] 2.13 10*3/uL Normal 1.20-4.00 [facility] Comment on above: Performed By: #### L [id number] #### [facility] ([facility]) [address] [place] [address] Lymphocytes/100 WBC (Bld) 26.7 % Normal 20.0-45.0 [facility] Comment on above: Performed By: #### L [id number] #### [facility] ([facility]) [address] [place] [address] MCH (RBC) [Entitic mass] 30.3 pg Normal 27.0-33.0 [facility] Comment on above: Performed By: #### L [id number] #### [facility] [address] [place] [address] MCV (RBC) [Entitic vol] 92.1 fL Normal 82.0-98.0 [facility] Comment on above: Performed By: #### L [id number] #### [facility] ([facility]) [address] [place] [address] Monocytes (Bld) [#/Vol] 0.77 10*3/uL Normal 0.10-1.00 [facility] Comment on above: Performed By: #### L [id number] #### [facility] ([facility]) [address] [place] [address] Monocytes/100 WBC (Bld) 9.6 % Normal 5.0-12.0 [facility] Comment on above: Performed By: #### L [id number] #### [facility] ([facility]) [address] [place] [address] Neutrophils (Bld) [#/Vol] 4.81 10*3/uL Normal 1.60-7.60 [facility] Comment on above: Performed By: #### L [id number] #### [facility] ([facility]) [address] [place] [address] Neutrophils/100 WBC (Bld) 60.2 % Normal 40.0-72.0 [facility] Comment on above: Performed By: #### L [id number] #### [facility] ([facility]) [address] [place] [address] NRBC (PER 100 WBCS) BY AUTOMATED COUNT 0.0 % Normal 0 [facility] Comment on above: Performed By: #### L [id number] #### [facility] ([facility]) [address] [place] [address] PLATELETS (10*3/UL) IN BLOOD AUTOMATED COUNT 201 10*3/uL Normal 150-400 [facility] Comment on above: Performed By: #### L [id number] #### [facility] [address] [place] [address] RBC (Bld) [#/Vol] 4.16 10*6/uL Normal 3.80-5.00 [facility] Comment on above: Performed By: #### L [id number] #### [facility] ([facility]) [address] [place] [address] WBC (Bld) [#/Vol] 7.99 10*3/uL Normal 4.00-10.60 [facility] Comment on above: Performed By: #### L [id number] #### [facility] ([facility]) [address] [place] [address] MAGNESIUMon 11-16-2024 Magnesium [Mass/Vol] 2.2 mg/dL Normal 1.9-2.7 [facility] Comment on above: Performed By: #### L [id number] #### [facility] ([facility]) [address] [place] [address] 30on 11-15-2024 30 The patient is Moderately Stable - Low risk of patient condition declining or worsening The patient's goals for the shift include comfort and rest The clinical goals for the shift include stable vs Over the shift, the patient did make progress toward her goals. Normal [facility] 30 Daily Case Managemen t Update Multidisciplinary [...] 11/12/24 1424 Special Kitchen Request Once Comments: Insurance Adviser salad with swedish. Hot tea, chocolate pudding 11/12/24 1424 11/12/24 1216 Special Kitchen Request Once Comments: Insurance Adviser salad with swedish. Hot tea, chocolate pudding 11/12/24 1216 11/11/24 1215 Special Kitchen Request Once Comments: Grilled cheese on wheat, baked lays, bottle water, orange sherbet 11/11/24 1215 11/11/24 0916 Special Kitchen Request Once Comments: Scrambled eggs, toast with butter and jelly, decaf coffee, turkey sausage, sugar and cream 11/11/24 0911/10/24 213 Dietary nutrition supplements All meals; Boost Plus; 8 oz; Oral Until discontinued Question Answer Comment Deliver with All meals Select supplement: Boost Plus Strength: 8 oz Route Oral 11/10/242129 Physician Expected Discharge Date: 11/13/2024 Discharge Delays: PT Six Click Score: 13 OT Six Click Score: PT Recommendations: OT Recommendations: New Consults: Normal [facility] 30 The patient is Moderately Stable - [...] and maintained or improved Outcome: Progressing Normal [facility] BASIC METABOLIC PANELon 10-25 Anion gap [Moles/Vol] 12 mmol/L Normal 7-20 [facility] Comment on above: Performed By: #### L [id number] #### [facility] [address] [place] [address] Calcium [Mass/Vol] 9.2 mg/dL Normal 8.6-10.3 [facility] Comment on above: Performed By: #### L [id number] #### [facility] ([facility]) [address] [place] [address] Chloride [Moles/Vol] 103 mmol/L Normal 98-107 [facility] Comment on above: Performed By: #### L [id number] #### [facility] ([facility]) [address] [place] [address] CO2 [Moles/Vol] 27 mmol/L Normal 21-31 [facility] Comment on above: Performed By: #### L [id number] #### [facility] ([facility]) [address] [place] [address] Creatinine [Mass/Vol] 0.63 mg/dL Normal 0.60-1.20 [facility] Comment on above: Performed By: #### L [id number] #### [facility] ([facility]) [address] [place] [address] GLOMERULAR FILTRATION RATE ML/MIN/1.73 SQ M.PREDICTED 96.0 mL/min/1.73m*2 Normal >60.0 [facility] Comment on above: Result Comment: The [facility]???s estimated glomerular filtration rate (eGFR) will no [...] group of individuals. Performed By: #### L [id number] #### [facility] ([facility]) [address] [place] [address] Glucose [Mass/Vol] 113 mg/dL High 70-100 [facility] Comment on above: Performed By: #### L [id number] #### [facility] ([facility]) [address] [place] [address] Potassium [Moles/Vol] 4.1 mmol/L Normal 3.5-5.1 [facility] Comment on above: Performed By: #### L [id number] #### [facility] ([facility]) [address] [place] [address] Sodium [Moles/Vol] 138 mmol/L Normal 136-145 [facility] Comment on above: Performed By: #### L [id number] #### [facility] ([facility]) [address] [place] [address] Urea nitrogen [Mass/Vol] 29 mg/dL High 7-25 [facility] Comment on above: Performed By: #### L [id number] #### [facility] [facility] ([facility]) [address] [place] [address] UREA NITROGEN/CREATININE (MASS RATIO) IN SER/PLAS 46.0 Normal [facility] Comment on above: Performed By: #### L [id number] #### [facility] ([facility]) [address] [place] [address] CBC WITH AUTO DIFFERENTIALon 11-15-2024 Basophils (Bld) [#/Vol] 0.06 10*3/uL Normal 0.00-0.20 [facility] Comment on above: Performed By: #### L [id number] #### [facility] ([facility]) [address] [place] [address] Basophils/100 WBC (Bld) 0.8 % Normal 0.0-1.0 [facility] Comment on above: Performed By: #### L [id number] #### [facility] ([facility]) [address] [place] [address] Eosinophils (Bld) [#/Vol] 0.26 10*3/uL Normal 0.00-0.50 [facility] Comment on above: Performed By: #### L [id number] #### [facility] [address] [place] [address] Eosinophils/100 WBC (Bld) 3.5 % Normal 0.0-6.0 [facility] Comment on above: Performed By: #### L [id number] #### [facility] [address] [place] [address] Erythrocyte distribution width (RBC) [Ratio] 13.4 % Normal 11.5-15.0 [facility] Comment on above: Performed By: #### L [id number] #### [facility] ([facility]) [address] [place] [address] ERYTHROCYTE MEAN CORPUSCULAR HEMOGLOBIN CONCENTRATION (G/DL) BY AUTOMATED 33.3 g/dL Normal 32.0-35.0 [facility] Comment on above: Performed By: #### L [id number] #### [facility] ([facility]) [address] [place] [address] Hematocrit (Bld) [Volume fraction] 41.1 % Normal 36.0-48.0 [facility] Comment on above: Performed By: #### L [id number] #### [facility] ([facility]) [address] [place] [address] Hemoglobin (Bld) [Mass/Vol] 13.7 g/dL Normal 12.0-15.0 [facility] Comment on above: Performed By: #### L [id number] #### [facility] ([facility]) [address] [address] Immature granulocytes (Bld) [#/Vol] 0.03 10*3/uL Normal 0.00-0.20 [facility] Comment on above: Performed By: #### L [id number] #### [facility] ([facility]) [address] [place] [address] Immature granulocytes/100 WBC (Bld) 0.4 % Normal 0.0-1.0 [facility] Comment on above: Performed By: #### L [id number] #### [facility] ([facility]) [address] [place] [address] Lymphocytes (Bld) [#/Vol] 2.32 10*3/uL Normal 1.20-4.00 [facility] Comment on above: Performed By: #### L [id number] #### [facility] ([facility]) [address] [place] [address] Lymphocytes/100 WBC (Bld) 31.1 % Normal 20.0-45.0 [facility] Comment on above: Performed By: #### L [id number] #### [facility] ([facility]) [address] [place] [address] MCH (RBC) [Entitic mass] 30.6 pg Normal 27.0-33.0 [facility] Comment on above: Performed By: #### L [id number] #### [facility] ([facility]) [address] [place] [address] MCV (RBC) [Entitic vol] 91.7 fL Normal 82.0-98.0 [facility] Comment on above: Performed By: #### L [id number] #### [facility] ([facility]) [address] [place] [address] Monocytes (Bld) [#/Vol] 0.76 10*3/uL Normal 0.10-1.00 [facility] Comment on above: Performed By: #### L [id number] #### [facility] ([facility]) [address] [address] Monocytes/100 WBC (Bld) 10.2 % Normal 5.0-12.0 [facility] Comment on above: Performed By: #### L [id number] #### [facility] ([facility]) [address] [place] [address] Neutrophils (Bld) [#/Vol] 4.03 10*3/uL Normal 1.60-7.60 [facility] Comment on above: Performed By: #### L [id number] #### [facility] ([facility]) [address] [place] [address] Neutrophils/100 WBC (Bld) 54.0 % Normal 40.0-72.0 [facility] Comment on above: Performed By: #### L [id number] #### [facility] ([facility]) [address] [place] [address] NRBC (PER 100 WBCS) BY AUTOMATED COUNT 0.0 % Normal 0 [facility] Comment on above: Performed By: #### L [id number] #### [facility] ([facility]) [address] [place] [address] PLATELETS (10*3/UL) IN BLOOD AUTOMATED COUNT 229 10*3/uL Normal 150-400 [facility] Comment on above: Performed By: #### L [id number] #### [facility] ([facility]) [address] [place] [address] RBC (Bld) [#/Vol] 4.48 10*6/uL Normal 3.80-5.00 [facility] Comment on above: Performed By: #### L [id number] #### [facility] ([facility]) [address] [place] [address] WBC (Bld) [#/Vol] 7.46 10*3/uL Normal 4.00-10.60 [facility] Comment on above: Performed By: #### L [id number] #### [facility] ([facility]) [address] [place] [address] MAGNESIUMon 11-15-2024 Magnesium [Mass/Vol] 2.1 mg/dL Normal 1.9-2.7 [facility] Comment on above: Performed By: #### L [id number] #### [facility] ([facility]) [address] [place] [address] NURSNOTEon 11-15-2024 NURSNOTE Pressure Injury Prevalence Study [...] area dry. Apply skin prep to the tracee-wound and allow to dry for 10 seconds. Cover with Allevyn Gentle Boarder or other brand of foam dressing. Change the dressing every 3 days and as needed for soiling. Through [employer], Renee Murry MD was notified of the above information. [place] ARGUETA, RN, CWON Wound & Ostomy Secretary To Board Of Commissioners [facility] 30on 11-14-2024 30 The patient is Moderately Stable - Low risk of patient condition declining or worsening The patient's goals for the shift include comfort and rest The clinical goals for the shift include stable VS Over the shift, the patient did make progress toward her goals. Normal [facility] 30 The patient is Moderately Stable - Low risk of patient condition declining or worsening The patient's goals for the shift include comfort and rest The clinical goals for the shift include stable VS [facility] 30 Daily Case Managemen t Update Multidisciplinary rounds have been completed. Barriers to Discharge: Patient is s/p heart cath, over night PARK KEEPER was called due to HR in 200s. Patient started on Eliquis for new diagnosis of Afib. Discharge dispo: Heavy Equipment Service Manager went bedside and talked with family and patient about discharge planning. Per patient and family, that patient is ambulatory at home and is able to care for self. Patient to start having a HIGH SCHOOL ADMISSIONS REPRESENTATIVE and this is already set up. Heavy Equipment Service Manager educated patient and patient's family on HHC vs HIGH SCHOOL ADMISSIONS REPRESENTATIVE and asked about potentially having PT/OT come work with patient while in hospital. Heavy Equipment Service Manager was told by patient that she has been doing okay and does not think she needs to work with PT/OT at this time. Discharge plan at this time is home with HIGH SCHOOL ADMISSIONS REPRESENTATIVE when medically ready. Diet: Dietary Orders (From admission, onward) Start Ordered 11/14/24 1204 Special Kitchen Request Once Comments: Please send prune juice and butter 11/14/24 1203 11/14/24 0304 Regular Diet Diet effective now Question: Room Service? Answer: Yes 11/14/24 0303 11/12/24 1424 Special Kitchen Request Once Comments: Insurance Adviser salad with swedish. Hot tea, chocolate pudding 11/12/24 1424 11/12/24 1216 Special Kitchen Request Once Comments: Insurance Adviser salad with swedish. Hot tea, chocolate pudding 11/12/24 1216 11/11/24 1215 Special Kitchen Request Once Comments: Grilled cheese on wheat, baked lays, bottle water, orange sherbet 11/11/24 1215 11/11/24 0916 Special Kitchen Request Once Comments: Scrambled eggs, toast with butter and jelly, decaf coffee, turkey sausage, sugar and cream 11/11/24 0917 11/10/24 213 Dietary nutrition supplements All meals; Boost Plus; 8 oz; Oral Until discontinued Question Answer Comment Deliver with All meals Select supplement: Boost Plus Strength: 8 oz Route Oral 11/10/242129 Physician Expected Discharge Date: 11/13/2024 Discharge Delays: PT Six Click Score: 13 OT Six Click Score: PT Recommendations: OT Recommendations: New Consults: Normal [facility] ANTI-XA (HEPARIN LEVEL)on HEPARIN UNFRACTIONATED (U/ML) IN PPP BY CHROMOGENIC METHOD 0.11 IU/mL Invalid Interpretation Code 0.3-0.7 [facility] Comment on above: Result Comment: [place]by roxaban and Apixaban will interfere with the anti Xa assay used to monitor UFH and LMWH. Performed By: #### L [id number] #### [facility] ([facility]) [address] [place] [address] BASIC METABOLIC PANELon 10-25 Anion gap [Moles/Vol] 13 mmol/L Normal - [facility] Comment on above: Performed By: #### L [id number] #### [facility] [address] [place] [address] Calcium [Mass/Vol] 9.4 mg/dL Normal 8.6-10.3 [facility] Comment on above: Performed By: #### L [id number] #### [facility] [address] [place] [address] Chloride [Moles/Vol] 104 mmol/L Normal 98-107 [facility] Comment on above: Performed By: #### L [id number] #### [facility] ([facility]) [address] [place] [address] CO2 [Moles/Vol] 29 mmol/L Normal 21-31 [facility] Comment on above: Performed By: #### L [id number] #### [facility] ([facility]) [address] [place] [address] Creatinine [Mass/Vol] 0.80 mg/dL Normal 0.60-1.20 [facility] Comment on above: Performed By: #### L [id number] #### [facility] ([facility]) [address] [place] [address] GLOMERULAR FILTRATION RATE ML/MIN/1.73 SQ M.PREDICTED 79.7 mL/min/1.73m*2 Normal >60.0 [facility] Comment on above: Result Comment: The [facility]???s estimated glomerular filtration rate (eGFR) will no [...] group of individuals. Performed By: #### L [id number] #### [facility] [address] [place] [address] Glucose [Mass/Vol] 91 mg/dL Normal 70-100 [facility] Comment on above: Performed By: #### L [id number] #### [facility] ([facility]) [address] [place] [address] Potassium [Moles/Vol] 4.0 mmol/L Normal 3.5-5.1 [facility] Comment on above: Performed By: #### L [id number] #### [facility] ([facility]) [address] [place] [address] Sodium [Moles/Vol] 142 mmol/L Normal 136-145 [facility] Comment on above: Performed By: #### L [id number] #### [facility] ([facility]) [address] [place] [address] Urea nitrogen [Mass/Vol] 35 mg/dL High 7-25 [facility] Comment on above: Performed By: #### L [id number] #### [facility] ([facility]) [address] [place] [address] UREA NITROGEN/CREATININE (MASS RATIO) IN SER/PLAS 43.8 Normal [facility] Comment on above: Performed By: #### L [id number] #### [facility] ([facility]) [address] [place] [address] CBC WITH AUTO DIFFERENTIALon 11-14-2024 Basophils (Bld) [#/Vol] 0.04 10*3/uL Normal 0.00-0.20 [facility] Comment on above: Performed By: #### L [id number] #### [facility] ([facility]) [address] [place] [address] Basophils/100 WBC (Bld) 0.5 % Normal 0.0-1.0 [facility] Comment on above: Performed By: #### L [id number] #### [facility] ([facility]) [address] [place] [address] Eosinophils (Bld) [#/Vol] 0.22 10*3/uL Normal 0.00-0.50 [facility] Comment on above: Performed By: #### L [id number] #### [facility] [address] [place] [address] Eosinophils/100 WBC (Bld) 2.5 % Normal 0.0-6.0 [facility] Comment on above: Performed By: #### L [id number] #### [facility] ([facility]) [address] [place] [address] Erythrocyte distribution width (RBC) [Ratio] 13.3 % Normal 11.5-15.0 [facility] Comment on above: Performed By: #### L [id number] #### [facility] ([facility]) [address] [place] [address] ERYTHROCYTE MEAN CORPUSCULAR HEMOGLOBIN CONCENTRATION (G/DL) BY AUTOMATED 33.8 g/dL Normal 32.0-35.0 [facility] Comment on above: Performed By: #### L [id number] #### [facility] ([facility]) [address] [place] [address] Hematocrit (Bld) [Volume fraction] 42.6 % Normal 36.0-48.0 [facility] Comment on above: Performed By: #### L [id number] #### [facility] [address] [place] [address] Hemoglobin (Bld) [Mass/Vol] 14.4 g/dL Normal 12.0-15.0 [facility] Comment on above: Performed By: #### L [id number] #### [facility] [address] [address] Immature granulocytes (Bld) [#/Vol] 0.06 10*3/uL Normal 0.00-0.20 [facility] Comment on above: Performed By: #### L [id number] #### [facility] ([facility]) [address] [place] [address] Immature granulocytes/100 WBC (Bld) 0.7 % Normal 0.0-1.0 [facility] Comment on above: Performed By: #### L [id number] #### [facility] ([facility]) [address] [address] Lymphocytes (Bld) [#/Vol] 2.53 10*3/uL Normal 1.20-4.00 [facility] Comment on above: Performed By: #### L [id number] #### [facility] ([facility]) [address] [place] [address] Lymphocytes/100 WBC (Bld) 28.6 % Normal 20.0-45.0 [facility] Comment on above: Performed By: #### L [id number] #### [facility] ([facility]) [address] [address] MCH (RBC) [Entitic mass] 30.3 pg Normal 27.0-33.0 [facility] Comment on above: Performed By: #### L [id number] #### [facility] ([facility]) [address] [place] [address] MCV (RBC) [Entitic vol] 89.7 fL Normal 82.0-98.0 [facility] Comment on above: Performed By: #### L [id number] #### [facility] ([facility]) [address] [place] [address] Monocytes (Bld) [#/Vol] 1.11 10*3/uL High 0.10-1.00 [facility] Comment on above: Performed By: #### L [id number] #### [facility] ([facility]) [address] [place] [address] Monocytes/100 WBC (Bld) 12.5 % High 5.0-12.0 [facility] Comment on above: Performed By: #### L [id number] #### [facility] ([facility]) [address] [place] [address] Neutrophils (Bld) [#/Vol] 4.90 10*3/uL Normal 1.60-7.60 [facility] Comment on above: Performed By: #### L [id number] #### [facility] [address] [place] [address] Neutrophils/100 WBC (Bld) 55.2 % Normal 40.0-72.0 [facility] Comment on above: Performed By: #### L [id number] #### [facility] [address] [place] [address] NRBC (PER 100 WBCS) BY AUTOMATED COUNT 0.0 % Normal 0 [facility] Comment on above: Performed By: #### L [id number] #### [facility] ([facility]) [address] [place] [address] PLATELETS (10*3/UL) IN BLOOD AUTOMATED COUNT 238 10*3/uL Normal 150-400 [facility] Comment on above: Performed By: #### L [id number] #### [facility] ([facility]) [address] [place] [address] RBC (Bld) [#/Vol] 4.75 10*6/uL Normal 3.80-5.00 [facility] Comment on above: Performed By: #### L [id number] #### [facility] ([facility]) [address] [place] [address] WBC (Bld) [#/Vol] 8.86 10*3/uL Normal 4.00-10.60 [facility] Comment on above: Performed By: #### L [id number] #### [facility] ([facility]) [address] [place] [address] MAGNESIUMon 11-14-2024 Magnesium [Mass/Vol] 2.3 mg/dL Normal 1.9-2.7 [facility] Comment on above: Performed By: #### L [id number] #### [facility] [address] [place] [address] NURSNOTEon 11-14-2024 NURSNOTE Patient Name: Abi Barahona [...] Pulse: [phone] Resp: 14 Temp: 36.2 ???C (97.2 ???F) 36.3 ???C [...] emergent concerns arise call rapid response team. Ronna Gonzalez RN Rapid Response Team Nurse [phone] 11/14/2024 5:26 PM Normal [facility] NURSNOTE Heavy Equipment Service Manager notified by [facility] of sustained SVT. Upon entrance to room, [...] sister Karen notified per patient request. Normal [facility] TROPONIN Ion 11-14-2024 Troponin I.cardiac [Mass/Vol] 0.08 ng/mL High 0.00-0.04 [facility] Comment on above: Performed By: #### L [id number] #### [facility] ([facility]) [address] [place] [address] 30on 11-13-2024 30 The patient is Moderately Stable - Low risk of patient condition declining or worsening The patient's goals for the shift include comfort and rest The clinical goals for the shift include stable VS Over the shift, the patient did make progress toward her goals. Normal [facility] 30 The patient is Moderately Stable - Low risk of patient condition declining or worsening The patient's goals for the shift include comfort The clinical goals for the shift include vss Normal [facility] ANTI-XA (HEPARIN LEVEL)on HEPARIN UNFRACTIONATED (U/ML) IN PPP BY CHROMOGENIC METHOD 0.40 IU/mL Normal 0.3-0.7 [facility] Comment on above: Order Comment: Check anti-Xa level every 6 hours while on heparin infusion, or per protocol. Result Comment: [place] roxaban and Apixaban will interfere with the anti Xa assay used to monitor UFH and LMWH. Performed By: #### L [id number] #### [facility] ([facility]) [address] [place] [address] BASIC METABOLIC PANELon 10-25 Anion gap [Moles/Vol] 14 mmol/L Normal 7-20 [facility] Comment on above: Performed By: #### L [id number] ####[facility] ([facility])[address] [place] [address] Calcium [Mass/Vol] 8.9 mg/dL Normal 8.6-10.3 [facility] Comment on above: Performed By: #### L [id number] ####[facility] ([facility])[address] [place] [address] Chloride [Moles/Vol] 103 mmol/L Normal 98-107 [facility] Comment on above: Performed By: #### L [id number] ####[facility] [place] [address] CO2 [Moles/Vol] 26 mmol/L Normal 21- [facility] Comment on above: Performed By: #### L [id number] ####[facility] [place] [address] Creatinine [Mass/Vol] 0.57 mg/dL Low 0.60-1.20 [facility] Comment on above: Performed By: #### L [id number] ####[facility] ([facility])[address] [place] [address] GLOMERULAR FILTRATION RATE ML/MIN/1.73 SQ M.PREDICTED 98.3 mL/min/1.73m*2 Normal >60.0 [facility] Comment on above: Result Comment: The [facility]???s estimated glomerular filtration rate (eGFR) will no [...] group of individuals. Performed By: #### L [id number] ####[facility] ([facility])[address] [place] [address] Glucose [Mass/Vol] 101 mg/dL High 70-100 [facility] Comment on above: Performed By: #### L [id number] ####[facility] ([facility])[address] [place] [address] Potassium [Moles/Vol] 3.7 mmol/L Normal 3.5-5.1 [facility] Comment on above: Performed By: #### L [id number] ####[facility] ([facility])[address] [place] [address] Sodium [Moles/Vol] 139 mmol/L Normal 136-145 [facility] Comment on above: Performed By: #### L [id number] ####[facility] ([facility])[address] [place] [address] Urea nitrogen [Mass/Vol] 27 mg/dL High 7-25 [facility] Comment on above: Performed By: #### L [id number] ####[facility] ([facility])[address] [place] [address] UREA NITROGEN/CREATININE (MASS RATIO) IN SER/PLAS 47.4 Normal [facility] Comment on above: Performed By: #### L [id number] ####[facility] ([facility])[address] [place] [address] CBC WITH AUTO DIFFERENTIALon 11-13-2024 Basophils (Bld) [#/Vol] 0.06 10*3/uL Normal 0.00-0.20 [facility] Comment on above: Performed By: #### L [id number] #### [facility] ([facility]) [address] [place] [address] Basophils/100 WBC (Bld) 0.9 % Normal 0.0-1.0 [facility] Comment on above: Performed By: #### L [id number] #### [facility] ([facility]) [address] [place] [address] Eosinophils (Bld) [#/Vol] 0.16 10*3/uL Normal 0.00-0.50 [facility] Comment on above: Performed By: #### L [id number] #### [facility] ([facility]) [address] [place] [address] Eosinophils/100 WBC (Bld) 2.3 % Normal 0.0-6.0 [facility] Comment on above: Performed By: #### L [id number] #### [facility] ([facility]) [address] [place] [address] Erythrocyte distribution width (RBC) [Ratio] 13.3 % Normal 11.5-15.0 [facility] Comment on above: Performed By: #### L [id number] #### [facility] ([facility]) [address] [place] [address] ERYTHROCYTE MEAN CORPUSCULAR HEMOGLOBIN CONCENTRATION (G/DL) BY AUTOMATED 33.7 g/dL Normal 32.0-35.0 [facility] Comment on above: Performed By: #### L [id number] #### [facility] [address] [place] [address] Hematocrit (Bld) [Volume fraction] 40.1 % Normal 36.0-48.0 [facility] Comment on above: Performed By: #### L [id number] #### [facility] [address] [place] [address] Hemoglobin (Bld) [Mass/Vol] 13.5 g/dL Normal 12.0-15.0 [facility] Comment on above: Performed By: #### L [id number] #### [facility] [address] [address] Immature granulocytes (Bld) [#/Vol] 0.04 10*3/uL Normal 0.00-0.20 [facility] Comment on above: Performed By: #### L [id number] #### [facility] ([facility]) [address] [place] [address] Immature granulocytes/100 WBC (Bld) 0.6 % Normal 0.0-1.0 [facility] Comment on above: Performed By: #### L [id number] #### [facility] [address] [place] [address] Lymphocytes (Bld) [#/Vol] 3.05 10*3/uL Normal 1.20-4.00 [facility] Comment on above: Performed By: #### L [id number] #### [facility] ([facility]) [address] [place] [address] Lymphocytes/100 WBC (Bld) 44.3 % Normal 20.0-45.0 [facility] Comment on above: Performed By: #### L [id number] #### [facility] ([facility]) [address] [place] [address] MCH (RBC) [Entitic mass] 30.4 pg Normal 27.0-33.0 [facility] Comment on above: Performed By: #### L [id number] #### [facility] ([facility]) [address] [place] [address] MCV (RBC) [Entitic vol] 90.3 fL Normal 82.0-98.0 [facility] Comment on above: Performed By: #### L [id number] #### [facility] [address] [place] [address] Monocytes (Bld) [#/Vol] 0.83 10*3/uL Normal 0.10-1.00 [facility] Comment on above: Performed By: #### L [id number] #### [facility] ([facility]) [address] [place] [address] Monocytes/100 WBC (Bld) 12.1 % High 5.0-12.0 [facility] Comment on above: Performed By: #### L [id number] #### [facility] ([facility]) [address] [place] [address] Neutrophils (Bld) [#/Vol] 2.74 10*3/uL Normal 1.60-7.60 [facility] Comment on above: Performed By: #### L [id number] #### [facility] ([facility]) [address] [place] [address] Neutrophils/100 WBC (Bld) 39.8 % Low 40.0-72.0 [facility] Comment on above: Performed By: #### L [id number] #### [facility] ([facility]) [address] [place] [address] NRBC (PER 100 WBCS) BY AUTOMATED COUNT 0.0 % Normal 0 [facility] Comment on above: Performed By: #### L [id number] #### [facility] ([facility]) [address] [place] [address] PLATELETS (10*3/UL) IN BLOOD AUTOMATED COUNT 216 10*3/uL Normal 150-400 [facility] Comment on above: Performed By: #### L [id number] #### [facility] [address] [place] [address] RBC (Bld) [#/Vol] 4.44 10*6/uL Normal 3.80-5.00 [facility] Comment on above: Performed By: #### L [id number] #### [facility] ([facility]) [address] [place] [address] WBC (Bld) [#/Vol] 6.88 10*3/uL Normal 4.00-10.60 [facility] Comment on above: Performed By: #### L [id number] #### [facility] ([facility]) [address] [place] [address] HPon 11-13-2024 HP H&P reviewed. The patient was examined and there are no changes to the H&P. Normal [facility] MAGNESIUMon 11-13-2024 Magnesium [Mass/Vol] 2.3 mg/dL Normal 1.9-2.7 [facility] Comment on above: Performed By: #### L [id number] ####[facility] ([facility])[address] [place] [address] 30on 11-12-2024 30 The patient is Moderately [...] to decreased intake, treat as appropriate Normal [facility] 30 The patient is Moderately Stable - Low risk of patient condition declining or worsening The patient's goals for the shift include comfort The clinical goals for the shift include vss, safety Over the shift, the patient did not make progress toward the following goals. Barriers to progression include. Recommendations to address these barriers include. Normal [facility] 30 The patient is Moderately Stable - [...] response to (more content not included)... Normal [facility] ANTI-XA (HEPARIN LEVEL)on HEPARIN UNFRACTIONATED (U/ML) IN PPP BY CHROMOGENIC METHOD 0.36 IU/mL Normal 0.3-0.7 [facility] Comment on above: Order Comment: Check anti-Xa level every 6 hours while on heparin infusion, or per protocol. Result Comment: Abby roxaban and Apixaban will interfere with the anti Xa assay used to monitor UFH and LMWH. Performed By: #### L [id number] ####[facility] ([facility])[address] [place] [address] HEPARIN UNFRACTIONATED (U/ML) IN PPP BY CHROMOGENIC METHOD 0.37 IU/mL Normal 0.3-0.7 [facility] Comment on above: Order Comment: Check anti-Xa level every 6 hours while on heparin infusion, or per protocol. Result Comment: Croydon roxaban and Apixaban will interfere with the anti Xa assay used to monitor UFH and LMWH. Performed By: #### L [id number] ####[facility] ([facility])[address] [place] [address] HEPARIN UNFRACTIONATED (U/ML) IN PPP BY CHROMOGENIC METHOD 0.36 IU/mL Normal 0.3-0.7 [facility] Comment on above: Order Comment: Check anti-Xa level every 6 hours while on heparin infusion, or per protocol. Result Comment: Abby roxaban and Apixaban will interfere with the anti Xa assay used to monitor UFH and LMWH. Performed By: #### L [id number] ####[facility] ([facility])[address] [place] [address] HEPARIN UNFRACTIONATED (U/ML) IN PPP BY CHROMOGENIC METHOD 0.37 IU/mL Normal 0.3-0.7 [facility] Comment on above: Order Comment: Check anti-Xa level every 6 hours while on heparin infusion, or per protocol. Result Comment: Abby roxaban and Apixaban will interfere with the anti Xa assay used to monitor UFH and LMWH. Performed By: #### L [id number] ####[facility] ([facility])[address] [place] [address] BASIC METABOLIC PANELon 01-2 0-2024 Anion gap [Moles/Vol] 12 mmol/L Normal 7-20 [facility] Comment on above: Performed By: #### L [id number] #### [facility] ([facility]) [address] [place] [address] Calcium [Mass/Vol] 8.8 mg/dL Normal 8.6-10.3 [facility] Comment on above: Performed By: #### L [id number] #### [facility] ([facility]) [address] [place] [address] Chloride [Moles/Vol] 104 mmol/L Normal 98-107 [facility] Comment on above: Performed By: #### L [id number] #### [facility] ([facility]) [address] [place] [address] CO2 [Moles/Vol] 27 mmol/L Normal 21-31 [facility] Comment on above: Performed By: #### L [id number] #### [facility] ([facility]) [address] [place] [address] Creatinine [Mass/Vol] 0.51 mg/dL Low 0.60-1.20 [facility] Comment on above: Performed By: #### L [id number] #### [facility] ([facility]) [address] [place] [address] GLOMERULAR FILTRATION RATE ML/MIN/1.73 SQ M.PREDICTED 101.0 mL/min/1.73m*2 Normal >60.0 [facility] Comment on above: Result Comment: The [facility]???s estimated glomerular filtration rate (eGFR) will no [...] group of individuals. Performed By: #### L [id number] #### [facility] ([facility]) [address] [place] [address] Glucose [Mass/Vol] 97 mg/dL Normal 70-100 [facility] Comment on above: Performed By: #### L [id number] #### [facility] ([facility]) [address] [place] [address] Potassium [Moles/Vol] 3.5 mmol/L Normal 3.5-5.1 [facility] Comment on above: Performed By: #### L [id number] #### [facility] ([facility]) [address] [place] [address] Sodium [Moles/Vol] 139 mmol/L Normal 136-145 [facility] Comment on above: Performed By: #### L [id number] #### [facility] ([facility]) [address] [place] [address] Urea nitrogen [Mass/Vol] 21 mg/dL Normal 7-25 [facility] Comment on above: Performed By: #### L [id number] #### [facility] ([facility]) [address] [place] [address] UREA NITROGEN/CREATININE (MASS RATIO) IN SER/PLAS 41.2 Normal [facility] Comment on above: Performed By: #### L [id number] #### [facility] ([facility]) [address] [place] [address] CBC WITH AUTO DIFFERENTIALon 11-12-2024 Basophils (Bld) [#/Vol] 0.05 10*3/uL Normal 0.00-0.20 [facility] Comment on above: Performed By: #### L [id number] #### [facility] ([facility]) [address] [place] [address] Basophils/100 WBC (Bld) 0.6 % Normal 0.0-1.0 [facility] Comment on above: Performed By: #### L [id number] #### [facility] ([facility]) [address] [place] [address] Eosinophils (Bld) [#/Vol] 0.08 10*3/uL Normal 0.00-0.50 [facility] Comment on above: Performed By: #### L [id number] #### [facility] ([facility]) [address] [facility] [place] [address] Eosinophils/100 WBC (Bld) 1.0 % Normal 0.0-6.0 [facility] Comment on above: Performed By: #### L [id number] #### [facility] ([facility]) [address] [place] [address] Erythrocyte distribution width (RBC) [Ratio] 13.1 % Normal 11.5-15.0 [facility] Comment on above: Performed By: #### L [id number] #### [facility] [address] [place] [address] ERYTHROCYTE MEAN CORPUSCULAR HEMOGLOBIN CONCENTRATION (G/DL) BY AUTOMATED 34.1 g/dL Normal 32.0-35.0 [facility] Comment on above: Performed By: #### L [id number] #### [facility] ([facility]) [address] [place] [address] Hematocrit (Bld) [Volume fraction] 36.7 % Normal 36.0-48.0 [facility] Comment on above: Performed By: #### L [id number] #### [facility] ([facility]) [address] [place] [address] Hemoglobin (Bld) [Mass/Vol] 12.5 g/dL Normal 12.0-15.0 [facility] Comment on above: Performed By: #### L [id number] #### [facility] ([facility]) [address] [place] [address] Immature granulocytes (Bld) [#/Vol] 0.03 10*3/uL Normal 0.00-0.20 [facility] Comment on above: Performed By: #### L [id number] #### [facility] ([facility]) [address] [place] [address] Immature granulocytes/100 WBC (Bld) 0.4 % Normal 0.0-1.0 [facility] Comment on above: Performed By: #### L [id number] #### [facility] ([facility]) [address] [place] [address] Lymphocytes (Bld) [#/Vol] 3.09 10*3/uL Normal 1.20-4.00 [facility] Comment on above: Performed By: #### L [id number] #### [facility] ([facility]) [address] [place] [address] Lymphocytes/100 WBC (Bld) 39.4 % Normal 20.0-45.0 [facility] Comment on above: Performed By: #### L [id number] #### [facility] ([facility]) [address] [place] [address] MCH (RBC) [Entitic mass] 30.6 pg Normal 27.0-33.0 [facility] Comment on above: Performed By: #### L [id number] #### [facility] [address] [address] MCV (RBC) [Entitic vol] 90.0 fL Normal 82.0-98.0 [facility] Comment on above: Performed By: #### L [id number] #### [facility] [address] [place] [address] Monocytes (Bld) [#/Vol] 0.81 10*3/uL Normal 0.10-1.00 [facility] Comment on above: Performed By: #### L [id number] #### [facility] ([facility]) [address] [place] [address] Monocytes/100 WBC (Bld) 10.3 % Normal 5.0-12.0 [facility] Comment on above: Performed By: #### L [id number] #### [facility] ([facility]) [address] [place] [address] Neutrophils (Bld) [#/Vol] 3.79 10*3/uL Normal 1.60-7.60 [facility] Comment on above: Performed By: #### L [id number] #### [facility] ([facility]) [address] [place] [address] Neutrophils/100 WBC (Bld) 48.3 % Normal 40.0-72.0 [facility] Comment on above: Performed By: #### L [id number] #### [facility] ([facility]) [address] [place] [address] NRBC (PER 100 WBCS) BY AUTOMATED COUNT 0.0 % Normal 0 [facility] Comment on above: Performed By: #### L [id number] #### [facility] ([facility]) [address] [place] [address] PLATELETS (10*3/UL) IN BLOOD AUTOMATED COUNT 197 10*3/uL Normal 150-400 [facility] Comment on above: Performed By: #### L [id number] #### [facility] ([facility]) [address] [place] [address] RBC (Bld) [#/Vol] 4.08 10*6/uL Normal 3.80-5.00 [facility] Comment on above: Performed By: #### L [id number] #### [facility] ([facility]) [address] [place] [address] WBC (Bld) [#/Vol] 7.85 10*3/uL Normal 4.00-10.60 [facility] Comment on above: Performed By: #### L [id number] #### [facility] ([facility]) [address] [place] [address] MAGNESIUMon 11-12-2024 Magnesium [Mass/Vol] 1.8 mg/dL Low 1.9-2.7 [facility] Comment on above: Performed By: #### L [id number] #### [facility] ([facility]) [address] [place] [address] 30on 11-11-2024 30 The patient is Moderately [...] during anticipated neutropenic period Outcome: Progressing Normal [facility] 30 The patient is Moderately Stable - [...] and maintained or improved Outcome: Progressing Normal [facility] 30 The patient is Moderately Stable - Low risk of patient condition declining or worsening The patient's goals for the shift include comfort, rest The clinical goals for the shift include vss, safety Normal [facility] ANTI-XA (HEPARIN LEVEL)on HEPARIN UNFRACTIONATED (U/ML) IN PPP BY CHROMOGENIC METHOD 0.32 IU/mL Normal 0.3-0.7 [facility] Comment on above: Order Comment: Check anti-Xa level every 6 hours while on heparin infusion, or per protocol. Result Comment: Croydon roxaban and Apixaban will interfere with the anti Xa assay used to monitor UFH and LMWH. Performed By: #### L [id number] ####[facility] ([facility])[address] [place] [address] HEPARIN UNFRACTIONATED (U/ML) IN PPP BY CHROMOGENIC METHOD 0.24 IU/mL Low 0.3-0.7 [facility] Comment on above: Order Comment: Check anti-Xa level every 6 hours while on heparin infusion, or per protocol. Result Comment: Croydon roxaban and Apixaban will interfere with the anti Xa assay used to monitor UFH and LMWH. Performed By: #### L [id number] ####[facility] ([facility])[address] [place] [address] HEPARIN UNFRACTIONATED (U/ML) IN PPP BY CHROMOGENIC METHOD 0.33 IU/mL Normal 0.3-0.7 [facility] Comment on above: Result Comment: Croydon roxaban and Apixaban will interfere with the anti Xa assay used to monitor UFH and LMWH. Performed By: #### L [id number] #### [facility] ([facility]) [address] [place] [address] HEPARIN UNFRACTIONATED (U/ML) IN PPP BY CHROMOGENIC METHOD 0.19 IU/mL Low 0.3-0.7 [facility] Comment on above: Order Comment: Check anti-Xa level every 6 hours while on heparin infusion, or per protocol. Result Comment: Croydon roxaban and Apixaban will interfere with the anti Xa assay used to monitor UFH and LMWH. Performed By: #### L [id number] #### [facility] ([facility]) [address] [place] [address] BASIC METABOLIC PANELon 10-24 Anion gap [Moles/Vol] 12 mmol/L Normal 7-20 [facility] Comment on above: Performed By: #### L [id number] #### [facility] ([facility]) [address] [place] [address] Calcium [Mass/Vol] 8.5 mg/dL Low 8.6-10.3 [facility] Comment on above: Performed By: #### L [id number] #### [facility] ([facility]) [address] [place] [address] Chloride [Moles/Vol] 108 mmol/L High 98-107 [facility] Comment on above: Performed By: #### L [id number] #### [facility] ([facility]) [address] [place] [address] CO2 [Moles/Vol] 22 mmol/L Normal 21-31 [facility] Comment on above: Performed By: #### L [id number] #### [facility] ([facility]) [address] [place] [address] Creatinine [Mass/Vol] 0.41 mg/dL Low 0.60-1.20 [facility] Comment on above: Performed By: #### L [id number] #### [facility] ([facility]) [address] [place] [address] GLOMERULAR FILTRATION RATE ML/MIN/1.73 SQ M.PREDICTED 106.4 mL/min/1.73m*2 Normal >60.0 [facility] Comment on above: Result Comment: The [facility]???s estimated glomerular filtration rate (eGFR) will no [...] group of individuals. Performed By: #### L [id number] #### [facility] ([facility]) [address] [place] [address] Glucose [Mass/Vol] 100 mg/dL Normal 70-100 [facility] Comment on above: Performed By: #### L [id number] #### [facility] ([facility]) [address] [place] [address] Potassium [Moles/Vol] 3.8 mmol/L Normal 3.5-5.1 [facility] Comment on above: Performed By: #### L [id number] #### [facility] ([facility]) [address] [place] [address] Sodium [Moles/Vol] 138 mmol/L Normal 136-145 [facility] Comment on above: Performed By: #### L [id number] #### [facility] ([facility]) [address] [place] [address] Urea nitrogen [Mass/Vol] 13 mg/dL Normal 7-25 [facility] Comment on above: Performed By: #### L [id number] #### [facility] ([facility]) [address] [place] [address] UREA NITROGEN/CREATININE (MASS RATIO) IN SER/PLAS 31.7 Normal [facility] Comment on above: Performed By: #### L [id number] #### [facility] ([facility]) [address] [place] [address] CBCon 11-11-2024 Erythrocyte distribution width (RBC) [Ratio] 13.1 % Normal 11.5-15.0 [facility] Comment on above: Performed By: #### L [id number] #### [facility] ([facility]) [address] [place] [address] ERYTHROCYTE MEAN CORPUSCULAR HEMOGLOBIN CONCENTRATION (G/DL) BY AUTOMATED 33.8 g/dL Normal 32.0-35.0 [facility] Comment on above: Performed By: #### L [id number] #### [facility] ([facility]) [address] [place] [address] Hematocrit (Bld) [Volume fraction] 35.5 % Low 36.0-48.0 [facility] Comment on above: Performed By: #### L [id number] #### [facility] ([facility]) [address] [place] [address] Hemoglobin (Bld) [Mass/Vol] 12.0 g/dL Normal 12.0-15.0 [facility] Comment on above: Performed By: #### L [id number] #### [facility] ([facility]) [address] [place] [address] MCH (RBC) [Entitic mass] 30.5 pg Normal 27.0-33.0 [facility] Comment on above: Performed By: #### L [id number] #### [facility] ([facility]) [address] [place] [address] MCV (RBC) [Entitic vol] 90.3 fL Normal 82.0-98.0 [facility] Comment on above: Performed By: #### L [id number] #### [facility] ([facility]) [address] [place] [address] PLATELETS (10*3/UL) IN BLOOD AUTOMATED COUNT 175 10*3/uL Normal 150-400 [facility] Comment on above: Performed By: #### L [id number] #### [facility] ([facility]) [address] [place] [address] RBC (Bld) [#/Vol] 3.93 10*6/uL Normal 3.80-5.00 [facility] Comment on above: Performed By: #### L [id number] #### [facility] ([facility]) [address] [place] [address] WBC (Bld) [#/Vol] 9.13 10*3/uL Normal 4.00-10.60 [facility] Comment on above: Performed By: #### L [id number] #### [facility]) [place] [address] CONSULTon 11-11-2024 CONSULT -- Attestation signed by [...] presented on 11/10/24 as a transfer from [facility], where she initially presented with chief complaint of generalized weakness, chest pain and shortness of breath. Per chart review, family at that time also reported that patient was experiencing hallucinations. Reportedly, troponin was elevated and EKG showed ischemic changes, so patient was started on heparin drip and transferred to [facility] for cardiac catheterization. At [facility], troponin was elevated at 1.12. EKG was [...] sounds: Norm (more content not included)... Normal [facility] CTA CHEST W IV CONTRASTon CTA CHEST [...] reasonably achievable. Electronically signed: EDILIA FARLEY. Normal [facility] HEMOGLOBIN A1Con 11-11-2024 Glucose [Mass/Vol] 111 mg/dL Normal [facility] Comment on above: Performed By: #### L [id number] ####[facility] ([facility])[address] [place] [address] HbA1c (Bld) [Mass fraction] 5.5 % Normal 4.0-6.0 [facility] Comment on above: Performed By: #### L [id number] ####[facility] ([facility])[address] [place] [address] HPon 11-11-2024 HP -- Attestation signed by [...] presented on 11/10/24 as a transfer from [facility], where she initially presented with chief complaint of generalized weakness, chest pain and shortness of breath. Per chart review, family at that time also reported that patient was experiencing hallucinations. Reportedly, troponin was elevated and EKG showed ischemic changes, so patient was started on heparin drip and transferred to [facility] for cardiac catheterization. At [facility], troponin was elevated at 1.12. EKG was [...] 92 % -- -- 11/11/24 0114 (!) [id number] 36.5 ???C (97.7 ???F) Temporal 86 16 -- -- -- 11/11/24 0019 117/65 -- -- 84 22 97 % -- -- 11/11/24 0000 94/63 -- -- 63 14 95 % -- -- 11/10/24 2300 104/70 -- -- 64 15 93 % -- -- 11/10/240 (!) 151/91 -- -- 89 16 98 [...] sounds: Norm (more content not included)... Normal [facility] MAGNESIUMon 11-11-2024 Magnesium [Mass/Vol] 1.7 mg/dL Low 1.9-2.7 [facility] Comment on above: Performed By: #### L [id number] #### [facility] ([facility]) [address] [place] [address] TROPONIN Ion 11-11-2024 Troponin I.cardiac [Mass/Vol] 0.90 ng/mL Critically high 0.00-0.04 [facility] Comment on above: Result Comment: Prev ious result verified on 11/11/2024 0124 on specimen/case [id number] called with component Troponin I for procedure Troponin I with value 1.09 ng/mL. Performed By: #### L [id number] ####[facility] ([facility])[address] [place] [address] URINALYSISon 11-11-2024 BILIRUBIN, TOTAL PRESENCE IN URINE Negative Normal Negative [facility] Comment on above: Order Comment: Micro scopics not performed on urines with negative chemical reactions unless requested on original order. Performed By: #### L [id number] #### [facility] ([facility]) [address] [facility] [place] [address] Clarity (U) Clear Normal Clear [facility] Comment on above: Order Comment: Micro scopics not performed on urines with negative chemical reactions unless requested on original order. Performed By: #### L [id number] #### [facility] ([facility]) [address] [facility] [place] [address] Color (U) Light-Yellow Normal Colorless, Yellow, Light-Yellow [facility] Comment on above: Order Comment: Micro scopics not performed on urines with negative chemical reactions unless requested on original order. Performed By: #### L [id number] #### [facility] ([facility]) [address] [place] [address] GLUCOSE (MG/DL) IN URINE Normal Normal Normal [facility] Comment on above: Order Comment: Micro scopics not performed on urines with negative chemical reactions unless requested on original order. Performed By: #### L [id number] #### [facility] ([facility]) [address] [place] [address] HEMOGLOBIN PRESENCE IN URINE Negative Normal Negative [facility] Comment on above: Order Comment: Micro scopics not performed on urines with negative chemical reactions unless requested on original order. Performed By: #### L [id number] #### [facility] ([facility]) [address] [place] [address] Ketones Ql (U) 40 mg/dL Abnormal Negative [facility] Comment on above: Order Comment: Micro scopics not performed on urines with negative chemical reactions unless requested on original order. Performed By: #### L [id number] #### [facility] ([facility]) [address] [place] [address] LEUKOCYTE ESTERASE PRESENCE IN URINE BY TEST STRIP Negative Normal Negative [facility] Comment on above: Order Comment: Micro scopics not performed on urines with negative chemical reactions unless requested on original order. Performed By: #### L [id number] #### [facility] ([facility]) [address] [place] [address] NITRITE PRESENCE IN URINE Negative Normal Negative [facility] Comment on above: Order Comment: Micro scopics not performed on urines with negative chemical reactions unless requested on original order. Performed By: #### L [id number] #### [facility] ([facility]) [address] [place] [address] pH (U) 6.0 [pH] Normal 5.0-8.0 [facility] Comment on above: Order Comment: Micro scopics not performed on urines with negative chemical reactions unless requested on original order. Performed By: #### L [id number] #### [facility] ([facility]) [address] [place] [address] Protein (U) [Mass/Vol] Negative Normal Negative [facility] Comment on above: Order Comment: Micro scopics not performed on urines with negative chemical reactions unless requested on original order. Performed By: #### L [id number] #### [facility] ([facility]) [address] [place] [address] Specific gravity (U) [Rel density] 1.009 Low 1.010-1.030 [facility] Comment on above: Order Comment: Micro scopics not performed on urines with negative chemical reactions unless requested on original order. Performed By: #### L [id number] #### [facility] ([facility]) [address] [place] [address] UROBILINOGEN (MG/DL) IN URINE Normal Normal Normal [facility] Comment on above: Order Comment: Micro scopics not performed on urines with negative chemical reactions unless requested on original order. Performed By: #### L [id number] #### [facility] ([facility]) [address] [place] [address] APTTon 11-10-2024 ACTIVATED PARTIAL THROMBOPLASTIN TIME IN PPP BY COAGULATION ASSAY 28.5 Seconds Normal 25.0-35.0 [facility] Comment on above: Order Comment: Basel ine aPTT before initiating heparin infusion. Result Comment: Clin ical significance of the APTT is questionable in the presence of heparin. Performed By: #### L [id number] #### [facility] ([facility]) [address] [place] [address] Activated partial thrombopla stin time (aPTT) in platelet poor plasma by coagulation aon 11-10-2024 aPTT Coag (PPP) [Time] Activated partial thromboplastin time (aPTT) in platelet poor plasma by coagulation a 22.3-36.2 [facility] B-TYPE NATRIURETIC PEPTIDEon 11-10-2024 Natriuretic peptide B (Bld) [Mass/Vol] 658 pg/mL High 0-100 [facility] Comment on above: Performed By: #### L [id number] #### [facility] ([facility]) [address] [place] [address] BASIC METABOLIC PANELon 10-24 Anion gap [Moles/Vol] 12 mmol/L Normal 7-20 [facility] Comment on above: Performed By: #### L [id number] #### [facility] [address] [place] [address] Calcium [Mass/Vol] 9.1 mg/dL Normal 8.6-10.3 [facility] Comment on above: Performed By: #### L [id number] #### [facility] [address] [place] [address] Chloride [Moles/Vol] 107 mmol/L Normal 98-107 [facility] Comment on above: Performed By: #### L [id number] #### [facility] ([facility]) [address] [place] [address] CO2 [Moles/Vol] 24 mmol/L Normal 21-31 [facility] Comment on above: Performed By: #### L [id number] #### [facility] ([facility]) [address] [place] [address] Creatinine [Mass/Vol] 0.42 mg/dL Low 0.60-1.20 [facility] Comment on above: Performed By: #### L [id number] #### [facility] ([facility]) [address] [place] [address] GLOMERULAR FILTRATION RATE ML/MIN/1.73 SQ M.PREDICTED 105.8 mL/min/1.73m*2 Normal >60.0 [facility] Comment on above: Result Comment: The [facility]???s estimated glomerular filtration rate (eGFR) will no [...] group of individuals. Performed By: #### L [id number] #### [facility] ([facility]) [address] [place] [address] Glucose [Mass/Vol] 139 mg/dL High 70-100 [facility] Comment on above: Performed By: #### L [id number] #### [facility] ([facility]) [address] [place] [place] [address] Potassium [Moles/Vol] 4.2 mmol/L Normal 3.5-5.1 [facility] Comment on above: Performed By: #### L [id number] #### [facility] ([facility]) [address] [place] [address] Sodium [Moles/Vol] 139 mmol/L Normal 136-145 [facility] Comment on above: Performed By: #### L [id number] #### [facility] ([facility]) [address] [place] [address] Urea nitrogen [Mass/Vol] 15 mg/dL Normal 7-25 [facility] Comment on above: Performed By: #### L [id number] #### [facility] ([facility]) [address] [place] [address] UREA NITROGEN/CREATININE (MASS RATIO) IN SER/PLAS 35.7 Normal [facility] Comment on above: Performed By: #### L [id number] #### [facility] ([facility]) [address] [place] [address] Basophils Auto (Bld) [#/Vol] on 11-10-2024 Basophils (Bld) [#/Vol] Automated basophil count 0.0-0.1 [facility] Basophils/100 WBC Auto (Bld) on 11-10-2024 Basophils/100 WBC (Bld) Automated basophil % 0.2-2.0 [facility] CBC WITH AUTO DIFFERENTIALon 11-10-2024 Basophils (Bld) [#/Vol] 0.01 10*3/uL Normal 0.00-0.20 [facility] Comment on above: Performed By: #### L [id number] #### [facility] ([facility]) [address] [place] [address] Basophils/100 WBC (Bld) 0.2 % Normal 0.0-1.0 [facility] Comment on above: Performed By: #### L [id number] #### [facility] [address] [place] [address] Eosinophils (Bld) [#/Vol] 0.00 10*3/uL Normal 0.00-0.50 [facility] Comment on above: Performed By: #### L [id number] #### [facility] ([facility]) [address] [place] [address] Eosinophils/100 WBC (Bld) 0.0 % Normal 0.0-6.0 [facility] Comment on above: Performed By: #### L [id number] #### [facility] ([facility]) [address] [place] [address] Erythrocyte distribution width (RBC) [Ratio] 13.0 % Normal 11.5-15.0 [facility] Comment on above: Performed By: #### L [id number] #### [facility] ([facility]) [address] [place] [address] ERYTHROCYTE MEAN CORPUSCULAR HEMOGLOBIN CONCENTRATION (G/DL) BY AUTOMATED 33.4 g/dL Normal 32.0-35.0 [facility] Comment on above: Performed By: #### L [id number] #### [facility] ([facility]) [address] [place] [address] Hematocrit (Bld) [Volume fraction] 38.9 % Normal 36.0-48.0 [facility] Comment on above: Performed By: #### L [id number] #### [facility] [address] [place] [address] Hemoglobin (Bld) [Mass/Vol] 13.0 g/dL Normal 12.0-15.0 [facility] Comment on above: Performed By: #### L [id number] #### [facility] ([facility]) [address] [place] [address] Immature granulocytes (Bld) [#/Vol] 0.02 10*3/uL Normal 0.00-0.20 [facility] Comment on above: Performed By: #### L [id number] #### [facility] ([facility]) [address] [place] [address] Immature granulocytes/100 WBC (Bld) 0.4 % Normal 0.0-1.0 [facility] Comment on above: Performed By: #### L [id number] #### [facility] ([facility]) [address] [place] [address] Lymphocytes (Bld) [#/Vol] 0.94 10*3/uL Low 1.20-4.00 [facility] Comment on above: Performed By: #### L [id number] #### [facility] ([facility]) [address] [place] [address] Lymphocytes/100 WBC (Bld) 18.8 % Low 20.0-45.0 [facility] Comment on above: Performed By: #### L [id number] #### [facility] ([facility]) [address] [place] [address] MCH (RBC) [Entitic mass] 30.4 pg Normal 27.0-33.0 [facility] Comment on above: Performed By: #### L [id number] #### [facility] ([facility]) [address] [place] [address] MCV (RBC) [Entitic vol] 91.1 fL Normal 82.0-98.0 [facility] Comment on above: Performed By: #### L [id number] #### [facility] ([facility]) [address] [place] [address] Monocytes (Bld) [#/Vol] 0.09 10*3/uL Low 0.10-1.00 [facility] Comment on above: Performed By: #### L [id number] #### [facility] [address] [place] [address] Monocytes/100 WBC (Bld) 1.8 % Low 5.0-12.0 [facility] Comment on above: Performed By: #### L [id number] #### [facility] [address] [place] [address] Neutrophils (Bld) [#/Vol] 3.95 10*3/uL Normal 1.60-7.60 [facility] Comment on above: Performed By: #### L [id number] #### [facility] ([facility]) [address] [place] [address] Neutrophils/100 WBC (Bld) 78.8 % High 40.0-72.0 [facility] Comment on above: Performed By: #### L [id number] #### [facility] ([facility]) [address] [place] [address] NRBC (PER 100 WBCS) BY AUTOMATED COUNT 0.0 % Normal 0 [facility] Comment on above: Performed By: #### L [id number] #### [facility] ([facility]) [address] [place] [address] PLATELETS (10*3/UL) IN BLOOD AUTOMATED COUNT 202 10*3/uL Normal 150-400 [facility] Comment on above: Performed By: #### L [id number] #### [facility] ([facility]) [address] [place] [address] RBC (Bld) [#/Vol] 4.27 10*6/uL Normal 3.80-5.00 [facility] Comment on above: Performed By: #### L [id number] #### [facility] ([facility]) [address] [place] [address] WBC (Bld) [#/Vol] 5.01 10*3/uL Normal 4.00-10.60 [facility] Comment on above: Performed By: #### L [id number] #### [facility] [address] [place] [address] Eosinophils/100 WBC Auto (Bl d)on 11-10-2024 Eosinophils/100 WBC (Bld) Automated eosinophil % Low 0.9-7.0 [facility] Erythrocyte distribution wid th Auto (RBC) [Ratio]on 11-10-2024 Erythrocyte distribution width (RBC) [Ratio] Erythrocyte distribution width [Ratio] by Automated count 11.0-15.0 [facility] Estimated glomerular filtrat ion rate (GFR) non- Americanon 11-10-2024 GFR/1.73 sq M.predicted among non-blacks MDRD (S/P/Bld) [Vol rate/Area] Estimated glomerular filtration rate (GFR) non- >=60 mL/min/1.73m 2 [facility] Globulin Calc (S) [Mass/Vol] on 11-10-2024 Globulin (S) [Mass/Vol] Serum globulin measurement by calculation (mass/volume) [facility] HEPATIC FUNCTION PANELon Albumin [Mass/Vol] 4.3 g/dL Normal 3.5-5.7 [facility] Comment on above: Performed By: #### L [id number] #### [facility] ([facility]) [address] [place] [address] ALP [Catalytic activity/Vol] 59 U/L Normal 34-104 [facility] Comment on above: Performed By: #### L [id number] #### [facility] ([facility]) [address] [place] [address] ALT [Catalytic activity/Vol] 32 U/L Normal 7-52 [facility] Comment on above: Performed By: #### L [id number] #### [facility] ([facility]) [address] [place] [address] AST [Catalytic activity/Vol] 49 U/L High 13-39 [facility] Comment on above: Performed By: #### L [id number] #### [facility] ([facility]) [address] [place] [address] Bilirubin [Mass/Vol] 0.6 mg/dL Normal 0.3-1.0 [facility] Comment on above: Performed By: #### L [id number] #### [facility] [address] [place] [address] Magnesium [Mass/Vol] 0.1 mg/dL Normal 0-0.2 [facility] Comment on above: Performed By: #### L [id number] #### [facility] ([facility]) [address] [place] [address] Protein [Mass/Vol] 6.6 g/dL Normal 6.0-8.3 [facility] Comment on above: Performed By: #### L [id number] #### [facility] ([facility]) [address] [place] [address] Hematocrit Auto (Bld) [Volum e fraction]on 11-10-2024 Hematocrit (Bld) [Volume fraction] Hematocrit [Volume Fraction] of Blood by Automated count 36.0-48.0 [facility] Hemoglobin [Mass/volume] in Bloodon 11-10-2024 Hemoglobin (Bld) [Mass/Vol] Hemoglobin [Mass/volume] in Blood 12.0-16.0 [facility] LIPID PANELon 11-10-2024 CHOL/HDL 2.3 mg/dL Normal [facility] Comment on above: Performed By: #### L [id number] #### [facility] ([facility]) [address] [place] [address] Cholesterol [Mass/Vol] 157 mg/dL Normal 120-200 [facility] Comment on above: Performed By: #### L [id number] #### [facility] ([facility]) [address] [place] [address] Magnesium [Mass/Vol] 63 mg/dL Normal 40-149 [facility] Comment on above: Result Comment: TRIG LYCERIDE REFERENCE RANGE: 20 YEARS AND OLDER CARDIOVASCULAR RISK LESS THAN 150 mg/dL LOW RISK 150 TO 199 mg/dL BORDERLINE RISK 200 mg/dL AND GREATER HIGH RISK Performed By: #### L [id number] #### [facility] [address] [place] [address] Magnesium [Mass/Vol] 77 mg/dL Normal 0-160 [facility] Comment on above: Performed By: #### L [id number] #### [facility] [address] [place] [address] Magnesium [Mass/Vol] 67 mg/dL Normal 23-92 [facility] Comment on above: Performed By: #### L [id number] #### [facility] ([facility]) [address] [place] [address] NON HDL CHOL. (LDL+VLDL) 90 Normal [facility] Comment on above: Performed By: #### L [id number] #### [facility] ([facility]) [address] [place] [address] TOTAL VLDL-C 13 mg/dL Normal 0-40 [facility] Comment on above: Performed By: #### L [id number] #### [facility] ([facility]) [address] [place] [address] Laboratory - Chemistry and C hemistry - challengeon 11-10-2024 Natriuretic peptide B (Bld) [Mass/Vol] 1030.0 pg/mL High <=900.0 [facility] Albumin [Mass/Vol] 3.9 g/dL 3.4-5.0 [facility] ALP [Catalytic activity/Vol] 58 U/L 46-116 [facility] ALT [Catalytic activity/Vol] 21 U/L 14-59 [facility] AST [Catalytic activity/Vol] 25 U/L 15-37 [facility] Bilirubin [Mass/Vol] 0.8 mg/dL 0.2-1.0 [facility] Calcium [Mass/Vol] 8.9 mg/dL 8.5-10.1 [facility] Chloride [Moles/Vol] 107 mmol/L 98-107 [facility] CO2 [Moles/Vol] 26.7 mmol/L 21.0-32.0 [facility] Creatinine [Mass/Vol] 0.54 mg/dL Low 0.55-1.02 [facility] GFR/1.73 sq M.predicted MDRD (S/P/Bld) [Vol rate/Area] mL/min/{1.73_m2} >=60 mL/min/1.73m 2 [facility] Glucose [Mass/Vol] 100 mg/dL 74-106 [facility] Potassium [Moles/Vol] 3.6 mmol/L 3.5-5.1 [facility] Protein [Mass/Vol] 6.7 g/dL 6.4-8.2 [facility] Sodium [Moles/Vol] 144 mmol/L 136-145 [facility] Urea nitrogen [Mass/Vol] 13.0 mg/dL 7.0-18.0 [facility] Urea nitrogen/Creatinine [Mass ratio] 24.1 mg/mg [facility] Laboratory - Hematology and Cell countson 11-10-2024 Immature granulocytes/100 WBC (Bld) 0.4 % 0.0-0.5 [facility] Laboratory - Microbiology an d Antimicrobial susceptibilityon 11-10-2024 SARS-CoV-2 (COVID-19) RNA RON+probe Ql (Unsp spec) Negative NEGATIVE [facility] Comment on above: This test has not be en FDA cleared or approved, but has beenauthorized by the FDA under an Emergency Use Authorization(EUA) for use by authorized laboratories certified underIA that meet the requirements to perform moderate or highcomplexity testing. This test has been authorized only forthe detection of proteins from SARS-CoV-2, not for any otherviruses or pathogens. The emergency use of this test isauthorized for the duration of the declaration thatcircumstances exist justifying the authorization ofemergency use of in vitro diagnostic tests for detectionand/or diagnosis of Covid-19 under section 564(b)(1) of theAct, 21 U.S.C. 360bbb-3(b)(1), unless the declaration isterminated or authorization is revoked sooner. Leukocytes [#/volume] correc leonor for nucleated erythrocytes in Blood by Automated counon 11-10-2024 WBC corrected for nucl RBC Auto (Bld) [#/Vol] Leukocytes [#/volume] corrected for nucleated erythrocytes in Blood by Automated coun 4.0-11.0 [facility] Lymphocytes Auto (Bld) [#/Vo l]on 11-10-2024 Lymphocytes (Bld) [#/Vol] Lymphocytes [#/volume] in Blood by Automated count 1.2-3.8 [facility] Lymphocytes/100 WBC Auto (Bl d)on 11-10-2024 Lymphocytes/100 WBC (Bld) Lymphocytes/100 leukocytes in Blood by Automated count 20.5-60.0 [facility] MAGNESIUMon 11-10-2024 Magnesium [Mass/Vol] 1.8 mg/dL Low 1.9-2.7 [facility] Comment on above: Performed By: #### L [id number] #### [facility] ([facility]) [address] [place] [address] MCH Auto (RBC) [Entitic mass ]on 11-10-2024 MCH (RBC) [Entitic mass] MCH [Entitic mass] by Automated count 26.7-34.0 [facility] MCHC Auto (RBC) [Mass/Vol]on 11-10-2024 MCHC (RBC) [Mass/Vol] MCHC [Mass/volume] by Automated count 29.9-35.2 [facility] MCV Auto (RBC) [Entitic vol] on 11-10-2024 MCV (RBC) [Entitic vol] MCV [Entitic volume] by Automated count 81.0-99.0 [facility] Monocytes Auto (Bld) [#/Vol] on 11-10-2024 Monocytes (Bld) [#/Vol] Automated blood monocyte count 0.3-0.8 [facility] Monocytes/100 WBC Auto (Bld) on 11-10-2024 Monocytes/100 WBC (Bld) Automated monocyte % 1.7-12.0 [facility] Neutrophils Auto (Bld) [#/Vo l]on 11-10-2024 Neutrophils (Bld) [#/Vol] Neutrophils [#/volume] in Blood by Automated count 1.4-6.5 [facility] Neutrophils/100 WBC Auto (Bl d)on 11-10-2024 Neutrophils/100 WBC (Bld) Automated neutrophil % 43.0-75.0 [facility] No Panel Informationon 11-10 Troponin I High Sensitivity 2074.8 pg/mL Critically high 4.0-51.3 [facility] Comment on above: RESULTS CALLED TO JEROD DE JESUS RN IN ICU BY Carla Beltre at 1614CUT-OFF POINTS HAVE BEEN ESTABLISHED BASED ON THE FOURTHUNIVERSAL DEFINITION OF MYOCARDIAL INFARCTION. THE UPPERREFERENCE LIMIT (URL) OF TROPONIN, DEFINED THE 99THPERCENTILE OF cTnI DISTRIBUTION IN A REFERENCE POPULATION,HAS BEEN CONFIRMED THE DECISION THRESHOLD FOR MIDIAGNOSIS.99TH PERCENTILE = 51.4 PG/MLNOTE: HIGH-SENSITIVITY TROPONIN ASSAY IS NOT INTENDED TO BEUSED IN ISOLATION BUT SHOULD BE INTERPRETED IN CONJUNCTIONWITH OTHER DIAGNOSTIC AND CLINICAL INFORMATION. Eosinophils # (Auto) 0.0 10 3/uL 0.0-0.[address] [facility] Immature Granulocyte # (Auto) 0.03 10 3/uL 0.00-0.03 [facility] Bedside Influenza Type A Antigen Negative [facility] Comment on above: Negative for Flu A p rotein antigen. Infection due to Flu Acannot be ruled out. Flu A antigen in the sample may bebelow the detection limit of the test. Bedside Influenza Type B Antigen Negative [facility] Comment on above: Negative for Flu B p rotein antigen. Infection due to Flu Bcannot be ruled out. Flu B antigen in the sample may bebelow the detection limit of the test. RSV RNA Qual (PCR)([employer]) Not detected NOT DETECTE [facility] PHOSPHORUSon 11-10-2024 Magnesium [Mass/Vol] 3.3 mg/dL Normal 2.5-5.0 [facility] Comment on above: Performed By: #### L [id number] #### [facility] ([facility]) [address] [place] [address] PROTIME-INRon 11-10-2024 INR IN PPP BY COAGULATION ASSAY 1.09 Normal 0.90-1.10 [facility] Comment on above: Result Comment: ACCC P [...] RANGE. CHEST 1995;108:[id number]. Performed By: #### L [id number] #### [facility] ([facility]) [address] [place] [address] PROTHROMBIN TIME (PT) IN PPP BY COAGULATION ASSAY 14.0 Seconds Normal 12.3-14.8 [facility] Comment on above: Performed By: #### L [id number] #### [facility] ([facility]) [address] [place] [address] Platelet mean volume Auto (B ld) [Entitic vol]on 11-10-2024 Platelet mean volume (Bld) [Entitic vol] Platelet mean volume [Entitic volume] in Blood by Automated count 9.5-13.5 [facility] Platelets Auto (Bld) [#/Vol] on 11-10-2024 Platelets (Bld) [#/Vol] Platelets [#/volume] in Blood by Automated count 150-450 [facility] RBC Auto (Bld) [#/Vol]on RBC (Bld) [#/Vol] Erythrocytes [#/volume] in Blood by Automated count Low 4.20-5.40 [facility] Serum or plasma albumin/glob ulin mass ratioon 11-10-2024 Albumin/Globulin [Mass ratio] Serum or plasma albumin/globulin mass ratio [facility] Serum or plasma anion gap de terminationon 11-10-2024 Anion gap [Moles/Vol] Serum or plasma anion gap determination [facility] TROPONIN Ion 11-10-2024 Troponin I.cardiac [Mass/Vol] 1.09 ng/mL Critically high 0.00-0.04 [facility] Comment on above: Result Comment: [facility] EVIOUS CRITICAL RESULT Previous result verified on 11/10/20242 on specimen/case [id number] called with component Troponin I for procedure Troponin I with value 1.12 ng/mL. Performed By: #### L [id number] #### [facility] ([facility]) [address] [place] [address] Troponin I.cardiac [Mass/Vol] 1.12 ng/mL Critically high 0.00-0.04 [facility] Comment on above: Performed By: #### L [id number] #### [facility] ([facility]) [address] [place] [address] Basophils Auto (Bld) [#/Vol] on 05-16-2024 Basophils (Bld) [#/Vol] 0.1 10 3/uL 0.0-0.1 [facility] Basophils/100 WBC Auto (Bld) on 05-16-2024 Basophils/100 WBC (Bld) 0.9 % 0.2-2.0 [facility] Cholesterol in LDL Calc [Mas s/Vol]on 05-16-2024 Cholesterol in LDL [Mass/Vol] 89.0 mg/dL [facility] Comment on above: <100 mg/dl [id number] 0-129 mg/dl NEAR OR ABOVE [id number] mg/dl BORDERLINE [id number] mg/dl HIGH>190 mg/dl VERY HIGH Cholesterol in VLDL Calc [Ma ss/Vol]on 05-16-2024 Cholesterol in VLDL [Mass/Vol] 7.0 mg/dL [facility] Eosinophils/100 WBC Auto (Bl d)on 05-16-2024 Eosinophils/100 WBC (Bld) 3.8 % 0.9-7.0 [facility] Erythrocyte distribution wid th Auto (RBC) [Ratio]on 05-16-2024 Erythrocyte distribution width (RBC) [Ratio] 13.2 % 11.0-15.0 [facility] Estimated glomerular filtrat ion rate (GFR) non- Americanon 05-16-2024 GFR/1.73 sq M.predicted among non-blacks MDRD (S/P/Bld) [Vol rate/Area] mL/min/{1.73_m2} >=60 [facility] Globulin Calc (S) [Mass/Vol] on 05-16-2024 Globulin (S) [Mass/Vol] 3.0 g/dL [facility] Hematocrit Auto (Bld) [Volum e fraction]on 05-16-2024 Hematocrit (Bld) [Volume fraction] 41.5 % 36.0-48.0 [facility] Hemoglobin [Mass/volume] in Bloodon 05-16-2024 Hemoglobin (Bld) [Mass/Vol] 13.6 g/dL 12.0-16.0 [facility] Laboratory - Chemistry and C hemistry - challengeon 05-16-2024 Albumin [Mass/Vol] 3.9 g/dL 3.4-5.0 [facility] ALP [Catalytic activity/Vol] 69 U/L 46-116 [facility] ALT [Catalytic activity/Vol] 26 U/L 14-59 [facility] AST [Catalytic activity/Vol] 25 U/L 15-37 [facility] Bilirubin [Mass/Vol] 0.6 mg/dL 0.2-1.0 [facility] Calcium [Mass/Vol] 8.9 mg/dL 8.5-10.1 [facility] Chloride [Moles/Vol] 107 mmol/L 98-107 [facility] Cholesterol [Mass/Vol] 183 mg/dL <=200 [facility] Cholesterol in HDL [Mass/Vol] 87 mg/dL High 40-60 [facility] Comment on above: > or =60 mg/dl - LOW CARDIOVASCULAR RISK<40 mg/dl - HIGH CARDIOVASCULAR RISK CO2 [Moles/Vol] 26.7 mmol/L 21.0-32.0 [facility] Creatinine [Mass/Vol] 0.58 mg/dL 0.55-1.02 [facility] GFR/1.73 sq M.predicted MDRD (S/P/Bld) [Vol rate/Area] mL/min/{1.73_m2} >=60 [facility] Glucose [Mass/Vol] 79 mg/dL 74-106 [facility] Potassium [Moles/Vol] 3.7 mmol/L 3.5-5.1 [facility] Protein [Mass/Vol] 6.9 g/dL 6.4-8.2 [facility] Sodium [Moles/Vol] 144 mmol/L 136-145 [facility] Triglyceride [Mass/Vol] 35 mg/dL <=150 [facility] Urea nitrogen [Mass/Vol] 17.0 mg/dL 7.0-18.0 [facility] Urea nitrogen/Creatinine [Mass ratio] 29.3 mg/mg [facility] Laboratory - Hematology and Cell countson 05-16-2024 Immature granulocytes/100 WBC (Bld) 0.2 % 0.0-0.5 [facility] Leukocytes [#/volume] correc leonor for nucleated erythrocytes in Blood by Automated counon 05-16-2024 WBC corrected for nucl RBC Auto (Bld) [#/Vol] 5.5 10 3/uL 4.0-11.0 [facility] Lymphocytes Auto (Bld) [#/Vo l]on 05-16-2024 Lymphocytes (Bld) [#/Vol] 2.4 10 3/uL 1.2-3.8 [facility] Lymphocytes/100 WBC Auto (Bl d)on 05-16-2024 Lymphocytes/100 WBC (Bld) 43.2 % 20.5-60.0 [facility] MCH Auto (RBC) [Entitic mass ]on 05-16-2024 MCH (RBC) [Entitic mass] 30.2 pg 26.7-34.0 [facility] MCHC Auto (RBC) [Mass/Vol]on 05-16-2024 MCHC (RBC) [Mass/Vol] 32.8 g/dL 29.9-35.2 [facility] MCV Auto (RBC) [Entitic vol] on 05-16-2024 MCV (RBC) [Entitic vol] 92.2 fL 81.0-99.0 [facility] Monocytes Auto (Bld) [#/Vol] on 05-16-2024 Monocytes (Bld) [#/Vol] 0.5 10 3/uL 0.3-0.8 [facility] Monocytes/100 WBC Auto (Bld) on 05-16-2024 Monocytes/100 WBC (Bld) 8.4 % 1.7-12.0 [facility] Neutrophils Auto (Bld) [#/Vo l]on 05-16-2024 Neutrophils (Bld) [#/Vol] 2.4 10 3/uL 1.4-6.5 [facility] Neutrophils/100 WBC Auto (Bl d)on 05-16-2024 Neutrophils/100 WBC (Bld) 43.5 % 43.0-75.0 [facility] No Panel Informationon 05-16 Eosinophils # (Auto) 0.2 10 3/uL 0.0-0.[address] [facility] Immature Granulocyte # (Auto) 0.01 10 3/uL 0.00-0.03 [facility] Platelet mean volume Auto (B ld) [Entitic vol]on 05-16-2024 Platelet mean volume (Bld) [Entitic vol] 10.1 fL 9.5-13.5 [facility] Platelets Auto (Bld) [#/Vol] on 05-16-2024 Platelets (Bld) [#/Vol] 158 10 3/uL 150-450 [facility] RBC Auto (Bld) [#/Vol]on RBC (Bld) [#/Vol] 4.50 10 6/uL 4.20-5.40 [facility] Serum or plasma albumin/glob ulin mass ratioon 05-16-2024 Albumin/Globulin [Mass ratio] 1.3 {ratio} [facility] Serum or plasma anion gap de terminationon 05-16-2024 Anion gap [Moles/Vol] 14.0 mmol/L [facility] Serum or plasma total choles terol/high density lipoprotein (HDL) cholesterol mass tobias 05-16-2024 Cholesterol.total/Ch olesterol in HDL [Mass ratio] 2.1 {ratio} [facility] Comment on above: 3.3 - 4.4 LOW [...] RENARD DEVINE Date: 2022-07-06 14:09 Normal [facility] AMYLASEon 2022 Amylase [Catalytic activity/Vol] 52 U/L Normal 25-115 [facility] Comment on above: Performed By: #### L CARLA KIDD #### [facility] [address] [address] [address] Becca Marroquin CBC AUTO DIFFon 2022 BASO # 0.0 103/ul Normal 0.0-0.1 [facility] Comment on above: Performed By: #### C BC #### [facility] [address] [address] [address] Becca Marroquin Basophils/100 WBC (Bld) 0.3 % Normal 0.2-2.0 [facility] Comment on above: Performed By: #### C BC #### [facility] [address] [place] [address] Dr. Becca Marroquin EO # 0.0 103/ul Normal 0.0-0.7 [facility] Comment on above: Performed By: #### C BC #### [facility] [address] [place] [address] Dr. Becca Marroquin Eosinophils/100 WBC (Bld) 0.3 % Critically low 0.9-7.0 [facility] Comment on above: Performed By: #### C BC #### [facility] [address] [place] [address] Dr. Becca Marroquin Erythrocyte distribution width (RBC) [Ratio] 13.2 % Normal 11.0-15.0 [facility] Comment on above: Performed By: #### C BC #### [facility] [address] [place] [address] Dr. Becca Marroquin Hematocrit (Bld) [Volume fraction] 39.1 % Normal 36.0-48.0 [facility] Comment on above: Performed By: #### C BC #### [facility] [address] [place] [address] Dr. Becca Marroquin Hemoglobin (Bld) [Mass/Vol] 12.7 g/dL Normal 12.0-16.0 [facility] Comment on above: Performed By: #### C BC #### [facility] [address] [place] [address] Dr. Becca Marroquin IG # 0.06 10e3/ul Critically high 0.00-0.[address] [facility] Comment on above: Performed By: #### C BC #### [facility] [address] [place] [address] Dr. Becca Marroquin IG % 0.5 % Normal 0.0-0.5 [facility] Comment on above: Performed By: #### C BC #### [facility] [address] [place] [address] Dr. Becca Marroquin LYMPH # 1.6 103/ul Normal 1.2-3.8 [facility] Comment on above: Performed By: #### C BC #### [facility] [address] [place] [address] Dr. Becca Marroquin Lymphocytes/100 WBC (Bld) 13.7 % Critically low 20.5-60.0 [facility] Comment on above: Performed By: #### C BC #### [facility] [address] [place] [address] Dr. Becca Marroquin MANUAL DIFF REQ NO Normal [facility] Comment on above: Performed By: #### C BC #### [facility] [address] [place] [address] Dr. Becca Marroquin MCH (RBC) [Entitic mass] 31.0 pg Normal 26.7-34.0 [facility] Comment on above: Performed By: #### C BC #### [facility] [address] [place] [address] Dr. Becca Marroquin MCHC (RBC) [Mass/Vol] 32.5 g/dL Normal 29.9-35.2 [facility] Comment on above: Performed By: #### C BC #### [facility] [address] [place] [address] Dr. Becca Marroquin MCV (RBC) [Entitic vol] 95.4 fL Normal 81.0-99.0 [facility] Comment on above: Performed By: #### C BC #### [facility] [address] [place] [address] Dr. Becca Marroquin MONO # 0.5 103/ul Normal 0.3-0.8 [facility] Comment on above: Performed By: #### C BC #### [facility] [address] [place] [address] Dr. Becca Marroquin Monocytes/100 WBC (Bld) 4.0 % Normal 1.7-12.0 [facility] Comment on above: Performed By: #### C BC #### [facility] [address] [place] [address] Dr. Becca Marroquin NEUT # 9.4 103/ul Critically high 1.4-6.5 [facility] Comment on above: Performed By: #### C BC #### [facility] [address] [place] [address] Dr. Becca Marroquin Neutrophils/100 WBC (Bld) 81.2 % Critically high 43.0-75.0 [facility] Comment on above: Performed By: #### C BC #### [facility] [address] [place] [address] Dr. Becca Marroquin Platelet mean volume (Bld) [Entitic vol] 10.2 fL Normal 9.5-13.5 [facility] Comment on above: Performed By: #### C BC #### [facility] [address] [address] [address] Becca Marroquin PLT 163 103/ul Normal 150-450 [facility] Comment on above: Performed By: #### C BC #### [facility] [address] [place] [address] Dr. Becca Marroquin RBC 4.10 106/ul Critically low 4.20-5.40 [facility] Comment on above: Performed By: #### C BC #### [facility] [address] [place] [address] Dr. Becca Marroquin WBC 11.6 103/ul Critically high 4.0-11.0 [facility] Comment on above: Performed By: #### C BC #### [facility] [address] [place], [place] [id number] Dr. Becca Marroquin CT ABD/PELV W CONon [...] BEATRIZ VAZQUEZ Date: 2022 21:24 Normal [facility] Covid-19 PCR ([facility])on 05-25 SARS-CoV-2 (COVID-19) RNA RON+probe Ql (Unsp spec) Not detected Normal NOT DETECTED [facility] Comment on above: Result Comment: When [...] for this test is supported by the [employer] and [employer]'s declaration that [...] used). Performed By: #### C VDTBH #### [facility] [address] [place] [address] Dr. Becca Marroquin GI PANEL (PCR)on 2022 Adenovirus F 40/41 Not detected Normal NOT DETECTED [facility] Comment on above: Performed By: #### G IPANEL #### [facility] [address] [place] [address] Dr. Becca Marroquin Astrovirus Not detected Normal NOT DETECTED [facility] Comment on above: Performed By: #### G IPANEL #### [facility] [address] [place] [address] Dr. Becca Lema. Diff toxin A/B Not detected Normal NOT DETECTED [facility] Comment on above: Performed By: #### G IPANEL #### [facility] [address] [place] [address] Dr. Becca Marroquin Campylobacter Not detected Normal NOT DETECTED [facility] Comment on above: Performed By: #### G IPANEL #### [facility] [address] [place] [address] Dr. Becca Marroquin Cryptosporidium Not detected Normal NOT DETECTED [facility] Comment on above: Performed By: #### G IPANEL #### [facility] [address] [place] [address] Dr. Becca Marroquin Cyclos. Cayetanensis Not detected Normal NOT DETECTED [facility] Comment on above: Performed By: #### G IPANEL #### [facility] [address] [place] [address] Dr. Becca Marroquin E. Coli O157 Not Applicable Normal Not Applicable [facility] Comment on above: Performed By: #### G IPANEL #### [facility] [address] [place] [address] Dr. Becca Marroquin E. histolytica Not detected Normal NOT DETECTED [facility] [place] Comment on above: Performed By: #### G IPANEL #### [facility] [address] [place] [address] Dr. Becca Marroquin EAEC Not detected Normal NOT DETECTED [facility] Comment on above: Performed By: #### G IPANEL #### [facility] [address] [place] [address] Dr. Becca Marroquin EIEC Not detected Normal NOT DETECTED [facility] Comment on above: Performed By: #### G IPANEL #### [facility] [address] [place] [address] Dr. Becca Marroquin EPEC Not detected Normal NOT DETECTED [facility] Comment on above: Performed By: #### G IPANEL #### [facility] [address] [place] [address] Dr. Becca Marroquin ETEC Not detected Normal NOT DETECTED [facility] Comment on above: Performed By: #### G IPANEL #### [facility] [address] [place] [address] Dr. Becca Moore Lamblia Not detected Normal NOT DETECTED [facility] Comment on above: Performed By: #### G IPANEL #### [facility] [address] [place] [address] Dr. Becca ASTUDILLO CONTROLS PASSED Normal [facility] Comment on above: Performed By: #### G IPANEL #### [facility] [address] [place] [address] Dr. Becca [facility] HEAD[facility] GI PANEL BACTERIA Normal [facility] Comment on above: Performed By: #### G IPANEL #### [facility] [address] [place] [address] Dr. Becca MORENO ECOLI GI PANEL DIARRHEAGEN IC E.COLI / SHIGELLA Normal [facility] Comment on above: Performed By: #### G IPANEL #### [facility] [address] [place] [address] Dr. Becca MORENO INFO SEE BELOW Normal [facility] Comment on above: Result Comment: EAEC - Enteroaggregative E. Coli EPEC- Enteropathogenic E. Coli ETEC- Enterotoxigenic E. Coli lt/st STEC- Shigella-like toxin-producing E. Coli stx1/stx2 EIEC- Shigella/Enteroinvasive E. Coli Performed By: #### G IPANEL #### [facility] [address] [address] [address] Becca MORENO PARASITES GI PANEL PARASITES Normal [facility] Comment on above: Performed By: #### G IPANEL #### [facility] [address] [place] [address] Dr. Becca MORENO VIRUS GI PANEL VIRUSES Normal [facility] Comment on above: Performed By: #### G IPANEL #### [facility] [address] [address] [address] Becca Marroquin Norovirus GI/GII Not detected Normal NOT DETECTED [facility] Comment on above: Performed By: #### G IPANEL #### [facility] [address] [place] [address] Dr. Becca Marroquin P. Shigelloides Not detected Normal NOT DETECTED [facility] Comment on above: Performed By: #### G IPANEL #### [facility] [address] [place] [address] Dr. Becca Marroquin Rotavirus A Not detected Normal NOT DETECTED [facility] Comment on above: Performed By: #### G IPANEL #### [facility] [address] [place] [address] Dr. Becca Marroquin Salmonella Not detected Normal NOT DETECTED [facility] Comment on above: Performed By: #### G IPANEL #### [facility] [address] [place] [address] Dr. Becca Marroquin Sapovirus Not detected Normal NOT DETECTED [facility] Comment on above: Performed By: #### G IPANEL #### [facility] [address] [address] [address] Becca Marroquin STEC Not detected Normal NOT DETECTED [facility] Comment on above: Performed By: #### G IPANEL #### [facility] [address] [place] [address] Dr. Becca Marroquin Vibrio Not detected Normal NOT DETECTED [facility] Comment on above: Performed By: #### G IPANEL #### [facility] [address] [address] [address] Becca Marroquin Vibrio Cholera Not detected Normal NOT DETECTED [facility] [place] Comment on above: Performed By: #### G IPANEL #### [facility] [address] [place] [address] Dr. Becca Marroquin Y. Enterocolitica Not detected Normal NOT DETECTED [facility] Comment on above: Performed By: #### G IPANEL #### [facility] [address] [place] [address] Dr. Becca Marroquni LIPASEon 2022 Lipase [Catalytic activity/Vol] 84.0 U/L Normal 73.0-393.0 [facility] Comment on above: Performed By: #### L CARLA KIDD #### [facility] [address] [place] [address] Dr. Becca Marroquin PROF 14(COMP METB)on 022 Albumin [Mass/Vol] 3.6 g/dL Normal 3.4-5.0 [facility] [place] Comment on above: Performed By: #### C MP ####[facility] [address] [address]DrEtta Marroquin Albumin/Globulin [Mass ratio] 1.4 {ratio} Normal [facility] Comment on above: Performed By: #### C MP ####[facility] [address] [address]Dr. Becca Marroquin ALP [Catalytic activity/Vol] 66 U/L Normal 46-116 [facility] Comment on above: Performed By: #### C MP ####[facility] [address] [address]Dr. Becca Marroquin ALT [Catalytic activity/Vol] 24 U/L Normal 14-59 [facility] Comment on above: Performed By: #### C MP ####[facility] [address] [address]Dr. Becca Marroquin Anion gap [Moles/Vol] 11.2 mmol/L Normal [facility] Comment on above: Performed By: #### C MP ####[facility] [address] [address]Dr. Becca Marroquin AST [Catalytic activity/Vol] 21 U/L Normal 15-37 [facility] Comment on above: Performed By: #### C MP ####[facility] [address] [place], [place] [address]Dr. Becca Marroquin Bilirubin [Mass/Vol] 0.3 mg/dL Normal 0.2-1.0 [facility] Comment on above: Performed By: #### C MP ####[facility] [address] [place], [place] [address]Dr. Becca Marroquin Calcium [Mass/Vol] 8.0 mg/dL Critically low 8.5-10.1 [facility] Comment on above: Performed By: #### C MP ####[facility] [address] [place], [place] [address]Dr. Dalilanaga Marroquin Chloride [Moles/Vol] 110 mmol/L Critically high 98-107 [facility] Comment on above: Performed By: #### C MP ####[facility] [address] [place], [place] [address]Dr. Becca Marroquin CO2 [Moles/Vol] 25.2 mmol/L Normal 21.0-32.0 [facility] Comment on above: Performed By: #### C MP ####[facility] [address] [place], [place] [address]Dr. Becca Lopez Creatinine [Mass/Vol] 0.61 mg/dL Normal 0.55-1.02 [facility] Comment on above: Performed By: #### C MP ####[facility] [address] [place], [place] [address]Dr. Becca Lopez EGFR-AF ALGERIAN >60 Normal >=60 [facility] Comment on above: Performed By: #### C MP ####[facility] [address] [place], [place] [address]Dr. Becca Marroquin EGFR-NON AF ALGERIAN >60 Normal >=60 [facility] Comment on above: Performed By: #### C MP ####[facility] [address] [place], [place] [address]Dr. Becca Marroquin Globulin (S) [Mass/Vol] 2.6 g/dL Normal [facility] Comment on above: Performed By: #### C MP ####[facility] [address] [address]Dr. Becca Marroquin Glucose [Mass/Vol] 119 mg/dL Critically high 74-106 [facility] Comment on above: Performed By: #### C MP ####[facility] [address] [address]Dr. Becca Marroquin Potassium [Moles/Vol] 4.4 mmol/L Normal 3.5-5.1 [facility] Comment on above: Performed By: #### C MP ####[facility] [address] [place], [place] [address]Dr. Becca Marroquin Protein [Mass/Vol] 6.2 g/dL Critically low 6.4-8.2 [facility] Comment on above: Performed By: #### C MP ####[facility] [address] [place], [place] [address]Dr. Becca Marroquin Sodium [Moles/Vol] 142 mmol/L Normal 136-145 [facility] Comment on above: Performed By: #### C MP ####[facility] [address] [place], [place] [address]Dr. Becca Marroquin Urea nitrogen [Mass/Vol] 16.0 mg/dL Normal 7.0-18.0 [facility] Comment on above: Performed By: #### C MP ####[facility] [address] [place], [place] [address]Dr. Becca Marroquin Urea nitrogen/Creatinine [Mass ratio] 26.2 mg/mg Normal [facility] Comment on above: Performed By: #### C MP ####[facility] [address] [place], [place] [address]Dr. Becca Marroquin FREE T3on 04-21-2022 FREE T3 2.50 pg/mlL Normal 2.18-3.98 [facility] Comment on above: Performed By: #### L IPID, TSH, CMP, FT3 ####[facility] [address] [id number] Marroquin FREE T4on 04-21-2022 Free T4 [Mass/Vol] 1.14 ng/dL Normal 0.76-1.46 [facility] Comment on above: Performed By: #### F T4 #### [facility] [address] [place], [place] [address] Dr. Becca Marroquin LIPID PROFILEon 04-21-2022 CHOL-HDL RATIO NORM SEE BELOW Normal [facility] [place] [facility] Comment on above: Result Comment: 3.3 - 4.4 LOW RISK 4.4 - 7.1 AVERAGE RISK 7.1 - 11.0 MODERATE RISK >11.0 HIGH RISK Performed By: #### L IPID, TSH, CMP, FT3 ####[facility] [address] [id number]. Becca Marroquin Cholesterol [Mass/Vol] 182 mg/dL Normal <=200 [facility] Comment on above: Performed By: #### L IPID, TSH, CMP, FT3 ####[facility] [address] [id number]. Becca Marroquin Cholesterol in HDL [Mass/Vol] 73 mg/dL Critically high 40-60 [facility] Comment on above: Performed By: #### L IPID, TSH, CMP, FT3 ####[facility] [address] [place], [place] [address]Lx. Becca Marroquin Cholesterol in LDL [Mass/Vol] 99.0 mg/dL Normal [facility] Comment on above: Performed By: #### L IPID, TSH, CMP, FT3 ####[facility] [address] [place], [place] [address]Rb. Becca Marroquin Cholesterol.total/Ch olesterol in HDL [Mass ratio] 2.5 {ratio} Normal [facility] Comment on above: Performed By: #### L IPID, TSH, CMP, FT3 ####[facility] [address] [id number]. Becca Marroquin HDL NORMAL > or = 60 mg/dl - LO W CARDIOVASCULAR RISK <40 mg/dl - HIGH CARDIOVASCULAR RISK Normal [facility] Comment on above: Performed By: #### L IPID, TSH, CMP, FT3 ####[facility] [address] [id number]. Becca Marroquin LDL CALC NORMAL SEE BELOW Normal [facility] Comment on above: Result Comment: <100 mg/dl OPTIMAL 100 - 129 mg/dl NEAR OR ABOVE OPTIMAL 130 - 159 mg/dl BORDERLINE HIGH 160 - 189 mg/dl HIGH >190 mg/dl VERY HIGH Performed By: #### L IPID, TSH, CMP, FT3 ####[facility] [address] [place], [place] [address]Qf. Becca Marroquin Triglyceride [Mass/Vol] 50 mg/dL Normal <=150 [facility] Comment on above: Performed By: #### L IPID, TSH, CMP, FT3 ####[facility] [address] [place], [place] [address]Bs. Becca Marroquin VLDL CALC 10.0 mg/dL Normal [facility] Comment on above: Performed By: #### L IPID, TSH, CMP, FT3 ####[facility] [address] [id number]. Dalilanaga Lopez MG MAMM SCREEN GET W CADon 0 04-21-2022 MG MAMM SCREEN GET W CAD Patient: LORENA BARAHONA Exam Date: 04/21/2022 : 1955 Gender:F Ordering : DR OLGA REED . Admission #: [id number] Family : Order #: [id number] CLICK HERE TO VIEW EXAM RADIOLOGY REPORT [...] pancreas cancer at age 60. LOCATION: [facility] BREAST COMPOSITION: Heterogeneously dense,which may obscure [...] MD on 04/21/2022 at 11:17 Normal [facility] PROF 14(COMP METB)on 022 Albumin [Mass/Vol] 4.2 g/dL Normal 3.4-5.0 [facility] Comment on above: Performed By: #### L IPID, TSH, CMP, FT3 ####[facility] [address] [address]Dr. Becca Marroquin Albumin/Globulin [Mass ratio] 1.3 {ratio} Normal [facility] Comment on above: Performed By: #### L IPID, TSH, CMP, FT3 ####[facility] [address] [address]Dr. Becca Marroquin ALP [Catalytic activity/Vol] 63 U/L Normal 46-116 [facility] Comment on above: Performed By: #### L IPID, TSH, CMP, FT3 ####[facility] [address] [address]Dr. Becca Marroquin ALT [Catalytic activity/Vol] 29 U/L Normal 14-59 [facility] Comment on above: Performed By: #### L IPID, TSH, CMP, FT3 ####[facility] [address] [address]Dr. Becca Marroquin Anion gap [Moles/Vol] 10.5 mmol/L Normal [facility] Comment on above: Performed By: #### L IPID, TSH, CMP, FT3 ####[facility] [address] [address]Dr. Becca Marroquin AST [Catalytic activity/Vol] 21 U/L Normal 15-37 [facility] Comment on above: Performed By: #### L IPID, TSH, CMP, FT3 ####[facility] [address] [address]Dr. Becca Marroquin Bilirubin [Mass/Vol] 0.7 mg/dL Normal 0.2-1.0 [facility] Comment on above: Performed By: #### L IPID, TSH, CMP, FT3 ####[facility] [address] [address]Dr. Becca Marroquin Calcium [Mass/Vol] 8.9 mg/dL Normal 8.5-10.1 [facility] [place] Comment on above: Performed By: #### L IPID, TSH, CMP, FT3 ####[facility] [address] [place], [place] [address]Dr. Becca Marroquin Chloride [Moles/Vol] 102 mmol/L Normal 98-107 [facility] Comment on above: Performed By: #### L IPID, TSH, CMP, FT3 ####[facility] [address] [place], [place] [address]Dr. Becca Marroquin CO2 [Moles/Vol] 25.4 mmol/L Normal 21.0-32.0 [facility] Comment on above: Performed By: #### L IPID, TSH, CMP, FT3 ####[facility] [address] [place], [place] [address]Dr. Becca Marroquin Creatinine [Mass/Vol] 0.56 mg/dL Normal 0.55-1.02 [facility] Comment on above: Performed By: #### L IPID, TSH, CMP, FT3 ####[facility] [address] [place], [place] [address]Dr. Becca Marroquin EGFR-AF ALGERIAN >60 Normal >=60 [facility] Comment on above: Performed By: #### L IPID, TSH, CMP, FT3 ####[facility] [address] [place], [place] [address]Dr. Becca Marroquin EGFR-NON AF ALGERIAN >60 Normal >=60 [facility] Comment on above: Performed By: #### L IPID, TSH, CMP, FT3 ####[facility] [address] [address]Dr. Becca Marroquin Globulin (S) [Mass/Vol] 3.2 g/dL Normal [facility] Comment on above: Performed By: #### L IPID, TSH, CMP, FT3 ####[facility] [address] [address]Dr. Becca Marroquin Glucose [Mass/Vol] 65 mg/dL Critically low 74-106 [facility] Comment on above: Performed By: #### L IPID, TSH, CMP, FT3 ####[facility] [address] [address]Dr. Becca Marroquin Potassium [Moles/Vol] 3.9 mmol/L Normal 3.5-5.1 [facility] Comment on above: Performed By: #### L IPID, TSH, CMP, FT3 ####[facility] [address] [place], [place] [address]Dr. Becca Marroquin Protein [Mass/Vol] 7.4 g/dL Normal 6.4-8.2 [facility] Comment on above: Performed By: #### L IPID, TSH, CMP, FT3 ####[facility] [address] [place], [place] [address]Dr. Becca Marroquin Sodium [Moles/Vol] 134 mmol/L Critically low 136-145 [facility] Comment on above: Performed By: #### L IPID, TSH, CMP, FT3 ####[facility] [address] [place], [place] [address]Dr. Becca Marroquin Urea nitrogen [Mass/Vol] 15.0 mg/dL Normal 7.0-18.0 [facility] Comment on above: Performed By: #### L IPID, TSH, CMP, FT3 ####[facility] [address] [place] [id number]. Becca Marroquin Urea nitrogen/Creatinine [Mass ratio] 26.8 mg/mg Normal [facility] Comment on above: Performed By: #### L IPID, TSH, CMP, FT3 ####[facility] [id number] [place], [place] [address]Dr. Becca Marroquin TSHon 04-21-2022 TSH 0.888 uIU/mL Normal 0.358-3.740 [facility] Comment on above: Performed By: #### L IPID, TSH, CMP, FT3 ####[facility] [id number] [place], [place] [address]Ue. Becca Marroquin XR DEXA BONE DENSITYon 04-21 [...] by: VICKI LOPEZ Date: 2022-04-21 16:51 Normal [facility] Vital Signs Date Time Vital Sign Value Performing Clinician Anita meadows 06-05-2025 15:25-0400 Body height 144.02 cm Ro Dennison APRN Work Phone: [facility] 06-05-2025 15:25-0400 Body mass index (BMI) [Ratio] 20.6 kg/m2 Ro Dennison APRN Work Phone: [facility] 06-05-2025 15:25-0400 Body temperature 97.6 [degF] Ro Dennison APRN Work Phone: [facility] 06-05-2025 15:25-0400 Body weight 42.83 kg Ro Dennison APRN Work Phone: [facility] 06-05-2025 15:25-0400 Diastolic blood pressure 80 mm[Hg] Ro Dennison APRN Work Phone: [facility] 06-05-2025 15:25-0400 Heart rate 68 /min Ro Weistephanie JOINT SUPERVISOR Work Phone: [facility] 06-05-2025 15:25-0400 SaO2% (BldA) [Mass fraction] 100 % Ro Dennison JOINT SUPERVISOR Work Phone: [facility] 06-05-2025 15:25-0400 Systolic blood pressure 126 mm[Hg] Ro Dennison JOINT SUPERVISOR Work Phone: [facility] 11-27-2024 13:52-0500 Body height 147.32 cm [facility] 11-27-2024 13:52-0500 Body mass index (BMI) [Ratio] 19.8 kg/m2 [facility] 11-27-2024 13:52-0500 Body temperature 97.1 [degF] [facility] 11-27-2024 13:52-0500 Body weight 43.09 kg [facility] 11-27-2024 13:52-0500 Diastolic blood pressure 70 mm[Hg] [facility] 11-27-2024 13:52-0500 Heart rate 70 /min [facility] 11-27-2024 13:52-0500 SaO2% (BldA) [Mass fraction] 97 % [facility] 11-27-2024 13:52-0500 Systolic blood pressure 126 mm[Hg] [facility] 07-12-2024 11:28-0400 Body height 147.32 cm [facility] 07-12-2024 11:28-0400 Body mass index (BMI) [Ratio] 20.3 kg/m2 [facility] 07-12-2024 11:28-0400 Body temperature 97.4 [degF] [facility] 07-12-2024 11:28-0400 Body weight 44.22 kg [facility] 07-12-2024 11:28-0400 Diastolic blood pressure 76 mm[Hg] [facility] 07-12-2024 11:28-0400 Heart rate 71 /min [facility] 07-12-2024 11:28-0400 SaO2% (BldA) [Mass fraction] 98 % [facility] 07-12-2024 11:28-0400 Systolic blood pressure 116 mm[Hg] [facility] 04-10-2024 13:29-0400 Body height 147.32 cm [facility] 04-10-2024 13:29-0400 Body mass index (BMI) [Ratio] 20.7 kg/m2 [facility] 04-10-2024 13:29-0400 Body weight 44.96 kg [facility] 04-10-2024 13:29-0400 Diastolic blood pressure 88 mm[Hg] [facility] 04-10-2024 13:29-0400 Heart rate 67 /min [facility] 04-10-2024 13:29-0400 SaO2% (BldA) [Mass fraction] 98 % [facility] 04-10-2024 13:29-0400 Systolic blood pressure 148 mm[Hg] [facility] Encounters Encounter Date Encounter Type Care Provider Facility Start: 06-05-2025 End: 06-05-2025 ambulatory Ro Dennison APRN Work Phone: [facility] Work Phone: Start: 06-05-2025 End: 06-05-2025 Patient encounter procedure Ro Dennison APRN [facility] Work Phone: Start: 01-01-2025 End: 01-01-2025 ambulatory [facility] Start: 12-31-2024 End: 12-31-2024 ambulatory [facility] Work Phone: Start: 12-31-2024 End: 12-31-2024 Patient encounter procedure [facility] Phys[facility] Work Phone: Start: 11-27-2024 End: 11-27-2024 ambulatory [facility] Work Phone: Start: 11-27-2024 End: 11-27-2024 Patient encounter procedure [facility] Work Phone: Start: 11-22-2024 End: 11-22-2024 ambulatory BRANDON VARGAS [facility] Start: 11-21-2024 Non-patient / Non-visit [facility] Work Phone: Start: 11-16-2024 Non-patient / Non-visit [facility] Work Phone: Start: 11-14-2024 Evaluation and management of inpatient RENEE MURRY [facility] Start: 11-13-2024 Evaluation and management of inpatient TASHI [facility] Start: 11-12-2024 Non-patient / Non-visit [facility] Work Phone: Start: 11-12-2024 Evaluation and management of inpatient MADHAVI Yumiko AIKEN [facility] Start: 11-12-2024 Evaluation and management of inpatient JOSE RAFAEL T [facility] Start: 11-11-2024 Evaluation and management of inpatient JOSE RAFAEL T [facility] Start: 11-11-2024 Evaluation and management of inpatient JOSE RAFAEL T [facility] Start: 11-10-2024 End: 11-16-2024 [facility] Start: 11-10-2024 Non-patient / Non-visit [facility] Work Phone: Start: 10-18-2024 Non-patient / Non-visit [facility] Work Phone: Start: 10-11-2024 End: 10-11-2024 Patient encounter procedure [facility] Work Phone: Start: 07-12-2024 End: 07-12-2024 ambulatory [facility] Work Phone: Start: 07-12-2024 End: 07-12-2024 Patient encounter procedure [facility] Physician [facility] Work Phone: Start: 05-16-2024 Non-patient / Non-visit [facility] Work Phone: Start: 04-16-2024 End: 04-16-2024 ambulatory [facility] Work Phone: Start: 04-16-2024 End: 04-16-2024 Patient encounter procedure [facility] Physician [facility] Work Phone: Start: 04-10-2024 End: 04-10-2024 ambulatory [facility] Work Phone: Start: 04-10-2024 End: 04-10-2024 Patient encounter procedure [facility] Phys[facility] Work Phone: Start: 03-05-2024 Non-patient / Non-visit [facility] Work Phone: Start: 01-18-2024 End: [...] lic 2000 panel - Serum or Plasma [facility] enter DXA Skeletal system. axial Views for bone density [facility] enter MG Breast - bilateral Screening [facility] MG Breast - bilateral Screening [facility] Payers Date Payer Category Payer Unknown [id number] 1955 Unknown [id number] 2.16.84 [id number] 1955 Unknown [id number] 2.16.84 [id number] 1955 Unknown [id number] 2.16.84 [id number] 1955 Unknown [id number] 2.16.84 [id number] 1955 Unknown [id number] 2.16.84 [id number] 1955 Unknown [id number] Social History Date Type Detail Facility Start: 04-10-2024 End: 04-10-2024 Tobacco smoking status NHIS Current some day smoker [facility] Start: 1955 Sex Assigned At Female F [facility] Start: 11-27-2024 End: 12-31-2024 Sex Female (finding) [facility] Clinical Notes 10-11-2024 to 01-01-2025 Note Date & Type Note Facility 01-01-2025 Note [facility] Electrophysiology Consult Note [facility] Reason for visit: Afib HPI: Lorena Barahona is a 69 y.o. year old with past medical history of HFrEF suspected Takotsubo, non-STEMI with normal coronary arteries, hypertension, A-fib also has cerebral palsy. She is accompanied by her sister. She was previously seen by Sheri Vargas and has been in consideration of Watchman device. She was recently admitted to [facility] and was brought in as a transfer from [facility] where she presented with weakness and shortness of breath the troponin was elevated at that time and Clinical diagnosis of non-STEMI was made followed by a catheter catheterization which showed normal coronaries. clinical possibility of Takotsubo diagnosis was made based on the EF of 45% and she was subsequently placed on GDMT and discharged. Patient was also seen by vascular team for a celiac artery occlusion and was placed on aspirin and statin as well as A-fib was seen during hospital stay. Patient was started on amiodarone. She was subsequently discharged with the plan to follow-up with me for discussion regarding A-fib management. Currently she is on Amio and DOAC. She has reduced the dosing on her own. Pulse check: SR PMH: Past Medical History: Diagnosis Date Abnormal ECG Anxiety 07/28/2020 Arrhythmia Atrial fibrillation ([facility]/HCC) Cardiac arrhythmia 06/07/2019 Cerebral palsy ([facility]/HCC) 07/28/2020 Chronic systolic heart failure ([facility]/HCC) 11/22/2024 Cigarette smoker 04/18/2023 Essential hypertension 07/28/2020 Hypertension Myocardial infarction ([facility]) NICM (nonischemic cardiomyopathy) ([facility]) 11/22/2024 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 PSH: Past Surgical History: Procedure Laterality Date CARDIAC CATHETERIZATION SH: Social Determinants of Health Tobacco Use: High Risk (11/21/2024) Patient History Smoking Tobacco Use: Every Day Smokeless Tobacco Use: Never Passive Exposure: Not on file Alcohol Use: Not on file Financial Resource Strain: Low Risk (11/10/2024) Overall Financial Resource Strain (CARDIA) Difficulty of Paying Living Expenses: Not hard at all Food Insecurity: No Food Insecurity (11/10/2024) Hunger Vital Sign Worried About Running Out of Food in the Last Year: Never true Ran Out of Food in the Last Year: Not on file Transportation Needs: No Transportation Needs (11/10/2024) Transportation Lack of Transportation (Medical): No Lack of Transportation (Non-Medical): Not on file Physical Activity: Not on file Stress: Not on file Social Connections: Not on file Intimate Partner Violence: Unknown (11/10/2024) Humiliation, Afraid, Rape, and Kick questionnaire Fear of Current or Ex-Partner: No Emotionally Abused: Not on file Physically Abused: Not on file Sexually Abused: Not on file Depression: Not on file Housing Stability: Low Risk (11/10/2024) Housing Stability Vital Sign Unable to Pay for Housing in the Last Year: No Number of Times Moved in the Last Year: Not on file Homeless in the Last Year: No Utilities: Not At Risk (11/10/2024) [facility] Utilities Threatened with loss of utilities: No Health Literacy: Not on file Allergies: No Known Allergies Weight: 43.1kg Visit Vitals BP 153/89 (BP Location: Right arm, Patient Position: Sitting) Pulse 60 Ht 1.473 m (4' 10 ) Wt 43.1 kg (95 lb) SpO2 100% BMI 19.86 kg/m??? Smoking Status Every Day BSA 1.33 m??? Meds: Current Outpatient Medications on File Prior to Visit Medication Sig Dispense Refill ALPRAZolam (Xanax) 0.25 mg tablet 2.5 mg three times daily. amiodarone (Pacerone) 200 mg tablet Take 1 tablet (200 mg) by mouth with breakfast. 90 tablet 3 aspirin 81 mg EC tablet Take 1 tablet (81 mg) by mouth once daily as directed. 90 tablet 3 baclofen (Lioresal) 10 mg tablet Take 1 tablet by mouth three times daily. Patient takes 10 mg two times a day and 20 mg at bedtime furosemide (Lasix) 40 mg tablet Take 1 tablet (40 mg) by mouth in the morning. 90 tablet 3 metoprolol succinate XL (Toprol-XL) 50 mg 24 hr tablet Take 1 tablet (50 mg) by mouth once daily as directed. Do not crush or chew. 90 tablet 3 multivitamin tablet Take 1 tablet by mouth in the morning. zolpidem (Ambien) 10 mg tablet Take 1 tablet by mouth in the morning. apixaban (Eliquis) 2.5 mg tablet Take 1 tablet (2.5 mg) by mouth two times daily. (Patient not taking: Reported on 01/01/2025) 60 tablet 11 apixaban (Eliquis) 5 mg tablet Take 1 tablet (5 mg) by mouth two times daily. 60 tablet 0 atorvastatin (Lipitor) 40 mg tablet Take 1 tablet (40 mg) by mouth at bedtime. dapagliflozin propanediol (Farxiga) 5 mg Take 1 tablet (5 mg) by mouth in the morning. 30 tablet 0 No current facility-administered medications on file prior to visit. ROS: Review of Systems Respiratory: Positive for wheezing (when I smoke, lay down and in the am). Musculoskeletal: Positive for joint pain. Psychiatric/Beha (more content not included)... [facility] 11-21-2024 Note Cardiovascular Medic ine [facility] SUBJECTIVE Chief Complaint Patient presents with Hospital Follow-up Congestive Heart Failure Atrial Fibrillation Lorena Barahona is a 69 y.o. female here for hospital follow-up. Her sister Karen accompanied her today. HPI PMHx: HFrEF - suspected takotsubo, NSTEMI with normal coronary arteries, HTN, anxiety, paroxsymal a.fib, cerebral palsy Patient states she has been feeling well since she was discharged. She has stopped taking several of her medications that were prescribed to her at discharge. She states I don't like taking all those pills. We had an extended discussion regarding her cardiac medications and their indications. She has a lot of anxiety. BP is high in clinic. Her sister notes her BP has been well controlled at home running 120s/70s with HR in the 70s-80s. HR was even in the 50s and she was asymptomatic. Denies c/o CP, dyspnea, orthopnea, PND, LE edema, dizziness/LH, palpitations, syncope. Discharge Summary Final Discharge Diagnosis: NSTEMI, JOSE score: 4. 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 Severe PCM A. fib with RVR Cerebral palsy. Essential hypertension. Anxiety. Admission Diagnosis: NSTEMI (non-ST elevated myocardial infarction) ([facility]) [I21.4] Hospital course: Lorena Barahona is a 69 y.o. female with PMH cerebral palsy, tobacco use disorder, anxiety and essential hypertension who presented on 11/10/24 as a transfer from [facility], where she initially presented with chief complaint of generalized weakness, chest pain and shortness of breath. Per chart review, family at that time also reported that patient was experiencing hallucinations. Reportedly, troponin was elevated and EKG showed ischemic changes, so patient was started on heparin drip and transferred to [facility] for cardiac catheterization. At [facility], troponin was elevated at 1.12. EKG was negative for ischemic changes. Patient underwent cardiac TSH on 11/13/2024 and showed normal coronaries with picture consistent with stress Takotsubo cardiomyopathy Echocardiogram was done and showed EF 45% and patient placed on goal-directed therapy. 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 Anxiety Anxiety associated with depression Athetoid cerebral palsy (CMS/HCC) Cardiac arrhythmia Cerebral palsy (CMS/HCC) Chronic fatigue Cigarette smoker Contracture of Achilles tendon Contracture of left knee Diastolic dysfunction Difficulty walking Dysfunctions associated with sleep stages or arousal from sleep Essential hypertension Hallux valgus (acquired), left foot Heart murmur Junctional premature beats (CMS/HCC) Lung nodule Mild protein-calorie malnutrition (CMS/HCC) Nonrheumatic mitral valve regurgitation Osteopenia of spine Palpitations Controlled substance agreement signed Tobacco dependence syndrome Underweight Vitamin D deficiency Wheelchair dependence NSTEMI (non-ST elevated myocardial infarction) ([facility]) COVID-19 Diarrhea in adult patient Irregular heart beats Chronic systolic heart failure (CMS/HCC) NICM (nonischemic cardiomyopathy) ([facility]) Occlusion of celiac artery Past Medical History: Diagnosis Date Abnormal ECG Anxiety 07/28/2020 Arrhythmia Atrial fibrillation ([facility]) Cardiac arrhythmia 06/07/2019 Cerebral palsy ([facility]/HCC) 07/28/2020 Chronic systolic heart failure ([facility]/HCC) 11/22/2024 Cigarette smoker 04/18/2023 Essential hypertension 07/28/2020 Hypertension Myocardial infarction ([facility]) NICM (nonischemic cardiomyopathy) ([facility]) 11/22/2024 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 Musculoskeletal: Positive for muscle weakness. Neurological: Positive for weakness. All other systems reviewed and are negative. OBJECTIVE Visit Vitals BP 155/80 (BP Location: Right arm, Patient Position: Sitting) Pulse 70 Ht 1.473 m (4' 10 ) Wt 43.1 kg (95 lb) SpO2 99% BMI 19.86 kg/m??? Smoking Status Every Day BSA 1.33 m??? Medications: Current Outpatient Medications: [START ON 11/27/2024] amiodarone (Pacerone) 200 mg tablet, Take 1 tablet (200 mg) by mouth with breakfast for 99 doses. (more content not included)... [facility] 11-21-2024 Note Patient here for [facility] for NSTEMI and new onset afib. She is not taking Eliquis, atorvastatin, Farxiga, losartan, and spironolactone. She states she does not want to take all these pills . She is taking amiodarone 200mg bid. Patient says she feels good. Denies chest pain, SOB, and lightheadedness/syncope. Does feel palpitations sometimes with anxiety. Her sister says Xanax was stopped at [facility]. She sees her PCP soon and will discuss this. Review of Systems Cardiovascular: Positive for palpitations (with anxiety). Musculoskeletal: Positive for muscle weakness. Neurological: Positive for weakness. All other systems reviewed and are negative. [facility] 11-16-2024 Note Called patient, Michelle ent is establish at [facility] 11-16-2024 Note Hospital Medicine Discharge Summary Final Discharge Diagnosis: NSTEMI, JOSE score: 4. 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 Severe PCM A. fib with RVR Cerebral palsy. Essential hypertension. Anxiety. Admission Diagnosis: NSTEMI (non-ST elevated myocardial infarction) (CMS/[facility]) [I21.4] Hospital course: Lorena Barahona is a 69 y.o. female with PMH cerebral palsy, tobacco use disorder, anxiety and essential hypertension who presented on 11/10/24 as a transfer from [facility], where she initially presented with chief complaint of generalized weakness, chest pain and shortness of breath. Per chart review, family at that time also reported that patient was experiencing hallucinations. Reportedly, troponin was elevated and EKG showed ischemic changes, so patient was started on heparin drip and transferred to [facility] for cardiac catheterization. At [facility], troponin was elevated at 1.12. EKG was negative for ischemic changes. Patient underwent cardiac TSH on 11/13/2024 and showed normal coronaries with picture consistent with stress Takotsubo cardiomyopathy Echocardiogram was done and showed EF 45% and patient placed on goal-directed therapy. 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 Dennison, SINDY, Lorena is advised to follow up with you within 1-2 weeks. Items to follow up in ambulatory setting: None Follow-up with: Cardiology Scheduled appointments: Future Appointments Date Time Provider Department Center 11/21/2024 3:20 PM Brandon Vargas NP [facility] 01/01/2025 10:30 AM Eris Lopes MD [facility] Your medication list START taking these medications Instructions Last Dose Given Next Dose Due amiodarone 400 mg tablet Commonly known as: Pacerone Take 1 tablet (400 mg) by mouth with breakfast and with evening meal for 10 days. amiodarone 200 mg tablet Commonly known as: Pacerone Start taking on: November 27, 2024 Take 1 tablet (200 mg) by mouth with breakfast for 99 doses. Do not start before November 27, 2024. apixaban 5 mg tablet Commonly known as: Eliquis Take 1 tablet (5 mg) by mouth two times daily. aspirin 81 mg EC tablet Start taking on: November 17, 2024 Take 1 tablet (81 mg) by mouth in the morning. atorvastatin 80 mg tablet Commonly known as: Lipitor Take 1 tablet (80 mg) by mouth at bedtime. dapagliflozin propanediol 5 mg Commonly known as: Farxiga Start taking on: November 17, 2024 Take 1 tablet (5 mg) by mouth in the morning. furosemide 40 mg tablet Commonly known as: Lasix Start taking on: November 17, 2024 Take 1 tablet (40 mg) by mouth in the morning. losartan 25 mg tablet Commonly known as: Cozaar Start taking on: November 17, 2024 Take 1 tablet (25 mg) by mouth in the morning. pantoprazole 40 mg EC tablet Commonly known as: ProtoNix Take 1 tablet (40 mg) by mouth before breakfast. Do not crush, chew, or split. spironolactone 25 mg tablet Commonly known as: Aldactone Start taking on: November 17, 2024 Take 0.5 tablets (12.5 mg) by mouth in the morning. CHANGE how you take these medications Instructions Last Dose Given Next Dose Due metoprolol succinate XL 50 mg 24 hr tablet Commonly known as: Toprol-XL What changed: medication strength how much to take when to take this additional instructions Take 1 tablet (50 mg) by mouth in the morning for 30 doses. Do not crush or chew. CONTINUE taking these medications Instructions Last Dose Given Next Dose Due baclofen 10 mg tablet Commonly known as: Lioresal multivitamin tablet zolpidem 10 mg tablet Commonly known as: Ambien STOP taking these medications ALPRAZolam 0.25 mg tablet Commonly known as: Xanax Where to Get Your Medications These medications were sent to [facility] - [place], [place] - [address] [place] [address], [facility] [address] amiodarone 200 mg tablet amiodarone 400 mg tablet apixaban 5 mg tablet aspirin 81 mg EC tablet atorvastatin 80 mg tablet dapagliflozin propanediol 5 mg furosemide 40 mg tablet losartan 25 mg tablet metoprolol succinate XL 50 mg 24 hr tablet pantoprazole 40 mg EC tablet spironolactone 25 mg tablet Lorena has No Known Allergies. Disposition: Home or Self Care () Discharge Condition: Stable Code Status: Full Code Diagnostic Results Hematology: Results from last 7 days Lab Units 11/16/24 0438 11/15/24 0423 11/11/24 0355 11/10/24 2121 WBC AUTO 10*3/uL 7.99 7. (more content not included)... [facility] 11-15-2024 Note Hospital Medicine Daily Progress Note - 11/15/2024 1:55 PM; Room: [address] [place] [address] Admission: 11/10/2024 8:26 PM; Length of stay: 5 days THE HOSPITALIST TEAM PREFERS TO USE [employer] FOR NON-URGENT COMMUNICATION 7AM-7PM. IF I DO NOT RESPOND WITHIN 20 MINUTES OR URGENT MATTERS, PLEASE CALL THROUGH THE RECORD CHANGER ASSEMBLER. FROM 7PM-7AM, PLEASE PAGE [phone](COVR). Code Status: Full Code Barriers to Discharge: [...] Principal Problem: NSTEMI (non-ST elevated myocardial infarction) (CMS/[facility]) Active Problems: COVID-19 Assessment and Plan NSTEMI, [...] Results from last 7 days Lab Units 11/15/2442211/14/24 0511/11/2435411/10/242120 WBC AUTO 10*3/uL 7.46 8.86 < > 5.01 HEMOGLOBIN g/dL 13.7 14.4 < > 13.0 HEMATOCRIT % 41.1 42.6 < > 38.9 MCV fL 91.7 89.7 < > 91.1 PLATELETS AUTO 10*3/uL 229 238 < > 202 INR -- -- -- 1.09 < > = values in this interval not displayed. Chemistry: Results from last 7 days Lab Units 11/15/2442211/14/2452811/13/2444811/11/2435411/10/242120 SODIUM mmol/L 138 142 139 < > [...] LDL 90 11/10/2024 No results found for: [id number] , IRON , TIBC , C3 , [...] was referred for cardiac catheterization. Assistants: Dr Cody Bethea. Procedure Performed: Bilateral selective coronary angiogram. right radial artery under ultrasound guidance. Methods: Procedure was explained to the patient with risks and benefits; she signed informed consent. she was brought to the slab stripper in a fasting state. The right wrist area was prepped and draped in usual fashion. Micropuncture technique was used for access in the right radial artery. A 5-Samoan x 11 cm sheath w (more content not included)... [facility] 11-15-2024 Note Cardiology Progress Note Subjective Subjective: F/U: NSTEMI, acute HFrEF, new onset a.fib Patient seen and examined at the bedside this AM. No acute events overnight. She denied any chest pain, palpitations, shortness of breath or dizziness/lightheadedness. She has maintained sinus rhythm. Objective Current Facility-Administered Medications: acetaminophen (Tylenol) tablet 650 mg, 650 mg, oral, q6h PRN, Cody Lucero MD, 650 mg at 11/14/24 1801 ALPRAZolam (Xanax) tablet 0.25 mg, 0.25 mg, oral, TID PRN, Cody Lucero MD, 0.25 mg at 11/14/24 1616 [START ON 11/27/2024] amiodarone (Pacerone) tablet 200 mg, 200 mg, oral, Daily with breakfast, Brandon Vargas NP amiodarone (Pacerone) tablet 400 mg, 400 mg, oral, BID with meals, Brandon Vargas NP, 400 mg at 11/15/24 0850 apixaban (Eliquis) tablet 5 mg, 5 mg, oral, BID, Chayo Cooley MD, 5 mg at 11/15/24 0850 aspirin EC tablet 81 mg, 81 mg, oral, Daily, Cody Lucero MD, 81 mg at 11/15/24 0850 atorvastatin (Lipitor) tablet 80 mg, 80 mg, oral, Nightly, Cody Lucero MD, 80 mg at 11/14/24 2116 baclofen (Lioresal) tablet 10 mg, 10 mg, oral, TID, Cody Lucero MD, 10 mg at 11/15/24 0850 bisacodyl (Dulcolax) suppository 10 mg, 10 mg, rectal, Daily PRN, Cody Lucero MD, 10 mg at 11/14/24 1209 dapagliflozin propanediol (Farxiga) tablet 5 mg, 5 mg, oral, Daily, Cody Lucero MD, 5 mg at 11/15/24 0850 docusate sodium (Colace) capsule 100 mg, 100 mg, oral, BID, Renee Murry MD, 100 mg at 11/14/24 1209 furosemide (Lasix) tablet 40 mg, 40 mg, oral, Daily, Cody Lucero MD, 40 mg at 11/15/24 0850 hydrOXYzine pamoate (Vistaril) capsule 25 mg, 25 mg, oral, 4x daily PRN, Cody Lucero MD ibuprofen tablet 800 mg, 800 mg, oral, q8h PRN, Cody Lucero MD, 800 mg at 11/13/24 2112 melatonin tablet 5 mg, 5 mg, oral, Nightly PRN, Cody Lucero MD, 5 mg at 11/14/24 2346 metoprolol succinate XL (Toprol-XL) 24 hr tablet 25 mg, 25 mg, oral, Once, Brandon Vargas NP metoprolol succinate XL (Toprol-XL) 24 hr tablet 50 mg, 50 mg, oral, q AM, Brandon Vargas NP, 50 mg at 11/15/24 0851 metoprolol tartrate (Lopressor) injection 5 mg, 5 mg, intravenous, Once, Ben Montes MD morphine injection 2 mg, 2 mg, intravenous, q8h PRN, Cody Lucero MD, 2 mg at 11/14/24 1312 nitroglycerin (Nitrostat) SL tablet 0.4 mg, 0.4 mg, sublingual, q5 min PRN, Cody Lucero MD ondansetron ODT (Zofran-ODT) disintegrating tablet 4 mg, 4 mg, oral, q8h PRN, 4 mg at 11/15/24 0848 OR ondansetron HCl (PF) (Zofran) injection 4 mg, 4 mg, intravenous, q6h PRN, Cody Lucero MD, 4 mg at 11/13/24 2256 pantoprazole (ProtoNix) EC tablet 40 mg, 40 mg, oral, Daily, Cody Lucero MD polyethylene glycol (Glycolax) packet 17 g, 17 g, oral, Daily PRN, Cody Lucero MD, 17 g at 11/14/24 1209 Insert peripheral IV, , , Once AND Saline lock IV, , , Once AND sodium chloride flush 10 mL, 10 mL, intravenous, q8h PRN, Cody Lucero MD spironolactone (Aldactone) split tablet 12.5 mg, 12.5 mg, oral, Daily, Cody Lucero MD, 12.5 mg at 11/15/24 0850 zolpidem (Ambien) split tablet 5 mg, 5 mg, oral, Nightly PRN, Cody Lucero MD, 5 mg at 11/13/242111 Objective: [...] -- -- 54 11 95 % -- 11/14/242117 94/59 -- -- 62 15 -- -- 11/14/242115 94/59 -- -- 68 -- -- -- [...] 72 QT Interval 362 QTC CALCULATION(BAZETT) 498 R-[place] 50 T Wave [place] 211 Impression Atrial fibrillation with rapid ventricular response ST & T wave abnormality, consider inferior ischemia ST & T wave abnormality, consider anterolateral ischemia Abnormal ECG Confirmed by Eris Lopes ([id number]) on 11/14/2024 8:05:15 PM Lab Results Component Value Date TROPONINI 0.08 (H) 11/14/2024 Complete Echo (TTE) w/wo Imaging Agent, Strain, 3D, Bubble Study (more content not included)... [facility] 11-14-2024 Note Cardiology Progress Note Subjective Subjective: [...] 650 mg, 650 mg, oral, q6h PRN, Cody Lucero MD ALPRAZolam (Xanax) tablet 0.25 mg, 0.25 mg, oral, TID PRN, Cody Lucero MD, 0.25 mg at 11/14/24 1616 [START ON 11/29/2024] amiodarone (Pacerone) tablet 200 mg, 200 mg, oral, Daily with breakfast, Brandon Vargas NP amiodarone (Pacerone) tablet 400 mg, 400 mg, oral, BID with meals, Brandon Vargas NP apixaban (Eliquis) tablet 5 mg, 5 mg, oral, BID, Chayo Cooley MD, 5 mg at 11/14/24 1002 aspirin EC tablet 81 mg, 81 mg, oral, Daily, Cody Lucero MD, 81 mg at 11/14/24 1001 atorvastatin (Lipitor) tablet 80 mg, 80 mg, oral, Nightly, Cody Lucero MD, 80 mg at 11/13/24 211 baclofen (Lioresal) tablet 10 mg, 10 mg, oral, TID, Cody Lucero MD, 10 mg at 11/14/24 1616 bisacodyl (Dulcolax) suppository 10 mg, 10 mg, rectal, Daily PRN, Cody Lucero MD, 10 mg at 11/14/24 1209 dapagliflozin propanediol (Farxiga) tablet 5 mg, 5 mg, oral, Daily, Cody Lucero MD, 5 mg at 11/14/24 1001 docusate sodium (Colace) capsule 100 mg, 100 mg, oral, BID, Renee Murry MD, 100 mg at 11/14/24 1209 furosemide (Lasix) tablet 40 mg, 40 mg, oral, Daily, Cody Lucero MD, 40 mg at 11/14/24 1001 hydrOXYzine pamoate (Vistaril) capsule 25 mg, 25 mg, oral, 4x daily PRN, Cody Lucero MD ibuprofen tablet 800 mg, 800 mg, oral, q8h PRN, Cody Lucero MD, 800 mg at 11/13/24 2112 melatonin tablet 5 mg, 5 mg, oral, Nightly PRN, Cody Lucero MD metoprolol succinate XL (Toprol-XL) 24 hr tablet 25 mg, 25 mg, oral, q AM, Cody Lucero MD, 25 mg at 11/14/24 1001 metoprolol tartrate (Lopressor) injection 5 mg, 5 mg, intravenous, Once, Ben Montes MD morphine injection 2 mg, 2 mg, intravenous, q8h PRN, Cody Lucero MD, 2 mg at 11/14/24 1312 nitroglycerin (Nitrostat) SL tablet 0.4 mg, 0.4 mg, sublingual, q5 min PRN, Cody Lucero MD ondansetron ODT (Zofran-ODT) disintegrating tablet 4 mg, 4 mg, oral, q8h PRN OR ondansetron HCl (PF) (Zofran) injection 4 mg, 4 mg, intravenous, q6h PRN, Cody Lucero MD, 4 mg at 11/13/24 2256 pantoprazole (ProtoNix) EC tablet 40 mg, 40 mg, oral, Daily, Cody Lucero MD polyethylene glycol (Glycolax) packet 17 g, 17 g, oral, Daily PRN, Cody Lucero MD, 17 g at 11/14/24 1209 Insert peripheral IV, , , Once AND Saline lock IV, , , Once AND sodium chloride flush 10 mL, 10 mL, intravenous, q8h PRN, Cody Lucero MD spironolactone (Aldactone) split tablet 12.5 mg, 12.5 mg, oral, Daily, Cody Lucero MD, 12.5 mg at 11/14/24 1001 zolpidem (Ambien) split tablet 5 mg, 5 mg, oral, Nightly PRN, Cody Lucero MD, 5 mg at 11/13/24 2112 [...] 100/68 -- -- 83 15 -- -- 11/13/245 111/80 -- -- 83 18 -- -- 11/13/242029 102/87 -- -- 86 14 -- -- 11/13/242014 127/86 -- -- 79 16 96 % -- 11/13/241952 128/88 36.2 ???C (97.2 ???F) Temporal 84 14 -- -- 11/13/24 1930 126/87 -- -- 74 14 -- -- 11/13/24 1915 122/84 -- -- 64 12 -- -- 11/13/24 1900 116/84 -- -- 74 12 -- -- 11/13/241855 125/88 36.2 ???C (97.2 ???F) Temporal 79 20 -- -- 11/13/24 1836 127/74 -- -- 69 16 97 % -- 11/13/241806 -- -- -- -- -- 97 % -- 11/13/24 1806 111/80 -- -- 67 16 97 % [...] Left lower leg: (more content not included)... [facility] 11-14-2024 Note Hospital Medicine Daily Progress Note - 11/14/2024 12:25 PM; Room: [address] [place] [address] Admission: 11/10/2024 8:26 PM; Length of stay: 4 days THE HOSPITALIST TEAM PREFERS TO USE [employer] FOR NON-URGENT COMMUNICATION 7AM-7PM. IF I DO NOT RESPOND WITHIN 20 MINUTES OR URGENT MATTERS, PLEASE CALL THROUGH THE RECORD CHANGER ASSEMBLER. FROM 7PM-7AM, PLEASE PAGE [phone](COVR). Code Status: Full Code Barriers to Discharge: [...] Principal Problem: NSTEMI (non-ST elevated myocardial infarction) ([facility]) Active Problems: COVID-19 Assessment and Plan NSTEMI, [...] from last 7 days Lab Units 11/14/24 0511/13/24 0449 11/11/24 0355 11/10/242120 WBC AUTO 10*3/uL 8.86 6.88 < > [...] 0529 11/13/24 0449 11/12/24 0409 11/11/24 0355 11/10/242120 SODIUM mmol/L 142 139 139 < > [...] LDL 90 11/10/2024 No results found for: [id number] , IRON , TIBC , C3 , [...] wave abnormality, consider (more content not included)... [facility] 11-13-2024 Note Patient: Lorena blunt Procedure Information Date/Time: 11/13/24 1630 Procedure: Coronary angiography Location: [facility] HYDRAULIC [facility]CHANIC 3 / [facility] (Cath) Providers: Claude Briceño MD [...] with attending and fellow. Additional Equipment Requests [facility] 11-13-2024 Note Adult Nutrition Asse ssment: Name: Lorena Barahona Date: 1955 Date of Visit: 11/13/24 Admission Dx: NSTEMI (non-ST elevated myocardial infarction) ([facility]) [I21.4] Reason for assessment: high risk Information [...] 0 Lab Value Date/Time BUN 27 (H) 11/13/20249 CREATININE 0.57 (L) 11/13/2024 0449 NA 139 11/13/2024 0449 K 3.7 11/13/2024 0449 PHOS 3.3 11/10/20242120 MG 2.3 11/13/2024 0449 HGBA1C 5.5 11/11/2024 0355 HGB 13.5 11/13/2024 0449 WBC 6.88 11/13/2024 0449 CHOL 157 11/10/20241 HDL 67 11/10/20242120 Allergies: No Known Allergies [...] 11/12/24 1424 Special Kitchen Request Once Comments: Insurance Adviser salad with swedish. Hot tea, chocolate pudding 11/12/24 1424 11/12/24 1216 Special Kitchen Request Once Comments: Insurance Adviser salad with swedish. Hot tea, chocolate pudding 11/12/24 1216 11/12/24 [...] turkey sausage, sugar and cream 11/11/24 0917 11/10/242129 Dietary nutrition supplements All meals; Boost Plus; 8 oz; Oral Until discontinued Question Answer Comment Deliver with All meals Select supplement: Boost Plus Strength: 8 oz Route Oral 11/10/242129 Nutrition Risk: High Nutrition Needs: Needs based on: actual body weight (43.6 kg) Calorie needs: 2386-5709 kcals/day based on Equation: 30-35 kcals/kg Protein [...] needed Monitor weight (more content not included)... [facility] 11-13-2024 Note 11/13/24 1339 Admission Assessment Questions Verify insurance with patient [...] Status Interested Does the patient have a medical case manager assigned to them through their insurance? Yes (Does have Passport MATI: Radha [phone]) Living Arrangement (Current/Prior to Hospitalization) Private residence;Home self care (Home; Apartment with wheelchair ramp to enter.) Does the patient have history of HHC or SNF? Yes (HHC: Aide services 3 days per week (already set up); SNF: No hx; IPR: No hx; Has done outpatient therapy.) Assistive Device Wheelchair;Crutches;Bedside Commode;Grab bars (Shower chair; Hand held shower wand; Alert button in bathroom, and bedroom; Space Control Supervisor) Patient's goal for discharge Home with resumed [...] to send link and activate MyChart? Yes [facility] 11-13-2024 Note Hospital Medicine Daily Progress Note - 11/13/2024 12:00 PM; Room: [address] [place] [address] Admission: 11/10/2024 8:26 PM; Length of stay: 3 days THE HOSPITALIST TEAM PREFERS TO USE [employer] FOR NON-URGENT COMMUNICATION 7AM-7PM. IF I DO NOT RESPOND WITHIN 20 MINUTES OR URGENT MATTERS, PLEASE CALL THROUGH THE RECORD CHANGER ASSEMBLER. FROM 7PM-7AM, PLEASE PAGE [phone](COVR). Code Status: Full Code Barriers to Discharge: [...] Principal Problem: NSTEMI (non-ST elevated myocardial infarction) ([facility]) Active Problems: COVID-19 Assessment and Plan NSTEMI, [...] Results from last 7 days Lab Units 11/13/24 0449 11/12/24 0409 11/11/24 0355 11/10/24 2121 WBC AUTO 10*3/uL 6.88 7.85 < > 5.01 HEMOGLOBIN g/dL 13.5 12.5 < > 13.0 HEMATOCRIT % 40.1 36.7 < > 38.9 MCV fL 90.3 90.0 < > 91.1 PLATELETS AUTO 10*3/uL 216 197 < > 202 INR -- -- -- 1.09 < > = values in this interval not displayed. Chemistry: Results from last 7 days Lab Units 11/13/24 0449 11/12/24 0409 11/11/24 0355 11/10/24 2121 SODIUM mmol/L 139 139 [...] LDL 90 11/10/2024 No results found for: [id number] , IRON , TIBC , C3 , C4 , KELLY , CANCA , ASO , PSA , CEA , CA125 , CA199 , AFP , CA153 Imaging Complete Echo (TTE) w/wo Imaging Agent, Strain, 3D, Bubble Study 1 [facility] [address] [place] [address] [phone] (fax) Echocardiogram-[facility] Name: LORENA BARAHONA Study Date: 11/12/2024 12:55 PM B/P: 94 mmHg/54 mmHg HR: Date of : 1955 Location: [facility] Height: 57 in. Age: 69 year(s) Patient [...] Ventricle Label Value (more content not included)... [facility] 11-13-2024 Note [facility] Vascular Surgery DAILY PROGRESS NOTE Subjective No acute events overnight. Patient resting comfortably in bed. Mesenteric duplex performed which showed findings suggestive of occlusion of proximal celiac artery with reconstitution of distal celiac artery. Denies fevers, chills, SOB, nausea, emesis, or abdominal pain. Per Cardiology note they plan for possible cardiac angiography today. Objective Vitals Vitals: 11/13/24 0737 BP: 128/83 Pulse: 61 Resp: 12 Temp: 36.4 ???C (97.5 ???F) SpO2: 98% I/O last 3 completed shifts: In: 468.3 (10.7 mL/kg) [P.O.:240; I.V.:228.3 (5.2 mL/kg)] Out: 450 (10.3 mL/kg) [Urine:450 (0.3 mL/kg/hr)] Weight: 43.6 kg I/O this shift: In: 30 [P.O.:30] Out: - Physical Exam Constitutional: General: She is not in acute distress. Appearance: Normal appearance. HENT: Head: Normocephalic and atraumatic. Eyes: Pupils: Pupils are equal, round, and reactive to light. Cardiovascular: Rate and Rhythm: Normal rate and regular rhythm. Pulses: Normal pulses. Pulmonary: Effort: Pulmonary effort is normal. No respiratory distress. Abdominal: General: Abdomen is flat. There is no distension. Palpations: Abdomen is soft. Tenderness: There is no abdominal tenderness. There is no guarding. Musculoskeletal: General: Normal range of motion. Skin: General: Skin is warm and dry. Capillary Refill: Capillary refill takes less than 2 seconds. Neurological: General: No focal deficit present. Mental Status: She is alert and oriented to person, place, and time. Psychiatric: Mood and Affect: Mood normal. Labs Results from last 7 days Lab Units 11/13/24 0449 11/12/24 0409 11/11/24 0355 11/10/24 2121 WBC AUTO 10*3/uL 6.88 7.85 9.13 5.01 HEMOGLOBIN g/dL 13.5 12.5 12.0 13.0 HEMATOCRIT % 40.1 36.7 35.5* 38.9 PLATELETS AUTO 10*3/uL 216 197 175 202 Results from last 7 days Lab Units 11/13/24 0449 11/12/24 0409 11/11/24 0355 11/10/24 2121 SODIUM mmol/L 139 139 138 139 POTASSIUM mmol/L 3.7 3.5 3.8 4.2 CO2 mmol/L 26 27 22 24 BUN mg/dL 27* 21 13 15 CREATININE mg/dL 0.57* 0.51* 0.41* 0.42* Results from last 7 days Lab Units 11/10/24 2121 INR 1.09 Medications aspirin, 81 mg, oral, Daily atorvastatin, 80 mg, oral, Nightly baclofen, 10 mg, oral, TID furosemide, 40 mg, oral, Daily metoprolol succinate XL, 25 mg, oral, q AM pantoprazole, 40 mg, oral, Daily heparin, 0-28 Units/kg/hr, Last Rate: 18 Units/kg/hr (11/12/24 0801) Imaging Complete Echo (TTE) w/wo Imaging Agent, Strain, 3D, Bubble Study 1 [facility] [address] [place] [address] [phone] (fax) Echocardiogram-[facility] Name: LORENA BARAHONA Study Date: 11/12/2024 12:55 PM B/P: 94 mmHg/54 mmHg HR: Date of : 1955 Location: [facility] Height: 57 in. Age: 69 year(s) Patient [...] endocardial borders. Measurements Left Ventricle Label Value Normal Value LVOT PGmax 5 mmHg LVEF visual 45 % LVDd, 2D 3.29 cm (3.9cm - 5.3cm) LVDs, 2D 2.32 cm (2.1cm - 4cm) IVSd, 2D 0.83 cm (0.6cm - 1.1cm) LVPWd, 2D 0.98 cm (0.6cm - 0.9cm) LV Mass, 2D ASE 81.34 g LV Mass Index, 2D ASE 61.2 g/m?? (44g/m?? - 88.4g/m??) RWT, MM 0.6 (0 - 0.42) LVSVI, 2D 18.8 ml/m2 Right Ventricle Label Value Normal Value RVDd, 2D 3.54 cm (1.9cm - 3.8cm) TAPSE 1.76 cm Right Atrium Label Value Normal Value RA Area 10.8 cm?? Aortic Valve Label Value Normal Value AV DVI 1 Mitral Valve Label Value Normal Value MV E Vmax 0.6 m/s MV A Vmax 0.75 m/s MV E/A 0.8 MV E/E' lateral 14.6 MV E' lateral 0.04 m/s Aorta Label Value Normal Value AoRoot, 2D 2.6 cm (1.4cm - 3.8cm) Valvular Assessment LVOT 0.7 - 1.1 m/sec Aortic Valve 1.0 - 1.7 m/sec Mitral Valve 0.6 - 1.3 m/sec Tricuspid Valve 0.3 - 0.7 m/sec Pulmonic Valve 0.6 - 0.9 m/sec Regurgitation No No No No Stenosis No No Max Velocity 1.15 m/sec 1.15 m/s 0.60 m/sec 1.03 m/s Max Gradient 5.00 mmHg 4.00 mmHg Findings Left Ventricle: The left ventricle is normal (more content not included)... [facility] 11-13-2024 Note ---- Attestation signed by Eris Lopes MD at [...] documentation from me. Proceed with cath today. ---- Cardiology Progress Note Subjective Subjective: Patient seen and examined at the bedside, no acute events overnight. Continues to deny chest pain, palpitations, shortness of breath or dizziness/lightheadedness. Patient is rather tearful this morning due to anxiety, asking for medication prior to her cath later today to help with anxiety. Objective Current Facility-Administered Medications: acetaminophen (Tylenol) tablet 650 mg, 650 mg, oral, q6h PRN, Madhavi Aiken MD ALPRAZolam (Xanax) tablet 0.25 mg, 0.25 mg, oral, TID PRN, Madhavi Aiken MD, 0.25 mg at 11/13/241006 aspirin EC tablet 81 mg, 81 mg, oral, Daily, Ashley Trujillo MD, 81 mg at 11/13/241006 atorvastatin (Lipitor) tablet 80 mg, 80 mg, oral, Nightly, Ashley Trujillo MD baclofen (Lioresal) tablet 10 mg, 10 mg, oral, TID, Madhavi Aiken MD, 10 mg at 11/13/24 1007 bisacodyl (Dulcolax) suppository 10 mg, 10 mg, rectal, Daily PRN, Madhavi Aiken MD furosemide (Lasix) tablet 40 mg, 40 mg, oral, Daily, Jose Rafael Joshua MD, 40 mg at 11/13/24 1007 heparin infusion 100 units/mL in D5W, 0-28 Units/kg/hr, intravenous, Continuous, Madhavi Aiken MD, Last Rate: 7.6 mL/hr at 11/12/24 0801, 18 Units/kg/hr at 11/12/24 0801 hydrOXYzine pamoate (Vistaril) capsule 25 mg, 25 mg, oral, 4x daily PRN, Madhavi Aiken MD ibuprofen tablet 800 mg, 800 mg, oral, q8h PRN, Ca Pirkl, ULTRASOUND TECHNOL, 800 mg at 11/12/24 2113 melatonin tablet 5 mg, 5 mg, oral, Nightly PRN, Madhavi Aiken MD metoprolol succinate XL (Toprol-XL) 24 hr tablet 25 mg, 25 mg, oral, q AM, Ashley Trujillo MD, 25 mg at 11/13/24 1007 morphine injection 2 mg, 2 mg, intravenous, q8h PRN, Madhavi Aiken MD nitroglycerin (Nitrostat) SL tablet 0.4 mg, 0.4 mg, sublingual, q5 min PRN, Madhavi Aiken MD ondansetron ODT (Zofran-ODT) disintegrating tablet 4 mg, 4 mg, oral, q8h PRN OR ondansetron HCl (PF) (Zofran) injection 4 mg, 4 mg, intravenous, q6h PRN, Madhavi Aiken MD pantoprazole (ProtoNix) EC tablet 40 mg, 40 mg, oral, Daily, aMdhavi Aiken MD polyethylene glycol (Glycolax) packet 17 g, 17 g, oral, Daily PRN, Madhavi Aiken MD Insert peripheral IV, , , Once AND Saline lock IV, , , Once AND sodium chloride flush 10 mL, 10 mL, intravenous, q8h PRN, Madhavi Aiken MD zolpidem (Ambien) split tablet 5 mg, 5 mg, oral, Nightly PRN, Jose Rafael Joshua MD, 5 mg at 11/12/24 2111 Objective: Patient Vitals for the past 24 [...] Value Ventricular Rate 66 Atrial Rate 66 NH Interval 146 QRS DURATION 78 QT Interval 508 QTC CALCULATION(BAZETT) 532 P [place] 49 R-[place] 54 T Wave [place] 244 Impression Normal sinus rhythm with sinus arrhythmia ST & Marked T wave abnormality, consider anterolateral ischemia Prolonged QT Abnormal ECG When compared with ECG of 11-NOV-2024 11:39, T wave inversion more evident in Inferior lead T wave inversion more evident in Anterior leads QT has lengthened Confirmed by Eris Lopes (80) on 11/13/2024 12:45:49 AM (more content not included)... [facility] 11-12-2024 Note ---- Attestation signed by Eris Lopes MD at [...] worsening TWI. Plan for cath in AM ---- Cardiology Progress Note Subjective Subjective: Patient seen and examined at the bedside, no acute events overnight. Continues to deny chest pain, palpitations, shortness of breath or dizziness/lightheadedness. Objective Current Facility-Administered Medications: acetaminophen (Tylenol) tablet 650 mg, 650 mg, oral, q6h PRN, Madhaiv Aiken MD ALPRAZolam (Xanax) tablet 0.25 mg, 0.25 mg, oral, TID PRN, Madhavi Aiken MD, 0.25 mg at 11/12/24 0942 aspirin EC tablet 81 mg, 81 mg, oral, Daily, Ashley Trujillo MD, 81 mg at 11/12/24 0942 atorvastatin (Lipitor) tablet 80 mg, 80 mg, oral, Nightly, Ashley Trujillo MD baclofen (Lioresal) tablet 10 mg, 10 mg, oral, TID, Madhavi Aiken MD, 10 mg at 11/12/24 0942 bisacodyl (Dulcolax) suppository 10 mg, 10 mg, rectal, Daily PRN, Madhavi Aiken MD furosemide (Lasix) tablet 40 mg, 40 mg, oral, Daily, Jose Rafael Joshua MD, 40 mg at 11/12/24 0942 heparin infusion 100 units/mL in D5W, 0-28 Units/kg/hr, intravenous, Continuous, Madhavi Aiken MD, Last Rate: 7.6 mL/hr at 11/12/24 0801, 18 Units/kg/hr at 11/12/24 0801 hydrOXYzine pamoate (Vistaril) capsule 25 mg, 25 mg, oral, 4x daily PRN, Madhavi Aiken MD ibuprofen tablet 800 mg, 800 mg, oral, q8h PRN, Ca Minayakl, ULTRASOUND TECHNOL, 800 mg at 11/11/24 2216 melatonin tablet 5 mg, 5 mg, oral, Nightly PRN, Madhavi Aiken MD metoprolol succinate XL (Toprol-XL) 24 hr tablet 25 mg, 25 mg, oral, q AM, Ashley Trujillo MD, 25 mg at 11/12/24 0942 morphine injection 2 mg, 2 mg, intravenous, q8h PRN, Madhavi Aiken MD nitroglycerin (Nitrostat) SL tablet 0.4 mg, 0.4 mg, sublingual, q5 min PRN, Madhavi Aiken MD ondansetron ODT (Zofran-ODT) disintegrating tablet 4 mg, 4 mg, oral, q8h PRN OR ondansetron HCl (PF) (Zofran) injection 4 mg, 4 mg, intravenous, q6h PRN, Madhavi Aiken MD pantoprazole (ProtoNix) EC tablet 40 mg, 40 mg, oral, Daily, Madhavi Aiken MD polyethylene glycol (Glycolax) packet 17 g, 17 g, oral, Daily PRN, Madhavi Aiken MD Insert peripheral IV, , , Once AND Saline lock IV, , , Once AND sodium chloride flush 10 mL, 10 mL, intravenous, q8h PRN, Madhavi Aiken MD zolpidem (Ambien) split tablet 5 mg, 5 mg, oral, Nightly PRN, Jose Rafael Joshua MD, 5 mg at 11/11/24 2142 Objective: Patient Vitals for the past 24 [...] Value Ventricular Rate 66 Atrial Rate 66 NH Interval 146 QRS DURATION 78 QT Interval 508 QTC CALCULATION(BAZETT) 532 P [place] 49 R-[place] 54 T Wave [place] 244 Impression Normal sinus rhythm with sinus [...] months No nuclear (more content not included)... [facility] 11-12-2024 Note [facility] Vascular Surgery CONSULTATION Reason for Consult: Celiac Artery Occlusion History of Present Illness: Lorena Barahona is a 69 y.o. female with pertinent past medical history of cerebral palsy, hypertension, and junctional heart beats/palpitations/heart murmur who presented on 11/10/2024 as a transfer from outside hospital due to concerns of NSTEMI. Patient initially presented to [facility] ER for generalized weakness, shortness of breath and chest pain. Patient thought it was initially due to COVID as she recently had it, however COVID test in ER was negative. Laboratory workup was significant at the time for elevated troponins and ischemic changes seen on EKG. Patient was started on heparin and transferred to [facility] for further workup and possible cardiac catheterization. [...] 650 mg, 650 mg, oral, q6h PRN, Madhavi Aiken MD ALPRAZolam (Xanax) tablet 0.25 mg, 0.25 mg, oral, TID PRN, Madhavi Aiken MD, 0.25 mg at 11/12/24 0942 aspirin EC tablet 81 mg, 81 mg, oral, Daily, Ashley Trujillo MD, 81 mg at 11/12/24 0942 atorvastatin (Lipitor) tablet 80 mg, 80 mg, oral, Nightly, Ashley Trujillo MD baclofen (Lioresal) tablet 10 mg, 10 mg, oral, TID, Madhavi Aiken MD, 10 mg at 11/12/24 0942 bisacodyl (Dulcolax) suppository 10 mg, 10 mg, rectal, Daily PRN, Madhavi Aiken MD furosemide (Lasix) tablet 40 mg, 40 mg, oral, Daily, Jose Rafael Joshua MD, 40 mg at 11/12/24 0942 heparin infusion 100 units/mL in D5W, 0-28 Units/kg/hr, intravenous, Continuous, Madhavi Aiken MD, Last Rate: 7.6 mL/hr at 11/12/24 0801, 18 Units/kg/hr at 11/12/24 0801 hydrOXYzine pamoate (Vistaril) capsule 25 mg, 25 mg, oral, 4x daily PRN, Madhavi Aiken MD ibuprofen tablet 800 mg, 800 mg, oral, q8h PRN, Ca Buchanan, ULTRASOUND TECHNOL, 800 mg at 11/11/24 2216 magnesium sulfate in D5W IVPB 1 g, 1 g, intravenous, q1h, Jose Rafael Joshua MD, Last Rate: 100 mL/hr at 11/12/24 1143, 1 g at 11/12/24 1143 melatonin tablet 5 mg, 5 mg, oral, Nightly PRN, Madhavi Aiken MD metoprolol succinate XL (Toprol-XL) 24 hr tablet 25 mg, 25 mg, oral, q AM, Ashley Trujillo MD, 25 mg at 11/12/24 0942 morphine injection 2 mg, 2 mg, intravenous, q8h PRN, Madhavi Aiken MD nitroglycerin (Nitrostat) SL tablet 0.4 mg, 0.4 mg, sublingual, q5 min PRN, Madhavi Aiken MD ondansetron ODT (Zofran-ODT) disintegrating tablet 4 mg, 4 mg, oral, q8h PRN OR ondansetron HCl (PF) (Zofran) injection 4 mg, 4 mg, intravenous, q6h PRN, Madhavi Aiken MD pantoprazole (ProtoNix) EC tablet 40 mg, 40 mg, oral, Daily, Madhavi Aiken MD polyethylene glycol (Glycolax) packet 17 g, 17 g, oral, Daily PRN, Madhavi Aiken MD Insert peripheral IV, , , Once AND Saline lock IV, , , Once AND sodium chloride flush 10 mL, 10 mL, intravenous, q8h PRN, Madhavi Aiken MD zolpidem (Ambien) split tablet 5 [...] Used Substance a (more content not included)... [facility] 11-12-2024 Note Hospital Medicine Daily Progress Note - 11/12/2024 7:13 AM; Room: [address] [place], [place] [id number] Admission: 11/10/2024 8:26 PM; Length of stay: 2 days THE HOSPITALIST TEAM PREFERS TO USE [employer] FOR NON-URGENT COMMUNICATION 7AM-7PM. IF I DO NOT RESPOND WITHIN 20 MINUTES OR URGENT MATTERS, PLEASE CALL THROUGH THE RECORD CHANGER ASSEMBLER. FROM 7PM-7AM, PLEASE PAGE [phone](COVR). Code Status: Full Code Barriers to Discharge: [...] Principal Problem: NSTEMI (non-ST elevated myocardial infarction) (CMS/[facility]) Active Problems: COVID-19 Assessment and Plan NSTEMI [...] LDL 90 11/10/2024 No results found for: [id number] , IRON , TIBC , C3 , [...] Normal in caliber. (more content not included)... [facility] 11-11-2024 Note Hospital Medicine Daily Progress Note - 11/11/2024 7:16 AM; Room: [facility] Admission: 11/10/2024 8:26 PM; Length of stay: 1 days THE HOSPITALIST TEAM PREFERS TO USE [employer] FOR NON-URGENT COMMUNICATION 7AM-7PM. IF I DO NOT RESPOND WITHIN 20 MINUTES OR URGENT MATTERS, PLEASE CALL THROUGH THE RECORD CHANGER ASSEMBLER. FROM 7PM-7AM, PLEASE PAGE [phone](COVR). Code Status: Full Code Barriers to Discharge: [...] last 7 days Lab Units 11/11/24 0355 11/10/241 WBC AUTO 10*3/uL 9.13 5.01 HEMOGLOBIN g/dL 12.0 13.0 HEMATOCRIT % 35.5* 38.9 MCV fL 90.3 91.1 PLATELETS AUTO 10*3/uL 175 202 INR -- 1.09 Chemistry: Results from last 7 days Lab Units 11/11/24 0355 11/10/241 SODIUM mmol/L 138 139 POTASSIUM mmol/L 3.8 [...] LDL 90 11/10/2024 No results found for: [id number] , IRON , TIBC , C3 , C4 , KELLY , CANCA , ASO , PSA , CEA , CA125 , CA199 , AFP , CA153 Imaging Electrocardiogram, 12-lead Normal sinus rhythm Normal ECG No previous ECGs available Discharge Planning Signed Jose Rafael Joshua MD Hospital Medicine 11/11/2024 7:16 AM [facility] 11-10-2024 Note Will follow-up on te st done at [facility] and manage accordingly. Afebrile. [facility] 11-10-2024 Note Will continue hepari n drip Labs, EKG are ordered Echo and cardiology consult Patient will be kept n.p.o. after midnight in case she will need procedure tomorrow. [facility] 11-10-2024 Note Hospital Medicine History and Physical 11/10/2024 9:03 PM THE HOSPITALIST TEAM PREFERS TO USE [employer] FOR NON-URGENT COMMUNICATION 7AM-7PM. IF I DO NOT RESPOND WITHIN 20 MINUTES OR URGENT MATTERS, PLEASE CALL THROUGH THE RECORD CHANGER ASSEMBLER. FROM 7PM-7AM, PLEASE PAGE [phone](COVR). Chief Complaint No chief complaint on file. History of Present Illness Lorena Barahona is an 69 y.o. female who came from home with past medical history of cerebral palsy, wheelchair dependent, hypertension, anxiety and depression, tobacco dependence and protein calorie malnutrition presented as a direct admission from [facility] ER where initially patient presented today with complaints of generalized weakness, shortness of breath and chest pain. Patient states that she tested positive for COVID at home and she has multiple family members who are positive as well. In the ER, her COVID test was negative however we will recheck it again here at [facility]. Patient also had hallucinations as per family member who is present with the patient. Patient received IV fluids and states that she feels so much better. Her workup in the ER came back unremarkable except for significantly elevated troponin and ischemic changes on EKG. Patient was started on heparin drip and transferred to [facility] for cardiac catheterization. She states that her chest pain is much better now. She denies dysuria. Patient also had nausea for many days and intermittent vomiting. She also had loose stools. No fevers or chills. Patient was given 1 dose of dexamethasone at [facility] ER for COVID. No other complaints [...] COVID-19 Will follow-up on test done at [facility] and manage accordingly. Afebrile. Hypertension Cerebral palsy, [...] this hospital stay by a member of [facility] Medicine. Past Medical History History reviewed. [...] all Food Insecurity (more content not included)... [facility] 10-11-2024 Evaluation note Diagnosis Onset Date Resolution Cerebral palsy acute September 232023 1:56pm Generalized anxiety disorder acute October 11, 1:56pm Hypertension acute September 1:56pm Insomnia acute October 11, 2024 1:56pm Cerebral palsy acute November 272024 1:49pm [facility] Work Phone: [phone]) 812-880612-19-2024 Evaluation note* Diagnosis Onset Date Resolution Status Admit Date Cerebral palsy acute September 232023 1:56pm Generalized anxiety disorder acute October 11, 2024 1:56pm Hypertension acute September 1:56pm Insomnia acute October 11, 2024 1:56pm Celiac artery atherosclerosis acute November 27, 2024 1:49pm Cerebral palsy acute November 272024 1:49pm Heart failure acute November 1:49pm Hospital discharge follow-up acute November 27, 2024 1:49pm Hypertension acute November 1:49pm Noncompliance acute November 1:49pm NSTEMI (non-ST elevated myocardial infarction) acute November 27, 2024 1:49pm Paroxysmal A-fib acute November 27, 2024 1:49pm [facility] Work Phone: Evaluation note* Diagnosis Onset Date Resolution Status Cerebral palsy acute Generalized anxiety disorder acute Hypertension acute [facility] Work Phone: Evaluation note* Diagnosis Onset Date Resolution Status Cerebral palsy acute Generalized anxiety disorder acute Hypertension acute Insomnia acute Bronchitis acute [facility] Work Phone: Evaluation note* Diagnosis Onset Date Resolution Status Bronchitis acute [facility] Work Phone: Evaluation note* Diagnosis Onset Date Resolution Status Admit Date Cerebral palsy acute May 3:18pm Generalized anxiety disorder acute June 05, 2025 3:18pm Heart failure acute May 3:18pm Hypertension acute June 05, 2025 3:18pm Insomnia acute June 05, 2 025 3:18pm Nicotine dependence acute 2024 3:18pm Paroxysmal A-fib acute May 242024 3:18pm Screening for breast cancer acute June 05, 2025 3:18pm Screening for lung cancer acute June 05, 2025 3:18pm [facility] Work Phone: Reason for referral (narrative)No reason for referral information available[facility] Work Phone: Summary Purpose Family History Relationship Condition Age at Onset Recorded Date/T claire father Heart disease Unknown Not Specified Malignant neoplasm Unknown Relationship Condition Age at Onset Recorded Date/T claire father Heart disease Unknown mother Malignant neoplasm Unknown Advance Directives Advance Directive Response Recorded Date/ Time Advance Directives No March 30 12:17pm Advance Directive Response Recorded Date/ Time Advance Directives No March 30 11:17am Chief Complaint and Reason for Visit Chief Complaint Establish Reason for Visit Cerebral palsy Generalized anxiety disorder Hypertension Chief Complaint Establish [phone]- cough, congestion, fever Reason for Visit Cerebral palsy Generalized anxiety disorder Hypertension Insomnia Bronchitis Chief Complaint [phone]- cough, congestion, fever 3 month f/u Reason for Visit Bronchitis Chief Complaint Admit Date VIRTUAL: 3 month f/u October 11, 2024 1:56pm CC Adult Risk Stratification October 182023 11:07am Amb Documentation November 16, 2024 9 :31am [facility]:Heart Cath November 27, 2024 1 :49pm Reason for Visit Admit Date Cerebral palsy October 11, 2024 1:56pm Generalized anxiety disorder October 112023 1:56pm Hypertension October 11, 2024 1:56pm Insomnia October 11, 2024 1:56pm Cerebral palsy November 27, 2024 1 :49pm Chief Complaint Admit Date VIRTUAL: 3 month f/u October 11, 2024 1:56pm CC Adult Risk Stratification October 182023 11:07am Amb Documentation November 16, 2024 9 :31am [facility]:Heart Cath November 27, 2024 1 :49pm VIRTUAL: 3 month f/u December 31, 2024 1: 52pm Reason for Visit Admit Date Cerebral palsy October 11, 2024 1:56pm Generalized anxiety disorder October 112023 1:56pm Hypertension October 11, 2024 1:56pm Insomnia October 11, 2024 1:56pm Celiac artery atherosclerosis November 272024 1:49pm Cerebral palsy November 27, 2024 1 :49pm Heart failure November 27, 2024 1 :49pm Hospital discharge follow-up November 1:49pm Hypertension November 27, 2024 1 :49pm Noncompliance November 27, 2024 1 :49pm NSTEMI (non-ST elevated myocardial infar ction) November 27, 2024 1:49pm Paroxysmal A-fib November 27, 2024 1 :49pm Chief Complaint Admit Date med refills June 05, 2025 3: 18pm Reason for Visit Admit Date Cerebral palsy June 05, 2025 3: 18pm Generalized anxiety disorder May 3:18pm Heart failure June 05, 2025 3: 18pm Hypertension June 05, 2025 3: 18pm Insomnia June 05, 2025 3: 18pm Nicotine dependence June 05, 2025 3: 18pm Paroxysmal A-fib June 05, 2025 3: 18pm Screening for breast cancer June 05, 2025 3:18pm Screening for lung cancer June 05 3:18pm Additional Source Comments INFORMATION SOURCE (unrecogn ized section and content) DATE CREATED AUTHOR 04/01/2023 [facility] DATE CREATED AUTHOR AUTHOR'S ORGANIZ ATION 01/19/2024 [facility] EPIC DATE CREATED AUTHOR AUTHOR'S ORGANIZ ATION 01/07/2025 [facility] Care Teams (unrecognized sec tion and content) Team Status: Active Member Role Status Dates Ro Dennison APRN ULTRASOUND TECHNOL-C Primary Care Provider Active Team Status: Active Member Role Status Dates Kamar Gotti MD Attending Provider Active Start: March 05, 2024 Team Status: Inactive Member Role Status Dates Ro Dennison APRN ULTRASOUND TECHNOL-C Primary Care Provider, Attending Provider Active Start: April 10, 2024 End: April 10, 2024 Team Status: Inactive Member Role Status Dates Ro Dennison APRN ULTRASOUND TECHNOL-C Primary Care Provider, Attending Provider Active Start: April 16, 2024 End: April 16, 2024 Team Status: Active Member Role Status Dates Ro Dennison APRN ULTRASOUND TECHNOL-C Primary Care Provider, Attending Provider Active Start: May 16, 2024 Team Status: Inactive Member Role Status Dates Ro Dennison APRN ULTRASOUND TECHNOL-C Primary Care Provider, Attending Provider Active Start: July 12, 2024 End: July 12, 2024 Team Status: Inactive Member Role Status Dates Ro Dennison APRN ULTRASOUND TECHNOL-C Primary Care Provider, Attending Provider Active Start: October 11, 2024 End: October 11, 2024 Team Status: Active Member Role Status Dates oR Dennison APRN ULTRASOUND TECHNOL-C Primary Care Provider, Attending Provider Active Start: October 18, 2024 Team Status: Active Member Role Status Dates Ro Dennison APRN ULTRASOUND TECHNOL-C Primary Care Provider Active Start: October Ambar Hill DO Attending Provider Active Sta rt: November 10, 2024 Team Status: Active Member Role Status Dates Ro Dennison APRN ULTRASOUND TECHNOL-C Primary Care Provider Active Start: October Azeb Shaikh CMA Attending Provider Active Start: November 16, 2024 Team Status: Active Member Role Status Dates Ro Dennison APRN ULTRASOUND TECHNOL-C Primary Care Provider Active Start: October h2024 ЕКАТЕРИНА Purdy Attending Provider Active Start: November 21, 2024 Team Status: Inactive Member Role Status Dates Ro Dennison APRN ULTRASOUND TECHNOL-C Primary Care Provider, Attending Provider Active Start: November 27, 2024 End: November 27, 2024 Team Status: Active Member Role Status Dates Ro Dennison APRN ULTRASOUND TECHNOL-C Primary Care Provider Active Start: October Alcides Montalvo DO Attending Provider Active Sta rt: November 12, 2024 Team Status: Inactive Member Role Status Dates Ro Dennison APRN ULTRASOUND TECHNOL-C Primary Care Provider, Attending Provider Active Start: December 31, 2024 End: December 31, 2024 Team Status: Inactive Member Role Status Dates Ro Dennison APRN ULTRASOUND TECHNOL-C Primary Care Provider Active Start: June 05, 2025 End: June 05, 2025 Ro Dennison APRN ULTRASOUND TECHNOL-C Attending Provider Act soni Start: June 05, 2025 End: June 05, 2025 Goals (unrecognized section and content) Goals may [...] BE BASED ON THE PRIMARY CLINICAL RECORDS. [employer] provides no warranty or guarantee of the accuracy or completeness of information in this document.
[2025-06-20 10:52] LABS: Cholesterol 171 mg/dL (<=200); HDL Cholesterol 69 mg/dL (40-60); Triglycerides 48 mg/dL (<=150); VLDL CHOLESTEROL 9.6 mg/dL
== END 2025-06-20 10:04 | disposition home or self-care (01) ==
LOC: CT 10:03
PROVIDERS: PCP Nurse Practitioner Family; Visit Provider Nurse Practitioner Family
DX: Z12.31 Encounter for screening mammogram for malignant neoplasm of breast (principal); Z12.2 Encounter for screening for malignant neoplasm of respiratory organs; F17.200 Nicotine dependence, unspecified, uncomplicated; I50.9 Heart failure, unspecified; J44.9 Chronic obstructive pulmonary disease, unspecified; R91.8 Other nonspecific abnormal finding of lung field; I11.0 Hypertensive heart disease with heart failure
CPT/HCPCS: 36415; 71271; 77067; 80061